=== PATIENT | female | born 1960 | race Two or more races ===

== ENCOUNTER → 2020-05-29 09:51 | Outpatient (BNVA) | payer OTHER, SELFPAY | PROVIDERS: PCP Internal Medicine; Visit Provider Physician Assistant | DX: Z01.89 Encounter for other specified special examinations (principal) | CPT/HCPCS: 99211 ==

== ENCOUNTER → 2020-05-30 15:40 | Outpatient (BNVA) | payer OTHER, SELFPAY | PROVIDERS: PCP Nurse Practitioner Family; Visit Provider Dietitian, Registered | DX: Z76.89 Persons encountering health services in other specified circumstances (principal) ==

== ENCOUNTER → 2020-05-30 15:40 | Outpatient (BNVA) | payer OTHER, SELFPAY | PROVIDERS: PCP Nurse Practitioner Family; Visit Provider Dietitian, Registered | DX: E66.3 Overweight (principal) ==

== ENCOUNTER → 2020-06-06 10:15 | Outpatient (BNVA) | payer OTHER, SELFPAY | PROVIDERS: PCP Nurse Practitioner Family; Referring Provider Nurse Practitioner Family; Visit Provider Internal Medicine Cardiovascular Disease | DX: Z01.810 Encounter for preprocedural cardiovascular examination (principal); I42.9 Cardiomyopathy, unspecified; Z98.84 Bariatric surgery status | CPT/HCPCS: 93005; 99212 ==

== ENCOUNTER → 2020-07-11 09:25 | Outpatient (BNVA) | payer OTHER, SELFPAY | PROVIDERS: PCP Nurse Practitioner Family; Referring Provider Nurse Practitioner Family; Visit Provider Physician Assistant | DX: Z76.89 Persons encountering health services in other specified circumstances (principal) ==

== ENCOUNTER → 2020-07-15 10:32 | Outpatient (BNVA) | payer OTHER, SELFPAY | PROVIDERS: PCP Nurse Practitioner Family; Visit Provider Surgery | DX: E66.3 Overweight (principal); M79.3 Panniculitis, unspecified | CPT/HCPCS: 99212 ==

== ENCOUNTER → 2020-10-11 09:51 | Outpatient (BNVA) | payer OTHER, SELFPAY | PROVIDERS: PCP Nurse Practitioner Family; Visit Provider Physician Assistant | DX: M79.3 Panniculitis, unspecified (principal); Z90.3 Acquired absence of stomach [part of]; L98.7 Excessive and redundant skin and subcutaneous tissue | CPT/HCPCS: 99212 ==

== ENCOUNTER → 2020-10-28 08:11 | Outpatient (BNVA) | payer OTHER, SELFPAY | PROVIDERS: PCP Nurse Practitioner Family; Visit Provider Surgery ==

== ENCOUNTER 2020-10-31 08:16 | Inpatient (IN) | payer OTHER, SELFPAY ==
[2020-10-29 10:41] LABS: Basophils Percent Auto 0.6 % (0-2); Hemoglobin 12.8 g/dl (12.0-16.0); INTERNATIONAL NORM RATIO 1.1 (0.9-1.1); Lymphocytes Absolute Auto 2.1 X10*3/uL (1.2-4.9); MANUAL DIFF FLAG SCAN; Neutrophils Percent Auto 47.9 % (45-73); Prothrombin Time 12.7 SEC (10.8-13.0); SCAN SMEAR FLAG 1
[2020-10-29 10:43] LABS: Hematocrit 41.1 % (37-47); Lymphocytes Percent Auto 45.9 % (20-40); Mean Corpuscular HGB Conc 31.1 g/dl (31.0-35.0); Mean Corpuscular Hemoglobin 26.1 pg (27.0-33.0); Mean Corpuscular Volume 83.9 fL (80-98); Mean Platelet Volume 11.9 fL (9.4-12.3); Monocytes Absolute Auto 0.3 X10*3/uL (0.1-1.2); Monocytes Percent Auto 5.6 % (2-11); Neutrophils Absolute Auto 2.2 X10*3/uL (2.0-8.3); Platelet Count 156 X10*3/uL (160-400); Red Cell Distribution Width 16.4 % (11.0-16.0); White Blood Count 4.6 X10*3/uL (4.8-10.8)
[2020-10-29 10:50] LABS: Estimated Average Glucose 105 mg/dL; Hemoglobin A1c % 5.3 %
[2020-10-29 10:52] LABS: Alanine Aminotransferase 119 U/L (0-31); Albumin Level 4.3 g/dL (3.5-5.0); Alkaline Phosphatase 85 U/L (39-117); Anion Gap 9 (12-20); Aspartate Amino Transferase 52 U/L (5-31); Bilirubin Total 0.4 mg/dL (0.0-1.0); Blood Urea Nitrogen 22 mg/dL (9-16); C Reactive Protein 0.05 mg/dL (< or = 0.50); Carbon Dioxide 30 mmol/L (22-29); Chloride 109 mmol/L (96-108); Cholesterol 191 mg/dL; Estimated Glomerular Filt Rate > 60; Glucose Random 88 mg/dL (60-115); HDL Cholesterol 73 mg/dL; LDL Cholesterol Calculated 106 mg/dl; PLT ABN DIST 1; Sodium 144 mmol/L (135-145); Total Protein 7.1 g/dL (6.5-8.0); Triglycerides 62 mg/dL
[2020-10-29 11:14] LABS: Ferritin 89 ng/mL (10-250); TSH reflex Free T4 0.66 uIU/mL (0.32-4.0); Vitamin D 25-OH Total 50.5 ng/mL (>30)
[2020-10-29 11:22] LABS: Vitamin B12 1408 pg/mL (200-900)
[2020-10-29 11:55] VITALS: BMI 27.1
--- NOTE | 2020-10-29 12:09 | HO.ANESPROP2 ---
Documented by User: Una Diane 10/30/20 11:54 HPI - Anesthesia Eval Consult details Narrative: 60yo F for Panniculectomy Weight loss surgery 2018 Cardiac cleared at low risk for total knee 05/2020. No change in cardiac symptoms. Coumadin for h/o DVT (2013) PMFSH Active Problems Active Problems: All Active Problems (Updated 10/29/20 @ 11:46 by Patricia Stevens) Cardiomyopathy (Acute) Preoperative cardiovascular examination (Acute) Overweight (Acute) Panniculitis (Acute) Excess skin of thigh (Acute) Excess skin of upper extremity (Acute) History of sleeve gastrectomy (Acute) Past Medical History Medical History Anxiety and depression Asthma Cardiomyopathy History of COVID-19 History of seizure Hx of deep venous thrombosis Hx of diabetes insipidus Hx of glaucoma Osteoarthritis Schizoaffective disorder Family History Family History Father Liver cancer Diabetes Mother Diabetes CAD (coronary artery disease) Kidney disease Sister Lupus Surgical History Surgical History H/O: hysterectomy History of corneal transplant History of gastric surgery History of right knee joint replacement History of sleeve gastrectomy History of tonsillectomy Social History Social History Are you a primary residential child care counselor to a significant other at home: No Do you presently have visiting nurse or other home services: Yes ( nurse comes in the morning for medications, [employer] in the afternoon ) Smoking Status: Never smoker Use of substances other than those prescribed or required for medical reasons: No Have you been hit, kicked, punched, or otherwise hurt by someone within the past year? If so, by whom?: No Advance Directives: No Advance Directives Information Provided: No Advance Directives on File: No Recently lost weight without trying: No Meds Allergies Allergy/AdvReac Type Severity Reaction Status Date / Time morphine [MORPHINE] Allergy Intermediate Confusion Verified 10/29/20 11:54 chocolate AdvReac Intermediate Nausea and Uncoded 10/29/20 11:54 Vomiting feathers AdvReac Itching Uncoded 10/31/20 10:16 Home Medications Medication Instructions Recorded Confirmed Last Taken Type acetaminophen 500 mg capsule 1,000 mg PO TID PRN 06/06/20 10/28/20 Unknown History albuterol sulfate 90 mcg/actuation 2 puff INHALATION Q6H PRN 06/06/20 10/28/20 Unknown History aerosol inhaler atorvastatin 40 mg tablet 40 mg PO DAILY 06/06/20 10/28/20 Unknown History brimonidine 0.1 % eye drops 1 drp OPHTHALMIC-LEFT BID 06/06/20 10/28/20 Unknown History clozapine 100 mg tablet 100 mg PO TID 06/06/20 10/28/20 10/31/20 History dorzolamide 2 % eye drops 1 drp OPHTHALMIC-LEFT BID 06/06/20 10/28/20 Unknown History ipratropium bromide 21 mcg (0.03 1 spray INTRANASAL BID PRN 06/06/20 10/28/20 Unknown History %) nasal spray levothyroxine 125 mcg tablet 125 mcg PO DAILY 06/06/20 10/28/20 10/31/20 History metoprolol succinate 25 mg 25 mg PO DAILY 06/06/20 10/28/20 Unknown History tablet,extended release 24 hr timolol 0.5 % eye drops 1 drp OPHTHALMIC (EYE) BID 06/06/20 10/28/20 Unknown History topiramate 25 mg tablet 25 mg PO BID 06/06/20 10/28/20 Unknown History venlafaxine 150 mg 150 mg PO DAILY 06/06/20 10/28/20 10/31/20 History capsule,extended release 24 hr warfarin 5 mg tablet 5 mg PO DAILY 06/06/20 10/28/20 10/23/20 History glucosamine sulfate 500 mg tablet 500 mg PO DAILY 07/15/20 10/28/20 Unknown History multivitamin 1 tab PO DAILY 07/15/20 10/28/20 Unknown History buspirone 7.5 mg PO DAILY 10/31/20 10/31/20 History clozapine 200 mg PO BEDTIME 10/31/20 Unknown History lactulose 15 ml PO Q OTHER DAY PRN 10/31/20 Unknown History polyethylene glycol 3350 [Gavilax] 17 g PO DAILY PRN 10/31/20 Unknown History venlafaxine 75 mg PO DAILY 10/31/20 10/31/20 History Exam Exam Date and Time: October 29, 2020 120 Height,Weight and Vital Signs: Height 5 ft 4 in Weight 71.668 kg Pertinent Lab Results Pertinent Lab Results: Laboratory Tests 10/29/20 10/29/20 10/29/20 09:30 09:30 09:30 WBC 4.6 L RBC 4.90 Hgb 12.8 Hct 41.1 MCV 83.9 MCH 26.1 L MCHC 31.1 RDW 16.4 H Plt Count 156 L MPV 11.9 Immature Gran % (Auto) 0.0 Neut % (Auto) 47.9 Lymph % (Auto) 45.9 H Mckean % (Auto) 5.6 Eos % (Auto) 0.0 Baso % (Auto) 0.6 Lymph # (Auto) 2.1 Mckean # (Auto) 0.3 Eos # (Auto) 0.0 Baso # (Auto) 0.0 Abs Immat Gran (auto) 0.00 Absolute Neuts (auto) 2.2 Absolute Nucleated RBC 0.000 Nucleated RBC % (auto) 0.0 Smear Tech's Comments Not Reportable PT 12.7 INR 1.1 APTT 34.0 Sodium 144 Potassium 4.0 Chloride 109 H Carbon Dioxide 30 H Anion Gap 9 L BUN 22 H Creatinine 0.90 Estim Creat Clear Calc TNP Estimated GFR > 60 Random Glucose 88 Estimat Average Glucose Hemoglobin A1c % Calcium 9.0 Ferritin 89 Total Bilirubin 0.4 AST 52 H ALT 119 H Alkaline Phosphatase 85 C-Reactive Protein 0.05 Total Protein 7.1 Albumin 4.3 Triglycerides 62 Cholesterol 191 LDL Cholesterol, Calc 106 HDL Cholesterol 73 Vitamin B12 25-OH Vitamin D Total 50.5 TSH 0.66 Blood Type Antibody Screen 10/29/20 10/29/20 10/29/20 09:30 09:30 09:30 WBC RBC Hgb Hct MCV MCH MCHC RDW Plt Count MPV Immature Gran % (Auto) Neut % (Auto) Lymph % (Auto) Mckean % (Auto) Eos % (Auto) Baso % (Auto) Lymph # (Auto) Mckean # (Auto) Eos # (Auto) Baso # (Auto) Abs Immat Gran (auto) Absolute Neuts (auto) Absolute Nucleated RBC Nucleated RBC % (auto) Smear Tech's Comments PT INR APTT Sodium Potassium Chloride Carbon Dioxide Anion Gap BUN Creatinine Estim Creat Clear Calc Estimated GFR Random Glucose Estimat Average Glucose 105 Hemoglobin A1c % 5.3 Calcium Ferritin Total Bilirubin AST ALT Alkaline Phosphatase C-Reactive Protein Total Protein Albumin Triglycerides Cholesterol LDL Cholesterol, Calc HDL Cholesterol Vitamin B12 1408 H 25-OH Vitamin D Total TSH Blood Type B Positive Antibody Screen NEGATIVE Narrative Narrative: EKG 05/2020 NSR 1st degree block Poor R wave progression Echo 2018 LVEF 50-55%, nml RV function, No valve pathology Stress MIBI 2017 Neg for ischemia Assessment and Plan Assessment Anesthesia Assessment: Chart Reviewed Documented by User: Raul Ambriz 10/31/20 10:40 PMFSH Past Medical History Medical History Anxiety and depression Asthma Cardiomyopathy History of COVID-19 History of seizure Hx of deep venous thrombosis Hx of diabetes insipidus Hx of glaucoma Osteoarthritis Schizoaffective disorder Family History Family History Father Liver cancer Diabetes Mother Diabetes CAD (coronary artery disease) Kidney disease Sister Lupus Surgical History Surgical History H/O: hysterectomy History of corneal transplant History of gastric surgery History of right knee joint replacement History of sleeve gastrectomy History of tonsillectomy Social History Social History Are you a primary residential child care counselor to a significant other at home: No Do you presently have visiting nurse or other home services: Yes ( nurse comes in the morning for medications, [employer] in the afternoon ) Smoking Status: Never smoker Use of substances other than those prescribed or required for medical reasons: No Have you been hit, kicked, punched, or otherwise hurt by someone within the past year? If so, by whom?: No Advance Directives: No Advance Directives Information Provided: No Advance Directives on File: No Recently lost weight without trying: No Meds Allergies Allergy/AdvReac Type Severity Reaction Status Date / Time morphine [MORPHINE] Allergy Intermediate Confusion Verified 10/29/20 11:54 chocolate AdvReac Intermediate Nausea and Uncoded 10/29/20 11:54 Vomiting feathers AdvReac Itching Uncoded 10/31/20 10:16 Home Medications Medication Instructions Recorded Confirmed Last Taken Type acetaminophen 500 mg capsule 1,000 mg PO TID PRN 06/06/20 10/28/20 Unknown History albuterol sulfate 90 mcg/actuation 2 puff INHALATION Q6H PRN 06/06/20 10/28/20 Unknown History aerosol inhaler atorvastatin 40 mg tablet 40 mg PO DAILY 06/06/20 10/28/20 Unknown History brimonidine 0.1 % eye drops 1 drp OPHTHALMIC-LEFT BID 06/06/20 10/28/20 Unknown History clozapine 100 mg tablet 100 mg PO TID 06/06/20 10/28/20 10/31/20 History dorzolamide 2 % eye drops 1 drp OPHTHALMIC-LEFT BID 06/06/20 10/28/20 Unknown History ipratropium bromide 21 mcg (0.03 1 spray INTRANASAL BID PRN 06/06/20 10/28/20 Unknown History %) nasal spray levothyroxine 125 mcg tablet 125 mcg PO DAILY 06/06/20 10/28/20 10/31/20 History metoprolol succinate 25 mg 25 mg PO DAILY 06/06/20 10/28/20 Unknown History tablet,extended release 24 hr timolol 0.5 % eye drops 1 drp OPHTHALMIC (EYE) BID 06/06/20 10/28/20 Unknown History topiramate 25 mg tablet 25 mg PO BID 06/06/20 10/28/20 Unknown History venlafaxine 150 mg 150 mg PO DAILY 06/06/20 10/28/20 10/31/20 History capsule,extended release 24 hr warfarin 5 mg tablet 5 mg PO DAILY 06/06/20 10/28/20 10/23/20 History glucosamine sulfate 500 mg tablet 500 mg PO DAILY 07/15/20 10/28/20 Unknown History multivitamin 1 tab PO DAILY 07/15/20 10/28/20 Unknown History buspirone 7.5 mg PO DAILY 10/31/20 10/31/20 History clozapine 200 mg PO BEDTIME 10/31/20 Unknown History lactulose 15 ml PO Q OTHER DAY PRN 10/31/20 Unknown History polyethylene glycol 3350 [Gavilax] 17 g PO DAILY PRN 10/31/20 Unknown History venlafaxine 75 mg PO DAILY 10/31/20 10/31/20 History Exam Airway Mallampati Class: II TM Dist: >3cm Neck ROM: Full Denture: Upper and Lower Heart: [id number] Lungs: CTA b/l Assessment and Plan Assessment Anesthesia Assessment: Anesthesia Plan Discussed, PAT Visit and Chart Reviewed Final Anesthetic Review NPO: Yes ASA Class: II and III Final Preanesthetic Review: No Changes in Pt Med Stat, Meds/Allgs Chart Reviewed, Consent Obtained/Reviewed and Anes Risks/Benef Reviewed Procedure Risk: Low Anesthetic Plan Anesthetic Plan: GA and Agree w/ Assess. and Plan Disposition: Standard PACU
[2020-10-30 08:57] LABS: Insulin Level Total 1.4 uIU/mL
[2020-10-30 15:01] LABS: Calcium (PTHI) 9.6 mg/dL (8.6-10.4); PTHI 44 pg/mL (14-64)
--- NOTE | 2020-10-30 18:17 | MHC.SHP ---
Pre-Procedural Eval Section A The patient is an INPATIENT: Yes The History & Physical has been completed within 30 days and I have reviewed it.: Yes Section B Chief Complaint: panniculitis Relevant Family History (Specify if Yes): No Relevant Social History: None Present Medications: see Short Stay Collaborative assessment Medical History: No relevant PMH History of Previous Operations: Relevant previous surgery/procedure and date(s) (sleeve gastrectomy) Allergies: Allergies Allergy/AdvReac Type Severity Reaction Status Date / Time morphine [MORPHINE] Allergy Intermediate Confusion Verified 10/29/20 11:54 chocolate AdvReac Intermediate Nausea and Uncoded 10/29/20 11:54 Vomiting Review of Systems Sugical H&P ROS: Negative: Constitution, Cardiovascular, Respiratory, Neurological, Psychiatric, Hem-Onc, Allergic/Immunologic, Gastrointestinal, Genitourinary, Musculoskeletal, Integumentary, Endocrine and Eyes/Ears/Nose/Throat Exam Surgical H&P Exam: Normal: HEENT, Normal: Heart, Normal: Lungs, Normal: Extremities, Normal: Abdomen, Normal: Skin and Normal: Neurological Plan Diagnosis/Plan: Unchanged I have reviewed the history and physical and performed a pertinent physical examination on my patient. No changes have occurred unless specified.
[2020-10-31] VITALS (29 sets, daily range): BP systolic 94–139; BP diastolic 43–79; PULSE 64–71; RESP 9–18; TEMP 36–36.4; O2SAT 95–100
[2020-10-31 08:48] LABS: INTERNATIONAL NORM RATIO 1.1 (0.9-1.1); Prothrombin Time 12.5 SEC (10.8-13.0)
[2020-10-31 08:53] LABS: COVID-19 Test Negative (Negative)
[2020-10-31] MEDS: Lactated Ringers 1,000 ML 100 ML IVCONT (09:01)
--- NOTE | 2020-10-31 10:22 | P.PNGS_ITS ---
Subjective Subjective Date of Service: 11/01/20 Interval history: Patient has mild incisional pain. Is tolerating phase 2 bariatric diet. She was on bedrest. Dressings were taken down and all incisions were inspected and appeared viable without ischemia. No significant discharge, dehiscence or bleeding. Physical Exam Vital Signs: Vital Signs: Last Vital Signs Temp 97.6 F 10/31/20 08:45 Pulse 66 10/31/20 08:45 Resp 16 10/31/20 08:45 BP 116/53 L 10/31/20 08:45 Pulse Ox 97 10/31/20 08:45 Body Mass Index 27.1 GI: Inspection: Yes incision (clean, dry and intact. Umbilicus is viable) and Yes other (GERRY with serosanguinous fluid) Extrem: Right lower extremity: normal to inspection (no calf tenderness) Left lower extremity: normal to inspection (no calf tenderness) Progress Note: A&P Assessment and plan (1) Panniculitis: Status: Acute Assessment and Plan: 60 year old female was admitted 10/31/2020 with panniculitis. Problem 1: s/p panniculectomy with umbilical transposition and bilateral subcutaneous fat flaps Status: Doing well Plan: Check am labs, If OK, ambulate, d/c Chavarria will continue phase 1 bariatric diet and discharge later today. (2) S/P panniculectomy: Status: Acute (3) History of sleeve gastrectomy: Problem details: May 2018 Status: Acute (4) Excess skin of upper extremity: Status: Acute Fall Risk Details Current Medications: Current Medications Generic Name Dose Route Start Last Admin Trade Name Freq PRN Reason Stop Dose Admin Albuterol Sulfate 2.5 mg 10/31/20 08:15 Albuterol Sulfate (0.083%) 2.5 Mg/3 Ml Vial.Neb INHALE ONCE PRN Shortness of Breath/Wheezing Lactated Ringer's 1,000 mls @ 100 mls/hr 10/30/20 18:30 10/31/20 09:01 Lr IVCONT 100 mls/hr .Q10H CHASITY Administration Lactated Ringer's 1,000 mls @ 50 mls/hr 10/31/20 08:15 Lr IV .Q20H CHASITY Time Spent With Patient Time: Total time spent is greater than 50% in coordination of care (as d ocumented) at patient's floor/unit and/or counseling patient: Time with patient: less than 15 minutes
--- NOTE | 2020-10-31 10:25 | P.BOP_ITS ---
Brief Operative Note Date of Service: 10/31/20 Pre-op diagnosis: Panniculitis with grade 3 skin laxity Post-op diagnosis: same Procedure: PROCEDURE: Panniculectomy with umbilical transposition and bilateral subcutaneous flaps INDICATION: This a 60 year old female who underwent laparoscopic sleeve gastrectomy on 05/31/2018. She had an excellent result achieving a BMI of 26.8 kg/m2 with a total weight loss of 178lbs, or 52.62% of her TBWL. As a result, she has developed panniculitis which has not resolved despite continuous use of clotrimazole ointment. On exam she has extreme skin laxity due to massive weight loss and age with the abdominal pannus completely hiding the genitalia. Panniculectomy was recommended. We discussed the two options for the panniculectomy of using a combined vertical and horizontal incisions or just a horizontal (bikini) incision. It was my recommendation to do the combined vertical and horizontal incisions based on her body habitus and skin laxity. The patient agreed with this. Risks and complications were discussed with the patient including bleeding, infection, umbilical loss, flap necrosis, asymmetry, dehiscence, seroma, VTE. The patient understood the risks and was in agreement to proceed with surgery. PROCEDURE: The incisions were appropriately marked at the preop area with the patient standing and laying down. After induction of general anesthesia a Chavarria catheter and pneumatic compression devices were placed. The patient was prepped and draped in the usual sterile manner and the incisions were marked again and confirmed. The skin was infiltrated with lidocaine and epinephrine. The #10 blade scalpel was used for the large incisions and the #15 blade scalpel for the umbilicus. Cautery was used to divide the subcutaneous tissues until the fascia was identified. Then I used the Thunderbeat (Olympus) to separate the pannus from the fascia. The inferior incision was made initially and I mobilized the flap for a several centimeters cephalad to the umbilicus. The umbilicus was incised circumferentially and detached from the surrounding tissues all the way to the fascia while its stalk was preserved. With the patient in reflex position I confirmed that the skin flaps were approp riate and would allow for the tissues to come together with reasonable tension. The vertical incisions were then made in a same manner. #10 blade was used for the skin, cautery for the dermis and the Thunderbeat for the remaining tissues. A bilateral subcutaneous fat flap was raised from the upper incision in order to fill the space under the skin and support the closure of the two skin flaps. In addition the inferior flap was mobilized caudally for a few centimeters to create a space for the omental flap as well as relieve tension from the closure. A circumferential incision was made at the area where the umbilicus would be re- implanted. The umbilicus was appropriately oriented and was delivered through the defect and was secured in place with a Rizwan. No bleeding was noted anywhere. Two GERRY drains were placed from the left and right corners of the horizontal incision across the wound and was secured in place with a silk suture. The subcutaneous fat flap was secured under the inferior flap with several interrupted 2.0 Monocryl sutures. The two flaps were brought together and were attached at the midline of the horizontal incision with a #2.0 Monocryl suture. At that point the umbilicus was properly oriented and was re-approximated to the skin with 8 interrupted 3.0 Monocryl sutures. In a similar fashion the skin flaps were re-approximated with multiple 3.0 Monocryl sutures. The skin was closed in all incisions and umbilicus with 4.0 Monocryl sutures. Steri-strips, xeroform gauzes and gauzes were used to cover the incisions. An abdominal binder was also placed. The was awaken and was transferred to the recover room in a stable condition. I was present and performed the entire procedure. Slaughter was the health care legal assistant. Camilo Mariano MD, PhD, FACS Surgeon: Harsha Mariano MD Anesthesia: GETA and local Bottle And Glass Inspector: Neda Slaughter Estimated blood loss (mL): 25 Tourniquet time (min): 0 IV fluids (mL): 1,500 Urine output (mL): 200 Pathology: other (abdominal pannus) Condition: stable Disposition: PACU
--- NOTE | 2020-10-31 15:07 | PM.DS ---
DS: Providers Provider Date of Service: 11/01/20 Date of admission: 10/31/20 08:16 Primary care physician: Unique Billy MD DS: Diagnosis Discharge Diagnosis (1) Panniculitis: Status: Acute DS: Medications Discharge Medications Home Medications: Home Medications Medication Instructions Recorded Confirmed acetaminophen 500 mg capsule 1,000 mg PO TID PRN 06/06/20 10/28/20 albuterol sulfate 90 mcg/actuation 2 puff INHALATION Q6H PRN 06/06/20 10/28/20 aerosol inhaler atorvastatin 40 mg tablet 40 mg PO DAILY 06/06/20 10/28/20 brimonidine 0.1 % eye drops 1 drp OPHTHALMIC-LEFT BID 06/06/20 10/28/20 clozapine 100 mg tablet 100 mg PO TID 06/06/20 10/28/20 dorzolamide 2 % eye drops 1 drp OPHTHALMIC-LEFT BID 06/06/20 10/28/20 ipratropium bromide 21 mcg (0.03 1 spray INTRANASAL BID PRN 06/06/20 10/28/20 %) nasal spray levothyroxine 125 mcg tablet 125 mcg PO DAILY 06/06/20 10/28/20 metoprolol succinate 25 mg 25 mg PO DAILY 06/06/20 10/28/20 tablet,extended release 24 hr timolol 0.5 % eye drops 1 drp OPHTHALMIC (EYE) BID 06/06/20 10/28/20 topiramate 25 mg tablet 25 mg PO BID 06/06/20 10/28/20 venlafaxine 150 mg 150 mg PO DAILY 06/06/20 10/28/20 capsule,extended release 24 hr warfarin 5 mg tablet 5 mg PO DAILY 06/06/20 10/28/20 glucosamine sulfate 500 mg tablet 500 mg PO DAILY 07/15/20 10/28/20 multivitamin 1 tab PO DAILY 07/15/20 10/28/20 buspirone 7.5 mg PO DAILY 10/31/20 clozapine 200 mg PO BEDTIME 10/31/20 lactulose 15 ml PO Q OTHER DAY PRN 10/31/20 polyethylene glycol 3350 [Gavilax] 17 g PO DAILY PRN 10/31/20 venlafaxine 75 mg PO DAILY 10/31/20 Previous Rx's Medication Instructions Recorded vitamin A 10,000 unit capsule 1 cap PO DAILY #30 cap 06/04/20 calcium citrate 315 mg 2 tab PO BID #120 tab 08/12/20 calcium-vitamin D3 6.25 mcg (250 unit) tablet cephalexin 500 mg capsule 500 mg PO Q12H #30 cap 10/27/20 DS: Summary Time Spent with Patient Time attestation: DISCHARGE SUMMARY ADMITTING DIAGNOSIS: panniculitis, s/p lap sleeve gastrectomy. DISCHARGE DIAGNOSIS: The same. PAST SURGICAL HISTORY: Lap sleeve gastrectomy, R TKR, tonsillectomy. PROCEDURE: Panniculectomy. HISTORY OF PRESENT ILLNESS: The patient is a 60year-old woman with a BMI of 27.1 kg/m2 and associated co-morbidities as described previous. The patient had a laparoscopic sleeve gastrectomy May 2018 and has lost a total of 178.8lbs, or 52.6 % of her initial weight and her BMI reduced to 27.1 kg/m2. As a result of the massive weight loss she developed a large abdominal pannus and persistent panniculitis recalcitrant to medical treatment. The patient was electively scheduled for panniculectomy. Risks and complications of the surgery were discussed with the patient in advance, particularly the possibility of , pulmonary embolism, skin necrosis, loss of umbilicus, flap necrosis, wound dehiscence, flap asymmetry, bleeding requiring transfusion. The patient understood all the risks and was in agreement with the surgical plan. On postoperative day #1 the patient was started on Phase 3 bariatric diet. The Chavarria was discontinued. She was allowed to ambulate and she had no dizziness. During the first day, the patient did fairly well, having some incisional pain, but able to ambulate adequately and to tolerate liquids well. All dressings were taken down and the all incisions were inspected. There was no evidence of infection or bleeding or significant discharge. All flaps and umbilicus were viable and there was no dehiscence. GERRY drains had minimal output with serosanguinous fluid. Since the patient is doing well, we decided that the patient was ready to be discharged. The patient was given instructions to follow-up with me next week and to call my office for any fever over 101, persistent abdominal pain, nausea, vomiting, and symptoms of DVT such as calf tenderness, or leg swelling, or pulmonary embolism such as chest pain or shortness of breath. The patient was also instructed to drink 40-60 ounces of liquids per day using the 1-ounce cups and start on 3 Pure protein shakes per day. The patient was given prescription for Tylenol for pain, Zofran prn for nausea and a 10-day course of Keflex twice a day. The patient was encouraged to ambulate and use the incentive spirometer. However it was strongly recommended to do so with assistance and avoid any abdominal straining for at least one month. The patient was allowed only to do sponge baths, and encouraged to use the recliner at home and not the bed. All of these instructions were given to the patient personally. All questions were answered and the patient understood all instructions. The instructions were given to the patient in print as well. Total time spent providing and/or coordinating discharge services: 20 minutes Discharge coordination time: Less than 30 minutes Physical Exam Vital Signs: Vital Signs: Last Vital Signs Temp 97.5 F 10/31/20 14:51 Pulse 65 10/31/20 15:01 Resp 16 10/31/20 15:01 BP 94/47 L 10/31/20 15:01 Pulse Ox 100 10/31/20 15:01 Body Mass Index 27.1 DS: Data Data Completed and Pending Pending studies at discharge: Pending at discharge 10/31/20 13:50 Surgical [PTH] Routine Labs on day of discharge: Laboratory Results - last 24 hr 10/31/20 10/31/20 08:25 08:33 PT 12.5 INR 1.1 COVID-19 (LELE) Negative COVID-19 Clin Com See Note Discharge Plan Discharge Anticipated Discharge Date/Time: 11/01/20 12:01 Patient Disposition: Home Health Service Referrals: Cynthia [Outside] Unique Billy MD [Primary Care Provider] - Discharge Medications: Continued clozapine 100 mg tablet 300 mg PO BEDTIME RF: 0 buspirone 7.5 mg tablet 7.5 mg PO DAILY RF: 0 lactulose 10 gram/15 mL solution 15 ml PO Q OTHER DAY PRN (Reason: constipation) RF: 0 venlafaxine 75 mg tablet extended release 24hr 75 mg PO DAILY RF: 0 latanoprost 0.005 % Drops 1 drp OPHTHALMIC (EYE) DAILY RF: 0 loratadine 10 mg Tablet 10 mg PO DAILY PRN (Reason: Allergic Symptoms) RF: 0 acetaminophen 500 mg capsule 1,000 mg PO TID PRN (Reason: Pain) RF: 0 atorvastatin 40 mg tablet 40 mg PO DAILY RF: 0 Alphagan P 0.1 % drops 1 drp ophthalmic-Left BID RF: 0 clozapine 100 mg tablet 100 mg PO BID RF: 0 dorzolamide 2 % drops 1 drp ophthalmic-Left BID RF: 0 ipratropium bromide 0.03 % spray,non-aerosol 1 spray intranasal BID PRN (Reason: Allergic Reaction) RF: 0 levothyroxine 125 mcg tablet 125 mcg PO DAILY RF: 0 metoprolol succinate 25 mg tablet extended release 24 hr 25 mg PO DAILY RF: 0 timolol 0.5 % drops 1 drp ophthalmic (eye) BID RF: 0 topiramate 25 mg tablet 25 mg PO BID RF: 0 venlafaxine 150 mg capsule,extended release 24hr 150 mg PO DAILY RF: 0 Held warfarin 5 mg tablet 1 mg PO DAILY RF: 0 Hold Instructions: Discuss when to restart with Dr Dubosetopoulos Discontinued polyethylene glycol 3350 [Gavilax] 17 gram/dose powder 17 g PO DAILY PRN (Reason: constipation) RF: 0 Discharge Orders: Discharge Order (Routine); Ordered 11/01/20 Ordered By: Harsha Mariano Diet: other Activity on Discharge: Rest with bed elevated Stand Alone Forms: Patient Portal Discharge page Activity Restrictions/Additional Instructions: 1) Record drain output for all 24 hour periods on drain output sheet. Bring sheet at the next office visit 2) Start Keflex antibiotic 3) No showers. Only sponge baths 4) Avoid any tension on the abdomen and always have help getting up. Use your arms to push off from chair/bed. 5) Take 1 tab of Colace and one tablespoon of Metamucil daily 6) Diet: 4 protein shakes, or 3 shakes and one bar, or 3 shakes and one meal (2oz meat and 2oz salad) 7) Wear binder at all times 8) Change dressings daily and send pictures to Dr. Mariano. Replace loose steri-strips and xeroform gauze along the incisions and umbilicus. 9) Supplies needed: ABD pads, 4x4 dressings, xeroform gauze, 1/2'' steri-strips, paper tape. You will need to use several of the above supplies on a daily basis. 10) No Coumadin for now until Dr. Mariano tells you to re-start Care Plan Goals: resolution of panniculitis Health Concerns: panniculitis Plan of Treatment: see discharge instructions Assessment: POD # 1, stable after panniculectomy Discharge Date/Time: 11/01/20 14:50
[2020-10-31] MEDS: ceFAZolin Sodium/Dextrose,Iso 2 GM/50 ML PIGGYBACK IV (16:21)
--- NOTE | 2020-10-31 16:50 | PC.NURSE ---
DR. MAHONEY UPDATED PATIENT REMAINS IN PACU SOMNOLENT, VITAL SIGNS GIVEN TO [place] AND RECEIVED DOSE OF NARCAN FROM ANESTHESIA REMAINS VERY SLEEPY ONLY AROUSE TACTILE STIMULATIONS
[2020-10-31 17:03] LABS: Hematocrit 41.8 % (37-47); Hemoglobin 12.8 g/dl (12.0-16.0)
--- NOTE | 2020-10-31 17:43 | PC.NURSE ---
DR. REYES AND PARESH SWAIN, BARIATRIC PA, MADE AWARE ANESTHESIA EVALUATED PATIENT DR. GALLEGOS RECOMMENDATION TO ADMIT WITH CONTINUOUS PULSE OXIMETRY. ORDER RECEIVED FROM PARESH SWAIN.
[2020-10-31] MEDS: ondansetron HCL 4 MG/2 ML VIAL IVPUSH (19:41)
[2020-10-31] MEDS: 0.9 % Sodium Chloride Flush 3 ML SYRINGE IVFLUSH (19:41)
[2020-10-31] MEDS: Lactated Ringers 1,000 ML 125 ML IVCONT (19:42)
[2020-11-01] MEDS: Lactated Ringers 1,000 ML 125 ML IVCONT ×2 (01:17→09:31)
[2020-11-01 01:27] LABS: Zinc 79 mcg/dL (60-130)
[2020-11-01 04:00] VITALS: BP 112/53; PULSE 65; RESP 16; TEMP 36.6; O2SAT 100
[2020-11-01 06:22] LABS: MANUAL DIFF FLAG NO
[2020-11-01 06:49] LABS: Basophils Percent Auto 0.3 % (0-2); Hematocrit 38.7 % (37-47); Imm Gran Abs Auto 0.07 X10*3/uL (0.00-0.03); Imm Gran Pct Auto 0.6 % (0.0-0.4); Lymphocytes Absolute Auto 2.2 X10*3/uL (1.2-4.9); Lymphocytes Percent Auto 18.7 % (20-40); Mean Corpuscular Hemoglobin 26.3 pg (27.0-33.0); Mean Corpuscular Volume 84.7 fL (80-98); Monocytes Absolute Auto 0.9 X10*3/uL (0.1-1.2); Monocytes Percent Auto 7.4 % (2-11); Neutrophils Absolute Auto 8.5 X10*3/uL (2.0-8.3); Platelet Count 146 X10*3/uL (160-400); Red Blood Count 4.57 X10*6/uL (4.20-5.50); Red Cell Distribution Width 16.4 % (11.0-16.0); White Blood Count 11.7 X10*3/uL (4.8-10.8)
[2020-11-01 07:04] LABS: Alanine Aminotransferase 53 U/L (0-31); Albumin Level 3.4 g/dL (3.5-5.0); Alkaline Phosphatase 77 U/L (39-117); Anion Gap 12 (12-20); Aspartate Amino Transferase 21 U/L (5-31); Bilirubin Total < 0.2 mg/dL (0.0-1.0); Blood Urea Nitrogen 14 mg/dL (9-16); Calcium 8.8 mg/dL (8.4-10.2); Carbon Dioxide 27 mmol/L (22-29); Chloride 109 mmol/L (96-108); Creatinine Clr Calc Pharmacy 72.5; Estimated Glomerular Filt Rate > 60; Glucose Random 97 mg/dL (60-115); Potassium 4.3 mmol/L (3.3-5.1); Sodium 144 mmol/L (135-145); Total Protein 5.8 g/dL (6.5-8.0)
[2020-11-01] MEDS: cloZAPine 100 MG TABLET PO (07:21)
[2020-11-01 08:00] VITALS: BP 108/41; PULSE 70; RESP 16; TEMP 36.4; O2SAT 100
--- NOTE | 2020-11-01 09:29 | MHC.CM.PN ---
PATIENT LIVES ALONE. SHE USES A [facility]WW FOR AMBULATION ASSIST. SHE IS ALSO ACTIVE WITH [facility], WHICH WILL RESUME SOC Wednesday11/02/20. FRIEND PROVIDES TRANSPORT TO AND FROM SHOPPING. OTHER TIMES, PATIENT RELIES ON [facility] TRANSPORTATION. SHE IS EXPECTED TO RETURN HOME THIS AFTERNOON. HER RN LIZBETH ([phone]) IS AWARE OF PLAN.
--- NOTE | 2020-11-01 10:13 | HO.POSTANES ---
Post Anesthesia Evaluation Post Anesthesia Evaluation Vital Signs: Vital Signs Temp Pulse Resp BP Pulse Ox 11/01/20 08:00 97.5 F 70 16 108/41 L 100 11/01/20 04:00 97.8 F 65 16 112/53 L 100 10/31/20 23:13 96.8 F 64 18 108/50 L 100 Anesthesia: General Endotracheal-GETA Mental Status: Awake Pain Control: Satisfactory Nausea/Vomiting: None Hydration: Adequate Anesthesia-Related Issues: No Anes. Related Issues
[2020-11-01 10:38] VITALS: O2SAT 98
[2020-11-01] MEDS: ondansetron HCL 4 MG/2 ML VIAL IVPUSH (11:13)
[2020-11-01 11:26] VITALS: BP 114/55; PULSE 75; RESP 18; TEMP 35.9; O2SAT 98
--- NOTE | 2020-11-01 12:11 | MHC.CM.PN ---
PATIENT IS DISCHARGED HOME. RASHAUN SOTO ([phone]) AWARE.
[2020-11-01 21:07] LABS: Vitamin A 63 mcg/dL (38-98)
[2020-11-02 12:42] LABS: Vitamin B1 30 nmol/L (8-30)
== END 2020-11-01 14:50 | disposition home health service (06) | DRG 361 ==
LOC: HO.SSSA 15:07 → HO.S3 16:21
PROVIDERS: Nurse Practitioner; Physician Assistant; Admitting Provider Surgery; PCP Internal Medicine; Visit Provider Surgery
PROC: 0JB80ZZ Excision of Abdomen Subcutaneous Tissue and Fascia, Open Approach (ICD-10-PCS; CPT 15830; principal; 2020-10-31 10:10)
DX: M79.3 Panniculitis, unspecified (principal); Z20.822 Contact with and (suspected) exposure to COVID-19; Z96.651 Presence of right artificial knee joint; Z88.5 Allergy status to narcotic agent; Z98.84 Bariatric surgery status; Z79.01 Long term (current) use of anticoagulants; Z79.890 Hormone replacement therapy; Z79.899 Other long term (current) drug therapy
CPT/HCPCS: 15830; 36415; 80053; 80061; 82306; 82607; 82728; 83036; 83525; 83970; 84425; 84443; 84590; 84630; 85014; 85018; 85025; 85610; 85730; 86140; 86850; 86900; 87635; 88304; 99024; C1758; J0131; J0690; J1100; J1170; J2250; J2370; J2405; J3010

== ENCOUNTER → 2020-11-08 07:44 | Outpatient (BNVA) | payer OTHER, SELFPAY | PROVIDERS: PCP Internal Medicine; Visit Provider Surgery | DX: Z98.890 Other specified postprocedural states (principal) | CPT/HCPCS: 99212 ==

== ENCOUNTER → 2020-11-18 10:42 | Outpatient (BNVA) | payer OTHER, SELFPAY | PROVIDERS: PCP Internal Medicine; Visit Provider Surgery | DX: Z98.890 Other specified postprocedural states (principal) | CPT/HCPCS: 99212 ==

== ENCOUNTER → 2020-12-02 09:58 | Outpatient (BNVA) | payer OTHER, SELFPAY | PROVIDERS: PCP Internal Medicine; Visit Provider Surgery | DX: Z98.890 Other specified postprocedural states (principal) | CPT/HCPCS: 99212 ==

== ENCOUNTER → 2020-12-10 11:19 | Outpatient (BNVA) | payer OTHER, SELFPAY | PROVIDERS: PCP Internal Medicine; Visit Provider Nurse Practitioner Family | DX: Z01.810 Encounter for preprocedural cardiovascular examination (principal); I42.9 Cardiomyopathy, unspecified; E66.3 Overweight | CPT/HCPCS: 93005; 99212 ==

== ENCOUNTER → 2020-12-18 08:17 | Outpatient (BNVA) | payer OTHER, SELFPAY | PROVIDERS: PCP Internal Medicine; Visit Provider Surgery | DX: E66.3 Overweight (principal); Z98.890 Other specified postprocedural states; Z90.3 Acquired absence of stomach [part of] | CPT/HCPCS: 99212 ==

== ENCOUNTER → 2021-01-03 11:37 | Outpatient (REF) | payer OTHER, SELFPAY ==
--- NOTE | 2021-01-03 11:44 | CA_ITS ---
Transthoracic Echocardiogram Patient (Last, First, Middle): Maryanne Marquez, Gender: Female Date of : 1960 Age: 60 Procedure Date: 01/03/2021 Procedure Type: Transthoracic Echocardiogram Location: OP Height: 165.1 cm Weight: 67.13 kg BSA: 1.74 m2 Heart Rate: bpm BP: 94 / 40 mmHg Political Consultant: KELVIN Gaines MD: Kassie Egan BONE GRINDERShayy Contracts Attorney: Ran Cramer MD Symptoms: I42.9 - Cardiomyopathy, unspecified Study Quality: Good ECG Rhythm: Sinus Conclusions: - 1. Normal LV systolic function with impaired relaxation filling pattern 2. Normal cardiac valvular Doppler 3. No gross pericardial effusion Findings Left Ventricle Normal left ventricular size, thickness, and systolic function. The visually estimated ejection fraction is between 60-65%. Spectral Doppler is indicative of an impaired relaxation filling pattern. E/E prime ratio is between 8 and 15 consistent with indeterminate filling pressures. Right Ventricle Normal right ventricular cavity size and systolic function. Atria The left atrium is likely dilated. There is no evidence of interatrial shunt. The right atrium is normal in size. Aortic Valve Normal aortic valve structure and function. There is no aortic valve stenosis. There is no aortic valve regurgitation. Mitral Valve Normal mitral valve structure and function. There is trace mitral valve regurgitation. There is no mitral valve stenosis. Pulmonic Valve The pulmonic valve is likely normal. There is trace pulmonic valve regurgitation. Tricuspid Valve Normal tricuspid valve structure. Tricuspid regurgitation envelope is inadequate for calculation of right ventricular systolic pressure. Great Vessels All visible segments of the aorta are normal in size. The visualized portions of the pulmonary artery and branches are normal. Venous The inferior vena cava is normal in size and collapses greater than 50% with inspiration. Pericardium/Pleural There is no evidence of pericardial effusion. Prior Study Comparison Changes noted compared to prior study dated: 02/17/2019. LV systolic function is improved to 60 65% Measurements 2D Linear Measurements RVIDd: 3.22 RVIDd Index: 1.85 IVSd: 1.11 0.6-0.9/0.6-1.0 cm LVIDd: 4.56 3.9-5.3/4.2-5.9 cm LVIDd Index: 2.62 2.4-3.2/2.2-3.1 cm/m2 LVIDs: 3.37 2.0-3.6 cm LVPWd: 1.04 0.7-1.1 cm Ao Root: 3.30 2.1-3.5 cm LA Diam: 4.20 2.7-3.8/3.0-4.0 cm LAIDs Index: 2.41 1.5-2.3 cm/m2 LV Mass: 215.58 67-162/88-224 g LV Mass Index: 123.90 43-95/49-115 g/m2 LVOT Diam: 2.10 3.0+(-)1.3 cm 2D Systolic Function EF 4C: 64.00 >55% EF 2C: 59.80 >55% EF BiP: 62.80 >55% Mitral Valve MV Pk E: 0.42 MV PK A: 0.52 MV Decel Time: 139.00 E/A: 0.80 E'Lateral: 9.57 E'Medial: 7.72 E/E' Med: 5.50 E/E' Lat: 4.40 Aortic Valve AoV Pk Yohan: 1.06 AoV Mn Yohan: 0.86 AoV VTI: 0.22 AoV Pk Grad: 4.00 Aov Mn Grad: 3.00 FAN Cont.VTI: 2.37 LVOT LVOT Pk Yohan: 0.80 LVOT Mn Yohan: 0.56 LVOT VTI: 0.15 LVOT Pk Grad: 3.00 LVOT Mn Grad: 1.00 LVOT Diam: 2.10 LVOT Area: 3.46 Diastolic Function MV Pk E: 0.42 MV Pk A: 0.52 E/A: 0.80 E'Medial: 7.72 E/E' Med: 5.50 E' Laterial: 9.57 E/E' Lat: 4.40 Tricuspid Valve RA Press: 3.00 Great Vessels Aorta Ao Root-2D: 3.30 2.0-3.7 cm Ao Asc: 3.30 2.1-3.4 cm Ao Arch: 2.90 Updated in Other Vendor System with Status of Final Ran Cramer MD electronically signed on 01/05/2021 1:14:14 PM with status of Final
== END ==
LOC: HO.CARD 11:37
PROVIDERS: Visit Provider Nurse Practitioner Family
DX: Z01.810 Encounter for preprocedural cardiovascular examination (principal); I42.9 Cardiomyopathy, unspecified
CPT/HCPCS: 93306

== ENCOUNTER → 2021-01-17 10:47 | Outpatient (BNVA) | payer OTHER, SELFPAY | PROVIDERS: PCP Internal Medicine; Visit Provider Physician Assistant | DX: E66.3 Overweight (principal); L98.7 Excessive and redundant skin and subcutaneous tissue; Z90.3 Acquired absence of stomach [part of]; Z98.890 Other specified postprocedural states; Z68.25 Body mass index [BMI] 25.0-25.9, adult | CPT/HCPCS: 99212 ==

== ENCOUNTER → 2021-03-06 14:47 | Outpatient (BNVA) | payer OTHER, SELFPAY | PROVIDERS: PCP Internal Medicine; Visit Provider Nurse Practitioner Family | DX: I95.9 Hypotension, unspecified (principal); I42.9 Cardiomyopathy, unspecified; E66.3 Overweight; E23.2 Diabetes insipidus; J30.89 Other allergic rhinitis; Z98.84 Bariatric surgery status; Z88.5 Allergy status to narcotic agent; Z91.018 Allergy to other foods; Z79.02 Long term (current) use of antithrombotics/antiplatelets; Z79.899 Other long term (current) drug therapy | CPT/HCPCS: 99212 ==

== ENCOUNTER → 2021-04-21 09:59 | Outpatient (BNVA) | payer OTHER, SELFPAY | PROVIDERS: PCP Internal Medicine; Visit Provider Dietitian, Registered | DX: E66.3 Overweight (principal); Z68.26 Body mass index [BMI] 26.0-26.9, adult | CPT/HCPCS: 97803 ==

== ENCOUNTER 2021-06-16 08:58 | Outpatient (REF) | payer OTHER, SELFPAY ==
[2021-06-16 12:34] LABS: MANUAL DIFF FLAG NO
[2021-06-16 12:50] LABS: Basophils Percent Auto 0.5 % (0-2); Eosinophils Absolute Auto 0.1 X10*3/uL (0.0-0.4); Eosinophils Percent Auto 1.5 % (0-4); Hematocrit 41.8 % (37.0-47.0); Hemoglobin 12.9 g/dl (12.0-16.0); Imm Gran Abs Auto 0.02 X10*3/uL (0.00-0.03); Imm Gran Pct Auto 0.3 % (0.0-0.4); Lymphocytes Absolute Auto 3.2 X10*3/uL (1.2-4.9); Lymphocytes Percent Auto 48.7 % (20-40); Mean Corpuscular HGB Conc 30.9 g/dl (31.0-35.0); Mean Corpuscular Volume 84.3 fL (80.0-98.0); Mean Platelet Volume 11.5 fL (9.4-12.3); Monocytes Absolute Auto 0.3 X10*3/uL (0.1-1.2); Monocytes Percent Auto 4.9 % (2-11); Neutrophils Absolute Auto 2.9 x10*3/uL (2.0-8.3); Neutrophils Percent Auto 44.1 % (45-73); Platelet Count 209 X10*3/uL (160-400); Red Blood Count 4.96 X10*6/uL (4.20-5.50); Red Cell Distribution Width 16.6 % (11.0-16.0); White Blood Count 6.6 X10*3/uL (4.8-10.8)
[2021-06-16 12:58] LABS: INTERNATIONAL NORM RATIO 2.5 (0.9-1.1); Prothrombin Time 29.1 SEC (9.9-13.0)
[2021-06-16 13:02] LABS: Partial Thromboplastin Time 41.7 SEC (24.1-38.0)
[2021-06-16 13:35] LABS: Estimated Average Glucose 114 mg/dL; Hemoglobin A1c % 5.6 %
[2021-06-16 13:41] LABS: Alanine Aminotransferase 97 U/L (0-31); Alkaline Phosphatase 95 U/L (39-117); Anion Gap 12 (12-20); Aspartate Amino Transferase 60 U/L (5-31); Bilirubin Total 0.2 mg/dL (0.0-1.0); Blood Urea Nitrogen 22 mg/dL (9-16); C Reactive Protein 0.06 mg/dL (< or = 0.50); Calcium 9.4 mg/dL (8.4-10.2); Carbon Dioxide 25 mmol/L (22-29); Chloride 109 mmol/L (96-108); Cholesterol 191 mg/dL; Estimated Glomerular Filt Rate > 60; Glucose Random 92 mg/dL (60-115); HDL Cholesterol 73 mg/dL; LDL Cholesterol Calculated 107 mg/dl; Sodium 142 mmol/L (135-145); Total Protein 6.9 g/dL (6.5-8.0); Triglycerides 57 mg/dL
[2021-06-16 14:04] LABS: Insulin 3 uU/mL (2-29); TSH reflex Free T4 0.48 uIU/mL (0.32-4.0)
== END 2021-06-16 08:59 | disposition home or self-care (01) ==
LOC: HO.LAB 08:58
PROVIDERS: Absent Provider Surgery; PCP Internal Medicine; Referring Provider Internal Medicine; Visit Provider Internal Medicine Cardiovascular Disease
DX: K91.2 Postsurgical malabsorption, not elsewhere classified (principal); L03.90 Cellulitis, unspecified; I42.9 Cardiomyopathy, unspecified; Z86.718 Personal history of other venous thrombosis and embolism; Z90.3 Acquired absence of stomach [part of]
CPT/HCPCS: 36415; 80053; 80061; 83036; 83525; 84443; 85025; 85610; 85730; 86140; 99212

== ENCOUNTER 2021-06-24 06:01 | Day surgery (SDC) | payer OTHER, SELFPAY ==
[2021-06-11 15:22] VITALS: BMI 27.1
--- NOTE | 2021-06-21 11:06 | MHC.SHP ---
Pre-Procedural Eval Section A Date of Service: 06/21/21 The patient is an INPATIENT: No The History & Physical has been completed within 30 days and I have reviewed it.: Yes Section B Chief Complaint: Excessive and Redundant Skin Relevant Family History (Specify if Yes): No Relevant Social History: None Present Medications: None Medical History: No relevant PMH History of Previous Operations: Relevant previous surgery/procedure and date(s) (Sleeve gastrectomy) Allergies: Allergies Allergy/AdvReac Type Severity Reaction Status Date / Time morphine [MORPHINE] AdvReac Intermediate Confusion Verified 06/16/21 09:09 chocolate AdvReac Intermediate Nausea and Uncoded 06/11/21 15:17 Vomiting feathers AdvReac Intermediate Itching Uncoded 06/11/21 15:26 Review of Systems Sugical H&P ROS: Negative: Constitution, Cardiovascular, Respiratory, Neurological, Psychiatric, Hem-Onc, Allergic/Immunologic, Gastrointestinal, Genitourinary, Musculoskeletal, Integumentary, Endocrine and Eyes/Ears/Nose/Throat Exam Surgical H&P Exam: Normal: HEENT, Normal: Heart, Normal: Lungs, Normal: Extremities, Normal: Abdomen, Normal: Skin and Normal: Neurological Plan Diagnosis/Plan: Unchanged I have reviewed the history and physical and performed a pertinent physical examination on my patient. No changes have occurred unless specified.
--- NOTE | 2021-06-23 08:35 | P.CONAN_ITS ---
Documented by User: Una Diane NP 06/23/21 09:38 HPI - Anesthesia Eval Consult details Narrative: 61yo F for Bilateral Thighplasty s/p panniculectomy 10/2020 with GA-ETT 7 Warfarin d/t h/o DVT Stable at routine cardiac visit 06/16/21 Per cardiology 12/2020 prior total knee: Echocardiogram shows EF 60-65%, no reported Wall motion abnormalities, impaired relaxation. Case reviewed with Dr Ozuna. Stress test not needed as no symptoms. She may proceed with surgery with an intermediate cardiac risk. Continue Atorvastatin and Metoprolol. Her warfarin is for prior DVT and not managed by our office. Call/ consult cardiology if needed. [facility] Active Problems Active Problems: All Active Problems (Updated 06/16/21 @ 11:55 by Harsha Mariano MD) Hx of deep venous thrombosis (Acute) Postgastrectomy malabsorption (Acute) Cellulitis (Acute) Overweight (Acute) Panniculitis (Acute) Excess skin of thigh (Acute) Excess skin of upper extremity (Acute) S/P panniculectomy (Acute) Hypotension (Acute) Excess skin of thigh (Acute) Preoperative cardiovascular examination (Acute) Cardiomyopathy (Acute) History of sleeve gastrectomy (Acute) Past Medical History Medical History Anxiety and depression Asthma Bipolar depression Cardiomyopathy Excess skin of thigh History of COVID-19 History of seizure Hx of deep venous thrombosis Hx of diabetes insipidus Hx of glaucoma Osteoarthritis Preoperative cardiovascular examination Schizoaffective disorder Family History Family History Father Liver cancer Diabetes Mother Diabetes CAD (coronary artery disease) Kidney disease Sister Lupus Surgical History Surgical History H/O: hysterectomy History of corneal transplant History of gastric surgery History of right knee joint replacement History of sleeve gastrectomy History of tonsillectomy Social History Social History Household Members: None Housing: Apartment Are you a primary medicare compliance auditor to a significant other at home: No Do you presently have visiting nurse or other home services: Yes (LETTER 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 If so, by whom?: No Are you DNR?: No Advance Directives: No Advance Directives Information Provided: Yes Advance Directives on File: No Recently lost weight without trying: No service: No Current occupational status: disabled Meds Allergies Allergy/AdvReac Type Severity Reaction Status Date / Time morphine [MORPHINE] AdvReac Intermediate Confusion Verified 06/16/21 09:09 chocolate AdvReac Intermediate Nausea and Uncoded 06/11/21 15:17 Vomiting feathers AdvReac Intermediate Itching Uncoded 06/11/21 15:26 Home Medications Medication Instructions Recorded Confirmed Last Taken Type acetaminophen 500 mg capsule 1,000 mg PO TID PRN 06/06/20 06/16/21 Unknown History atorvastatin 40 mg tablet 40 mg PO DAILY 06/06/20 06/16/21 10/30/20 History brimonidine 0.1 % eye drops 1 drp OPHTHALMIC-LEFT BID 06/06/20 06/16/21 11/01/20 History (Alphagan P) clozapine 100 mg tablet 100 mg PO BID 06/06/20 06/16/21 10/31/20 History dorzolamide 2 % eye drops 1 drp OPHTHALMIC-LEFT BID 06/06/20 06/16/21 11/01/20 History ipratropium bromide 21 mcg (0.03 1 spray INTRANASAL BID PRN 06/06/20 06/16/21 Unknown History %) nasal spray levothyroxine 125 mcg tablet 125 mcg PO DAILY 06/06/20 06/16/21 10/31/20 History timolol 0.5 % eye drops 1 drp OPHTHALMIC (EYE) BID 06/06/20 06/16/21 11/01/20 History topiramate 25 mg tablet 25 mg PO BID 06/06/20 06/16/21 10/30/20 History venlafaxine 150 mg 150 mg PO DAILY 06/06/20 06/16/21 10/31/20 History capsule,extended release 24 hr warfarin 5 mg tablet 1 mg PO DAILY 06/06/20 06/16/21 10/23/20 History buspirone 7.5 mg tablet 7.5 mg PO DAILY 10/31/20 06/16/21 10/30/20 History clozapine 100 mg tablet 300 mg PO BEDTIME 10/31/20 06/16/21 10/30/20 History lactulose 10 gram/15 mL oral 15 ml PO Q OTHER DAY PRN 10/31/20 06/16/21 Unknown History solution venlafaxine 75 mg tablet,extended 75 mg PO DAILY 10/31/20 06/16/21 10/31/20 History release 24 hr latanoprost 0.005 % eye drops 1 drp OPHTHALMIC (EYE) DAILY 11/01/20 06/16/21 10/30/20 History loratadine 10 mg tablet 10 mg PO DAILY PRN 11/01/20 06/16/21 Unknown History Exam Exam Date and Time: June 23, 2021 0835 Height,Weight and Vital Signs: Height 5 ft 4 in Weight 71.668 kg Pertinent Lab Results Pertinent Lab Results: Laboratory Tests 06/16/21 12:17 Blood Type B Positive Antibody Screen NEGATIVE Laboratory Tests 06/16/21 06/16/21 12:27 12:27 WBC 6.6 Hgb 12.9 Hct 41.8 Plt Count 209 Sodium 142 Potassium 4.0 Chloride 109 H Carbon Dioxide 25 BUN 22 H D Creatinine 0.86 Narrative Narrative: ECHO 12/2020 Conclusions: -? 1. Normal LV systolic function with impaired relaxation ? ? ? filling pattern? 2. Normal cardiac valvular Doppler ? 3. No gross pericardial effusion ? 12/2020 sinus rhythm with first-degree AV block, no acute ST or T-wave abnormalities, can not rule out anterior infarct, age undetermined, EKG unchanged from prior EKG, rate 67 Assessment and Plan Assessment Anesthesia Assessment: Chart Reviewed Documented by User: Carlie Sol MD 06/24/21 09:37 [facility] Past Medical History Medical History Anxiety and depression Asthma Bipolar depression Cardiomyopathy Excess skin of thigh History of COVID-19 History of seizure Hx of deep venous thrombosis Hx of diabetes insipidus Hx of glaucoma Osteoarthritis Preoperative cardiovascular examination Schizoaffective disorder Family History Family History Father Liver cancer Diabetes Mother Diabetes CAD (coronary artery disease) Kidney disease Sister Lupus Family history of problems with anesthesia: No Surgical History Surgical History H/O: hysterectomy History of corneal transplant History of gastric surgery History of right knee joint replacement History of sleeve gastrectomy History of tonsillectomy History of Problems with Anesthesia: No Social History Social History Household Members: None Housing: Apartment Are you a primary medicare compliance auditor to a significant other at home: No Do you presently have visiting nurse or other home services: Yes (LETTER 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 If so, by whom?: No Are you DNR?: No Advance Directives: No Advance Directives Information Provided: Yes Advance Directives on File: No Recently lost weight without trying: No service: No Current occupational status: disabled Meds Allergies Allergy/AdvReac Type Severity Reaction Status Date / Time morphine [MORPHINE] AdvReac Intermediate Confusion Verified 06/16/21 09:09 chocolate AdvReac Intermediate Nausea and Uncoded 06/11/21 15:17 Vomiting feathers AdvReac Intermediate Itching Uncoded 06/11/21 15:26 Home Medications Medication Instructions Recorded Confirmed Last Taken Type acetaminophen 500 mg capsule 1,000 mg PO TID PRN 06/06/20 06/16/21 Unknown History atorvastatin 40 mg tablet 40 mg PO DAILY 06/06/20 06/16/21 10/30/20 History brimonidine 0.1 % eye drops 1 drp OPHTHALMIC-LEFT BID 11/07/1406/16/21 11/01/20 History (Alphagan P) clozapine 100 mg tablet 100 mg PO BID 06/06/20 06/16/21 10/31/20 History dorzolamide 2 % eye drops 1 drp OPHTHALMIC-LEFT BID 06/06/20 06/16/21 11/01/20 History ipratropium bromide 21 mcg (0.03 1 spray INTRANASAL BID PRN 06/06/20 06/16/21 Unknown History %) nasal spray levothyroxine 125 mcg tablet 125 mcg PO DAILY 06/06/20 06/16/21 10/31/20 History timolol 0.5 % eye drops 1 drp OPHTHALMIC (EYE) BID 06/06/20 06/16/21 11/01/20 History topiramate 25 mg tablet 25 mg PO BID 06/06/20 06/16/21 10/30/20 History venlafaxine 150 mg 150 mg PO DAILY 06/06/20 06/16/21 10/31/20 History capsule,extended release 24 hr warfarin 5 mg tablet 1 mg PO DAILY 06/06/20 06/16/21 10/23/20 History buspirone 7.5 mg tablet 7.5 mg PO DAILY 10/31/20 06/16/21 10/30/20 History clozapine 100 mg tablet 300 mg PO BEDTIME 10/31/20 06/16/21 10/30/20 History lactulose 10 gram/15 mL oral 15 ml PO Q OTHER DAY PRN 10/31/20 06/16/21 Unknown History solution venlafaxine 75 mg tablet,extended 75 mg PO DAILY 10/31/20 06/16/21 10/31/20 History release 24 hr latanoprost 0.005 % eye drops 1 drp OPHTHALMIC (EYE) DAILY 11/01/20 06/16/21 10/30/20 History loratadine 10 mg tablet 10 mg PO DAILY PRN 11/01/20 06/16/21 Unknown History Exam Height,Weight and Vital Signs: Height 5 ft 4 in Weight 71.668 kg Vital Signs Temp Pulse Resp BP Pulse Ox 06/24/21 06:49 98.3 F 78 18 113/55 L 99 Pertinent Lab Results Pertinent Lab Results: Laboratory Tests 06/16/21 12:17 Blood Type B Positive Antibody Screen NEGATIVE Laboratory Tests 06/16/21 06/16/21 12:27 12:27 WBC 6.6 Hgb 12.9 Hct 41.8 Plt Count 209 Sodium 142 Potassium 4.0 Chloride 109 H Carbon Dioxide 25 BUN 22 H D Creatinine 0.86 Lab Results 06/16/21 06/24/21 Range/Units 12:17 06:12 COVID-19 (LELE) Negative (Negative) COVID-19 Clin Com See Note Blood Type B Positive Antibody Screen NEGATIVE Airway Mallampati Class: II TM Dist: >3cm Neck ROM: Full Denture: Upper and Lower Heart: RRR Lungs: CTAB Assessment and Plan Assessment Anesthesia Assessment: Anesthesia Plan Discussed Final Anesthetic Review Family History of Problems with Anesthesia: No History of Problems with Anesthesia: No NPO: Yes ASA Class: III Final Preanesthetic Review: No Changes in Pt Med Stat, Meds/Allgs Chart Reviewed, Consent Obtained/Reviewed and Anes Risks/Benef Reviewed Patient Risk: Intermediate Procedure Risk: Intermediate Assessment/Block/Sedation in SS: Assess/Block/Sedation-SS Anesthetic Plan Anesthetic Plan: GA Disposition: Standard PACU and Inp. Admit - Standard Bed
[2021-06-24] VITALS (14 sets, daily range): BP systolic 88–127; BP diastolic 37–78; PULSE 68–78; RESP 10–18; TEMP 36.1–36.8; O2SAT 94–99; BMI 10.2
[2021-06-24 06:50] LABS: COVID-19 Test Negative (Negative)
--- NOTE | 2021-06-24 13:49 | P.BOP_ITS ---
Brief Operative Note Date of Service: 06/24/21 Pre-op diagnosis: Cellulitis, excessive skin thighs, skin laxity Post-op diagnosis: same Procedure: PROCEDURE: Bilateral thighplasty INDICATION: This a 61 year old female who underwent laparoscopic sleeve gastrectomy. She had an excellent result achieving a BMI of 27 kg/m2 with a total weight loss of 177.4lbs, or 52.2% of her TBWL. As a result, she has developed skin irritation and intetrigo in both medial thighs. On exam she has extreme skin laxity due to massive weight loss and age friction between the?inner thighs and difficulty in walking. Bilateral thighplasty was recommen ded.?Risks and complications were discussed with the patient including bleeding, infection, flap necrosis, asymmetry, dehiscence, seroma, VTE. The patient understood the risks and was in agreement to proceed with surgery. PROCEDURE: The incisions were appropriately marked at the preop area with the patient standing and laying down. After induction of general anesthesia a Chavarria catheter and pneumatic compression devices were placed. The patient was prepped and draped in the usual sterile manner and the incisions were marked again and confirmed. In similar fashion both thighs were also marked when the patient was standing. The thigh incisions were appropriately marked. The legs were flexed in a semi- frog position at the knees and abducted at the hip level.?The anterior incision was made first. I did not commit to the posterior incision until dissection was completed and I could assess the appropriate location for the posterior incision to prevent excessive tension. Cautery was used to separate the skin from subcutaneous tissues. Flap mobilization was performed with the Thunderbeat. Careful attention was paid to make sure that the plain of excision was superfic ial as close to the skin as possible and superior to the fascia. Both specimens were 49 cm long and 10cm in maximum diameter. Skin was closed in two layers using interrupted 3.0 Monocryl sutures for the dermis and 4.0 subcuticular Monocryl suture for the skin. The patient was extubated and was transferred in a stable condition at the recovery room. I was present and performed all steps of the procedure. There were no residents available to assist. Ms. Neda Slaughter PA-C was the housing assistant property manager. Due to the patient's size and massive weight loss this was a very difficult case that took 5 hours to complete. Camilo Mariano MD, PhD, FACS ReplyForward Surgeon: Harsha Mariano MD Anesthesia: GETA and local Was an Policy Services Representative used for this Procedure?: No Policy Services Representative: Neda Slaughter Estimated blood loss (mL): 10 IV fluids (mL): 1,500 Urine output (mL): 150 Pathology: other (thigh skin bilaterally) Condition: stable Disposition: PACU
--- NOTE | 2021-06-24 13:56 | P.PNGS_ITS ---
Subjective Subjective Date of Service: 06/25/21 Interval history: Patient has mild incisional pain. She was at bedrest overnight.. She is tolerating phase 1 bariatric diet. Feels well and was able to stand up Dressings were taken down. There was drainage from the incision. But is is a difficult dressing change. Incisions look good Physical Exam Vital Signs: Vital Signs: Last Vital Signs Temp 98.3 F 06/24/21 06:49 Pulse 78 06/24/21 06:49 Resp 18 06/24/21 06:49 BP 113/55 L 06/24/21 06:49 Pulse Ox 99 06/24/21 06:49 Body Mass Index 10.2 Extrem: Right lower extremity: normal to inspection (no calf tenderness) and hip/thigh (incision intact without bleeding or tightness) Left lower extremity: normal to inspection (no calf tenderness) and hip/thigh (incision intact without bleeding or tightness) Objective Data Active Medications Albuterol Sulfate (Albuterol Sulfate (0.083%) 2.5 Mg/3 Ml Vial.Neb) 2.5 mg INHALE ONCE PRN PRN Reason: Shortness of Breath/Wheezing Fentanyl (Fentanyl Citrate/Pf 100 Mcg/2 Ml Vial) 25 mcg IVPUSH Q5M PRN; Protocol PRN Reason: Pain, Moderate (Pain Scale 4-6 Hydromorphone HCl (Hydromorphone Hcl 0.5 Mg/0.5 Ml Syringe) 0.25 mg IVPUSH Q5M PRN; Protocol PRN Reason: Pain, Severe (Pain Scale 7-10) Lactated Ringer's (Lr) 1,000 mls @ 100 mls/hr IVCONT .Q10H CHASITY Lactated Ringer's (Lr) 1,000 mls @ 80 mls/hr IVCONT .[id number] CHASITY Promethazine HCl 6.25 mg/ (Sodium Chloride) 50.25 mls @ 201 mls/hr IV ONCE PRN PRN Reason: Nausea and Vomiting Ondansetron HCl (Ondansetron Hcl 4 Mg/2 Ml Vial) 4 mg IVPUSH ONCE PRN PRN Reason: Nausea and Vomiting Labs CBC & Chem 7: 06/25/21 05:52 06/25/21 05:52 Labs: Laboratory Results - last 24 hr 06/24/21 06:12 COVID-19 (LELE) Negative COVID-19 Clin Com See Note Procedures Date of Service Date of Service: 06/25/21 Progress Note: A&P Assessment and plan (1) Excess skin of thigh: Status: Acute Assessment and Plan: s/p bilateral thighplasty Doing well. Dressings were changed. Incisions look viable. No bleeding D/C Chavarria Check am labs. Will discharge home with VNA?tomorrow. Need more observation dye to patient's mobility issues, difficlt dressing change and need for IV antibiotics. Also needs careful monitoring due to her history of VTE and timing of re-starting anticuagulation (2) Cellulitis: Status: Acute Fall Risk Details Current Medications: Current Medications Albuterol Sulfate (Albuterol Sulfate (0.083%) 2.5 Mg/3 Ml Vial.Neb) 2.5 mg INHALE ONCE PRN PRN Reason: Shortness of Breath/Wheezing Fentanyl (Fentanyl Citrate/Pf 100 Mcg/2 Ml Vial) 25 mcg IVPUSH Q5M PRN; Prot ocol PRN Reason: Pain, Moderate (Pain Scale 4-6 Hydromorphone HCl (Hydromorphone Hcl 0.5 Mg/0.5 Ml Syringe) 0.25 mg IVPUSH Q5M PRN; Protocol PRN Reason: Pain, Severe (Pain Scale 7-10) Lactated Ringer's (Lr) 1,000 mls @ 100 mls/hr IVCONT .Q10H CHASITY Lactated Ringer's (Lr) 1,000 mls @ 80 mls/hr IVCONT .[id number] CHASITY Promethazine HCl 6.25 mg/ (Sodium Chloride) 50.25 mls @ 201 mls/hr IV ONCE PRN PRN Reason: Nausea and Vomiting Ondansetron HCl (Ondansetron Hcl 4 Mg/2 Ml Vial) 4 mg IVPUSH ONCE PRN PRN Reason: Nausea and Vomiting Time Spent With Patient Time: Total time spent is greater than 50% in coordination of care (as documented) at patient's floor/unit and/or counseling patient: Time with patient: 15 - 24 minutes Quality Stroke Does the patient have a stroke diagnosis?: No VTE Prior VTE?: Yes Approximate Date of Prior VTE: 08/05/16 Approximate Time of Prior VTE: 13:00 VTE Risk Level:: Surgical - high VTE Device Contraindication: N/A - Device Ordered VTE Drug Contraindication: N/A - Med Ordered (Will re-start anticuagulation when clinically safe)
--- NOTE | 2021-06-24 14:18 | PM.DS ---
DS: Providers Provider Date of Service: 06/26/21 Primary care physician: Unknown Physician DS: Diagnosis Discharge Diagnosis (1) Excess skin of thigh: Status: Acute (2) Cellulitis: Status: Acute DS: Summary Hospital Course Hospital Course: DISCHARGE SUMMARY ADMITTING DIAGNOSIS: Cellulitis and excess skin of legs, s/p lap sleeve gastrectomy DISCHARGE DIAGNOSIS: The same. PAST SURGICAL HISTORY: Lap sleeve gastrectomy, panniculectomy, B TKR, hysterectomy PROCEDURE: Bilateral thighplasty. HISTORY OF PRESENT ILLNESS: The patient is a 61 year-old woman with a BMI of 27 kg/m2. The patient had a laparoscopic sleeve gastrectomy and has lost a total of 177 lbs. As a result of the massive weight loss she developed significant amount of excess skin on thighs and persistent cellulitis recalcitrant to medical treatment. The patient was electively scheduled for bilateral thighplasty. Risks and complications of the surgery were discussed with the patient in advance, particularly the possibility of , pulmonary embolism, skin necrosis, loss of umbilicus, flap necrosis, wound dehiscence, flap asymmetry, bleeding requiring transfusion. The patient understood all the risks and was in agreement with the surgical plan. On postoperative day #1 the patient was started on Phase 3 bariatric diet. The Chavarria was discontinued. She was allowed to ambulate and she had no dizziness. During the first day, the patient did fairly well, having some incisional pain, but able to ambulate adequately and to tolerate liquids well. All dressings were taken down and the all incisions were inspected. There was no evidence of infection or bleeding or significant discharge. All flaps were viable and there was no dehiscence. She was doing well but it was felt that she needed more time and help with dressing changes so the decision was made to keep her overnight for teaching. On POD # 2, patient was stable and had a better undrstanding of how to perform dressing changes so we decided that the patient was ready to be discharged. The patient was given instructions to follow-up with me next week and to call my office for any fever over 101, persistent abdominal pain, nausea, vomiting, and symptoms of DVT such as calf tenderness, or leg swelling, or pulmonary embolism such as chest pain or shortness of breath. The patient was also instructed to drink 40-60 ounces of liquids per day using the 1-ounce cups and start on 3 Pure protein shakes per day. The patient was given prescription for Tylenol for pain, Zofran prn for nausea and a 10-day course of Keflex twice a day. The patient was encouraged to use the incentive spirometer. However it was strongly recommended to do so with assistance and avoid any straining for at least one month. The patient was allowed only to do sponge baths, and encouraged to use the recliner at home and not the bed. All of these instructions were given to the patient personally. All questions were answered and the patient understood all instructions. The instructions were given to the patient in print as well. Time Spent with Patient Time attestation: Total time spent providing and/or coordinating discharge services: Discharge coordination time: Greater than 30 minutes Quality: Stroke Does the patient have a stroke diagnosis?: No Physical Exam Vital Signs: Vital Signs: Last Vital Signs Temp 97.3 F 06/24/21 14:03 Pulse 71 06/24/21 14:13 Resp 12 06/24/21 14:13 BP 93/50 L 06/24/21 14:13 Pulse Ox 98 06/24/21 14:13 Body Mass Index 10.2 DS: Data Data Completed and Pending Completed studies during hospitalization [Text1]: Procedures Excision of Abdomen Subcutaneous Tissue and Fascia, Open Approach (10/31/20) Transfer Abdomen Subcutaneous Tissue and Fascia with Skin and Subcutaneous Tissue, Open Approach (10/31/20) Pending studies at discharge: Pending at discharge 06/24/21 11:53 Surgical [PTH] Routine Labs on day of discharge: Laboratory Results - last 24 hr 06/24/21 06:12 COVID-19 (LELE) Negative COVID-19 Clin Com See Note Discharge Plan Discharge Patient Disposition: Home Health Service Referrals: [facility] [Outside] - 1 Day (RESUMPTION OF ASSISTED) Physician,Unknown J [Primary Care Provider] - 1 Week Discharge Medications: Continued vitamin A palmitate 10,000 unit capsule 10,000 unit PO DAILY Qty: 30 RF: 6 calcium citrate-vitamin D3 315 mg-6.25 mcg (250 unit) tablet 1 tab PO BID Qty: 60 RF: 11 metoprolol succinate 25 mg tablet extended release 24 hr 12.5 mg PO DAILY 90 Days Qty: 45 RF: 3 clozapine 100 mg tablet 300 mg PO BEDTIME RF: 0 buspirone 7.5 mg tablet 7.5 mg PO DAILY RF: 0 lactulose 10 gram/15 mL solution 15 ml PO Q OTHER DAY PRN (Reason: constipation) RF: 0 venlafaxine 75 mg tablet extended release 24hr 75 mg PO DAILY RF: 0 latanoprost 0.005 % Drops 1 drp OPHTHALMIC (EYE) DAILY RF: 0 loratadine 10 mg Tablet 10 mg PO DAILY PRN (Reason: Allergic Symptoms) RF: 0 acetaminophen 500 mg capsule 1,000 mg PO TID PRN (Reason: Pain) RF: 0 atorvastatin 40 mg tablet 40 mg PO DAILY RF: 0 Alphagan P 0.1 % drops 1 drp ophthalmic-Left BID RF: 0 clozapine 100 mg tablet 100 mg PO BID RF: 0 dorzolamide 2 % drops 1 drp ophthalmic-Left BID RF: 0 ipratropium bromide 0.03 % spray,non-aerosol 1 spray intranasal BID PRN (Reason: Allergic Reaction) RF: 0 levothyroxine 125 mcg tablet 125 mcg PO DAILY RF: 0 timolol 0.5 % drops 1 drp ophthalmic (eye) BID RF: 0 topiramate 25 mg tablet 25 mg PO BID RF: 0 venlafaxine 150 mg capsule,extended release 24hr 150 mg PO DAILY RF: 0 Held warfarin 5 mg tablet 1 mg PO DAILY RF: 0 Hold Instructions: Discuss restart with Dr Mariano fondaparinux 2.5 mg/0.5 mL syringe 2.5 mg subcut Q24H Qty: 5 RF: 0 Hold Instructions: Discuss when to restart with Dr Matamoros No Action cephalexin 500 mg capsule 1 cap PO Q12H RF: 0 Discharge Orders: Discharge Order (Routine); Ordered 06/26/21 Ordered By: Harsha Mariano Activity Restrictions/Additional Instructions: 2) Start Keflex antibiotic today 3) No showers. Only sponge baths 4) Avoid any tension on the legs and always have help getting up. Use your arms to push off from chair/bed. 5) Take 1 tab of Colace and one tablespoon of Metamucil daily 6) Diet: 4 protein shakes, or 3 shakes and one bar, or 3 shakes and one meal (2oz meat and 2oz salad) 8) Change dressings daily and send pictures to Dr. Mariano. Replace loose steri-strips and xeroform gauze along the incisions. Make sure that you don't miss to re-dress the part of the incision near the groin. 9) Take pictures of the incisions daily and send them to Dr. Mariano 9) Supplies needed: ABD pads, 4x4 dressings, xeroform gauze, 1/2'' steri-strips, paper tape. You will need to use several of the above supplies on a daily basis.
[2021-06-24] MEDS: Lactated Ringers 1,000 ML 100 ML IVCONT (16:51)
[2021-06-24] MEDS: ondansetron HCL 4 MG/2 ML VIAL IVPUSH (18:28)
[2021-06-24] MEDS: Latanoprost 0.005 % Ophth Sol 2.5 ML DROPS 1 DROP EYE-BOTH (18:28)
[2021-06-24] MEDS: ceFAZolin Sodium/Dextrose,Iso 2 GM/50 ML PIGGYBACK IV (18:31)
[2021-06-24 20:34] LABS: Hematocrit 35.6 % (37.0-47.0)
[2021-06-24] MEDS: Topiramate 25 MG TABLET PO (21:37)
[2021-06-24] MEDS: cloZAPine 100 MG TABLET 300 MG PO (21:37)
[2021-06-24] MEDS: timoloL maleate 0.5 % Oph Sol 5 ML DRBTL 1 DROP EYE-BOTH (21:37)
[2021-06-25] VITALS (10 sets, daily range): BP systolic 92–115; BP diastolic 46–56; PULSE 66–81; RESP 15–19; TEMP 36.4–37.6; O2SAT 94–99; BMI 27.3
[2021-06-25] MEDS: ondansetron HCL 4 MG/2 ML VIAL IVPUSH ×3 (01:43→18:10)
[2021-06-25] MEDS: ceFAZolin Sodium/Dextrose,Iso 2 GM/50 ML PIGGYBACK IV ×3 (01:48→18:16)
[2021-06-25] MEDS: Lactated Ringers 1,000 ML 100 ML IVCONT ×3 (01:48→22:09)
--- NOTE | 2021-06-25 07:00 | HO.POSTANES ---
Post Anesthesia Evaluation Post Anesthesia Evaluation Vital Signs: Vital Signs Temp Pulse Resp BP Pulse Ox 06/25/21 03:23 99.6 F 71 18 98/56 L 95 06/25/21 00:00 97.5 F 66 15 98/52 L 99 06/24/21 19:53 97.5 F 76 14 106/52 L 98 Anesthesia: General Endotracheal-GETA Mental Status: Awake Pain Control: Satisfactory Nausea/Vomiting: None Hydration: Adequate Anesthesia-Related Issues: No Anes. Related Issues
[2021-06-25 07:08] LABS: Anion Gap 12 (12-20); Blood Urea Nitrogen 14 mg/dL (9-16); Calcium 8.2 mg/dL (8.4-10.2); Carbon Dioxide 23 mmol/L (22-29); Chloride 112 mmol/L (96-108); Creatinine Clr Calc Pharmacy 31.5; Estimated Glomerular Filt Rate > 60; Glucose Random 81 mg/dL (60-115); Potassium 4.1 mmol/L (3.3-5.1); Sodium 143 mmol/L (135-145)
[2021-06-25 09:01] LABS: Basophils Percent Auto 0.3 % (0-2); Hematocrit 32.9 % (37.0-47.0); Hemoglobin 10.1 g/dl (12.0-16.0); Imm Gran Abs Auto 0.04 X10*3/uL (0.00-0.03); Imm Gran Pct Auto 0.4 % (0.0-0.4); Lymphocytes Absolute Auto 2.4 X10*3/uL (1.2-4.9); Lymphocytes Percent Auto 23.1 % (20-40); Mean Corpuscular HGB Conc 30.7 g/dl (31.0-35.0); Mean Corpuscular Volume 84.8 fL (80.0-98.0); Monocytes Absolute Auto 0.7 X10*3/uL (0.1-1.2); Monocytes Percent Auto 6.8 % (2-11); Neutrophils Absolute Auto 7.4 x10*3/uL (2.0-8.3); Neutrophils Percent Auto 69.4 % (45-73); Red Blood Count 3.88 X10*6/uL (4.20-5.50); Red Cell Distribution Width 17.2 % (11.0-16.0)
[2021-06-25 09:03] LABS: White Blood Count 10.6 X10*3/uL (4.8-10.8)
[2021-06-25] MEDS: Venlafaxine HCl ER 150 MG CAP.ER.24H PO (09:08)
[2021-06-25] MEDS: busPIRone HCl 5 MG TABLET 7.5 MG PO (09:08)
[2021-06-25] MEDS: Metoprolol Succinate ER 12.5 MG HALFTAB.ER.24H PO (09:08)
[2021-06-25] MEDS: cloZAPine 100 MG TABLET PO ×2 (09:08→18:10)
[2021-06-25] MEDS: Venlafaxine HCl ER 75 MG CAP.ER.24H PO (09:08)
[2021-06-25] MEDS: Topiramate 25 MG TABLET PO ×2 (09:09→20:49)
[2021-06-25] MEDS: Levothyroxine Sodium 125 MCG TABLET PO (09:09)
--- NOTE | 2021-06-25 09:16 | MHC.CM.PN ---
EMR REVIEWED, PT ADMITTD S/P BILATERAL THIGHPLASTY, CM MET W/PT WHO IS A&OX4, PT REPORTS SHE LIVES ALONE, HAS A ROLLATER WALKER AT BEDSIDE, A WC AND ELECTRIC W/C THAT SHE NO LONGER HAS TO USE, PT HAS 2HRS/DAILY OF PARAMEDICAL AIDE W/[employer] AND [facility]NA FOR MEDS/BP CHECKS AND FINGER STICKS FOR PT/INR, PT REPORTS HER PCP IS NIA CALVILLO THROUGH [facility] ADN HER HCP IS HER SISTER NELLY STOCK [phone], COPY REQUESTED FROM BARIATRIC OFFICE, PT REPORTS SHE IS D/CING TOMORROW 06/26 AND HER RIDE CAN PICK HER UP AROUND NOON, D/C DATE CONFIRMED W/BARIATRIC PA. D/C PLAN: RESUMP OF PARAMEDICAL AIDE AND AVEANNA DAILY VNA W/[facility], FRIEND FOR TRANSPORT
[2021-06-25] MEDS: timoloL maleate 0.5 % Oph Sol 5 ML DRBTL 1 DROP EYE-BOTH ×2 (09:19→20:50)
[2021-06-25] MEDS: cloZAPine 100 MG TABLET 300 MG PO (20:49)
[2021-06-26] MEDS: ondansetron HCL 4 MG/2 ML VIAL IVPUSH ×2 (01:03→09:11)
[2021-06-26] MEDS: ceFAZolin Sodium/Dextrose,Iso 2 GM/50 ML PIGGYBACK IV ×2 (01:35→10:47)
[2021-06-26 02:57] VITALS: BP 101/52; PULSE 79; RESP 16; TEMP 36.6; O2SAT 94
[2021-06-26 06:30] LABS: Basophils Percent Auto 0.3 % (0-2); Hematocrit 34.1 % (37.0-47.0); Hemoglobin 10.6 g/dl (12.0-16.0); Imm Gran Abs Auto 0.03 X10*3/uL (0.00-0.03); Imm Gran Pct Auto 0.5 % (0.0-0.4); Lymphocytes Absolute Auto 1.6 X10*3/uL (1.2-4.9); Lymphocytes Percent Auto 24.7 % (20-40); Mean Corpuscular HGB Conc 31.1 g/dl (31.0-35.0); Mean Corpuscular Hemoglobin 25.7 pg (27.0-33.0); Mean Corpuscular Volume 82.6 fL (80.0-98.0); Monocytes Absolute Auto 0.6 X10*3/uL (0.1-1.2); Neutrophils Absolute Auto 4.3 x10*3/uL (2.0-8.3); Neutrophils Percent Auto 65.5 % (45-73); PLT CLUMP 1; Red Blood Count 4.13 X10*6/uL (4.20-5.50); SCAN SMEAR FLAG 1
[2021-06-26 06:34] LABS: MANUAL DIFF FLAG NO; White Blood Count 6.6 X10*3/uL (4.8-10.8)
[2021-06-26 06:49] LABS: Platelet Count 110 X10*3/uL (160-400)
[2021-06-26 07:56] VITALS: BP 123/60; PULSE 80; RESP 17; TEMP 36.4; O2SAT 96
--- NOTE | 2021-06-26 07:57 | PM.PNGS ---
Subjective Subjective Date of Service: 06/26/21 Patient reports: feels better, pain is less and voiding w/o difficulty Interval history: POD 2 s/p bilateral thighplasty. Monitored overnight due to increased swelling and to monitor HR/BP and ability to get up and mobilize. She has been up and walking yesterday and voiding without difficulty. No further oozing from proximal incisions. Much improved from yesterday overall. Physical Exam Vital Signs: Vital Signs: Last Vital Signs Temp 97.6 F 06/26/21 07:56 Pulse 80 06/26/21 07:56 Resp 17 06/26/21 07:56 BP 123/60 06/26/21 07:56 Pulse Ox 96 06/26/21 07:56 BMI result Body Mass Index 27.3 Skin: Other: incisions with mild reactionary erythema without evidence of infection. No further serous drainage from incisions. No evidence of serroma. Right thigh slightly gan than left. Objective Data Active Medications Buspirone HCl (Buspirone Hcl 5 Mg Tablet) 7.5 mg PO DAILY [facility] Last Admin: 06/25/21 09:08 Dose: 7.5 mg Documented by: OLIVER Clozapine (Clozapine 100 Mg Tablet) 300 mg PO BEDTIME [facility] Last Admin: 06/25/21 20:49 Dose: 300 mg Documented by: OZIEL Clozapine (Clozapine 100 Mg Tablet) 100 mg PO BID@0800,1900 [facility] Last Admin: 06/25/21 18:10 Dose: 100 mg Documented by: OLIVER Hydromorphone HCl (Hydromorphone Hcl 0.5 Mg/0.5 Ml Syringe) 0.25 mg IVPUSH Q4H PRN; Protocol PRN Reason: Pain, Moderate (Pain Scale 4-6 Lactated Ringer's (Lr) 1,000 mls @ 100 mls/hr IVCONT .Q10H [facility] Last Admin: 06/25/21 22:09 Dose: 100 mls/hr Documented by: OZIEL Acetaminophen (Ofirmev) 1,000 mg in 100 mls @ 16.7 mls/hr IV .Q6H [facility] Last Admin: 06/26/21 04:13 Dose: 16.7 mls/hr Documented by: OZIEL Cefazolin Sodium/Dextrose (Ancef) 2 gm in 50 mls @ 100 mls/hr IV Q8H [facility] Last Infusion: 06/26/21 02:23 Dose: 100 mls/hr Documented by: CHANDRAKANT Latanoprost (Latanoprost 0.005 % Ophth Darling 2.5 Ml Drops) 1 drop EYE-BOTH DAILY [facility] Last Admin: 06/24/21 18:28 Dose: 1 drop Documented by: ANISHA Levothyroxine Sodium (Levothyroxine Sodium 125 Mcg Tablet) 125 mcg PO DAILY [facility] Last Admin: 06/25/21 09:09 Dose: 125 mcg Documented by: OLIVER Metoprolol Succinate (Metoprolol Succinate Er 12.5 Mg Halftab.Er.24h) 12.5 mg PO DAILY [facility]; Protocol Last Admin: 06/25/21 09:08 Dose: 12.5 mg Documented by: OLIVER Ondansetron HCl (Ondansetron Hcl 4 Mg/2 Ml Vial) 4 mg IVPUSH Q8H [facility] Last Admin: 06/26/21 01:03 Dose: 4 mg Documented by: OZIEL Sodium Chloride (0.9 % Sodium Chloride Flush 3 Ml Syringe) 3 ml IVFLUSH QSHIFT [facility] Last Admin: 06/25/21 22:11 Dose: Not Given Documented by: OZIEL Non-Admin Reason: IV Running Timolol Maleate (Timolol Maleate 0.5 % Oph Darling 5 Ml Drbtl) 1 drop EYE-BOTH BID [facility] Last Admin: 06/25/21 20:50 Dose: 1 drop Documented by: OZIEL Topiramate (Topiramate 25 Mg Tablet) 25 mg PO BID [facility] Last Admin: 06/25/21 20:49 Dose: 25 mg Documented by: OZIEL Venlafaxine HCl (Venlafaxine Hcl Er 75 Mg Cap.Er.24h) 75 mg PO DAILY [facility] Last Admin: 06/25/21 09:08 Dose: 75 mg Documented by: OLIVER Venlafaxine HCl (Venlafaxine Hcl Er 150 Mg Cap.Er.24h) 150 mg PO DAILY [facility] Last Admin: 06/25/21 09:08 Dose: 150 mg Documented by: OLIVER Labs CBC & Chem 7: 06/26/21 05:54 06/25/21 05:52 Labs: Laboratory Results - last 24 hr 06/25/21 06/26/21 05:52 05:54 MCV 84.8 82.6 MCH 26.0 L 25.7 L MCHC 30.7 L 31.1 RDW 17.2 H 17.0 H Plt Count TNP 110 L D MPV TNP TNP Immature Gran % (Auto) 0.4 0.5 H Neut % (Auto) 69.4 65.5 Lymph % (Auto) 23.1 24.7 Bergen % (Auto) 6.8 9.0 Eos % (Auto) 0.0 0.0 Baso % (Auto) 0.3 0.3 Lymph # (Auto) 2.4 1.6 [place] # (Auto) 0.7 0.6 Eos # (Auto) 0.0 0.0 Baso # (Auto) 0.0 0.0 Abs Immat Gran (auto) 0.04 H 0.03 Absolute Neuts (auto) 7.4 4.3 Absolute Nucleated RBC 0.000 0.000 Nucleated RBC % (auto) 0.0 0.0 Procedures Date of Service Date of Service: 06/26/21 Progress Note: A&P Assessment and plan (1) Excess skin of thigh: Status: Acute Assessment and Plan: POD S/P bilateral thighplasty. Doing well and ready for dc home with VNA services. Discussed meds to hold including Metoprolol if systolic BP less than 120. She was instructed to take BP every morning. No celebrex either at this time. Coumadin to start tomorrow. Dressing changed today bilaterally at bedside Fall Risk Details Current Medications: Current Medications Buspirone HCl (Buspirone Hcl 5 Mg Tablet) 7.5 mg PO DAILY [facility] Last Admin: 06/25/21 09:08 Dose: 7.5 mg Documented by: Clozapine (Clozapine 100 Mg Tablet) 300 mg PO BEDTIME [facility] Last Admin: 06/25/21 20:49 Dose: 300 mg Documented by: Clozapine (Clozapine 100 Mg Tablet) 100 mg PO BID@0800,1900 [facility] Last Admin: 06/25/21 18:10 Dose: 100 mg Documented by: Hydromorphone HCl (Hydromorphone Hcl 0.5 Mg/0.5 Ml Syringe) 0.25 mg IVPUSH Q4H PRN; Protocol PRN Reason: Pain, Moderate (Pain Scale 4-6 Lactated Ringer's (Lr) 1,000 mls @ 100 mls/hr IVCONT .Q10H [facility] Last Admin: 06/25/21 22:09 Dose: 100 mls/hr Documented by: Acetaminophen (Ofirmev) 1,000 mg in 100 mls @ 16.7 mls/hr IV .Q6H [facility] Last Admin: 06/26/21 04:13 Dose: 16.7 mls/hr Documented by: Cefazolin Sodium/Dextrose (Ancef) 2 gm in 50 mls @ 100 mls/hr IV Q8H [facility] Last Infusion: 06/26/21 02:23 Dose: Infused Documented by: Latanoprost (Latanoprost 0.005 % Ophth Darling 2.5 Ml Drops) 1 drop EYE-BOTH DAILY [facility] Last Admin: 06/24/21 18:28 Dose: 1 drop Documented by: Levothyroxine Sodium (Levothyroxine Sodium 125 Mcg Tablet) 125 mcg PO DAILY [facility] Last Admin: 06/25/21 09:09 Dose: 125 mcg Documented by: Metoprolol Succinate (Metoprolol Succinate Er 12.5 Mg Halftab.Er.24h) 12.5 mg PO DAILY [facility]; Protocol Last Admin: 06/25/21 09:08 Dose: 12.5 mg Documented by: Ondansetron HCl (Ondansetron Hcl 4 Mg/2 Ml Vial) 4 mg IVPUSH Q8H [facility] Last Admin: 06/26/21 01:03 Dose: 4 mg Documented by: Sodium Chloride (0.9 % Sodium Chloride Flush 3 Ml Syringe) 3 ml IVFLUSH QSHIFT [facility] Last Admin: 06/25/21 22:11 Dose: Not Given Documented by: Timolol Maleate (Timolol Maleate 0.5 % Oph Darling 5 Ml Drbtl) 1 drop EYE-BOTH BID [facility] Last Admin: 06/25/21 20:50 Dose: 1 drop Documented by: Topiramate (Topiramate 25 Mg Tablet) 25 mg PO BID [facility] Last Admin: 06/25/21 20:49 Dose: 25 mg Documented by: Venlafaxine HCl (Venlafaxine Hcl Er 75 Mg Cap.Er.24h) 75 mg PO DAILY [facility] Last Admin: 06/25/21 09:08 Dose: 75 mg Documented by: Venlafaxine HCl (Venlafaxine Hcl Er 150 Mg Cap.Er.24h) 150 mg PO DAILY [facility] Last Admin: 06/25/21 09:08 Dose: 150 mg Documented by: Time Spent With Patient Time: Total time spent is greater than 50% in coordination of care (as documented) at patient's floor/unit and/or counseling patient: Time with patient: 25 - 35 minutes Quality Stroke Does the patient have a stroke diagnosis?: No VTE Prior VTE?: Yes Approximate Date of Prior VTE: 08/05/16 Approximate Time of Prior VTE: 13:00 VTE Risk Level:: Surgical - high VTE Device Contraindication: N/A - Device Ordered VTE Drug Contraindication: N/A - Med Ordered (Will re-start anticuagulation when clinically safe)
[2021-06-26] MEDS: Levothyroxine Sodium 125 MCG TABLET PO (09:11)
[2021-06-26] MEDS: cloZAPine 100 MG TABLET PO (09:11)
[2021-06-26] MEDS: Topiramate 25 MG TABLET PO (09:11)
[2021-06-26] MEDS: Venlafaxine HCl ER 75 MG CAP.ER.24H PO (09:11)
[2021-06-26] MEDS: Venlafaxine HCl ER 150 MG CAP.ER.24H PO (09:11)
[2021-06-26] MEDS: busPIRone HCl 5 MG TABLET 7.5 MG PO (09:11)
[2021-06-26] MEDS: Latanoprost 0.005 % Ophth Sol 2.5 ML DROPS 1 DROP EYE-BOTH (09:12)
--- NOTE | 2021-06-26 09:22 | MHC.CM.PN ---
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
[2021-06-26] MEDS: timoloL maleate 0.5 % Oph Sol 5 ML DRBTL 1 DROP EYE-BOTH (09:23)
[2021-06-26] MEDS: Lactated Ringers 1,000 ML 100 ML IVCONT (09:31)
== END 2021-06-26 12:56 | disposition home health service (06) ==
LOC: HO.SSS 14:26 → HO.S3 16:14
PROVIDERS: Physician Assistant; Visit Provider Surgery
PROC: (CPT 15832; principal; 2021-06-24 07:30)
DX: L98.7 Excessive and redundant skin and subcutaneous tissue (principal); T81.40XA Infection following a procedure, unspecified, initial encounter; L03.116 Cellulitis of left lower limb; L03.115 Cellulitis of right lower limb; L57.4 Cutis laxa senilis; R26.2 Difficulty in walking, not elsewhere classified; Z98.84 Bariatric surgery status; K91.2 Postsurgical malabsorption, not elsewhere classified; I42.9 Cardiomyopathy, unspecified; F41.8 Other specified anxiety disorders; F31.89 Other bipolar disorder; J45.909 Unspecified asthma, uncomplicated; Z86.718 Personal history of other venous thrombosis and embolism; Z79.01 Long term (current) use of anticoagulants; Z79.899 Other long term (current) drug therapy; Z88.8 Allergy status to other drugs, medicaments and biological substances; Z86.16 Personal history of COVID-19; Z20.822 Contact with and (suspected) exposure to COVID-19
CPT/HCPCS: 15832; 36415; 80048; 85014; 85018; 85025; 86850; 86900; 86901; 87635; 88304; 99024; C1758; J0131; J0690; J1100; J1170; J2250; J2370; J2405; J3010

== ENCOUNTER → 2021-06-30 07:58 | Outpatient (BNVA) | payer OTHER, SELFPAY | PROVIDERS: Visit Provider Surgery | DX: L03.90 Cellulitis, unspecified (principal) | CPT/HCPCS: 99212 ==

== ENCOUNTER → 2021-07-04 09:19 | Outpatient (BNVA) | payer OTHER, SELFPAY | PROVIDERS: PCP Internal Medicine; Visit Provider Surgery | DX: T81.31XA Disruption of external operation (surgical) wound, not elsewhere classified, initial encounter (principal) | CPT/HCPCS: 99212 ==

== ENCOUNTER → 2021-07-07 08:24 | Outpatient (BNVA) | payer OTHER, SELFPAY | PROVIDERS: PCP Internal Medicine; Visit Provider Physician Assistant Surgical | DX: Z48.817 Encounter for surgical aftercare following surgery on the skin and subcutaneous tissue (principal); T81.31XA Disruption of external operation (surgical) wound, not elsewhere classified, initial encounter | CPT/HCPCS: 99212 ==

== ENCOUNTER → 2021-07-09 08:23 | Outpatient (BNVA) | payer OTHER, SELFPAY | PROVIDERS: PCP Internal Medicine; Visit Provider Physician Assistant Surgical | DX: T81.30XD Disruption of wound, unspecified, subsequent encounter (principal) | CPT/HCPCS: 99212 ==

== ENCOUNTER → 2021-07-11 14:57 | Outpatient (BNVA) | payer OTHER, SELFPAY | PROVIDERS: PCP Internal Medicine; Visit Provider Physician Assistant Surgical | DX: T81.31XA Disruption of external operation (surgical) wound, not elsewhere classified, initial encounter (principal) | CPT/HCPCS: 99212 ==

== ENCOUNTER → 2021-07-16 10:26 | Outpatient (BNVA) | payer OTHER, SELFPAY | PROVIDERS: PCP Internal Medicine; Visit Provider Physician Assistant Surgical | DX: T81.30XD Disruption of wound, unspecified, subsequent encounter (principal) | CPT/HCPCS: 99212 ==

== ENCOUNTER → 2021-07-24 08:53 | Outpatient (BNVA) | payer OTHER, SELFPAY | PROVIDERS: PCP Internal Medicine; Visit Provider Physician Assistant Surgical | DX: T81.31XD Disruption of external operation (surgical) wound, not elsewhere classified, subsequent encounter (principal); Z79.01 Long term (current) use of anticoagulants | CPT/HCPCS: 99212 ==

== ENCOUNTER → 2021-07-31 09:51 | Outpatient (BNVA) | payer OTHER, SELFPAY | PROVIDERS: PCP Internal Medicine; Visit Provider Physician Assistant Surgical | DX: T81.31XD Disruption of external operation (surgical) wound, not elsewhere classified, subsequent encounter (principal) | CPT/HCPCS: 99212 ==

== ENCOUNTER → 2021-08-08 11:13 | Outpatient (BNVA) | payer OTHER, SELFPAY | PROVIDERS: PCP Internal Medicine; Visit Provider Physician Assistant Surgical | DX: T81.31XA Disruption of external operation (surgical) wound, not elsewhere classified, initial encounter (principal) | CPT/HCPCS: 99212 ==

== ENCOUNTER → 2021-08-15 10:54 | Outpatient (BNVA) | payer OTHER, SELFPAY | PROVIDERS: PCP Internal Medicine; Visit Provider Physician Assistant Surgical | DX: T81.31XD Disruption of external operation (surgical) wound, not elsewhere classified, subsequent encounter (principal) | CPT/HCPCS: 99212 ==

== ENCOUNTER → 2021-09-01 10:19 | Outpatient (BNVA) | payer OTHER, SELFPAY | PROVIDERS: PCP Internal Medicine; Visit Provider Physician Assistant Surgical | DX: T81.30XD Disruption of wound, unspecified, subsequent encounter (principal) | CPT/HCPCS: 99212 ==

== ENCOUNTER → 2021-10-10 10:16 | Outpatient (BNVA) | payer OTHER, SELFPAY | PROVIDERS: PCP Internal Medicine; Visit Provider Dietitian, Registered | DX: E66.3 Overweight (principal); Z68.29 Body mass index [BMI] 29.0-29.9, adult | CPT/HCPCS: 97803 ==

== ENCOUNTER → 2021-11-11 09:59 | Outpatient (BNVA) | payer OTHER, SELFPAY | PROVIDERS: PCP Internal Medicine; Referring Provider Physician Assistant Surgical; Visit Provider Dietitian, Registered | DX: E66.3 Overweight (principal); Z68.29 Body mass index [BMI] 29.0-29.9, adult | CPT/HCPCS: 97803 ==

== ENCOUNTER → 2021-12-18 09:54 | Outpatient (BNVA) | payer OTHER, SELFPAY | PROVIDERS: PCP Internal Medicine; Referring Provider Physician Assistant Surgical; Visit Provider Dietitian, Registered | DX: E66.9 Obesity, unspecified (principal); Z68.30 Body mass index [BMI] 30.0-30.9, adult; Z71.3 Dietary counseling and surveillance | CPT/HCPCS: 97803 ==

== ENCOUNTER 2022-01-13 10:00 | Outpatient (RCR) | payer OTHER, SELFPAY ==
[2021-11-18 11:01] VITALS: BP 98/50
--- NOTE | 2021-11-18 12:59 | MHC.PT.EP ---
[facility] [place] Office [place] Office [place] Office [address] Jeff Arias [address] [phone] F: [phone] F: [phone] F: [phone] F: [phone] Physical Therapy Plan of Care Date of Evaluation: Date of Surgery: Diagnosis: overweight LE strengthening Assessment: Pt is a pleasant and motivated 61yo F who presents to PT with LE weakness/generalized deconditioning. Pt reports in the past year she has transitioned from using an electric w/c to now ambulating without AD. She has lost over 100 pounds and also had B knees replaced within the past ~2-3 years. She presents today with current impairments in decreased strength throughout B LE's, decreased endurance, impaired gait, and decreased balance. She is limited functionally by prolonged standing, ambulating, and exercising. She is a good candidate for skilled PT in order to address current impairments and maximize strength and endurance to assist with functional mobility and to improve QOL. She will be seen 2x/week for 4 weeks and will be reassessed at that time. Frequency and Duration: The patient will be seen 2x/week for 4 weeks Short Term Goals: Pt will be I with HEP to promote self management of symptoms Pt will improve B quad strength to at least 4/5 B Snf Goals: Pt will improve B quad strength to at least 4+/5 to assist with standing functional tasks Pt will improve standing tolerance to at least 45 minutes to assist with community mobility/recreational activities Pt will demonstrate improvements in functional mobility as evidenced by statistically significant improvement in LEFI outcome measure Treatment Plan: Modalities to reduce pain, spasms and effusion. Manual therapy to restore motion and function. Therapeutic exercise to improve strength and flexibility. Neuromuscular re-education for posture and balance. Therapeutic activities to return to functional activities of daily living. Electronically signed by: Shakira Sood, PT, DPT Please sign and return to therapist. Thank you for your referral.
--- NOTE | 2022-01-13 13:41 | MHC.PT.DC ---
[facility] [place] Office [place] Office [place] Office [address] Jeff Arias [address] [phone] F: [phone] F: [phone] F: [phone] F: [phone] Physical Therapy Discharge Report Diagnosis: overweight LE strengthening Date of Surgery: Date of Evaluation: 11/18/21 Date of Discharge: 01/13/22 Treatments to Date: 10 Cancellations to Date: 3 No Shows to Date: Discharge Status: Improved Function Independent with HEP Discharge Summary: Pt was seen for PT from 11/18/21-01/13/22. She has made good progress with skilled PT. She has met her STGs and made progress toward her LTGs. She has increased B quad strength to 4+/5. She is I with HEP but continues to require occasional cues for pacing. She has improved her standing tolerance to about ~30 min per pt report. She reports she feels ready to be D/C from PT to HEP. Pt is being D/C from skilled PT at this time. Pt was provided with printed, updated copy of HEP and BTB. Pt reports no further questions or concerns for PT at this time. Electronically signed by: Shakira Sood, PT, DPT Please sign and return to therapist. Thank you for your referral.
== END 2022-01-13 13:41 | disposition home or self-care (01) ==
LOC: HO.PT 10:00
PROVIDERS: PCP Internal Medicine; Visit Provider Physician Assistant Surgical
DX: E66.3 Overweight (principal)
CPT/HCPCS: 97110; 97112; 97162; 97530

== ENCOUNTER → 2022-03-04 09:54 | Outpatient (BNVA) | payer OTHER, SELFPAY | PROVIDERS: PCP Internal Medicine; Referring Provider Physician Assistant Surgical; Visit Provider Dietitian, Registered | DX: E66.9 Obesity, unspecified (principal); Z68.31 Body mass index [BMI] 31.0-31.9, adult; E23.2 Diabetes insipidus; Z98.84 Bariatric surgery status; Z71.3 Dietary counseling and surveillance | CPT/HCPCS: 97803 ==

== ENCOUNTER → 2022-03-25 10:16 | Outpatient (BNVA) | payer OTHER, SELFPAY | PROVIDERS: PCP Internal Medicine; Visit Provider Dietitian, Registered | DX: E66.9 Obesity, unspecified (principal); Z68.30 Body mass index [BMI] 30.0-30.9, adult | CPT/HCPCS: 97803 ==

== ENCOUNTER 2022-04-13 11:58 | Outpatient (REF) | payer OTHER, SELFPAY ==
[2022-04-13 12:38] LABS: MANUAL DIFF FLAG NO
[2022-04-13 12:44] LABS: Basophils Percent Auto 0.4 % (0-2); Hematocrit 38.6 % (37.0-47.0); Hemoglobin 11.9 g/dl (12.0-16.0); Imm Gran Abs Auto 0.02 X10*3/uL (0.00-0.03); Imm Gran Pct Auto 0.3 % (0.0-0.4); Lymphocytes Absolute Auto 2.5 X10*3/uL (1.2-4.9); Mean Corpuscular HGB Conc 30.8 g/dl (31.0-35.0); Mean Corpuscular Hemoglobin 26.1 pg (27.0-33.0); Mean Corpuscular Volume 84.6 fL (80.0-98.0); Mean Platelet Volume 12.3 fL (9.4-12.3); Monocytes Absolute Auto 0.4 X10*3/uL (0.1-1.2); Neutrophils Absolute Auto 4.4 x10*3/uL (2.0-8.3); Neutrophils Percent Auto 59.3 % (45-73); Platelet Count 162 X10*3/uL (160-400); Red Blood Count 4.56 X10*6/uL (4.20-5.50); Red Cell Distribution Width 15.7 % (11.0-16.0); White Blood Count 7.4 X10*3/uL (4.8-10.8)
[2022-04-13 12:53] LABS: Estimated Average Glucose 108 mg/dL; Hemoglobin A1c % 5.4 %
[2022-04-13 13:22] LABS: Alanine Aminotransferase 42 U/L (0-31); Alkaline Phosphatase 93 U/L (39-117); Anion Gap 16 (12-20); Aspartate Amino Transferase 32 U/L (5-31); Bilirubin Total 0.2 mg/dL (0.0-1.0); Blood Urea Nitrogen 28 mg/dL (9-16); C Reactive Protein 0.05 mg/dL (< or = 0.50); Calcium 9.1 mg/dL (8.4-10.2); Carbon Dioxide 22 mmol/L (22-29); Chloride 104 mmol/L (96-108); Cholesterol 191 mg/dL; Estimated Glomerular Filt Rate > 60; Glucose Random 77 mg/dL (60-115); HDL Cholesterol 83 mg/dL; Iron 60 mcg/dL (30-160); LDL Cholesterol Calculated 100 mg/dl; Percent Iron Saturation 19 % (15-50); Potassium 4.3 mmol/L (3.3-5.1); Sodium 138 mmol/L (135-145); Total Iron Binding Capacity 317 mcg/dL (228-428); Total Protein 6.8 g/dL (6.5-8.0); Triglycerides 40 mg/dL; Unsaturated Iron Binding 257 ug/dL
[2022-04-13 13:43] LABS: Ferritin 20 ng/mL (10-250); Insulin 4 uU/mL (2-29); TSH reflex Free T4 0.39 uIU/mL (0.32-4.0); Vitamin D 25-OH Total 45.7 ng/mL (>30)
[2022-04-13 13:57] LABS: Folate > 20.0 ng/mL (> or = 4.0); Vitamin B12 1558 pg/mL (200-900)
[2022-04-14 12:47] LABS: Calcium (PTHI) 9.2 mg/dL (8.6-10.4); PTHI 73 pg/mL (16-77)
[2022-04-16 04:22] LABS: Zinc 57 mcg/dL (60-130)
[2022-04-16 18:37] LABS: Vitamin A 43 mcg/dL (38-98)
[2022-04-18 12:42] LABS: Vitamin B1 33 nmol/L (8-30)
== END 2022-04-13 11:59 | disposition home or self-care (01) ==
LOC: HO.LAB 11:58
PROVIDERS: PCP Internal Medicine; Visit Provider Physician Assistant Surgical
DX: Z90.3 Acquired absence of stomach [part of] (principal)
CPT/HCPCS: 36415; 80053; 80061; 82306; 82607; 82728; 82746; 83036; 83525; 83540; 83970; 84425; 84443; 84590; 84630; 85025; 86140

== ENCOUNTER → 2022-06-30 10:06 | Outpatient (BNVA) | payer OTHER, SELFPAY | PROVIDERS: PCP Internal Medicine; Visit Provider Dietitian, Registered | DX: E66.9 Obesity, unspecified (principal); Z68.32 Body mass index [BMI] 32.0-32.9, adult; Z90.3 Acquired absence of stomach [part of] | CPT/HCPCS: 97803 ==

== ENCOUNTER → 2022-08-10 09:22 | Outpatient (BNVA) | payer OTHER, SELFPAY | PROVIDERS: PCP Internal Medicine; Visit Provider Physician Assistant Surgical | DX: E66.9 Obesity, unspecified (principal); Z90.3 Acquired absence of stomach [part of]; Z68.32 Body mass index [BMI] 32.0-32.9, adult | CPT/HCPCS: 99212 ==

== ENCOUNTER → 2022-09-07 10:16 | Outpatient (BNVA) | payer OTHER, SELFPAY | PROVIDERS: PCP Internal Medicine; Visit Provider Dietitian, Registered | DX: E66.9 Obesity, unspecified (principal); Z68.32 Body mass index [BMI] 32.0-32.9, adult | CPT/HCPCS: 97803 ==

== ENCOUNTER → 2022-09-28 09:15 | Outpatient (BNVA) | payer OTHER, SELFPAY | PROVIDERS: PCP Internal Medicine; Visit Provider Counselor Mental Health | DX: I42.9 Cardiomyopathy, unspecified (principal); E66.9 Obesity, unspecified; Z68.34 Body mass index [BMI] 34.0-34.9, adult; F33.1 Major depressive disorder, recurrent, moderate; F41.1 Generalized anxiety disorder | CPT/HCPCS: 90791; 93005; 99212 ==

== ENCOUNTER → 2022-10-14 08:55 | Outpatient (BNVA) | payer OTHER, SELFPAY | PROVIDERS: PCP Internal Medicine; Visit Provider Dietitian, Registered | DX: E66.9 Obesity, unspecified (principal); Z98.84 Bariatric surgery status; Z71.3 Dietary counseling and surveillance | CPT/HCPCS: 97803 ==

== ENCOUNTER → 2022-10-21 17:13 | Outpatient (BNVA) | payer OTHER, SELFPAY | PROVIDERS: PCP Internal Medicine; Visit Provider Counselor Mental Health | DX: F33.1 Major depressive disorder, recurrent, moderate (principal); F41.1 Generalized anxiety disorder; Z90.3 Acquired absence of stomach [part of] | CPT/HCPCS: 90853 ==

== ENCOUNTER → 2022-10-28 16:45 | Outpatient (BNVA) | payer OTHER, SELFPAY | PROVIDERS: PCP Internal Medicine; Visit Provider Counselor Mental Health | DX: F33.1 Major depressive disorder, recurrent, moderate (principal); F41.1 Generalized anxiety disorder | CPT/HCPCS: 90853 ==

== ENCOUNTER → 2022-11-11 16:55 | Outpatient (BNVA) | payer OTHER, SELFPAY | PROVIDERS: PCP Internal Medicine; Visit Provider Counselor Mental Health | DX: F33.1 Major depressive disorder, recurrent, moderate (principal); F41.1 Generalized anxiety disorder | CPT/HCPCS: 90853 ==

== ENCOUNTER → 2022-11-17 08:53 | Outpatient (BNVA) | payer OTHER, SELFPAY | PROVIDERS: PCP Internal Medicine; Visit Provider Dietitian, Registered | DX: E66.9 Obesity, unspecified (principal); Z90.3 Acquired absence of stomach [part of] | CPT/HCPCS: 97803 ==

== ENCOUNTER → 2022-11-18 17:02 | Outpatient (BNVA) | payer OTHER, SELFPAY | PROVIDERS: PCP Internal Medicine; Visit Provider Counselor Mental Health ==

== ENCOUNTER → 2022-11-25 17:08 | Outpatient (BNVA) | payer OTHER, SELFPAY | PROVIDERS: PCP Internal Medicine; Visit Provider Counselor Mental Health | DX: F33.1 Major depressive disorder, recurrent, moderate (principal); F41.1 Generalized anxiety disorder | CPT/HCPCS: 90853 ==

== ENCOUNTER → 2022-12-09 17:00 | Outpatient (BNVA) | payer OTHER, SELFPAY | PROVIDERS: PCP Internal Medicine; Visit Provider Counselor Mental Health | DX: F33.1 Major depressive disorder, recurrent, moderate (principal); F41.1 Generalized anxiety disorder | CPT/HCPCS: 90853 ==

== ENCOUNTER → 2022-12-16 17:00 | Outpatient (BNVA) | payer OTHER, SELFPAY | PROVIDERS: PCP Internal Medicine; Visit Provider Counselor Mental Health | DX: E23.2 Diabetes insipidus (principal); F33.1 Major depressive disorder, recurrent, moderate; F41.1 Generalized anxiety disorder; Z90.3 Acquired absence of stomach [part of]; Z98.84 Bariatric surgery status | CPT/HCPCS: 90853 ==

== ENCOUNTER → 2022-12-23 17:05 | Outpatient (BNVA) | payer OTHER, SELFPAY | PROVIDERS: PCP Internal Medicine; Visit Provider Counselor Mental Health | DX: F33.1 Major depressive disorder, recurrent, moderate (principal); F41.1 Generalized anxiety disorder | CPT/HCPCS: 90853 ==

== ENCOUNTER → 2022-12-30 17:16 | Outpatient (BNVA) | payer OTHER, SELFPAY | PROVIDERS: PCP Internal Medicine; Visit Provider Counselor Mental Health | DX: F33.1 Major depressive disorder, recurrent, moderate (principal); F41.1 Generalized anxiety disorder | CPT/HCPCS: 90853 ==

== ENCOUNTER → 2023-01-06 16:54 | Outpatient (BNVA) | payer OTHER, SELFPAY | PROVIDERS: PCP Internal Medicine; Visit Provider Counselor Mental Health | DX: F33.1 Major depressive disorder, recurrent, moderate (principal); F41.1 Generalized anxiety disorder | CPT/HCPCS: 90853 ==

== ENCOUNTER → 2023-01-18 09:23 | Outpatient (BNVA) | payer OTHER, SELFPAY | PROVIDERS: PCP Internal Medicine; Visit Provider Dietitian, Registered | DX: E66.9 Obesity, unspecified (principal); Z98.84 Bariatric surgery status; Z71.3 Dietary counseling and surveillance | CPT/HCPCS: 97803 ==

== ENCOUNTER → 2023-01-20 17:00 | Outpatient (BNVA) | payer OTHER, SELFPAY | PROVIDERS: PCP Internal Medicine; Visit Provider Counselor Mental Health ==

== ENCOUNTER → 2023-01-20 17:00 | Outpatient (BNVA) | payer OTHER, SELFPAY | PROVIDERS: PCP Internal Medicine; Visit Provider Counselor Mental Health ==

== ENCOUNTER → 2023-01-27 17:09 | Outpatient (BNVA) | payer OTHER, SELFPAY | PROVIDERS: PCP Internal Medicine; Visit Provider Counselor Mental Health ==

== ENCOUNTER → 2023-02-24 17:08 | Outpatient (BNVA) | payer OTHER, SELFPAY | PROVIDERS: PCP Internal Medicine; Visit Provider Counselor Mental Health ==

== ENCOUNTER → 2023-03-24 20:00 | Outpatient (BNVA) | payer OTHER, SELFPAY | PROVIDERS: PCP Internal Medicine; Visit Provider Counselor Mental Health ==

== ENCOUNTER → 2023-03-31 09:26 | Outpatient (BNVA) | payer MEDICARE, MEDICAID, SELFPAY | PROVIDERS: PCP Internal Medicine; Visit Provider Dietitian, Registered | DX: F32.A Depression, unspecified (principal); E66.9 Obesity, unspecified; Z71.3 Dietary counseling and surveillance | CPT/HCPCS: 97803 ==

== ENCOUNTER 2023-05-05 19:29 | Outpatient (AMB) | payer MEDICARE, MEDICAID, SELFPAY ==
--- NOTE | 2023-05-06 13:14 | MHC.WMTHER ---
Intake Intake Visit Reasons: Group Therapy Allergies morphine [MORPHINE] Adverse Reaction (Intermediate, Verified 09/28/22 10:24) Confusion chocolate Adverse Reaction (Intermediate, Uncoded 09/28/22 10:24) Nausea and Vomiting feathers Adverse Reaction (Intermediate, Uncoded 09/28/22 10:24) Itching PFSH Medical History (Updated 09/28/22 @ 09:31 by Keyla Juan) Bipolar depression History of COVID-19 Hx of glaucoma Asthma Hx of diabetes insipidus Osteoarthritis Hx of deep venous thrombosis History of seizure Schizoaffective disorder Anxiety and depression Preoperative cardiovascular examination Cardiomyopathy Surgical History (Updated 09/28/22 @ 10:31 by KIRILL Palomares) History of carpal tunnel surgery of right wrist History of corneal transplant History of sleeve gastrectomy History of right knee joint replacement History of gastric surgery History of tonsillectomy H/O: hysterectomy Family History Father Liver cancer Diabetes Mother Diabetes CAD (coronary artery disease) Kidney disease Sister Lupus Social History Household Members: None Housing: Apartment Are you a primary career consultant to a significant other at home: No Do you presently have visiting nurse or other home services: Yes Alcohol intake: never Patient Tobacco Use Status: Never used Tobacco service: No Current occupational status: disabled Behavioral Health Assessment Weight Management Therapy Therapy Notes Details Group session on fear. Patient shared her struggles with her eye being infected and worries she might need another surgry. Cannot see out of one eye and has not been able to exercise. Assessment & Plan Assessment & Plan (1) Major depressive disorder, recurrent, moderate: Code(s): F33.1 - Major depressive disorder, recurrent, moderate (2) Generalized anxiety disorder: Code(s): F41.1 - Generalized anxiety disorder Plan Patient reported a long mental health history. She lost significant weight in the past and is struggling with falling back into old habits. She had stopped exercising and started snacking again. Patient is looking for support and therapeutic intervention. She would benefit from group therapy. Coding Level of Care Code Grp Psych (86821) Diagnoses Major depressive disorder, recurrent, moderate F33.1 Generalized anxiety disorder F41.1 Time Spent (min) 55
== END 2023-05-06 13:14 | disposition home or self-care (01) ==
LOC: HO.HBST 19:29
PROVIDERS: PCP Internal Medicine; Visit Provider Counselor Mental Health
DX: F33.1 Major depressive disorder, recurrent, moderate (principal); F41.1 Generalized anxiety disorder

== ENCOUNTER → 2023-05-05 19:29 | Outpatient (BNVA) | payer MEDICARE, MEDICAID, SELFPAY | PROVIDERS: PCP Internal Medicine; Visit Provider Counselor Mental Health | DX: F33.1 Major depressive disorder, recurrent, moderate (principal); F41.1 Generalized anxiety disorder | CPT/HCPCS: 90853 ==

== ENCOUNTER → 2023-05-12 17:00 | Outpatient (BNVA) | payer MEDICARE, MEDICAID, SELFPAY | PROVIDERS: PCP Internal Medicine; Visit Provider Counselor Mental Health | DX: F33.1 Major depressive disorder, recurrent, moderate (principal); F41.1 Generalized anxiety disorder ==

== ENCOUNTER 2023-05-19 18:59 | Outpatient (AMB) | payer MEDICARE, MEDICAID, SELFPAY ==
--- NOTE | 2023-05-20 08:54 | A.OFFWM_ITS ---
Intake Intake Visit Reasons: Group Therapy Allergies morphine [MORPHINE] Adverse Reaction (Intermediate, Verified 09/28/22 10:24) Confusion chocolate Adverse Reaction (Intermediate, Uncoded 09/28/22 10:24) Nausea and Vomiting feathers Adverse Reaction (Intermediate, Uncoded 09/28/22 10:24) Itching PFSH Medical History (Updated 09/28/22 @ 09:31 by Keyla Juan) Bipolar depression History of COVID-19 Hx of glaucoma Asthma Hx of diabetes insipidus Osteoarthritis Hx of deep venous thrombosis History of seizure Schizoaffective disorder Anxiety and depression Preoperative cardiovascular examination Cardiomyopathy Surgical History (Updated 09/28/22 @ 10:31 by KIRILL Palomares) History of carpal tunnel surgery of right wrist History of corneal transplant History of sleeve gastrectomy History of right knee joint replacement History of gastric surgery History of tonsillectomy H/O: hysterectomy Family History Father Liver cancer Diabetes Mother Diabetes CAD (coronary artery disease) Kidney disease Sister Lupus Social History Household Members: None Housing: Apartment Are you a primary manager home healthcare to a significant other at home: No Do you presently have visiting nurse or other home services: Yes Alcohol intake: never Patient Tobacco Use Status: Never used Tobacco service: No Current occupational status: disabled Behavioral Health Assessment Weight Management Therapy Therapy Notes Details Patient has been struggling during group sessions. Her eye transplant has not gone well. She cannot see out of one eye, increased depression. Assessment & Plan Assessment & Plan (1) Major depressive disorder, recurrent, moderate: Code(s): F33.1 - Major depressive disorder, recurrent, moderate (2) Generalized anxiety disorder: Code(s): F41.1 - Generalized anxiety disorder Plan Patient reported a long mental health history. She lost significant weight in the past and is struggling with falling back into old habits. She had stopped exercising and started snacking again. Patient is looking for support and therapeutic intervention. She would benefit from group therapy. Coding Level of Care Code Grp Psych (89878) Diagnoses Major depressive disorder, recurrent, moderate F33.1 Generalized anxiety disorder F41.1 Time Spent (min) 55
== END 2023-05-20 08:53 | disposition home or self-care (01) ==
LOC: HO.HBST 19:00
PROVIDERS: PCP Internal Medicine; Visit Provider Counselor Mental Health
DX: F33.1 Major depressive disorder, recurrent, moderate (principal); F41.1 Generalized anxiety disorder

== ENCOUNTER → 2023-05-19 18:59 | Outpatient (BNVA) | payer MEDICARE, MEDICAID, SELFPAY | PROVIDERS: PCP Internal Medicine; Visit Provider Counselor Mental Health | DX: F33.1 Major depressive disorder, recurrent, moderate (principal); F41.1 Generalized anxiety disorder | CPT/HCPCS: 90853 ==

== ENCOUNTER → 2023-06-09 09:37 | Outpatient (BNVA) | payer MEDICARE, MEDICAID, SELFPAY | PROVIDERS: PCP Internal Medicine; Visit Provider Dietitian, Registered | DX: E66.9 Obesity, unspecified (principal) | CPT/HCPCS: 97803 ==

== ENCOUNTER 2023-07-12 09:20 | Outpatient (AMB) | payer MEDICARE, MEDICAID, SELFPAY ==
--- NOTE | 2023-07-12 10:22 | MHC.AMNUTRGE ---
Intake VS Expanded 07/12/23 10:25 Height 5 ft 4 in Weight 230 lb BMI 39.5 Intake Visit Reasons: (OV) PO LSG 58 Motorcycle Maker Required: No Allergies morphine [MORPHINE] Adverse Reaction (Intermediate, Verified 09/28/22 10:24) Confusion chocolate Adverse Reaction (Intermediate, Uncoded 09/28/22 10:24) Nausea and Vomiting feathers Adverse Reaction (Intermediate, Uncoded 09/28/22 10:24) Itching HPI Nutrition Presentation Details LSG DOS 05/31/18 THIGHPLASTY 06/24/21 Diet Assmnt Details Since past appt, she had a corneal transplant but it was unsuccessful. 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 She is also coming to [facility] for extra support which she finds very helpful. She had a therapist , but the person keeps cancelling on her so pt is potentially interested in finding a new clinician Equate shake and ethiopian yogurt 2pm- meal of salad with chicken 4:30pm snacking - really struggles with this still. Each appointment we have tried to brainstorm healthier alternatives but has struggled to implement them. this is driven by her depression. Patient acknowledges being out of the house and surrounded with other people really help her depression Exercise: Minimal, likes to go swimming with her friend 2-3 times per week. But will be starting PT. Dietary counseling reduction Diagnosis Nutrition problem #1 overweight/obesity As related to (etiology) #1 excess energy intake and physical inactivity As evidenced by (sign/symptom) #1 high BMI Monitoring/Goals Nutrition problem monitoring total energy intake, level of knowledge/skill, total PRO intake, total CHO intake and weight Outcome progress progressing Learning/Education Readiness to learn good Stages of change action Most Recent Diabetes Results: No Data to Display [facility] Medical History (Updated 09/28/22 @ 09:31 by Keyla Juan) Bipolar depression History of COVID-19 Hx of glaucoma Asthma Hx of diabetes insipidus Osteoarthritis Hx of deep venous thrombosis History of seizure Schizoaffective disorder Anxiety and depression Preoperative cardiovascular examination Cardiomyopathy Surgical History (Updated 09/28/22 @ 10:31 by KIRILL Palomares) History of carpal tunnel surgery of right wrist History of corneal transplant History of sleeve gastrectomy History of right knee joint replacement History of gastric surgery History of tonsillectomy H/O: hysterectomy Family History Father Liver cancer Diabetes Mother Diabetes CAD (coronary artery disease) Kidney disease Sister Lupus Social History Household Members: None Housing: Apartment Are you a primary childcare center administrator to a significant other at home: No Do you presently have visiting nurse or other home services: Yes Alcohol intake: never Patient Tobacco Use Status: Never used Tobacco service: No Current occupational status: disabled Assessment & Plan Assessment & Plan (1) Obesity (BMI 30-39.9): Code(s): E66.9 - Obesity, unspecified Plan She will continue to work with her therapist, encouraged she continue to seek support and engage in activities she enjoys. She will follow-up with me 09/01 at 9am OV Coding Level of Care Code Nutr Indiv Subseq ([id number]) Diagnoses Obesity (BMI 30-39.9) E66.9 Time Spent (min) 25
[2023-07-12 10:25] VITALS: BMI 39.5
== END 2023-07-12 10:22 | disposition home or self-care (01) ==
PROVIDERS: PCP Internal Medicine; Visit Provider Dietitian, Registered
DX: E66.9 Obesity, unspecified (principal)

== ENCOUNTER → 2023-07-12 09:20 | Outpatient (BNVA) | payer MEDICARE, MEDICAID, SELFPAY | PROVIDERS: PCP Internal Medicine; Visit Provider Dietitian, Registered | DX: E66.9 Obesity, unspecified (principal); Z68.39 Body mass index [BMI] 39.0-39.9, adult | CPT/HCPCS: 97803 ==

== ENCOUNTER → 2023-07-28 20:23 | Outpatient (BNVA) | payer MEDICARE, MEDICAID, SELFPAY | PROVIDERS: PCP Internal Medicine; Visit Provider Counselor Mental Health ==

== ENCOUNTER → 2023-07-28 20:23 | Outpatient (BNVA) | payer MEDICARE, MEDICAID, SELFPAY | PROVIDERS: PCP Internal Medicine; Visit Provider Counselor Mental Health ==

== ENCOUNTER → 2023-08-04 19:05 | Outpatient (BNVA) | payer MEDICARE, MEDICAID, SELFPAY | PROVIDERS: PCP Internal Medicine; Visit Provider Counselor Mental Health ==

== ENCOUNTER → 2023-08-04 19:05 | Outpatient (BNVA) | payer MEDICARE, MEDICAID, SELFPAY | PROVIDERS: PCP Internal Medicine; Visit Provider Counselor Mental Health ==

== ENCOUNTER 2023-08-25 19:53 | Outpatient (AMB) | payer MEDICARE, MEDICAID, SELFPAY ==
--- NOTE | 2024-02-23 11:26 | MHC.WMTHER ---
Intake Intake Visit Reasons: Group Therapy Allergies morphine [MORPHINE] Adverse Reaction (Intermediate, Verified 11/30/23 13:36) Confusion chocolate Adverse Reaction (Intermediate, Uncoded 09/28/22 10:24) Nausea and Vomiting feathers Adverse Reaction (Intermediate, Uncoded 09/28/22 10:24) Itching PFSH Medical History Bipolar depression History of COVID-19 Hx of glaucoma Asthma Hx of diabetes insipidus Osteoarthritis Hx of deep venous thrombosis History of seizure Schizoaffective disorder Anxiety and depression Preoperative cardiovascular examination Cardiomyopathy Surgical History History of carpal tunnel surgery of right wrist History of corneal transplant History of sleeve gastrectomy History of right knee joint replacement History of gastric surgery History of tonsillectomy H/O: hysterectomy Family History Father Liver cancer Diabetes Mother Diabetes CAD (coronary artery disease) Kidney disease Sister Lupus Social History Household Members: None Housing: Apartment Are you a primary rn wound care to a significant other at home: No Do you presently have visiting nurse or other home services: Yes Alcohol intake: never Patient Tobacco Use Status: Never used Tobacco service: No Current occupational status: disabled Behavioral Health Assessment Weight Management Therapy Therapy Notes Details Group therapy session. We discussed the emotional eating cycle, negative thoughts and feelings associated with that. Used worksheet to help gain awareness on how our bodies feels versus reaching for food immediately. Maryanne has struggled in group to engage and share due to her medical issues and needing to have her eyes closed. She was attentive. Assessment & Plan Assessment & Plan (1) Major depressive disorder, recurrent, moderate: Code(s): F33.1 - Major depressive disorder, recurrent, moderate (2) Generalized anxiety disorder: Code(s): F41.1 - Generalized anxiety disorder Plan Patient reported a long mental health history. She lost significant weight in the past and is struggling with falling back into old habits. She had stopped exercising and started snacking again. Patient is looking for support and therapeutic intervention. She would benefit from group therapy as well as individual. Coding Level of Care Code Grp Psych ([id number]) Diagnoses Major depressive disorder, recurrent, moderate F33.1 Generalized anxiety disorder F41.1 Time Spent (min) 60
== END 2023-08-25 20:00 | disposition home or self-care (01) ==
LOC: HO.HBST 19:53
PROVIDERS: PCP Internal Medicine; Visit Provider Counselor Mental Health
DX: F33.1 Major depressive disorder, recurrent, moderate (principal); F41.1 Generalized anxiety disorder

== ENCOUNTER → 2023-08-25 19:53 | Outpatient (BNVA) | payer MEDICARE, MEDICAID, SELFPAY | PROVIDERS: PCP Internal Medicine; Visit Provider Counselor Mental Health | DX: F33.1 Major depressive disorder, recurrent, moderate (principal); F41.1 Generalized anxiety disorder; Z90.3 Acquired absence of stomach [part of] | CPT/HCPCS: 90853 ==

== ENCOUNTER 2023-09-01 09:07 | Outpatient (AMB) | payer MEDICARE, MEDICAID, SELFPAY ==
--- NOTE | 2023-09-01 09:26 | MHC.AMNUTRGE ---
Intake Intake Visit Reasons: (OV) PO LSG 05/31/18 Allergies morphine [MORPHINE] Adverse Reaction (Intermediate, Verified 09/28/22 10:24) Confusion chocolate Adverse Reaction (Intermediate, Uncoded 09/28/22 10:24) Nausea and Vomiting feathers Adverse Reaction (Intermediate, Uncoded 09/28/22 10:24) Itching HPI Nutrition Presentation Details LSG DOS 05/31/18 THIGHPLASTY 06/24/21 Is back to using her walker. has had significant weight regain Diet Assmnt Details she had a corneal transplant but it was unsuccessful. 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 She is also coming to [facility] for extra support which she finds very helpful. She had a therapist , but the person keeps cancelling on her so pt is potentially interested in finding a new clinician . She is in better spirits lately Ensure Max shake and macedonian yogurt 2pm- meal of salad with chicken 4:30pm snacking - really struggles with this still. Each appointment we have tried to brainstorm healthier alternatives but has struggled to implement them. this is driven by her depression. Patient acknowledges being out of the house and surrounded with other people really help her depression. Exercise: 2 days of PT and 2 days of swimming. Dietary counseling reduction Diagnosis Nutrition problem #1 overweight/obesity As related to (etiology) #1 excess energy intake and physical inactivity As evidenced by (sign/symptom) #1 high BMI Monitoring/Goals Nutrition problem monitoring total energy intake, level of knowledge/skill, total PRO intake, total CHO intake and weight Outcome progress progressing Learning/Education Readiness to learn good Stages of change action Most Recent Diabetes Results: No Data to Display COUNTS INCLUDE 234 BEDS AT [facility] Medical History (Updated 09/28/22 @ 09:31 by Keyla Juan) Bipolar depression History of COVID-19 Hx of glaucoma Asthma Hx of diabetes insipidus Osteoarthritis Hx of deep venous thrombosis History of seizure Schizoaffective disorder Anxiety and depression Preoperative cardiovascular examination Cardiomyopathy Surgical History (Updated 09/28/22 @ 10:31 by KIRILL Palomares) History of carpal tunnel surgery of right wrist History of corneal transplant History of sleeve gastrectomy History of right knee joint replacement History of gastric surgery History of tonsillectomy H/O: hysterectomy Family History Father Liver cancer Diabetes Mother Diabetes CAD (coronary artery disease) Kidney disease Sister Lupus Social History Household Members: None Housing: Apartment Are you a primary zoo caretaker to a significant other at home: No Do you presently have visiting nurse or other home services: Yes Alcohol intake: never Patient Tobacco Use Status: Never used Tobacco service: No Current occupational status: disabled Assessment & Plan Assessment & Plan (1) Obesity (BMI 30-39.9): Code(s): E66.9 - Obesity, unspecified Plan emphasized how her emotional eating is connected to her deteriorating health. she will continue to focus on high protein, high fiber foods and limiting snacks as much as possible. linus continue to work with her therapist and consider finding a clinician who can meet her needs.f/u in a month for ongoing support Coding Level of Care Code Nutr Indiv Subseq ([id number]) Diagnoses Obesity (BMI 30-39.9) E66.9 Time Spent (min) 30
== END 2023-09-01 10:11 | disposition home or self-care (01) ==
PROVIDERS: PCP Internal Medicine; Visit Provider Dietitian, Registered
DX: E66.9 Obesity, unspecified (principal)

== ENCOUNTER → 2023-09-01 09:07 | Outpatient (BNVA) | payer MEDICARE, MEDICAID, SELFPAY | PROVIDERS: PCP Internal Medicine; Visit Provider Dietitian, Registered | DX: E66.9 Obesity, unspecified (principal) | CPT/HCPCS: 97803 ==

== ENCOUNTER 2023-09-15 20:42 | Outpatient (AMB) | payer MEDICARE, MEDICAID, SELFPAY ==
--- NOTE | 2023-09-16 12:15 | A.OFFWM_ITS ---
Intake Intake Visit Reasons: Group Therapy Allergies morphine [MORPHINE] Adverse Reaction (Intermediate, Verified 09/28/22 10:24) Confusion chocolate Adverse Reaction (Intermediate, Uncoded 09/28/22 10:24) Nausea and Vomiting feathers Adverse Reaction (Intermediate, Uncoded 09/28/22 10:24) Itching PFSH Medical History (Updated 09/28/22 @ 09:31 by Keyla Juan) Bipolar depression History of COVID-19 Hx of glaucoma Asthma Hx of diabetes insipidus Osteoarthritis Hx of deep venous thrombosis History of seizure Schizoaffective disorder Anxiety and depression Preoperative cardiovascular examination Cardiomyopathy Surgical History (Updated 09/28/22 @ 10:31 by IKRILL Palomares) History of carpal tunnel surgery of right wrist History of corneal transplant History of sleeve gastrectomy History of right knee joint replacement History of gastric surgery History of tonsillectomy H/O: hysterectomy Family History Father Liver cancer Diabetes Mother Diabetes CAD (coronary artery disease) Kidney disease Sister Lupus Social History Household Members: None Housing: Apartment Are you a primary certified social workers in health care to a significant other at home: No Do you presently have visiting nurse or other home services: Yes Alcohol intake: never Patient Tobacco Use Status: Never used Tobacco service: No Current occupational status: disabled Behavioral Health Assessment Weight Management Therapy Therapy Notes Details Patient shared about the loss of her friend and 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 The sadness she feels about never seeing her again and some happy memories of her. Assessment & Plan Assessment & Plan (1) Major depressive disorder, recurrent, moderate: Code(s): F33.1 - Major depressive disorder, recurrent, moderate (2) Generalized anxiety disorder: Code(s): F41.1 - Generalized anxiety disorder Plan Patient reported a long mental health history. She lost significant weight in the past and is struggling with falling back into old habits. She had stopped exercising and started snacking again. Patient is looking for support and therapeutic intervention. She would benefit from group therapy as well as individual. Coding Level of Care Code Grp Psych (02159) Diagnoses Major depressive disorder, recurrent, moderate F33.1 Generalized anxiety disorder F41.1 Time Spent (min) 60
== END 2023-09-16 12:15 | disposition home or self-care (01) ==
LOC: HO.HBST 20:42
PROVIDERS: PCP Internal Medicine; Visit Provider Counselor Mental Health
DX: F33.1 Major depressive disorder, recurrent, moderate (principal); F41.1 Generalized anxiety disorder

== ENCOUNTER → 2023-09-15 20:42 | Outpatient (BNVA) | payer MEDICARE, MEDICAID, SELFPAY | PROVIDERS: PCP Internal Medicine; Visit Provider Counselor Mental Health | DX: F33.1 Major depressive disorder, recurrent, moderate (principal); F41.1 Generalized anxiety disorder | CPT/HCPCS: 90853 ==

== ENCOUNTER 2023-09-29 20:21 | Outpatient (AMB) | payer MEDICARE, MEDICAID, SELFPAY ==
--- NOTE | 2023-10-02 11:52 | A.OFFWM_ITS ---
Intake Intake Visit Reasons: Group Therapy Allergies morphine [MORPHINE] Adverse Reaction (Intermediate, Verified 09/28/22 10:24) Confusion chocolate Adverse Reaction (Intermediate, Uncoded 09/28/22 10:24) Nausea and Vomiting feathers Adverse Reaction (Intermediate, Uncoded 09/28/22 10:24) Itching PFSH Medical History (Updated 09/28/22 @ 09:31 by Keyla Juan) Bipolar depression History of COVID-19 Hx of glaucoma Asthma Hx of diabetes insipidus Osteoarthritis Hx of deep venous thrombosis History of seizure Schizoaffective disorder Anxiety and depression Preoperative cardiovascular examination Cardiomyopathy Surgical History (Updated 09/28/22 @ 10:31 by KIRILL Palomares) History of carpal tunnel surgery of right wrist History of corneal transplant History of sleeve gastrectomy History of right knee joint replacement History of gastric surgery History of tonsillectomy H/O: hysterectomy Family History Father Liver cancer Diabetes Mother Diabetes CAD (coronary artery disease) Kidney disease Sister Lupus Social History Household Members: None Housing: Apartment Are you a primary career services director to a significant other at home: No Do you presently have visiting nurse or other home services: Yes Alcohol intake: never Patient Tobacco Use Status: Never used Tobacco service: No Current occupational status: disabled Behavioral Health Assessment Weight Management Therapy Therapy Notes Details Group therapy, open forum for patients to discuss needs, strengths and provide support. Patient struggling with her health and depression symptoms . Group topic was about keeping desire and drive alive while in the process. Assessment & Plan Assessment & Plan (1) Major depressive disorder, recurrent, moderate: Code(s): F33.1 - Major depressive disorder, recurrent, moderate (2) Generalized anxiety disorder: Code(s): F41.1 - Generalized anxiety disorder Plan Patient reported a long mental health history. She lost significant weight in the past and is struggling with falling back into old habits. She had stopped exercising and started snacking again. Patient is looking for support and therapeutic intervention. She would benefit from group therapy as well as individual. Coding Level of Care Code Grp Psych (48816) Diagnoses Major depressive disorder, recurrent, moderate F33.1 Generalized anxiety disorder F41.1 Time Spent (min) 60
== END 2023-10-02 11:49 | disposition home or self-care (01) ==
LOC: HO.HBST 20:21
PROVIDERS: PCP Internal Medicine; Visit Provider Counselor Mental Health
DX: F33.1 Major depressive disorder, recurrent, moderate (principal); F41.1 Generalized anxiety disorder

== ENCOUNTER → 2023-09-29 20:21 | Outpatient (BNVA) | payer MEDICARE, MEDICAID, SELFPAY | PROVIDERS: PCP Internal Medicine; Visit Provider Counselor Mental Health | DX: F33.1 Major depressive disorder, recurrent, moderate (principal); F41.1 Generalized anxiety disorder | CPT/HCPCS: 90853 ==

== ENCOUNTER 2023-10-13 17:15 | Outpatient (AMB) | payer MEDICARE, MEDICAID, SELFPAY ==
--- NOTE | 2024-02-23 16:10 | MHC.WMTHER ---
Intake Intake Visit Reasons: Group Therapy Allergies morphine [MORPHINE] Adverse Reaction (Intermediate, Verified 11/30/23 13:36) Confusion chocolate Adverse Reaction (Intermediate, Uncoded 09/28/22 10:24) Nausea and Vomiting feathers Adverse Reaction (Intermediate, Uncoded 09/28/22 10:24) Itching PFSH Medical History Bipolar depression History of COVID-19 Hx of glaucoma Asthma Hx of diabetes insipidus Osteoarthritis Hx of deep venous thrombosis History of seizure Schizoaffective disorder Anxiety and depression Preoperative cardiovascular examination Cardiomyopathy Surgical History History of carpal tunnel surgery of right wrist History of corneal transplant History of sleeve gastrectomy History of right knee joint replacement History of gastric surgery History of tonsillectomy H/O: hysterectomy Family History Father Liver cancer Diabetes Mother Diabetes CAD (coronary artery disease) Kidney disease Sister Lupus Social History Household Members: None Housing: Apartment Are you a primary career coach to a significant other at home: No Do you presently have visiting nurse or other home services: Yes Alcohol intake: never Patient Tobacco Use Status: Never used Tobacco service: No Current occupational status: disabled Behavioral Health Assessment Weight Management Therapy Therapy Notes Details Group therapy session, participants discussed struggles, improvements, and supported each other. Topic was on mindfulness and anxiety reduction techniques. Pt was engaged and participated appropriately. Assessment & Plan Assessment & Plan (1) Major depressive disorder, recurrent, moderate: Code(s): F33.1 - Major depressive disorder, recurrent, moderate (2) Generalized anxiety disorder: Code(s): F41.1 - Generalized anxiety disorder Plan Patient reported a long mental health history. She lost significant weight in the past and is struggling with falling back into old habits. She had stopped exercising and started snacking again. Patient is looking for support and therapeutic intervention. She would benefit from group therapy as well as individual. Coding Level of Care Code Grp Psych ([id number]) Diagnoses Major depressive disorder, recurrent, moderate F33.1 Generalized anxiety disorder F41.1 Time Spent (min) 60
== END 2023-10-13 18:15 | disposition home or self-care (01) ==
PROVIDERS: PCP Internal Medicine; Visit Provider Counselor Mental Health
DX: F33.1 Major depressive disorder, recurrent, moderate (principal); F41.1 Generalized anxiety disorder

== ENCOUNTER → 2023-10-13 20:08 | Outpatient (BNVA) | payer MEDICARE, MEDICAID, SELFPAY | PROVIDERS: PCP Internal Medicine; Visit Provider Counselor Mental Health | DX: F33.1 Major depressive disorder, recurrent, moderate (principal); F41.1 Generalized anxiety disorder | CPT/HCPCS: 90853 ==

== ENCOUNTER 2023-10-18 08:47 | Outpatient (AMB) | payer MEDICARE, MEDICAID, SELFPAY ==
--- NOTE | 2023-10-18 10:41 | MHC.AMNUTRGE ---
Intake Intake Visit Reasons: (OV) PO LSG 05/31/18 Allergies morphine [MORPHINE] Adverse Reaction (Intermediate, Verified 09/28/22 10:24) Confusion chocolate Adverse Reaction (Intermediate, Uncoded 09/28/22 10:24) Nausea and Vomiting feathers Adverse Reaction (Intermediate, Uncoded 09/28/22 10:24) Itching HPI Nutrition Presentation Details LSG DOS 05/31/18 THIGHPLASTY 06/24/21 Is back to using her walker. has had significant weight regain Diet Assmnt Details she had a corneal transplant but it was unsuccessful. 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 She is going back her to doctor in October to discuss options for a second surgery. She reports seeing cardiology today and topic of weight loss was discussed. pt reports she agrees and wants to lose weight. We discussed a few of her problem areas which she identifies being portion control, overeating carbs and choosing fatty cuts of meat. She is also coming to [facility] for extra support which she finds very helpful. She had a therapist , but the person keeps cancelling on her so pt is potentially interested in finding a new clinician . She is in better spirits lately Ensure Max shake and finnish yogurt 2pm- meal of salad with chicken. Started eating more beef, steaks, and a lot more carb rich foods. 4:30pm snacking - really struggles with this still. Each appointment we have tried to brainstorm healthier alternatives but has struggled to implement them. this is driven by her depression. 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 Exercise: 2 days of PT and 2 days of swimming. she would like to make 3 days of swimming her goal Dietary counseling reduction Diagnosis Nutrition problem #1 overweight/obesity As related to (etiology) #1 excess energy intake and physical inactivity As evidenced by (sign/symptom) #1 high BMI Monitoring/Goals Nutrition problem monitoring total energy intake, level of knowledge/skill, total PRO intake, total CHO intake and weight Outcome progress progressing Learning/Education Readiness to learn good Stages of change action Most Recent Diabetes Results: No Data to Display PFSH Medical History Bipolar depression History of COVID-19 Hx of glaucoma Asthma Hx of diabetes insipidus Osteoarthritis Hx of deep venous thrombosis History of seizure Schizoaffective disorder Anxiety and depression Preoperative cardiovascular examination Cardiomyopathy Surgical History History of carpal tunnel surgery of right wrist History of corneal transplant History of sleeve gastrectomy History of right knee joint replacement History of gastric surgery History of tonsillectomy H/O: hysterectomy Family History Father Liver cancer Diabetes Mother Diabetes CAD (coronary artery disease) Kidney disease Sister Lupus Social History Household Members: None Housing: Apartment Are you a primary wound care technician to a significant other at home: No Do you presently have visiting nurse or other home services: Yes Alcohol intake: never Patient Tobacco Use Status: Never used Tobacco service: No Current occupational status: disabled Assessment & Plan Assessment & Plan (1) Morbid (severe) obesity due to excess calories: Code(s): E66.01 - Morbid (severe) obesity due to excess calories Plan Encouraged monitoring portions and focus on adding vegetables and lean proteins which will lead to less carb intake. Pt to follow up wtiliana LEVIN per pt pref. Coding Level of Care Code Nutr Indiv Subseq (95138) Diagnoses Morbid (severe) obesity due to excess calories E66.01 Time Spent (min) 30
== END 2023-10-18 10:45 | disposition home or self-care (01) ==
PROVIDERS: PCP Internal Medicine; Visit Provider Dietitian, Registered
DX: E66.01 Morbid (severe) obesity due to excess calories (principal)

== ENCOUNTER 2023-10-18 08:47 | Outpatient (AMB) | payer MEDICARE, MEDICAID, SELFPAY ==
[2023-10-18 08:51] VITALS: BP 132/60; PULSE 81; BMI 41.3
--- NOTE | 2023-10-18 08:51 | A.OFFVIS_ITS ---
Intake Vital Signs 10/18/23 08:51 Height 5 ft 4 in Weight 240 lb 11.916 oz BMI 41.3 BP 132/60 Blood Pressure Location Rt brachial Position Sitting Pulse 81 Intake Visit Reasons: 1 yr f/up Intake Note: pt its here for 1 yr f/up/ pt states that she its doing fine Entertainment Centre Manager Required: No Accompanied by: Self / Same As Patient Allergies morphine [MORPHINE] Adverse Reaction (Intermediate, Verified 09/28/22 10:24) Confusion chocolate Adverse Reaction (Intermediate, Uncoded 09/28/22 10:24) Nausea and Vomiting feathers Adverse Reaction (Intermediate, Uncoded 09/28/22 10:24) Itching Medication List - Last Reconciled 10/18/23 by BRUNO oDmínguez acetaminophen 1,000 mg PO TID PRN atorvastatin 40 mg PO DAILY brimonidine 0.2% 1 drp ophthalmic (eye) BID buspirone 10 mg PO DAILY calcium citrate-vitamin D3 315 mg-6.25 mcg (250 unit) 1 tab PO BID clozapine 300 mg PO BEDTIME clozapine 100 mg PO BID ipratropium bromide 1 spray intranasal BID PRN lactulose 15 mL PO Q OTHER DAY PRN latanoprost 0.005% 1 drp ophthalmic (eye) DAILY levothyroxine 125 mcg PO DAILY loratadine 10 mg PO DAILY PRN metoprolol succinate ER 12.5 mg (1/2 x 25 mg) PO DAILY polyethylene glycol 3350 17 grams PO DAILY PRN timolol 0.5% 1 drp ophthalmic (eye) BID tizanidine 2 mg PO BID topiramate 25 mg PO BID valacyclovir 500 mg PO BID venlafaxine ER 150 mg PO DAILY venlafaxine ER 75 mg PO DAILY vitamin A 1 cap PO DAILY warfarin 1 mg PO DAILY zinc gluconate 10 mg PO DAILY HPI 1 yr f/up HPI Details Maryanne is a 63-year-old female with past medical history obesity, cardiomyopathy who presents for follow-up. Today she reports she has been doing well since her last visit 09/28/2022. She has gained weight and is discouraged by this. She has tried to continue with routine physical activity. She says she swims 1-2 times weekly. She is currently in physical therapy to help strengthen her legs, 2 times weekly. She ambulates with a walker. She denies any shortness of breath, chest discomfort, heart palpitations, lightheadedness, presyncope, syncope, PND, orthopnea or edema. She reports that she has had some depression and resorts to eating when she feels sad. She sleeps with 2 pillows and a wedge under her mattress for comfort. Taking meds as directed. [facility] Medical History Bipolar depression History of COVID-19 Hx of glaucoma Asthma Hx of diabetes insipidus Osteoarthritis Hx of deep venous thrombosis History of seizure Schizoaffective disorder Anxiety and depression Preoperative cardiovascular examination Cardiomyopathy Surgical History History of carpal tunnel surgery of right wrist History of corneal transplant History of sleeve gastrectomy History of right knee joint replacement History of gastric surgery History of tonsillectomy H/O: hysterectomy Family History Father Liver cancer Diabetes Mother Diabetes CAD (coronary artery disease) Kidney disease Sister Lupus Social History Household Members: None Housing: Apartment Are you a primary family day care worker to a significant other at home: No Do you presently have visiting nurse or other home services: Yes Alcohol intake: never Patient Tobacco Use Status: Never used Tobacco service: No Current occupational status: disabled Review of Systems Const All systems reviewed & are unremarkable except as noted in HPI and below Denies chills, Denies fatigue, Denies fever(s), Denies frequent falls, Denies weakness, Reports weight gain and Denies weight loss ENT Denies dizziness Card Denies chest pain, Denies leg edema, Denies lightheadedness, Denies p alpitations, Denies dyspnea and Denies dyspnea on exertion Resp Denies cough, Denies dyspnea and Denies dyspnea on exertion GI Denies hematochezia Musc Details: leg weakness Denies abnormal gait, Denies muscle weakness, Denies numbness, Denies radiating pain into limb and Denies tingling Neuro Denies abnormal gait, Denies dizziness, Denies frequent falls, Denies numbness, Denies tingling and Denies weakness Endo Denies fatigue and Denies palpitations Physical Exam Vital Signs: Last Vital Signs Pulse 81 10/18/23 08:51 BP 132/60 10/18/23 08:51 BMI result Body Mass Index 41.3 Const Other: morbidly obese General: cooperative, healthy appearing, comfortable and no acute distress Orientation/consciousness: patient oriented x3 Neck Neck: Yes normal visual inspection and Yes no JVD Resp Effort & Inspection: normal respiratory effort Auscultation: clear to auscultation bilaterally, no crackles, no rales, no rhon chi and no wheezes Cardio Jugular venous distension: no JVD Rate: regular rate Rhythm: regular rhythm Heart sounds: S1 normal heart sound present, S2 normal heart sound present, no gallops, no murmurs and no rubs Neuro General: patient oriented x3 Extrem General: Yes normal to inspection, No no pedal edema and No calf tenderness Psych Appearance: grossly normal Mental Status: mental status grossly normal Speech and movement: Normal speech and movement present Office Procedures EKG Details: Today, read by me, SR, cant exclude anterior infarct, rate 81, QTc 439ms [id number], Complete Assessment & Plan Assessment & Plan (1) Cardiomyopathy: Comment: improved after weight loss surgery Code(s): I42.9 - Cardiomyopathy, unspecified Plan: History of cardiomyopathy which previously improved with weight loss following bariatric surgery. Since then she has gained weight back and is currently at BMI 41.3. Last echocardiogram done 01/03/2021 showed EF 60-65%, no wall motion abnormalities or valve issues. She continues on metoprolol XL for neurohormonal modulation. She denies any symptoms of heart failure including shortness of breath, orthopnea, edema. On exam she does not appear fluid overloaded. Will plan to update her echocardiogram prior to her next visit. Cardiology follow-up in 1 year, sooner if needed. (2) Obesity: Code(s): E66.9 - Obesity, unspecified Plan: History of morbid obesity. Has had bariatric surgery in the past. Has regained weight. Would benefit from following with weight management program again. She is currently working on increasing her physical activity. She has some mild depression and eats too soon her feelings. Discussed benefits of a counselor. Plan Time spent on chart review, documentation, interview assess Orders: Orders CA echo transthoracic complete 11 Months I42.9 - Cardiomyopathy, unspecified Coding Level of Care Code Est Pt Level 3 (32881) Diagnoses Cardiomyopathy I42.9 Obesity E66.9 CPT Codes EKG - CPT: 18915-[id number], Complete ([id number]) Time Spent (min) 24
== END 2023-10-18 09:19 | disposition home or self-care (01) ==
PROVIDERS: PCP Internal Medicine; Visit Provider Nurse Practitioner Family
DX: I42.9 Cardiomyopathy, unspecified (principal); E66.9 Obesity, unspecified
CPT/HCPCS: 93010; 99213

== ENCOUNTER → 2023-10-18 08:47 | Outpatient (BNVA) | payer MEDICARE, MEDICAID, SELFPAY | PROVIDERS: PCP Internal Medicine; Visit Provider Nurse Practitioner Family | DX: E66.01 Morbid (severe) obesity due to excess calories (principal); I42.9 Cardiomyopathy, unspecified; R94.31 Abnormal electrocardiogram [ECG] [EKG] | CPT/HCPCS: 93005; 97803; 99212 ==

== ENCOUNTER 2023-11-03 17:15 | Outpatient (AMB) | payer MEDICARE, MEDICAID, SELFPAY ==
--- NOTE | 2024-02-23 16:02 | MHC.WMTHER ---
Intake Intake Visit Reasons: Group Therapy Allergies morphine [MORPHINE] Adverse Reaction (Intermediate, Verified 11/30/23 13:36) Confusion chocolate Adverse Reaction (Intermediate, Uncoded 09/28/22 10:24) Nausea and Vomiting feathers Adverse Reaction (Intermediate, Uncoded 09/28/22 10:24) Itching PFSH Medical History Bipolar depression History of COVID-19 Hx of glaucoma Asthma Hx of diabetes insipidus Osteoarthritis Hx of deep venous thrombosis History of seizure Schizoaffective disorder Anxiety and depression Preoperative cardiovascular examination Cardiomyopathy Surgical History History of carpal tunnel surgery of right wrist History of corneal transplant History of sleeve gastrectomy History of right knee joint replacement History of gastric surgery History of tonsillectomy H/O: hysterectomy Family History Father Liver cancer Diabetes Mother Diabetes CAD (coronary artery disease) Kidney disease Sister Lupus Social History (Reviewed 11/30/23 @ 13:39 by Lindsay Mahmood [facility]) Household Members: None Housing: Apartment Are you a primary vp care management to a significant other at home: No Do you presently have visiting nurse or other home services: Yes Alcohol intake: never Patient Tobacco Use Status: Never used Tobacco service: No Current occupational status: disabled Behavioral Health Assessment Weight Management Therapy Therapy Notes Details Group therapy session, participants discussed struggles, improvements, and supported each other. Topic was on motivation and making new habits. Pt was engaged and participated appropriately. Assessment & Plan Assessment & Plan (1) Major depressive disorder, recurrent, moderate: Code(s): F33.1 - Major depressive disorder, recurrent, moderate (2) Generalized anxiety disorder: Code(s): F41.1 - Generalized anxiety disorder Plan Patient reported a long mental health history. She lost significant weight in the past and is struggling with falling back into old habits. She had stopped exercising and started snacking again. Patient is looking for support and therapeutic intervention. She would benefit from group therapy as well as individual. Coding Level of Care Code Grp Psych (44653) Diagnoses Major depressive disorder, recurrent, moderate F33.1 Generalized anxiety disorder F41.1 Time Spent (min) 60
== END 2023-11-03 18:15 | disposition home or self-care (01) ==
PROVIDERS: PCP Internal Medicine; Visit Provider Counselor Mental Health
DX: F33.1 Major depressive disorder, recurrent, moderate (principal); F41.1 Generalized anxiety disorder

== ENCOUNTER → 2023-11-03 20:38 | Outpatient (BNVA) | payer OTHER, SELFPAY | PROVIDERS: PCP Internal Medicine; Visit Provider Counselor Mental Health | DX: F33.1 Major depressive disorder, recurrent, moderate (principal); F41.1 Generalized anxiety disorder | CPT/HCPCS: 90853 ==

== ENCOUNTER 2023-11-17 17:15 | Outpatient (AMB) | payer MEDICARE, MEDICAID, SELFPAY ==
--- NOTE | 2024-02-21 15:58 | MHC.WMTHER ---
Intake Intake Visit Reasons: Group Therapy Allergies morphine [MORPHINE] Adverse Reaction (Intermediate, Verified 11/30/23 13:36) Confusion chocolate Adverse Reaction (Intermediate, Uncoded 09/28/22 10:24) Nausea and Vomiting feathers Adverse Reaction (Intermediate, Uncoded 09/28/22 10:24) Itching PFSH Medical History Bipolar depression History of COVID-19 Hx of glaucoma Asthma Hx of diabetes insipidus Osteoarthritis Hx of deep venous thrombosis History of seizure Schizoaffective disorder Anxiety and depression Preoperative cardiovascular examination Cardiomyopathy Surgical History History of carpal tunnel surgery of right wrist History of corneal transplant History of sleeve gastrectomy History of right knee joint replacement History of gastric surgery History of tonsillectomy H/O: hysterectomy Family History Father Liver cancer Diabetes Mother Diabetes CAD (coronary artery disease) Kidney disease Sister Lupus Social History Household Members: None Housing: Apartment Are you a primary child day care provider to a significant other at home: No Do you presently have visiting nurse or other home services: Yes Alcohol intake: never Patient Tobacco Use Status: Never used Tobacco service: No Current occupational status: disabled Behavioral Health Assessment Weight Management Therapy Therapy Notes Details Group therapy session on building and improving a healthy relationship with food. Patient struggled to stay engaged and was often observed with her eyes closed and slumped down position. Assessment & Plan Assessment & Plan (1) Major depressive disorder, recurrent, moderate: Code(s): F33.1 - Major depressive disorder, recurrent, moderate (2) Generalized anxiety disorder: Code(s): F41.1 - Generalized anxiety disorder Plan Patient reported a long mental health history. She lost significant weight in the past and is struggling with falling back into old habits. She had stopped exercising and started snacking again. Patient is looking for support and therapeutic intervention. She would benefit from group therapy as well as individual. Coding Level of Care Code Grp Psych (11240) Diagnoses Major depressive disorder, recurrent, moderate F33.1 Generalized anxiety disorder F41.1 Time Spent (min) 60
== END 2023-11-17 18:15 | disposition home or self-care (01) ==
PROVIDERS: PCP Internal Medicine; Visit Provider Counselor Mental Health
DX: F33.1 Major depressive disorder, recurrent, moderate (principal); F41.1 Generalized anxiety disorder

== ENCOUNTER → 2023-11-17 20:14 | Outpatient (BNVA) | payer OTHER, SELFPAY | PROVIDERS: PCP Internal Medicine; Visit Provider Counselor Mental Health | DX: F33.1 Major depressive disorder, recurrent, moderate (principal); F41.1 Generalized anxiety disorder; Z90.3 Acquired absence of stomach [part of]; Z98.84 Bariatric surgery status | CPT/HCPCS: 90853 ==

== ENCOUNTER 2023-11-30 13:29 | Outpatient (AMB) | payer OTHER, SELFPAY ==
--- NOTE | 2023-11-30 13:31 | MHC.OFFVISWM ---
VS Expanded 11/30/23 13:41 BP 141/65 H Blood Pressure Location Rt brachial Blood Pressure Position Sitting Pulse 84 Pulse Source Pulse Oximeter Temp 98.1 F Temperature Source Temporal Artery Scan Pulse Oximetry 95 Oxygen Delivery Method Room Air Height 5 ft 4 in Weight 244 lb 3.2 oz BMI 41.9 Body Fat % 33.5 Body Fat Mass 81.4 Fat Free Mass 162.8 Visceral Fat Rating 12.0 Body Water % 47.2 Body Water Mass 115.4 Muscle Mass/Score 154.6 Basal Metabolic Rate/Score 2,202 Intake Visit Reasons: (OV) PO LSG 12/13/14 Allergies morphine [MORPHINE] Adverse Reaction (Intermediate, Verified 11/30/23 13:36) Confusion chocolate Adverse Reaction (Intermediate, Uncoded 09/28/22 10:24) Nausea and Vomiting feathers Adverse Reaction (Intermediate, Uncoded 09/28/22 10:24) Itching Medication List - Last Reconciled 11/30/23 by OLLIE Yadav acetaminophen 1,000 mg PO TID PRN atorvastatin 40 mg PO DAILY brimonidine 0.2% 1 drp ophthalmic (eye) BID buspirone 10 mg PO DAILY calcium citrate-vitamin D3 315 mg-6.25 mcg (250 unit) 1 tab PO BID clozapine 300 mg PO BEDTIME clozapine 100 mg PO BID ipratropium bromide 1 spray intranasal BID PRN lactulose 15 mL PO Q OTHER DAY PRN latanoprost 0.005% 1 drp ophthalmic (eye) DAILY levothyroxine 125 mcg PO DAILY loratadine 10 mg PO DAILY PRN metoprolol succinate ER 12.5 mg (1/2 x 25 mg) PO DAILY polyethylene glycol 3350 17 grams PO DAILY PRN timolol 0.5% 1 drp ophthalmic (eye) BID tizanidine 2 mg PO BID topiramate 25 mg PO BID valacyclovir 500 mg PO BID venlafaxine ER 150 mg PO DAILY venlafaxine ER 75 mg PO DAILY vitamin A 1 cap PO DAILY warfarin 1 mg PO DAILY zinc gluconate 10 mg PO DAILY HPI Comments Details: This?is a?63?yo female who is s/p LSG 05/31/2018. No complaints of nausea, emesis, abdominal pain or reflux, or constipation. Went to group last week but reports she was the only one there. Does not currently have a therapist- previous therapist cancelled 3x in a row. Thinks her depression is contributing to her appetite. Present meal plan includes: Ensure Max shake kiswahili yogurt 2pm- meal of salad with chicken snacking - really struggles with this still. Each appointment she has tried to brainstorm healthier alternatives with Nitza, but has struggled to implement them- driven by her depression. Takes MVI Exercise routine includes: Exercise: 2 days of PT (arm/knees) and 2 days of swimming although pt reports she has not gone swimming recently. [facility] Medical History Bipolar depression History of COVID-19 Hx of glaucoma Asthma Hx of diabetes insipidus Osteoarthritis Hx of deep venous thrombosis History of seizure Schizoaffective disorder Anxiety and depression Preoperative cardiovascular examination Cardiomyopathy Surgical History History of carpal tunnel surgery of right wrist History of corneal transplant History of sleeve gastrectomy History of right knee joint replacement History of gastric surgery History of tonsillectomy H/O: hysterectomy Family History Father Liver cancer Diabetes Mother Diabetes CAD (coronary artery disease) Kidney disease Sister Lupus Social History Household Members: None Housing: Apartment Are you a primary residential caregiver to a significant other at home: No Do you presently have visiting nurse or other home services: Yes Alcohol intake: never Patient Tobacco Use Status: Never used Tobacco service: No Current occupational status: disabled Assessment & Plan Assessment & Plan (1) Morbid obesity: Code(s): E66.01 - Morbid (severe) obesity due to excess calories Category: Medical (2) History of sleeve gastrectomy: Comment: May 2018 Code(s): Z90.3 - Acquired absence of stomach [part of] Category: Surgical Plan Provided intake phone # for [facility] to pt as she would like to get established with a new therapist. Discussed focusing on getting all protein in meal plan, even if she eats other things off plan. Labs ordered- pt to have done with [facility] system, printed and provided fax # for results to be sent. RTC 3 months per pt preference. Patient is morbidly obese and is not considered stable at this time. I spent a total of 30 minutes reviewing/updating records, examining the patient and counseling the patient on weight management as detailed above. Orders: Orders C Reactive Protein Today E66.9 - Obesity, unspecified, Z90.3 - Acquired absence of stomach [part of] TSH reflex Free T4 Today E66.9 - Obesity, unspecified, Z90.3 - Acquired absence of stomach [part of] Vitamin D 25-OH Total Today E66.9 - Obesity, unspecified, Z90.3 - Acquired absence of stomach [part of] Insulin Today E66.9 - Obesity, unspecified, Z90.3 - Acquired absence of stomach [part of] Hemoglobin A1c Today E66.9 - Obesity, unspecified, Z90.3 - Acquired absence of stomach [part of] Complete Blood Count Auto Diff Today E66.9 - Obesity, unspecified, Z90.3 - Acquired absence of stomach [part of] Lipid Panel Today E66.9 - Obesity, unspecified, Z90.3 - Acquired absence of stomach [part of] IRON PROFILE Today E66.9 - Obesity, unspecified, Z90.3 - Acquired absence of stomach [part of] Comprehensive Met. Panel Today E66.9 - Obesity, unspecified, Z90.3 - Acquired absence of stomach [part of] Vitamin B12 and Folate Today E66.9 - Obesity, unspecified, Z90.3 - Acquired absence of stomach [part of] Zinc Today E66.9 - Obesity, unspecified, Z90.3 - Acquired absence of stomach [part of] Vitamin B1 Today E66.9 - Obesity, unspecified, Z90.3 - Acquired absence of stomach [part of] Vitamin A Today E66.9 - Obesity, unspecified, Z90.3 - Acquired absence of stomach [part of] Ferritin Today E66.9 - Obesity, unspecified, Z90.3 - Acquired absence of stomach [part of]
[2023-11-30 13:41] VITALS: BP 141/65; PULSE 84; TEMP 36.7; O2SAT 95; BMI 41.9
== END 2023-11-30 14:23 | disposition home or self-care (01) ==
PROVIDERS: PCP Internal Medicine; Visit Provider Physician Assistant Surgical
DX: E66.01 Morbid (severe) obesity due to excess calories (principal); Z68.41 Body mass index [BMI] 40.0-44.9, adult; Z90.3 Acquired absence of stomach [part of]; Z98.84 Bariatric surgery status
CPT/HCPCS: 99214

== ENCOUNTER → 2023-11-30 13:29 | Outpatient (BNVA) | payer OTHER, SELFPAY | PROVIDERS: PCP Internal Medicine; Visit Provider Physician Assistant Surgical | DX: E66.01 Morbid (severe) obesity due to excess calories (principal); Z68.41 Body mass index [BMI] 40.0-44.9, adult; Z98.84 Bariatric surgery status; Z90.3 Acquired absence of stomach [part of] | CPT/HCPCS: 99212 ==

== ENCOUNTER 2023-12-22 19:51 | Outpatient (AMB) | payer OTHER, SELFPAY ==
--- NOTE | 2024-02-21 15:28 | MHC.WMTHER ---
Intake Intake Visit Reasons: Group Therapy Allergies morphine [MORPHINE] Adverse Reaction (Intermediate, Verified 11/30/23 13:36) Confusion chocolate Adverse Reaction (Intermediate, Uncoded 09/28/22 10:24) Nausea and Vomiting feathers Adverse Reaction (Intermediate, Uncoded 09/28/22 10:24) Itching PFSH Medical History Bipolar depression History of COVID-19 Hx of glaucoma Asthma Hx of diabetes insipidus Osteoarthritis Hx of deep venous thrombosis History of seizure Schizoaffective disorder Anxiety and depression Preoperative cardiovascular examination Cardiomyopathy Surgical History History of carpal tunnel surgery of right wrist History of corneal transplant History of sleeve gastrectomy History of right knee joint replacement History of gastric surgery History of tonsillectomy H/O: hysterectomy Family History Father Liver cancer Diabetes Mother Diabetes CAD (coronary artery disease) Kidney disease Sister Lupus Social History Household Members: None Housing: Apartment Are you a primary healthcare account manager to a significant other at home: No Do you presently have visiting nurse or other home services: Yes Alcohol intake: never Patient Tobacco Use Status: Never used Tobacco service: No Current occupational status: disabled Behavioral Health Assessment Weight Management Therapy Therapy Notes Details Group therapy on getting back on track, top excuses, mindset shifts. Pt shared recent struggles, was engaged and supportive to others Assessment & Plan Assessment & Plan (1) Major depressive disorder, recurrent, moderate: Code(s): F33.1 - Major depressive disorder, recurrent, moderate (2) Generalized anxiety disorder: Code(s): F41.1 - Generalized anxiety disorder Plan Patient reported a long mental health history. She lost significant weight in the past and is struggling with falling back into old habits. She had stopped exercising and started snacking again. Patient is looking for support and therapeutic intervention. She would benefit from group therapy as well as individual. Coding Level of Care Code Grp Psych (22491) Diagnoses Major depressive disorder, recurrent, moderate F33.1 Generalized anxiety disorder F41.1 Time Spent (min) 60
== END 2024-01-22 18:15 | disposition home or self-care (01) ==
LOC: HO.HBST 19:51
PROVIDERS: PCP Internal Medicine; Visit Provider Counselor Mental Health
DX: F33.1 Major depressive disorder, recurrent, moderate (principal); F41.1 Generalized anxiety disorder

== ENCOUNTER → 2023-12-22 19:51 | Outpatient (BNVA) | payer OTHER, SELFPAY | PROVIDERS: PCP Internal Medicine; Visit Provider Counselor Mental Health | DX: F33.1 Major depressive disorder, recurrent, moderate (principal); F41.1 Generalized anxiety disorder | CPT/HCPCS: 90853 ==

== ENCOUNTER 2024-01-05 17:15 | Outpatient (AMB) | payer OTHER, SELFPAY ==
--- NOTE | 2024-02-21 15:10 | A.OFFWM_ITS ---
Intake Intake Visit Reasons: Group Therapy Allergies morphine [MORPHINE] Adverse Reaction (Intermediate, Verified 11/30/23 13:36) Confusion chocolate Adverse Reaction (Intermediate, Uncoded 09/28/22 10:24) Nausea and Vomiting feathers Adverse Reaction (Intermediate, Uncoded 09/28/22 10:24) Itching PFSH Medical History Bipolar depression History of COVID-19 Hx of glaucoma Asthma Hx of diabetes insipidus Osteoarthritis Hx of deep venous thrombosis History of seizure Schizoaffective disorder Anxiety and depression Preoperative cardiovascular examination Cardiomyopathy Surgical History History of carpal tunnel surgery of right wrist History of corneal transplant History of sleeve gastrectomy History of right knee joint replacement History of gastric surgery History of tonsillectomy H/O: hysterectomy Family History Father Liver cancer Diabetes Mother Diabetes CAD (coronary artery disease) Kidney disease Sister Lupus Social History Household Members: None Housing: Apartment Are you a primary health care liaison to a significant other at home: No Do you presently have visiting nurse or other home services: Yes Alcohol intake: never Patient Tobacco Use Status: Never used Tobacco service: No Current occupational status: disabled Behavioral Health Assessment Weight Management Therapy Therapy Notes Details Group therapy, discussed different struggles from past week, consistency, motivation, and barriers. Patient was engaged and properly participated. Assessment & Plan Assessment & Plan (1) Major depressive disorder, recurrent, moderate: Code(s): F33.1 - Major depressive disorder, recurrent, moderate (2) Generalized anxiety disorder: Code(s): F41.1 - Generalized anxiety disorder Plan Patient reported a long mental health history. She lost significant weight in the past and is struggling with falling back into old habits. She had stopped exercising and started snacking again. Patient is looking for support and therapeutic intervention. She would benefit from group therapy as well as individual. Coding Level of Care Code Grp Psych (72013) Diagnoses Major depressive disorder, recurrent, moderate F33.1 Generalized anxiety disorder F41.1 Time Spent (min) 60
== END 2024-01-05 18:15 | disposition home or self-care (01) ==
LOC: HO.HBST 01-06 08:36
PROVIDERS: PCP Internal Medicine; Visit Provider Counselor Mental Health
DX: F33.1 Major depressive disorder, recurrent, moderate (principal); F41.1 Generalized anxiety disorder

== ENCOUNTER → 2024-01-05 17:15 | Outpatient (BNVA) | payer OTHER, SELFPAY | PROVIDERS: PCP Internal Medicine; Visit Provider Counselor Mental Health | DX: F33.1 Major depressive disorder, recurrent, moderate (principal); F41.1 Generalized anxiety disorder; Z90.3 Acquired absence of stomach [part of]; Z98.84 Bariatric surgery status | CPT/HCPCS: 90853 ==

== ENCOUNTER → 2024-02-02 17:00 | Outpatient (BNVA) | payer OTHER, SELFPAY | PROVIDERS: PCP Internal Medicine; Visit Provider Counselor Mental Health ==

== ENCOUNTER 2024-02-29 09:59 | Outpatient (AMB) | payer OTHER, SELFPAY ==
--- NOTE | 2024-02-29 10:00 | MHC.OFFVISWM ---
VS Expanded 02/29/24 10:06 BP 142/61 H Blood Pressure Location Rt brachial Blood Pressure Position Sitting Pulse 93 Pulse Source Pulse Oximeter Temp 97.5 F Temperature Source Tympanic Pulse Oximetry 94 Oxygen Delivery Method Room Air Height 5 ft 4 in Weight 213 lb 12.8 oz BMI 36.7 Body Fat % 34.4 Body Fat Mass 73.4 Fat Free Mass 140.2 Visceral Fat Rating 11.0 Body Water % 46.4 Body Water Mass 99.2 Muscle Mass/Score 133.2 Basal Metabolic Rate/Score 1,886 Intake Visit Reasons: (OV) PO LSG 12/13/14 Allergies morphine [MORPHINE] Adverse Reaction (Intermediate, Verified 02/29/24 10:15) Confusion chocolate Adverse Reaction (Intermediate, Uncoded 02/29/24 10:15) Nausea and Vomiting feathers Adverse Reaction (Intermediate, Uncoded 02/29/24 10:15) Itching Medication List - Last Reconciled 02/29/24 by OLLIE Yadav acetaminophen 1,000 mg PO TID PRN atorvastatin 40 mg PO DAILY brimonidine 0.2% 1 drp ophthalmic (eye) BID buspirone 10 mg PO DAILY calcium citrate-vitamin D3 315 mg-6.25 mcg (250 unit) 1 tab PO BID clozapine 300 mg PO BEDTIME clozapine 100 mg PO BID ipratropium bromide 1 spray intranasal BID PRN lactulose 15 mL PO Q OTHER DAY PRN latanoprost 0.005% 1 drp ophthalmic (eye) DAILY levothyroxine 125 mcg PO DAILY loratadine 10 mg PO DAILY PRN metoprolol succinate ER 12.5 mg (1/2 x 25 mg) PO DAILY polyethylene glycol 3350 17 grams PO DAILY PRN semaglutide (weight loss) (Wegovy) mg subcut timolol 0.5% 1 drp ophthalmic (eye) BID tizanidine 2 mg PO BID topiramate 25 mg PO BID valacyclovir 500 mg PO BID venlafaxine ER 150 mg PO DAILY venlafaxine ER 75 mg PO DAILY vitamin A 1 cap PO DAILY warfarin 1 mg PO DAILY zinc gluconate 10 mg PO DAILY HPI Comments Details: This?is a?[]?yo [] who is s/p LSG with[out] hiatal hernia repair on 12/13/2014. Presents for post op visit. Weight at last visit in November 2023 was 244.2 pounds with a BMI of 41.9, weight today is 213.8 pounds, representing a 30.8 pound weight loss with a BMI today of [].? No complaints of nausea, emesis, abdominal pain or reflux, or constipation. Pt started taking Wegovy, feels okay on it. Prescribed by PCP. Was able to get connected with a therapist at [facility], doing well. Pt reports she is currently in Eliquis, not warfarin but unsure of the dose. Present meal plan includes: Ensure Max shake andorran yogurt 2pm- meal of salad with chicken sometimes fruit in evening doing better with snacking, but still struggling with depression Takes MVI Exercise routine includes: Exercise: 2 days of PT (arm/knees) and 2 days of swimming, pt plans to swim more this week, was less consistent recently [facility] Medical History Bipolar depression History of COVID-19 Hx of glaucoma Asthma Hx of diabetes insipidus Osteoarthritis Hx of deep venous thrombosis History of seizure Schizoaffective disorder Anxiety and depression Preoperative cardiovascular examination Cardiomyopathy Surgical History History of carpal tunnel surgery of right wrist History of corneal transplant History of sleeve gastrectomy History of right knee joint replacement History of gastric surgery History of tonsillectomy H/O: hysterectomy Family History Father Liver cancer Diabetes Mother Diabetes CAD (coronary artery disease) Kidney disease Sister Lupus Social History Household Members: None Housing: Apartment Are you a primary care professionals to a significant other at home: No Do you presently have visiting nurse or other home services: Yes Alcohol intake: never Patient Tobacco Use Status: Never used Tobacco service: No Current occupational status: disabled Physical Exam Vital Signs: Last Vital Signs Temp 97.5 F 02/29/24 10:06 Pulse 93 02/29/24 10:06 BP 142/61 H 02/29/24 10:06 Pulse Ox 94 02/29/24 10:06 Oxygen Delivery Method Room Air 02/29/24 10:06 BMI result Body Mass Index 36.7 Assessment & Plan Assessment & Plan (1) Obesity: Code(s): E66.9 - Obesity, unspecified Category: Medical (2) History of sleeve gastrectomy: Comment: May 2018 Code(s): Z90.3 - Acquired absence of stomach [part of] Category: Medical Plan Pt doing well on Wegovy. No changes made to meal plan today. Still struggling with depression but has continued to participate in group therapy and has a personal therapist now. Asked pt to have lab results (done at [facility] [place]) faxed to our office. RTC 3 months. I spent a total of 30 minutes reviewing/updating records, examining the patient and counseling the patient on weight management as detailed above.
[2024-02-29 10:06] VITALS: BP 142/61; PULSE 93; TEMP 36.4; O2SAT 94; BMI 36.7
== END 2024-02-29 10:32 | disposition home or self-care (01) ==
PROVIDERS: PCP Internal Medicine; Visit Provider Physician Assistant Surgical
DX: E66.9 Obesity, unspecified (principal); Z90.3 Acquired absence of stomach [part of]
CPT/HCPCS: 99214

== ENCOUNTER → 2024-02-29 09:59 | Outpatient (BNVA) | payer OTHER, SELFPAY | PROVIDERS: PCP Internal Medicine; Visit Provider Physician Assistant Surgical | DX: E66.9 Obesity, unspecified (principal); Z90.3 Acquired absence of stomach [part of]; Z68.36 Body mass index [BMI] 36.0-36.9, adult | CPT/HCPCS: 99212 ==

== ENCOUNTER 2024-05-29 10:40 | Outpatient (AMB) | payer OTHER, SELFPAY ==
--- NOTE | 2024-05-29 10:55 | A.OFFVIS_ITS ---
VS Expanded 05/29/24 11:13 BP 132/59 L Blood Pressure Location Rt brachial Blood Pressure Position Sitting Pulse 91 Pulse Source Pulse Oximeter Temp 97.5 F Temperature Source Temporal Artery Scan Pulse Oximetry 97 Oxygen Delivery Method Room Air Height 5 ft 4 in Weight 199 lb 6.4 oz BMI 34.2 Body Fat % 33.1 Body Fat Mass 66.0 Fat Free Mass 133.4 Visceral Fat Rating 10.0 Body Water % 47.3 Body Water Mass 94.4 Muscle Mass/Score 126.6 Basal Metabolic Rate/Score 1,784 Intake Visit Reasons: (OV) PO LSG 12/13/14 Allergies morphine [MORPHINE] Adverse Reaction (Intermediate, Verified 02/29/24 10:15) Confusion chocolate Adverse Reaction (Intermediate, Uncoded 02/29/24 10:15) Nausea and Vomiting feathers Adverse Reaction (Intermediate, Uncoded 02/29/24 10:15) Itching Medication List - Last Reconciled 05/29/24 by OLLIE Yadav acetaminophen 1,000 mg PO TID PRN atorvastatin 40 mg PO DAILY brimonidine 0.2% 1 drp ophthalmic (eye) BID buspirone 10 mg PO DAILY calcium citrate-vitamin D3 315 mg-5 mcg (200 unit) 1 tab PO BID clozapine 300 mg PO BEDTIME clozapine 100 mg PO BID ipratropium bromide 1 spray intranasal BID PRN lactulose 15 mL PO Q OTHER DAY PRN latanoprost 0.005% 1 drp ophthalmic (eye) DAILY levothyroxine 125 mcg PO DAILY loratadine 10 mg PO DAILY PRN metoprolol succinate ER 12.5 mg (1/2 x 25 mg) PO DAILY polyethylene glycol 3350 17 grams PO DAILY PRN semaglutide (weight loss) (Wegovy) mg subcut timolol 0.5% 1 drp ophthalmic (eye) BID tizanidine 2 mg PO BID topiramate 25 mg PO BID valacyclovir 500 mg PO BID venlafaxine ER 150 mg PO DAILY venlafaxine ER 75 mg PO DAILY vitamin A 1 cap PO DAILY warfarin 1 mg PO DAILY zinc gluconate 10 mg PO DAILY HPI Comments Details: This?is a?64?yo female who is s/p LSG 12/13/2014. Presents for 9.5 year post op visit. Weight at last visit on 02/29/2024 was 213.8 pounds with a BMI of 36.7, weight today is 199.4 pounds, representing a 14.4 pound weight loss with a BMI today of 34.2.? No complaints of nausea, emesis, abdominal pain or reflux, or constipation. Pt started taking Wegovy, no issues on it. Prescribed by PCP. Was able to get connected with a therapist at [facility], doing well. Pt reports she is currently in Eliquis, not warfarin but unsure of the dose. Pt would like to have a breast reduction, needs to lose more weight first- goal weight 192. Seeing [facility]. Present meal plan includes: Ensure Max shake spanish yogurt 2pm- meal of salad with chicken sometimes fruit in evening doing better with snacking, but still struggling with depression Takes MVI Exercise routine includes: Exercise: 2 days of PT (arm/knees) and sometimes swimming PFSH Medical History Bipolar depression History of COVID-19 Hx of glaucoma Asthma Hx of diabetes insipidus Osteoarthritis Hx of deep venous thrombosis History of seizure Schizoaffective disorder Anxiety and depression Preoperative cardiovascular examination Cardiomyopathy Surgical History History of carpal tunnel surgery of right wrist History of corneal transplant History of sleeve gastrectomy History of right knee joint replacement History of gastric surgery History of tonsillectomy H/O: hysterectomy Family History Father Liver cancer Diabetes Mother Diabetes CAD (coronary artery disease) Kidney disease Sister Lupus Social History Household Members: None Housing: Apartment Are you a primary manager medicare to a significant other at home: No Do you presently have visiting nurse or other home services: Yes Alcohol intake: never Patient Tobacco Use Status: Never used Tobacco service: No Current occupational status: disabled Assessment & Plan Assessment & Plan (1) Obesity: Code(s): E66.9 - Obesity, unspecified Category: Medical (2) History of sleeve gastrectomy: Comment: May 2018 Code(s): Z90.3 - Acquired absence of stomach [part of] Category: Surgical Plan Pt doing well on Wegovy, continues to lose weight, has healthy body fat % on review of [place]. Will continue same meal plan. Will contact Ashanti as we have not received her lab results. She is hopeful to have breast reduction surgery soon. RTC 6 months for annual. I spent a total of 30 minutes reviewing/updating records, examining the patient and counseling the patient on weight management as detailed above.
[2024-05-29 11:13] VITALS: BP 132/59; PULSE 91; TEMP 36.4; O2SAT 97; BMI 34.2
== END 2024-05-29 11:28 | disposition home or self-care (01) ==
LOC: HO.HBS 10:40
PROVIDERS: PCP Internal Medicine; Visit Provider Physician Assistant Surgical
DX: E66.9 Obesity, unspecified (principal); Z90.3 Acquired absence of stomach [part of]
CPT/HCPCS: 99214

== ENCOUNTER → 2024-05-29 10:40 | Outpatient (BNVA) | payer OTHER, SELFPAY | PROVIDERS: PCP Internal Medicine; Visit Provider Physician Assistant Surgical | DX: E66.9 Obesity, unspecified (principal); Z71.3 Dietary counseling and surveillance; Z98.84 Bariatric surgery status; Z68.34 Body mass index [BMI] 34.0-34.9, adult | CPT/HCPCS: 99212 ==

== ENCOUNTER → 2024-09-19 08:55 | Outpatient (REF) | payer OTHER, SELFPAY ==
--- NOTE | 2024-09-19 08:57 | CA_ITS ---
Transthoracic Echocardiogram Patient (Last, First, Middle): Maryanne Marquez, Gender: Female Date of : 1960 Age: 64 Procedure Date: 09/19/2024 Procedure Type: Transthoracic Echocardiogram Location: OP Height: 162.56 cm Weight: 89.36 kg BSA: 1.94 m2 Heart Rate: bpm BP: 110 / 72 mmHg Heeler: TO Referring MD: Kassie Egan AUXILIARY POWERPLANT OPERATORConchitaC Symptoms: I42.9 - Cardiomyopathy, unspecified Study Quality: Fair ECG Rhythm: Sinus Conclusions: - The left ventricular systolic function is normal. The calculated ejection fraction is 58% by biplane method. - There is severe septal asymmetric hypertrophy. - No obvious valvular pathology seen on this study. Findings Left Ventricle Normal left ventricular cavity size. The left ventricular systolic function is normal. The calculated ejection fraction is 58% by biplane method. There is no evidence of regional wall motion abnormalities. Diastolic function is normal for age. There is severe septal asymmetric hypertrophy. LV peak GLS 19%. Right Ventricle Normal right ventricular cavity size and systolic function. Atria The left atrium is mildly dilated. The right atrium is normal in size. Aortic Valve There is a normal trileaflet aortic valve. There is no aortic valve stenosis. There is no aortic valve regurgitation. Mitral Valve The mitral valve appears normal. There is mild mitral valve regurgitation. There is no mitral valve stenosis. Pulmonic Valve The pulmonic valve is likely normal. Tricuspid Valve There is trace tricuspid valve regurgitation. There is no evidence of pulmonary hypertension. Great Vessels The asc aorta is normal in size. Venous The inferior vena cava is mildly dilated and collapses less than 50% with inspiration. Pericardium/Pleural There is no evidence of pericardial effusion. Prior Study Comparison Changes noted compared to prior study dated: 01/03/2021. Septal hypertrophy noted. Recommendations, Care & Conclusions No obvious valvular pathology seen on this study. Measurements 2D Linear Measurements IVSd: 1.55 0.6-0.9/0.6-1.0 cm LVIDd: 4.65 3.9-5.3/4.2-5.9 cm LVIDd Index: 2.40 2.4-3.2/2.2-3.1 cm/m2 LVIDs: 2.92 2.0-3.6 cm LVPWd: 1.02 0.7-1.1 cm LA Diam: 4.50 2.7-3.8/3.0-4.0 cm LAIDs Index: 2.32 1.5-2.3 cm/m2 LV Mass: 286.86 67-162/88-224 g LV Mass Index: 147.86 43-95/49-115 g/m2 LVOT Diam: 2.10 3.0+(-)1.3 cm 2D Systolic Function EF 4C: 59.20 >55% EF 2C: 60.30 >55% EF BiP: 58.40 >55% Mitral Valve MV Pk E: 0.52 MV PK A: 0.39 MV Decel Time: 89.00 E/A: 1.30 E'Lateral: 9.90 E'Medial: 6.64 E/E' Med: 7.80 E/E' Lat: 5.20 PHT: 26.00 MVA PHT: 8.46 Decel Brule: 5.82 Aortic Valve AoV Pk Yohan: 1.15 AoV Mn Yohan: 0.82 AoV VTI: 0.22 AoV Pk Grad: 5.00 Aov Mn Grad: 3.00 FAN Cont.VTI: 2.37 LVOT LVOT Pk Yohan: 0.74 LVOT Mn Yohan: 0.50 LVOT VTI: 0.15 LVOT Pk Grad: 2.00 LVOT Mn Grad: 1.00 LVOT Diam: 2.10 LVOT Area: 3.46 Diastolic Function MV Pk E: 0.52 MV Pk A: 0.39 E/A: 1.30 E'Medial: 6.64 E/E' Med: 7.80 E' Laterial: 9.90 E/E' Lat: 5.20 Right Ventricle TAPSE (mm): 21.00 TVS' Yohan: 11.00 Tricuspid Valve TR Pk Yohan: 2.00 TR Pk Grad: 16.00 RA Press: 15.00 RVSP: 31.00 Great Vessels Aorta Ao Asc: 3.40 2.1-3.4 cm Updated in Other Vendor System with Status of Final Jorge Ludwig MD electronically signed on 09/19/2024 4:32:39 PM with status of Final
--- OUTSIDE RECORDS SUMMARY | 2024-09-19 09:39 | XMS_ITS | Clinical Summary ---
Author Organization [facility] Address [address] [place] [address] Care Team Providers Care Cut Off Sawyer Name Role Phone Unavailable Primary Care Provider Unavailabl e Source Comments PLEASE NOTE, if this patient is a minor, it may be UNLAWFUL to discuss sensitive information that is contained in these records (such as FAMILY PLANNING, MENTAL HEALTH or SUBSTANCE ABUSE) with the minor patient's parent or other person without the patient's specific authorization.[facility] Allergies Active Allergy Reactions Criticality Noted Date Comments Chocolate Nausea and Vomiting 12/10/2021 Jemison 12/10/2021 Dust Wheezing 06/07/2023 House Dust Mite 02/03/2023 Other reaction(s): wheezing Hydrochlorothiazide 12/10/2021 Patient denies Latex Other (See Comments) 02/03/2023 Not sure Morphine 02/03/2023 confusion Oxycodone 02/03/2023 Oxycodone (Bulk) 06/07/2023 Oxycodone-Acetaminophen 02/03/2023 Other Reaction(s): GI Upset Not allergic to tylenol Medications atorvastatin (LIPITOR) 40 mg tablet Take 1 Tablet by mouth 1 01/20/20 25 Active brimonidine (ALPHAGAN P) 0.1 % ophthalmic solution INSTILL 1 DROP IN THE LEFT EYE two (2) times a day 0 Active brimonidine (ALPHAGAN) 0.2 % ophthalmic solution INSTILL 1 DROP IN EACH EYE 3 (THREE) TIMES A DAY (USE 3 (THREE) TIMES A DAY IN THE LEFT EYE AND two (2) times a day IN THE RIGHT EYE) 2 Active busPIRone (BUSPAR) 7.5 mg tablet Take 1 Tablet by mouth once daily 0 Active calcium citrate-vitamin D3 315 mg-6.25 mcg (250 unit) per tablet TAKE ONE TABLET BY MOUTH two (2) times a day 2 Active clotrimazole (LOTRIMIN) 1 % cream APPLY TO THE AFFECTED AREA ON FEET 2 (two) times a day 1 Active cloZAPine (CLOZARIL) 100 mg tablet TAKE 1 TABLET BY MOUTH two (2) times a day AND TAKE 3 TABLETS BY MOUTH EVERY NIGHT AT BEDTIME 0 Active dorzolamide (TRUSOPT) 2 % ophthalmic solution 1 Drop 0 Active docusate sodium (COLACE) 100 mg capsule Take 100 mg by mouth Active ipratropium bromide (ATROVENT) 21 mcg (0.03 %) nasal spray See Instructions, SPRAY ONCE INTO EACH NOSTRIL 2 (two) times a day NEEDED FOR nasal CONGESTION, # 30 mL, 11 Refills, Maintenance, 02/04/22 11:23:00 EDT, [place], [place] - [phone], 30, SPRAY ONCE INTO EACH NOSTRIL 2 (two) times... 1 Active lactulose (CHRONULAC) 10 gram/15 mL solution Take 15 mL by mouth 1 Active latanoprost (XALATAN) 0.005 % ophthalmic solution 1 Drop 0 Active levothyroxine 125 mcg tablet Take 125 mcg by mouth 2 01/20/20 25 Active loratadine (CLARITIN) 10 mg tablet Take 1 Tablet by mouth once daily as needed 1 Active metoprolol succinate (TOPROL-XL) 25 mg 24 hr tablet Take 12.5 mg by mouth once daily 2 Active ROCKLATAN 0.02-0.005 % drop INSTILL 1 DROP IN THE LEFT EYE NIGHTLY 2 Active pantoprazole (PROTONIX) 20 mg EC tablet Take 40 mg by mouth Active polyethylene glycol 3350 17 gram packet DISSOLVE 17gm IN WATER OR JUICE AND DRINK DAILY NEEDED FOR CONSTIPATION. USE as little as possible TO control SYMPTOMS 1 Active sodium chloride 0.9 % nebulizer solution Inhale 1 [place] into the lungs Active timoloL (BETIMOL) 0.5 % ophthalmic solution INSTILL 1 DROP IN EACH EYE two (2) times a day 2 Active topiramate (TOPAMAX) 25 mg tablet TAKE 1 TABLET BY MOUTH two (2) times a day 2 Active venlafaxine (EFFEXOR-XR) 75 mg 24 hr capsule via psychiatry K SUbr[facility]anyam [address], 0 Refills, Maintenance, 10/07/21 9:55:00 EDT, Partial fill upon patient request if the prescription is for a schedule II opioid drug. 0 Active venlafaxine (EFFEXOR-XR) 150 mg 24 hr capsule Take 150 mg by mouth once daily 2 Active warfarin (COUMADIN) 5 mg tablet See Instructions, as per instructions by [facility] COUMADIN NURSE. Dosing based on INR. up to 2 tablets per day., # 90 tablet, 11 Refills, Maintenance, 02/04/22 11:23:00 EDT, Tablet, [facility] [place], [place] - [phone], 159, cm, 02/04/22 10:39:0... 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) 06/07/2023 Overview (06/07/2023): see renal note 7-09. may be secondary to prior use of lithium Glaucoma 06/07/2023 Overview (06/07/2023): open angle, bilateral, severe per eye note open angle, bilateral, severe per eye note History of colonoscopy 06/07/2023 Overview (06/07/2023): fair prep in 2021 so per report, due next ue to quality of prep, repeat in 5 years (done 2011, due 2016) History of cornea transplant 06/07/2023 History of hysterectomy 06/07/2023 Lymphedema of lower extremity 06/07/2023 Meralgia paresthetica 06/07/2023 Mitral valve insufficiency 06/07/2023 Overview (06/07/2023): mild on ECHO 12/2003 Osteoarthritis of knee 06/07/2023 Overview (06/07/2023): severe , right , per 2010 [facility] consult Radial styloid tenosynovitis 06/07/2023 Severe obesity (HCC-CMS) 06/07/2023 Thyroid nodule 06/07/2023 Overview (06/07/2023): next due 2022 per message with Endocrine1.8 cm per Endcrine note, repeat US due in Polyuria 12/10/2021 History of total knee replacement 06/11/2020 Tubular adenoma of colon 10/09/2017 Overview (06/07/2023): repeat in 09/2018 repeat in 09/2018 Sleep apnea 08/31/2014 Deep vein thrombosis (DVT) of lower extremity (H CC-CMS) 04/25/2014 Arthritis 04/10/2014 Asthma 04/10/2014 Overview (06/07/2023): (actualy, test was 7-31-09)positive methacholine challenge 8-09 (actualy, test was 7-31-09)positive methacholine challenge 8-09 Auditory hallucinations 04/10/2014 Cataract 04/10/2014 Overview (06/07/2023): surgery rt eye 10-19-08 surgery rt eye 10-19-08 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 breast 04/10/2014 Overview (06/07/2023): Biopsy 12/29 Biopsy 12/29 Acute mitral regurgitation 04/10/2014 Morbid obesity (HCC-CMS) 04/10/2014 Hypothyroidism 04/10/2014 Polymyalgia rheumatica ([facility]) 11/23/2013 Diabetes mellitus ([facility]) 07/26/2012 Synovial cyst of knee 03/23/2011 Overview (06/07/2023): on 03-05 on 03-05 [place] Social History Tobacco Use Types Packs/Day Years Used Date Smoking Tobacco: Never Smokeless Tobacco: Never Tobacco Cessation:Counseling Given: Not Answered Social Connections Answer Date Recorded Connectedness 0 04/12/2024 Financial Resource Strain Answer Date R ecorded Financial Resource Strain 0 2021 Stress Answer Date Recorded Stress 0 02/13/2022 Physical Activity Answer Date Recorded Physical Activity 0 02/13/2022 Food Insecurity Answer Date Recorded Food 0 04/20/2024 Transportation Needs Answer Date Record ed Transportation 0 02/13/2022 Housing Stability Answer Date Recorded Housing 0 02/13/2022 Safety and Environment Answer Date Familia rded Safety 0 02/13/2022 Utilities Answer Date Recorded Utilities 0 02/13/2022 Employment Answer Date Recorded Stress 0 04/12/2024 Comments Unknown Sex and Gender Information Value Date Recorded Sex Assigned at Not on file Legal Sex Female 11:16 AM PST Gender Identity Not on file Sexual Orientation Not on file Last Filed Vital Signs Vital Sign Reading Time Taken Comments Blood Pressure 134/85 09/06/2023 10:23 AM EST Pulse 75 09/06/2023 10:23 AM EST Temperature - - Respiratory Rate - - Oxygen Saturation - - Inhaled Oxygen Concentration - - Weight - - Height - - Body Mass Index - - Plan of Treatment Health Maintenance Due Date Last Done Comments Diabetes Foot Exam 1958 Diabetes HbA1c 1958 Diabetes Microalbumin (w/Creatinine) 1958 Hepatitis C Screening 1958 Lipid Screening 1958 TSH Monitoring 1958 Tobacco Screening 1958 Retinopathy Screening 1971 Imm-Zoster, Recombinant (1 of 2) 1977 Breast Cancer Screening (Mammogram) 1998 CT Colonography 2003 Colonoscopy 2003 Colorectal Cancer Screening 2003 FIT/gFOBT 2003 Fecal DNA 2003 Flexible Sigmoidoscopy 2003 Bone Density Screening 2023 Falls Prevention 2023 Dental BW 10/02/2023 09/29/2022, 02/13/2022 Dental Prophy 10/21/2023 04/20/2023, 03/0 01/2023, 02/13/2022 Serum Creatinine 02/02/2024 02/01/2023 [id number] ( season) 2024 01/18/2022, 06/02/2021, 11/25/2020 Imm-Influenza (#1) 2024 06/22/2023, 1 07/26/2021, 07/21/2021, Additional history exists Dental Examination 04/22/2024 04/20/2023, 0 09/29/2022, 02/13/2022 Dental Perio Charting 04/22/2024 04/20/2023, 023 Alcohol and Drug Screen 07/26/2024 Depression Annual Screen 07/26/2024 Hypertension Screening (#1) 09/05/2024 Dental FMX/Pano 02/15/2027 02/13/2022 Imm-DTaP/Tdap/Td (3 - Td or Tdap) 01/22/2031 01/22/2021, 01/01/2014, 05/16/2007 Imm-Pneumococcal 65+ Completed 04/06/2023, 04/24/2015, 05/10/2008 Procedures Procedure Name Priority Date/Time Associated Diagnosis Comments COMP PERIODONTAL EVALUATION - NEW/EST PATIENT Routine 04/20/2023 3:00 PM EDT [facility] Encounter for dental examination PROPHYLAXIS - ADULT Routine 04/20/2023 3 :00 PM EDT [facility] PERIODIC ORAL EVALUATION ESTABLISHED PATIENT Routine 04/20/2023 3:00 PM EDT [facility] Encounter for dental examination BITEWINGS - FOUR RADIOGRAPHIC IMAGES Routine 09/29/2022 1:00 PM EST Partial edentulism, unspecified edentulism class INTRAORAL - COMP SERIES OF RADIOGRAPHIC IMAGES Routine 02/13/2022 9:40 AM EDT Encounter for dental examination from Last 3 Months or Most Recently Relevant to Health Maintenance Insurance [employer] [facility] [place] [id number]
--- OUTSIDE RECORDS SUMMARY | 2024-09-19 09:39 | XMS_ITS | Data Portability ---
Author Organization [employer] [place] [employer] Address [address] [place] [id number] Care Team Providers Care File Keeper Name Role Phone HIM HORACE OTHER Assessment Encounter Date Assessment Date Assessment LastModified by Organization Details LastModified Time 11/12/2023 11/12/2023 I provided real -time medical direction via phone for this encounter and was available for additional phone-based assistance as needed. I have reviewed and agree with the Assessment and Plan as documented by the Locksmith. Patient given the opportunity to ask questions. Our service contacted for an assessment of: Shoulder pain As per above, patient has had this issue for the past several weeks. Went to the ED twice this week for an evaluation. Initial tests are negative. Has an ortho appointment on Wednesday. Per director of advertising sales on the scene, VSS. Impression: Shoulder pain - MSK in nature. Plan: Toradol 30 mg IM times one. F/u with ortho on Wednesday. We discussed the diagnostic uncertainty of home visits and the risk associated with this. In this case, the patient and I felt this to be an acceptable and reasonable amount of risk given the benefit of avoiding an ED visit. We discussed the need to seek care urgently/emerg ently in the setting of any new or worsening serious symptoms [email or web address] Not available 11/12/2023 17:06:45 Plan of Treatment Reminders Order Date Submit Date Provider Last Modified By Organization Details Last Modified Time Details Appointments None recorded. Lab None recorded. Referral None recorded. Procedures None recorded. Surgeries None recorded. Imaging None recorded. Medication Orders ketorolac 30 mg/mL (1 mL) injection solution 2023 024 [email or web address] Not available 17:07:13 Patient TargetsNo targets recorded. Patient InstructionsNo instructions recorded. Reason for Referral None Reported. Medical Equipment None Reported. Allergies Allergen ID Allergen Name Allergen Category Reaction Reaction Severity Criticality Documentation Date Start Date Code Code System Note Provider Name and Address Organization Details Recorded Time 9742 morphine medicatio n Not available Not available Not available 05/23/2024 7052 RxNorm Not Available [facility] - production 4 04:15:34 Medications Name Sig Start Date Stop Date Status Note LastModified by Organization Details LastModified Time amoxicillin 500 mg capsule TAKE FOUR CAPSULES BY MOUTH ONCE. TAKE 30 TO 60 MINUTES prior to PROCEDURE active Not Available Not Available No t Available latanoprost 0.005 % eye drops INSTILL 1 DROP IN EACH EYE ONCE DAILY AT BEDTIME active Not Available Not Available N ot Available atorvastatin 40 mg tablet TAKE 1 TABLET BY MOUTH ONCE DAILY active Not Available Not Available No t Available silver sulfadiazine 1 % topical cream APPLY TO AFFECTED AREA TWICE A DAY FOR 14 DAYS active Not Available Not Available No t Available venlafaxine ER 75 mg capsule,exte nded release 24 hr TAKE 1 CAPSULE BY MOUTH ONCE DAILY active Not Available Not Available No t Available tizanidine 2 mg tablet TAKE 1 TABLET BY MOUTH UP TO two (2) times a day NEEDED FOR MUSCLE SPASMS active Not Available Not Available No t Available clozapine 100 mg tablet TAKE 1 TABLET BY MOUTH two (2) times a day and TAKE 3 TABLETS BY MOUTH AT BEDTIME active Not Available Not Available No t Available prednisone 5 mg tablet TAKE 2 TABLETS BY MOUTH two (2) times a day FOR 7 DAYS; 1 TABLET two (2) times a day FOR 2 DAYS; THEN 1 TABLET ONCE DAILY FOR 2 DAYS active Not Available Not Available N ot Available venlafaxine ER 150 mg capsule,exte nded release 24 hr TAKE 1 CAPSULE BY MOUTH ONCE DAILY active Not Available Not Available No t Available topiramate 25 mg tablet TAKE 1 TABLET BY MOUTH two (2) times a day active Not Available Not Available No t Available valacyclovir 500 mg tablet TAKE 1 TABLET (500 MG) BY MOUTH 3 (THREE) TIMES A DAY active Not Available Not Available Not Available acetaminophe n 500 mg tablet TAKE 2 TABLETS BY MOUTH 3 (THREE) TIMES A DAY NEEDED FOR PAIN active Not Available Not Available No t Available prednisolone acetate 1 % eye drops,suspen samantha INSTILL 1 DROP IN THE RIGHT EYE EVERY 2 HOURS active Not Available Not Available No t Available vitamin A 3,000 mcg (10,000 unit) capsule TAKE 1 CAPSULE BY MOUTH ONCE DAILY active Not Available Not Available No t Available levothyroxin e 125 mcg tablet TAKE 1 TABLET BY MOUTH ONCE DAILY active Not Available Not Available No t Available buspirone 10 mg tablet TAKE 1 TABLET BY MOUTH ONCE DAILY active Not Available Not Available No t Available polymyxin B sulfate 10,000 unit-trimeth oprim 1 mg/mL eye drops INSTILL 1 DROP IN THE RIGHT EYE EVERY 2 HOURS active Not Available Not Available No t Available warfarin 5 mg tablet as per instruction s by [facility] COUMADIN NURSE. Dosing based on INR. up to 2 tablets per day. active Not Available Not Available No t Available brimonidine 0.2 % eye drops INSTILL 1 DROP IN EACH EYE two (2) times a day active Not Available Not Available Not Available buspirone 7.5 mg tablet TAKE 1 TABLET BY MOUTH ONCE DAILY active Not Available Not Available No t Available metoprolol succinate ER 25 mg tablet,exten ded release 24 hr TAKE 1/2 TABLET BY MOUTH ONCE DAILY active Not Available Not Available No t Available polyethylene glycol 3350 17 gram/dose oral powder DISSOLVE 1 SCOOP (17 GRAMS) IN WATER OR JUICE AND TAKE ONCE DAILY NEEDED FOR CONSTIPATIO N active Not Available Not Available No t Available clotrimazole 1 % topical cream APPLY TO THE AFFECTED AREA ON FEET two (2) times a day NEEDED FOR rash/tinea pedis active Not Available Not Available No t Available ipratropium bromide 21 mcg (0.03 %) nasal spray SPRAY 1 PUFF IN EACH NOSTRIL two (2) times a day NEEDED FOR nasal congestion active Not Available Not Available N ot Available dorzolamide 2 % eye drops INSTILL 1 DROP IN EACH EYE two (2) times a day active Not Available Not Available Not Available bacitracin-p olymyxin B 500 unit-10,000 unit/gram eye ointment Place 0.5 inches into the right eye 4 (four) times a day. active Not Available Not Available No t Available moxifloxacin 0.5 % eye drops INSTILL 1 DROP IN THE RIGHT EYE 4 (FOUR) TIMES DAILY active Not Available Not Available Not Available calcium 315 mg (as citrate)-vit woodall D3 5 mcg (200 unit) tablet TAKE 1 TABLET BY MOUTH two (2) times a day active Not Available Not Available No t Available lactulose 10 gram/15 mL oral solution TAKE 15ml BY MOUTH EVERY OTHER DAY NEEDED FOR CONSTIPATIO N active Not Available Not Available No t Available ferrous sulfate 324 mg (65 mg iron) tablet,delay ed release TAKE 1 TABLET BY MOUTH ONCE DAILY active Not Available Not Available No t Available diclofenac 1 % topical gel APPLY TO THE AFFECTED AREA TOPICALLY 4 (FOUR) TIMES DAILY active Not Available Not Available Not Available calcium 315 mg (as citrate)-vit woodall D3 6.25 mcg (250 unit) tablet TAKE 1 TABLET BY MOUTH two (2) times a day active Not Available Not Available No t Available gatifloxacin 0.5 % eye drops INSTILL ONE DROP IN THE RIGHT EYE EVERY 2 HOURS active Not Available Not Available No t Available tafluprost (PF) 0.0015 % eye drops in a dropperette Place 1 drop into the right eye nightly at bedtime. active Not Available Not Available Not Available Rhopressa 0.02 % eye drops Place 1 drop into the right eye nightly at bedtime. active Not Available Not Available Not Available [facility] COVID-19 Antigen Rapid Home Test kit USE DIRECTED NEEDED active Not Available Not Available No t Available Vitals Date Recorded Oxygen saturation Oxygen saturation in Arterial blood by Pulse oximetry Respiratory rate Heart rate Body weight Body temperature Systolic blood pressure Diastolic blood pressure Provider Name and Address Organization Details Last Updated DateTime 4 98 % 98 % 16 /min 76 /min 804353. 448 g 97.6 [degF] 128 mm[Hg] 70 mm[Hg] Not Available [employer] 4 17:03:30 Date Recorded Body temperature Respiratory rate Heart rate Oxygen saturation Oxygen saturation in Arterial blood by Pulse oximetry Systolic blood pressure Diastolic blood pressure Provider Name and Address Organization Details Last Updated DateTime 4 97.2 [degF] 16 /min 68 /min 98 % 98 % 134 mm[Hg] 78 mm[Hg] Not Available [facility] 4 19:02:22 Social History None recorded. Functional Status None recorded. Mental Status None recorded. Family History Nothing Reported. Medical History No medical history recorded. Gynecological HistoryNo gynecological history recorded. Obstetrics History GPAL:G 0 P 0 0 0 0 Past Encounters Encounter ID Performer Location Encounter Start Date Encounter Closed Date Diagnosis/Indication Diagnosis SNOMED-CT Code Diagnosis ICD10 Code Diagnosis Note [id number] Cher Johnson MD [facility] [address] [place] [id number] 11/12/2023 17:03:28 11/13/2023 13:22:40 Pain of left shoulder joint [id number] M25.512 [id number] RUSSELL GONZALEZ MD [facility] [address] [place] [address] 01/12/2024 19:02:20 01/13/2024 20:26:39 Pain of right eye [id number] 51505 H57.11 Evaluation in the field was performed by my director of advertising sales colleague, as noted above, I provided real-time direction and supervisio n for this visit. 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 Pt reports that she was seen at [facility] and she received some eye drops/pres cription ( Tobramycin ) and was given rx for Tylenol and codeine (not filled yet) and follow-up tomorrow with the surgeon. Reports taking Tylenol 1 gram every 4 hrs but still having lots of right eye pain that have not change from yesterday when she was seen in the ED. Denies fever, chills, CP, SOB.VSS Impression :Ongoing right eye pain Plan:Unfor tunately pt on Apixaban so can not receive Ketorolac- She has f/u with her surgeon tomorrow , and hopefully interventi on can be done to help with ongoing pain in the setting of failing transplant -Advised to cigar packer and picker her RX from the pharmacy and stop taking Tylenol when she start her Tylenol with codeine. In meantime advised not to take more than 1 gram in 6-8 hrs to avoid liver injuryRed flags discussed with the patient Primary care, consider__ _ Dispositio n: We discussed the diagnostic uncertaint y of home visits and the risk associated with this. In this case, the patient and I felt this to be an acceptable and reasonable amount of risk given the benefit of avoiding an ED visit. We discussed the need to seek care urgently/e mergently in the setting of any new or worsening serious symptoms, particular ly worsening of the eye pain and headache, a new kind of headache different from current one, weakness dizziness, CP, SOB or any other concerns. Health Concerns Section Related Observation LastModified by Organization Detai ls LastModified Time None Recorded Concern Status LastModified by Organization Details LastModified Time None Recorded Advance Directives Directive None Recorded Payers Encounter Date Sequence Insurance Name Policy Number Policy Briseno Covered Member ID Briseno Member ID Guarantor Name 11/12/2023 1 [facility] - DOS ON OR AFTER 2022 - DUAL ELIGIBLE - ASSISTED OPTIONS AND ONE CARE (MEDICARE REPLACEMENT/ADV ANTAGE - HMO) Maryanne Pennant [id number] Maryanne Pennant 01/12/2024 1 [facility] - DOS ON OR AFTER 2022 - DUAL ELIGIBLE - ASSISTED OPTIONS AND ONE CARE (MEDICARE REPLACEMENT/ADV ANTAGE - HMO) Maryanne Pennant [id number] Maryanne Pennant Notes Date Note Type Note Provider Name and Address Organization Details Recorded Time 11/12/2023 text/html [facility] Nurse Triage Notes (Shonna Murrieta): Chief Complaints: Pain PMH: Severe Persistent Mental Illness (SPMI), CHF, Heart Disease, Other Allergies: Morphine Pain Assessment: Level 8 out of 10 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 Reports left shoulder and left upper back pain x1 week. Atraumatic. Pain exacerbated with ROM. Seen in ED on Wednesday. CT and US done, negative workup. Appt with Orthopedic MD on Wednesday. Took Tylenol today at 8am this morning. Rx Tramadol but makes patient sick. .................... .................... .................... .................... .................... .................... .................... . Locksmith Note From Satya Garcias: Pt co left shoulder pain. Pt has appt Wednesday with orthopedics. Pt was seen in ED on Wednesday and Wednesday. Pt had ultrasound CTscan xray and ekg all unremarkable according to pt. Pt denies fever cp sob NVD headache or dizziness. Pt denies falls or trauma. Baseline vital assessed. Pt has partial ROM. No pain on palpation. Pt sts pain when she lays on it. [facility] contacted and 30mg toradol given IM. Pt advised to continue with appt Wednesday. Pt advised to follow up with pcp. Pt education on signs indicating the ER. Locksmith Allergies: Morphine .................... .................... .................... .................... .................... .................... .................... . Disposition: Fulfilled Cher Johnson MD [address] [place] [address],[address], [place], [phone], [employer] 11/12/2023 17:07:46 01/12/2024 text/html [facility] Nurse Triage Notes (Una Potter): Reason For Request: Right eye pain Chief Complaints: Pain PMH: Severe Persistent Mental Illness (SPMI), CHF, Heart Disease Allergies: Morphine Comments: hx of NH, no kidney disease, glaucomac/o right eye pain/right side of head- continuous right eye painyesterday, went to the [facility] in [place] and she received some eye drops/prescription for Tylenol and codeine (not filled yet) and follow-up tomorrow, losing sight in right eye but an operation on right eye ? transplant is failing- over a year ago she had the surgery, she took tylenol but still having lots of right eye pain and requesting a visit for todayBlood thinner- Eliquis .................... .................... .................... .................... .................... .................... .................... . Locksmith Note From Jed Castrejon: Dispatched to the call address for the female with eye pain. Pt states she has a corneal transplant a while ago but is having issues with it. She states that it has been leaking some sort of fluid and is painful. She has been taking 1g of Tylenol every 4 hours for the last couple of days which helps a little bit she states. Pt has appt with surgeon tomorrow afternoon. Pt is taking Eliquis. Pt has right sided headache (same side as affected eye). Pt denies SoB, chest pain or any other symptoms.Pt was found sitting in living room chair, CAOx4, airway open and patent, breathing non labored, able to speak in full sentences, -JVD, abd soft non tender/distended, +CMSx4, A-febrile. C consulted. Because Pt is on anticoagulants and the possibility of her doctor needing to do a procedure tomorrow, Pt is not a good candidate for Ketorolac. Pt was advised to take the Tylenol every 6 hours as opposed to every 4. Red flags discussed. ALL times are approx. .................... .................... .................... .................... .................... .................... .................... . Disposition: Melquiades GONZALEZ MD [address] [facility],[address], [place], [phone], [facility] - [employer] 01/12/2024 22:59:44 OBGyn Episode No OBEpisode recorded.
--- OUTSIDE RECORDS SUMMARY | 2024-09-19 09:39 | XMS_ITS | Continuity of Care Document ---
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 Name Role Phone Wenceslao BECKMAN, Unique Primary Care Physician Encounter [facility] Date(s): 08/07/24 - 09/06/24 [facility] [address] [place] [address]- Encounter Type: Triage Allergies, Adverse Reactions, Alerts Substance Criticality Severity Reaction Reaction Severity Status morphine 1 Active Percocet gi upset Active Chocolate nausea Active Dust wheezing Active Latex Active Other Environmental Allergy Feathers-wheeze Active OxyCODONE Hydrochloride Active 1confusion Immunizations Given and Recorded Vaccine Date Status Refusal Reason influenza virus vaccine, inactivated 06/26/24 Give n influenza virus vaccine, inactivated 06/22/23 Give n influenza virus vaccine, inactivated 05/26/22 Give n influenza virus vaccine, inactivated 07/21/21 Give n influenza virus vaccine, inactivated 05/16/20 Give n influenza virus vaccine, inactivated 05/22/19 Give n influenza virus vaccine, inactivated 04/26/18 Give n influenza virus vaccine, inactivated 06/08/17 Give n influenza virus vaccine, inactivated 07/01/16 Give n influenza virus vaccine, inactivated 04/24/15 Give n influenza virus vaccine, inactivated 05/01/14 Give n influenza virus vaccine, inactivated 1 04/24/13 Gi bayron influenza virus vaccine, inactivated 2 04/29/12 Gi bayron influenza virus vaccine, inactivated 3 05/07/11 Gi bayron influenza virus vaccine, inactivated 4 05/30/10 Gi bayron SARS-CoV-2(COVID-19)mRNA-LNP vac([id number]) 08/23/23 Recorded pneumococcal 20-valent conjugate vaccine 04/06/23 Given zoster vaccine, inactivated 09/28/22 Recorded zoster vaccine, inactivated 05/25/22 Recorded [id number] 12y+ bivalent booster vax 05/25/22 Recorded SARS-CoV-2 mRNA ([id number]) vax 01/18/22 Recorded SARS-CoV-2 (COVID-19) mRNA BNT-162b2 vac 06/02/21 Given tetanus/diphtheria/pertussis, acel(Tdap) 01/22/21 Given tetanus/diphtheria/pertussis, acel(Tdap) 01/01/14 Given SARS-CoV-2 (COVID-19) Ad26 vaccine 11/25/20 Given pneumococcal 23-valent vaccine 04/24/15 Given Measles/Mumps/Rubella Virus Vaccine 01/01/14 Given influ virus vac, H1N1, inactive(oldterm) 5 09/23/09 Given Fluzone (oldterm) 6 08/28/09 Given Pneumococcal Poly (PPV23) (oldterm) 7 05/10/08 Giv en Hepatitis B Vaccine (old term) 8 12/23/07 Given Hepatitis B Vaccine (old term) 05/27/06 Given Hepatitis B Vaccine (old term) 9 02/04/06 Given tetanus-diphtheria toxoids (Td) 10 05/16/07 Given Influenza Virus Vaccine (oldterm) 11 05/16/07 Give n 1Result Comment: [04/24/2013] Fluzone 2Admin Note: VIS 02-03 3Admin Note: VIS GIVEN 02/17/2011 4Admin Note: VIS given 03/04/10 5Admin Note: vis 05/03 6Admin Note: Vis given, dated 03/03 7Admin Note: vis given 8Admin Note: 3rd vacc 9Admin Note: VIS given-#2 10Admin Note: VIS GIVEN 11Admin Note: VIS given Medications acetaminophen 500 mg oral tablet 2 tablet, By Mouth, 3 times a day, PRN NEEDED FOR PAIN, not to exceed 3000 mg/day (6 tablets), #180 tablet, 1 Refills, Maintenance, 04/17/24 2:03:00 PM EDT, [facility] [id number], 163, cm, 04/17/24 13:11:00 EDT, Height, 96.6, kg, 04/15/24 14:50:00 EDT, Dry Weight Start Date: 04/17/24 Status: Ordered Quantity: 180.0 Unit: tablet Repeat number: 2 Indication: Sciatica, unspecified side amoxicillin 500 mg oral capsule See Instructions, TAKE FOUR CAPSULES BY MOUTH ONCE. TAKE 30 TO 60 MINUTES prior to PROCEDURE, # 4 capsule, 1 Refills, Maintenance, 03/28/24 2:26:00 PM EDT, [facility] [id number], 153, cm, 03/07/24 14:01:00 EDT, Height, 113.9, kg, 11/07/23 14:37:00 EDT, Dry Weight Start Date: 03/28/24 Status: Ordered Quantity: 4.0 Unit: capsule Repeat number: 2 atorvastatin 40 mg oral tablet 1 tablet, By Mouth, Daily, # 90 tablet, 3 Refills, Maintenance, 03/28/24 2:35:00 PM EDT, [facility] [id number], 153, cm, 03/07/24 14:01:00 EDT, Height, 113.9, kg, 11/07/23 14:37:00 EDT, Dry Weight Start Date: 03/28/24 Stop Date: 03/23/25 Status: Ordered Quantity: 90.0 Unit: tablet Repeat number: 4 brimonidine 0.2% ophthalmic solution via outside eye team, 0 Refills, Maintenance, 06/26/24 1:49:00 PM EST, Partial fill upon patient request if the prescription is for a schedule II opioid drug. Start Date: 06/26/24 Status: Ordered Repeat number: 1 busPIRone 10 mg oral tablet via psychaitry, Refills 0, Maintenance, 01/03/24 12:10:00 PM EDT, Partial fill upon patient request if the prescription is for a schedule II opioid drug. Start Date: 01/03/24 Status: Ordered Repeat number: 1 calcium and vitamin D combination 315 mg-200 iu oral tablet 1 tablet, By Mouth, Daily, # 30, 0 Refills, Maintenance, 04/17/24 1:45:00 PM EDT, Tablet, Partial fill upon patient request if the prescription is for a schedule II opioid drug. Start Date: 04/17/24 Stop Date: 05/17/24 Status: Ordered Quantity: 30.0 Unit: Repeat number: 1 clotrimazole 1% topical cream See Instructions, APPLY TO THE AFFECTED AREA ON FEET two (2) times a day NEEDED FOR rash/tinea pedis, # 30 Gm, 3 Refills, Maintenance, 09/14/23 5:59:00 PM EST, [facility], 30, 164, cm, 08/16/23 8:38:00 EST, Height, 91.7, kg, 11/03/22 8:01:00 EDT, Dry Weight Start Date: 09/14/23 Status: Ordered Quantity: 30.0 Unit: g Repeat number: 1 clozapine 100 mg oral tablet via psychaitry, 0 Refills, Maintenance, 01/03/24 12:10:00 PM EDT, Partial fill upon patient request if the prescription is for a schedule II opioid drug. Start Date: 01/03/24 Status: Ordered Repeat number: 1 cromolyn 4% ophthalmic solution via outside eye team, 0 Refills, Maintenance, 06/26/24 1:49:00 PM EST, Partial fill upon patient request if the prescription is for a schedule II opioid drug. Start Date: 06/26/24 Status: Ordered Repeat number: 1 diclofenac 1% topical gel See Instructions, APPLY TO THE AFFECTED AREA TOPICALLY 4 (FOUR) TIMES DAILY. not to exceed 16grams/day/single joint OF lower extremities, # 100 Gm, 0 Refills, Maintenance, 05/09/24 4:56:00 PM EDT, [facility], 30, APPLY TO THE AFFECTED AREA TOPICALLY 4 (FOUR) TIMES DAILY. not to exceed 16grams/day/single joint OF lower extremities, 163, cm, 05/02/24 9:16:00 EDT, Height, 96.6, kg, 04/15/24 14:50:00 EDT, Dry Weight Start Date: 05/09/24 Status: Ordered Quantity: 100.0 Unit: g Repeat number: 1 dorzolamide 2% ophthalmic solution via outside eye team, 0 Refills, Maintenance, 06/26/24 1:49:00 PM EST, Partial fill upon patient request if the prescription is for a schedule II opioid drug. Start Date: 06/26/24 Status: Ordered Repeat number: 1 Eliquis 5 mg oral tablet 1 tablet = 5 mg, By Mouth, 2 times a day, as directed on package labeling, # 180 tablet, 3 Refills,Maintenance, 05/10/24 4:02:00 PM EDT, Tablet, [facility] [id number], 163, cm, 05/02/24 9:16:00 EDT, Height, 96.6, kg, 04/15/24 14:50:00 EDT, Dry Weight Start Date: 05/10/24 Stop Date: 05/05/25 Status: Ordered Quantity: 180.0 Unit: tablet Repeat number: 4 Glucosamine By Mouth, 0 Refills, Maintenance, 10/07/21 10:01:00 AM EDT, Partial fill upon patient request if theprescription is for a schedule II opioid drug. Start Date: 10/07/21 Status: Ordered Repeat number: 1 Golytely - oral powder for reconstitution See Instructions, Per instructions from GI., # 4,000 mL, 0 Refills, Maintenance, 03/29/24 10:44:00 AMEDT, [facility] [id number], Partial fill upon patient request if the prescription is for a schedule II opioid drug., Per instructions from GI., 153, cm, 03/29/24 10:12:00 EDT, Height, 113.9, kg, 11/07/23 14:37:00 EDT, Dry Weight Start Date: 03/29/24 Status: Ordered Quantity: 4000.0 Unit: mL Repeat number: 1 Indication: Encounter for screening for malignant neoplasm of colon ipratropium nasal 21 mcg/inh spray See Instructions, SPRAY ONCE INTO EACH NOSTRIL 2 (two) times a day NEEDED FOR nasal CONGESTION, # 30 mL, 3 Refills, Maintenance, 06/26/24 1:47:00 PM EST, [facility] [id number], 30, SPRAY ONCE INTO EACH NOSTRIL 2 (two) times a day NEEDED FOR nasal CONGESTION, 163, cm, 06/26/24 13:18:00 EST, Height, 96.6, kg, 04/15/24 14:50:00 EDT, Dry Weight Start Date: 06/26/24 Status: Ordered Quantity: 30.0 Unit: mL Repeat number: 4 lactulose 10 gm/15 ml oral syrup 15 mL, By Mouth, Every other day, PRN NEEDED FOR CONSTIPATION, # 105 mL, 3 Refills, Maintenance,08/07/24 6:20:00 PM EST, [facility], 30, TAKE 15ml BY MOUTH EVERY OTHER DAY NEEDED FOR CONSTIPATION, 163, cm, 06/26/24 13:18:00 EST, Height, 96.6, kg, 04/15/24 14:50:00 EDT, Dry Weight Start Date: 08/07/24 Status: Ordered Quantity: 105.0 Unit: mL Repeat number: 1 latanoprost 0.005% ophthalmic solution via outside eye team, 0 Refills, Maintenance, 06/26/24 1:49:00 PM EST, Partial fill upon patient request if the prescription is for a schedule II opioid drug. Start Date: 06/26/24 Status: Ordered Repeat number: 1 levothyroxine 125 mcg (0.125 mg) oral tablet 1 tablet, By Mouth, Daily, # 90 tablet, 3 Refills, Maintenance, 08/07/24 5:13:00 PM EST, [facility] [id number], 163, cm, 06/26/24 13:18:00 EST, Height, 96.6, kg, 04/15/24 14:50:00 EDT, Dry Weight Start Date: 08/07/24 Stop Date: 08/02/25 Status: Ordered Quantity: 90.0 Unit: tablet Repeat number: 4 lidocaine 5% topical film 2 patches, Topically, Daily, PRN Pain , Mild, remove after 12 hours, # 60 patch, 0 Refills, Acute 04/18/25 1:57:00 PM EDT, 04/17/24 1:57:00 PM EDT, Film, [place], [place] - [id number],Partial fill upon patient request if the prescription is for a schedule II opioid drug., 2 patches Topically Daily,PRN:Pain , Mild,Instr:remove after 12 hours, 163, cm, 04/17/24 13:11:00 EDT, Height,96.6, kg, 04/15/24 14:50:00 EDT, Dry Weight Start Date: 04/17/24 Stop Date: 04/18/25 Status: Ordered Quantity: 60.0 Unit: patch Repeat number: 1 Indication: Sciatica, unspecified side [facility] Adult 0 Refills, Maintenance, 10/21/21 11:55:00 AM EDT, Partial fill upon patient request if the prescription is for a schedule II opioid drug. Start Date: 10/21/21 Status: Ordered Repeat number: 1 Metoprolol Succinate ER 25 mg oral tablet, extended release via Dr Ankit Ozuna / cardiology, Refills 0, Maintenance, 08/22/24 9:43:00 AM EST, Partial fill upon patient request if the prescription is for a schedule II opioid drug. Start Date: 08/22/24 Status: Ordered Repeat number: 1 polyethylene glycol 3350 oral powder for reconstitution See Instructions, DISSOLVE 1 SCOOP (17 GRAMS) IN WATER OR JUICE AND TAKE ONCE DAILY NEEDED FOR CONSTIPATION, # 510 Gm, 5 Refills, Maintenance, 08/07/24 3:52:00 PM EST, [place], [place] - [id number], 30, DISSOLVE 1 SCOOP (17 GRAMS) IN WATER OR JUICE AND TAKE ONCE DAILY NEEDED FOR CONSTIPATION, 163, cm, 06/26/24 13:18:00 EST, Height, 96.6, kg, 04/15/24 14:50:00 EDT, Dry Weight Start Date: 08/07/24 Status: Ordered Quantity: 510.0 Unit: g Repeat number: 6 prednisolone ophthalmic acetate 1% suspension via Chetan Arias, 0 Refills, Maintenance, 03/28/24 2:37:00 PM EDT, Partial fill upon patient requestif the prescription is for a schedule II opioid drug. Start Date: 03/28/24 Status: Ordered Repeat number: 1 Symbicort 80mcg/4.5mcg Inhaler 2, puffs, Inhalation, Daily, PRN, # 10.2 Gm, Refills 5, Tot. Refills 5, Maintenance, 12/01/23 10:01:00 AM EDT, Aerosol, Route to Pharmacy Electronically, [id number], [place], [place] - [id number], 153, cm, 12/01/23 9:22:00 EDT, Height, 113.9, kg, 11/07/23 14:37:00 EDT, Dry Weight Start Date: 12/01/23 Status: Ordered Quantity: 10.2 Unit: g Repeat number: 6 tiZANidine 2 mg oral tablet via outside provider, Refills 0, Maintenance, 01/03/24 12:10:00 PM EDT, Partial fill upon patient request if the prescription is for a schedule II opioid drug. Start Date: 01/03/24 Status: Ordered Repeat number: 1 valACYclovir 500 mg oral tablet via Dionne Li, eye team, Refills 0, Maintenance, 03/28/24 2:38:00 PM EDT Start Date: 03/28/24 Status: Ordered Repeat number: 1 venlafaxine 150 mg oral capsule, extended release via psychaitry, 0 Refills, Maintenance, 01/03/24 12:10:00 PM EDT, Partial fill upon patient request if the prescription is for a schedule II opioid drug. Start Date: 01/03/24 Status: Ordered Repeat number: 1 Wegovy (2.4 mg dose) subcutaneous solution = 2.4 mg, Subcutaneous Injection, Every week, in the abdomen, thigh, or upper, # 3 mL, 3 Refills, Maintenance, 08/22/24 9:52:00 AM EST, Solution, [place], [place] - [id number], 163, cm, 08/22/24 9:03:00 EST, Height, 96.6, kg, 04/15/24 14:50:00 EDT, Dry Weight Start Date: 08/22/24 Stop Date: 12/12/24 Status: Ordered Quantity: 3.0 Unit: mL Repeat number: 4 Zinc = 50 mg, By Mouth, Daily, 0 Refills, Maintenance, 08/25/22 1:47:00 PM EST, Partial fill upon patientrequest if the prescription is for a schedule II opioid drug. Start Date: 08/25/22 Status: Ordered Repeat number: 1 Problem List Condition Confirmation Course Effective Dates Status H ealth Status Informant Arthritis Confirmed Active Asthma. positive methacholine challenge 2008 1, 2 Confirmed Active Ventura's cyst of knee 3 Confirmed 03/23/11 Active Cardiomyopathy per [facility] Confirmed Active Cataract 4 Confirmed Active Colonoscopy - next due 2023 per 2021 report 5, 6 Confirmed 12/2011 Active Corneal scar - operation Confirmed Active DVT, lower extremity - Heme recommends indefine anticoagulation Confirmed 04/2014 Active DIABETES INSIPIDUS from lithium 7, 8 Confirmed Active Anticoagulated Confirmed Active Fibroadenoma of breast 9 Confirmed Active Glaucoma 10, 11 Confirmed Active h/o corneal transplant Confirmed 02/2016 Active H/O: hysterectomy, for fibroids Confirmed 2000 Active History of penetrating keratoplasty, right eye, surgery Confirmed Active h/o laparoscopic sleeve gastrectomy 12 Confirmed 04/2018 Active S/P panniculectomy 13 Confirmed 10/2020 Active History of total right knee replacement (TKR) Confirmed 06/11/20 Active Hypothyroid Confirmed Active Knee pain, chronic Confirmed Active Lymphedema of both lower extremities Confirmed Active ; Meralgia paresthetica Confirmed Active Mitral regurgitation 14 Confirmed Active Obese class I Confirmed Active Osteoarthritis -knee 15 Confirmed Active Tendinitis, de Quervain's Confirmed Active Sleep apnea syndrome, complex Confirmed Active Thyroid nodule; per 2022 US, given 5 year stability, no followup indicated 16, 17 Confirmed Active Tubular adenoma of colon - next colonoscoy due 2021 18 Confirmed 10/09/17 Active 1(actualy, test was 02-22-09) 2positive methacholine challenge - 3on 8- US 4surgery rt eye 10-19-08 5fair prep in 2021 so per report, due next 2023 6due to quality of prep, repeat in 5 years (done 2011, due 2016) 7from lithium per renal note 8see renal note 01-31. may be secondary to prior use of lithium 9Biopsy 12/29 10acute /sent [facility] to [facility] 11open angle, bilateral, severe per eye note 12[facility] 13at [place] 14mild on ECHO 12/2003 15severe , right , per 2010 [facility] consult 16next due 2022 per message with Endocrine 171.8 cm per Endcrine note, repeat US due in 18repeat in 09/2018 Social History Social History Type Response Smoking Status Never smoker entered on: 04/23/15 Sex Sex Representation Female (finding) Patient Care team information Care Team Personnel Name: Brenda Lam RN Position: [facility] RN Member Role: Primary Care Nurse Name: Franci Alexander RN Position: [facility] AMB Nurse Member Role: Primary Care Nurse Name: Unique Billy MD Position: [facility] Physician - Primary Care Member Role: PCP Address: [address] [place] [address] Telecom: Name: Kerrie Coleman RN Position: [facility] SN RN Member Role: Primary Care Nurse Name: Lata Meléndez RN Position: [facility] RN Member Role: Primary Care Nurse Name: Cruz Browne RN Position: [facility] RN Member Role: Primary Care Nurse Name: Yamilka Peguero RN Position: [facility] AMB Nurse Member Role: Primary Care Nurse Care Team Related Persons Name: ZURDO DUMONT Name: NELLY ROBERTS Name: YOLANDA STALEY Insurance Providers Guarantor name: [facility] Plan Information #: 1 Payer: NA Member Number: NA Policy Number: NA Group Number: NA
--- OUTSIDE RECORDS SUMMARY | 2024-09-19 09:39 | XMS_ITS | Clinical Summary ---
Author Organization [address] Address [address] [place] [address] Phone Care Team Providers Care Full Stack Software Engineer Name Role Phone Aleyda Tillman MD Primary Care Provider Social History Tobacco Use Types Packs/Day Years Used Date Smoking Tobacco: Never Assessed Comments Unknown Sex and Gender Information Value Date Recorded Sex Assigned at Not on file Legal Sex Female 2:55 AM EST Gender Identity Not on file Sexual Orientation Not on file Plan of Treatment Health Maintenance Due Date Last Done Comments Breast Cancer Screening 1958 Diabetes: Annual Foot Exam 1968 Diabetes: Annual Retina Eye Exam 1968 RSV Immunization Patients 60+ Years Old (1 - Risk 60-74 years 1-dose series) 2018 Cholesterol Screening (Lipid Panel) 06/28/2022 Colorectal Cancer Screening: Colonoscopy 06/28/2022 Depression Screening 06/28/2022 Hepatitis C Screening 06/28/2022 Medicare Annual Wellness Visit 06/28/2022 Osteoporosis Screening (Bone Density Screening) 06/28/2022 Social Influencers of Health Screening 06/28/2022 Falls Risk Assessment 2023 COVID-19 Vaccine ( season) 2024 08/23/2023, 05/25/2022, 01/18/2022, Additional history exists Diabetes: Blood Sugar Control Test (HGBA1C) 06/01/2024 Diabetes: Annual Urine Albumin-Creatinine Ratio (uACR) 08/02/2025 08/02/2024, 08/02/2024 Diabetes: Annual GFR (Glomerular Filtration Rate) 08/02/2025 08/02/2024 DTaP,Tdap,and Td Vaccines (4 - Td or Tdap) 01/22/2031 01/22/2021, 01/01/2014, 05/16/2007 Hepatitis B Vaccines Completed 12/23/2007, 05/27/2006, 02/04/2006 MMR Vaccines Aged Out 01/01/2014 No longer eligi ble based on patient's age to complete this topic Zoster Vaccines Completed 09/28/2022, 05/25/2022 Pneumococcal Vaccine: 50+ Years Completed 04/06/2023, 04/24/2015, 05/10/2008 Influenza Vaccine Completed 06/26/2024, , 05/26/2022, Additional history exists HIB Vaccines Aged Out No longer eligi ble based on patient's age to complete this topic HPV Vaccines Aged Out No longer eligi ble based on patient's age to complete this topic Hepatitis A Vaccines Aged Out No long er eligible based on patient's age to complete this topic IPV Vaccines Aged Out No longer eligi ble based on patient's age to complete this topic Meningococcal ACWY Vaccine Aged Out N o longer eligible based on patient's age to complete this topic Meningococcal B Vacine Aged Out No lo nger eligible based on patient's age to complete this topic RSV Immunization Patients Under 20 months Aged Out No longer eligible based on patient's age to complete this topic Varicella Vaccines Aged Out No longer eligible based on patient's age to complete this topic Procedures Procedure Name Priority Date/Time Associated Diagnosis Comments CBC WITH AUTO DIFFERENTIAL Routine 09/01/2024 9:39 AM EST Mild mixed bipolar I disorder (CMS/HCC) FPC use of drug CBC AND DIFFERENTIAL Routine 09/01/2024 9:39 AM EST Mild mixed bipolar I disorder (CMS/HCC) technician terminal and repeater use of drug URINALYSIS WITH REFLEX MICROSCOPIC Routine 08/02/2024 12:11 PM EST Chronic kidney disease, stage II (mild) Iron deficiency anemia secondary to inadequate dietary iron intake IRON AND TIBC Routine 08/02/2024 12:11 PM EST Chronic kidney disease, stage II (mild) Iron deficiency anemia secondary to inadequate dietary iron intake FERRITIN Routine 08/02/2024 12:11 PM EST Chronic kidney disease, stage II (mild) Iron deficiency anemia secondary to inadequate dietary iron intake VITAMIN D 25 HYDROXY Routine 08/02/2024 12:11 PM EST Chronic kidney disease, stage II (mild) Iron deficiency anemia secondary to inadequate dietary iron intake URINALYSIS WITH REFLEX MICROSCOPIC Routine 08/02/2024 12:11 PM EST Chronic kidney disease, stage II (mild) Iron deficiency anemia secondary to inadequate dietary iron intake MICROALBUMIN CREATININE URINE RATIO Routine 08/02/2024 12:11 PM EST Chronic kidney disease, stage II (mild) Iron deficiency anemia secondary to inadequate dietary iron intake RENAL FUNCTION PANEL Routine 08/02/2024 12:11 PM EST Chronic kidney disease, stage II (mild) Iron deficiency anemia secondary to inadequate dietary iron intake PARATHYROID HORMONE INTACT Routine 08/02/2024 12:11 PM EST Chronic kidney disease, stage II (mild) Iron deficiency anemia secondary to inadequate dietary iron intake COMPLETE BLOOD COUNT Routine 08/02/2024 12:11 PM EST Chronic kidney disease, stage II (mild) Iron deficiency anemia secondary to inadequate dietary iron intake CBC WITH AUTO DIFFERENTIAL Routine 07/27/2024 12:17 PM EST Mild mixed bipolar I disorder (CMS/HCC) FPC use of drug CBC AND DIFFERENTIAL Routine 07/27/2024 12:17 PM EST Mild mixed bipolar I disorder (CMS/HCC) FPC use of drug CBC WITH AUTO DIFFERENTIAL Routine 06/28/2024 11:33 AM EST Mild mixed bipolar I disorder (CMS/HCC) technician terminal and 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 [facility] Signature WBC 7.3 4.8 - 10.8 K/mcL LAB HEMETOLOGY METHOD 09/01/2024 10:25 AM [facility] RBC 4.20 3.80 - 4.80 M/mcL LAB HEMETOLOGY METHOD 09/01/2024 10:25 AM [facility] Hemoglobin 12.4 11.5 - 16.0 g/dL LAB HEMETOLOGY METHOD 09/01/2024 10:25 AM [facility] Hematocrit 39.7 35.0 - 47.0 % LAB HEMETOLOGY METHOD 09/01/2024 10:25 AM [facility] MCV 95.2 79.0 - 98.0 FL LAB HEMETOLOGY METHOD 09/01/2024 10:25 AM [facility] MCH 29.7 27.0 - 32.0 pcg LAB HEMETOLOGY METHOD 09/01/2024 10:25 AM [facility] MCHC 31.2(L) 32.0 - 37.0 g/dL LAB HEMETOLOGY METHOD 09/01/2024 10:25 AM [facility] RDW 15.5(H) 11.0 - 15.0 % LAB HEMETOLOGY METHOD 09/01/2024 10:25 AM [facility] Platelets 199 130 - 400 K/mcL LAB HEMETOLOGY METHOD 09/01/2024 10:25 AM [facility] MPV 12.7(H) 7.0 - 11.0 FL LAB HEMETOLOGY METHOD 09/01/2024 10:25 AM [facility] NRBC 0.0 <1.0 % LAB HEMETOLOGY METHOD 09/01/2024 10:25 AM [facility] NRBC Absolute 0.00 <0.10 K/mcL LAB HEMETOLOGY METHOD 09/01/2024 10:25 AM [facility] Neutrophils Relative 60.5 % LAB HEMETOLOGY METHOD 09/01/2024 10:25 AM [facility] Lymphocytes Relative 29.5 % LAB HEMETOLOGY METHOD 09/01/2024 10:25 AM [facility] Monocytes Relative 9.4 % LAB HEMETOLOGY METHOD 09/01/2024 10:25 AM [facility] Eosinophils Relative 0.0 % LAB HEMETOLOGY METHOD 09/01/2024 10:25 AM [facility] Basophils Relative 0.3 % LAB HEMETOLOGY METHOD 09/01/2024 10:25 AM [facility] Immature Granulocytes Relative 0.3 % LAB HEMETOLOGY METHOD 09/01/2024 10:25 AM [facility] Neutrophils Absolute 4.42 1.50 - 7.00 K/mcL LAB HEMETOLOGY METHOD 09/01/2024 10:25 AM [facility] Lymphocytes Absolute 2.16 1.00 - 5.00 K/mcL LAB HEMETOLOGY METHOD 09/01/2024 10:25 AM [facility] Monocytes Absolute 0.69 0.20 - 1.00 K/mcL LAB HEMETOLOGY METHOD 09/01/2024 10:25 AM [facility] Eosinophils Absolute 0.00 0.00 - 0.50 K/mcL LAB HEMETOLOGY METHOD 09/01/2024 10:25 AM [facility] Basophils Absolute 0.02 0.00 - 0.20 K/mcL LAB HEMETOLOGY METHOD 09/01/2024 10:25 AM [facility] Immature Granulocytes Absolute 0.02 0.00 - 0.03 K/mcL LAB HEMETOLOGY METHOD 09/01/2024 10:25 AM [facility] Blood Venous blood specimen / Unknown Venipuncture / Unknown 09/01/2024 9:39 AM EST 09/01/2024 10:12 AM EST us Aleyda Tillman MD LAB BLOOD ORDERABLES Fi nal Result [facility] [address] [place] [address], [place] [phone] * Urinalysis with reflex microscopic (08/02/2024 12:11 PM EST) Specific Switchback Urine 1.013 1.003 - 1.030 LAB URINALYSIS - AUTOMATED METHOD 08/02/2024 1:12 PM [facility] pH, Urine 5.5 5.0 - 8.0 pH LAB URINALYSIS - AUTOMATED METHOD 08/02/2024 1:12 PM [facility] Leukocytes, Urine Negative Negative LAB URINALYSIS - AUTOMATED METHOD 08/02/2024 1:12 PM [facility] Nitrite, Urine Negative Negative LAB URINALYSIS - AUTOMATED METHOD 08/02/2024 1:12 PM [facility] Protein, Urine Negative <=Trace mg/dL LAB URINALYSIS - AUTOMATED METHOD 08/02/2024 1:12 PM [facility] Glucose, Urine Negative Negative mg/dL LAB URINALYSIS - AUTOMATED METHOD 08/02/2024 1:12 PM [facility] Ketones, Urine Negative Negative mg/dL LAB URINALYSIS - AUTOMATED METHOD 08/02/2024 1:12 PM [facility] Urobilinogen, Urine 1.0 0.2 - 1.0 mg/dL LAB URINALYSIS - AUTOMATED METHOD 08/02/2024 1:12 PM [facility] Bilirubin, Urine Negative Negative LAB URINALYSIS - AUTOMATED METHOD 08/02/2024 1:12 PM [facility] Blood, Urine Negative Negative LAB URINALYSIS - AUTOMATED METHOD 08/02/2024 1:12 PM [facility] Urine Urine specimen obtained by clean catch procedure / Unknown Non-blood Collection / Unknown 08/02/2024 12:11 PM EST 08/02/2024 1:03 PM EST [facility] LAB URINE ORDERABLES Final R esult Performing Organization Address [facility] Co de Phone Number [facility] [address] [place] [address], [place] [phone] * Iron and TIBC (08/02/2024 12:11 PM EST) Iron 61 40 - 150 mcg/dL LAB CHEMISTRY METHOD 08/02/2024 1:54 PM [facility] Comment:Hemolysis present TIBC 270 250 - 450 mcg/dL LAB CHEMISTRY METHOD 08/02/2024 1:54 PM [facility] Comment:Hemolysis present Iron Saturation 23 15 - 50 % LAB CHEMISTRY METHOD 08/02/2024 1:54 PM [facility] Blood Venous blood specimen / Unknown Venipuncture / Unknown 08/02/2024 12:11 PM EST 08/02/2024 12:56 PM EST [facility] LAB BLOOD ORDERABLES Final R esult Performing Organization Address City/[facility] Co de Phone Number [facility] [address] [place] [address], [place] [phone] * Microalbumin creatinine urine ratio (08/02/2024 12:11 PM EST) Creatinine, Urine 67.0 mg/dL LAB CHEMISTRY METHOD 08/02/2024 2:42 PM [facility] Microalb, Ur 12.5 0.0 - 29.0 mg/L LAB CHEMISTRY METHOD 08/02/2024 2:42 PM [facility] Microalb/Creat Ratio 19 <30 mg/g creat LAB CHEMISTRY METHOD 08/02/2024 2:42 PM EST [facility] Urine Urine specimen obtained by clean catch procedure / Unknown Non-blood Collection / Unknown 08/02/2024 12:11 PM EST 08/02/2024 1:03 PM EST [facility] LAB URINE ORDERABLES Final R esult Performing Organization Address City/[facility]/ZIP Co de Phone Number [facility] [address] [place] [address], [place] [phone] * Vitamin D 25 hydroxy (08/02/2024 12:11 PM EST) Pathologist [facility] Vit D, 25-Hydroxy 45.8 30.0 - 80.0 ng/mL LAB CHEMISTRY METHOD 08/02/2024 1:54 PM EST [facility] Blood Venous blood specimen / Unknown Venipuncture / Unknown 08/02/2024 12:11 PM EST 08/02/2024 12:56 PM EST [facility] LAB BLOOD ORDERABLES Final R esult Performing Organization Address City/[facility]/ZIP Co de Phone Number [facility] [address] [place] [address], [place] [phone] * (ABNORMAL) Complete blood count (08/02/2024 12:11 PM EST) WBC 7.5 4.8 - 10.8 K/mcL LAB HEMETOLOGY METHOD 08/02/2024 2:25 PM EST [facility] RBC 4.40 3.80 - 4.80 M/mcL LAB HEMETOLOGY METHOD 08/02/2024 2:25 PM EST [facility] Hemoglobin 13.0 11.5 - 16.0 g/dL LAB HEMETOLOGY METHOD 08/02/2024 2:25 PM EST [facility] Hematocrit 42.0 35.0 - 47.0 % LAB HEMETOLOGY METHOD 08/02/2024 2:25 PM EST [facility] MCV 95.7 79.0 - 98.0 FL LAB HEMETOLOGY METHOD 08/02/2024 2:25 PM EST [facility] MCH 29.6 27.0 - 32.0 pcg LAB HEMETOLOGY METHOD 08/02/2024 2:25 PM EST [facility] MCHC 31.0(L) 32.0 - 37.0 g/dL LAB HEMETOLOGY METHOD 08/02/2024 2:25 PM EST [facility] RDW 16.1(H) 11.0 - 15.0 % LAB HEMETOLOGY METHOD 08/02/2024 2:25 PM [facility] Platelets 164 130 - 400 K/mcL LAB HEMETOLOGY METHOD 08/02/2024 2:25 PM EST [facility] MPV 13.1(H) 7.0 - 11.0 FL LAB HEMETOLOGY METHOD 08/02/2024 2:25 PM EST [facility] NRBC 0.0 <1.0 % LAB HEMETOLOGY METHOD 08/02/2024 2:25 PM EST [facility] NRBC Absolute 0.00 <0.10 K/mcL LAB HEMETOLOGY METHOD 08/02/2024 2:25 PM EST [facility] Blood Venous blood specimen / Unknown Venipuncture / Unknown 08/02/2024 12:11 PM EST 08/02/2024 12:55 PM EST [facility] BLOOD ORDERABLES Final R esult [facility] [address] [place] [address], * Parathyroid hormone intact (08/02/2024 12:11 PM EST) [facility] PTH 53.5 18.5 - 88.0 pcg/mL LAB CHEMISTRY METHOD 08/02/2024 1:59 PM EST [facility] Blood Venous blood specimen / Unknown Venipuncture / Unknown 08/02/2024 12:11 PM EST 08/02/2024 12:56 PM EST [facility] LAB BLOOD ORDERABLES Final R esult [facility] [address] [place] [address], [place] [phone] * Ferritin (08/02/2024 12:11 PM EST) [facility] Ferritin 50 8 - 252 ng/mL LAB CHEMISTRY METHOD 08/02/2024 1:54 PM EST [facility] Blood Venous blood specimen / Unknown Venipuncture / Unknown 08/02/2024 12:11 PM EST 08/02/2024 12:56 PM EST [facility] LAB BLOOD ORDERABLES Final R esult Performing Organization Address City/[facility]/ZIP Co de Phone Number [facility] [address] [place] [address], [place] [phone] * Renal function panel (08/02/2024 12:11 PM EST) [facility] Sodium 139 133 - 145 mmol/L LAB CHEMISTRY METHOD 08/02/2024 1:54 PM [facility] Potassium 5.0 3.5 - 5.5 mmol/L LAB CHEMISTRY METHOD 08/02/2024 1:54 PM [facility] Comment:Hemolysis present Chloride 109 96 - 110 mmol/L LAB CHEMISTRY METHOD 08/02/2024 1:54 PM [facility] CO2 27 21 - 32 mmol/L LAB CHEMISTRY METHOD 08/02/2024 1:54 PM [facility] Anion Gap 3 3 - 11 LAB CHEMISTRY METHOD 08/02/2024 1:54 PM [facility] Glucose 77 70 - 100 mg/dL LAB CHEMISTRY METHOD 08/02/2024 1:54 PM [facility] BUN 19 5 - 25 mg/dL LAB CHEMISTRY METHOD 08/02/2024 1:54 PM [facility] Creatinine 0.90 0.50 - 1.10 mg/dL LAB CHEMISTRY METHOD 08/02/2024 1:54 PM [facility] eGFR 71 >=60 mL/min/1. 73m2 LAB CHEMISTRY METHOD 08/02/2024 1:54 PM [facility] Comment:Calculation based on the??Chronic Kidney Disease Epidemiology Collaboration (CKD-EPI) equation refit??without adjustment for race. BUN/Creatinine Ratio 21.1 LAB CHEMISTRY METHOD 08/02/2024 1:54 PM [facility] Albumin 3.5 3.2 - 5.0 g/dL LAB CHEMISTRY METHOD 08/02/2024 1:54 PM [facility] Calcium 9.2 8.5 - 10.5 mg/dL LAB CHEMISTRY METHOD 08/02/2024 1:54 PM [facility] Phosphorus 4.1 2.5 - 4.5 mg/dL LAB CHEMISTRY METHOD 08/02/2024 1:54 PM [facility] Blood Venous blood specimen / Unknown Venipuncture / Unknown 08/02/2024 12:11 PM EST 08/02/2024 12:56 PM EST [facility] BLOOD ORDERABLES Final R esult [facility] [address] [place] [address], [place] [phone] from Last 3 Months Insurance [facility] Member Subscriber Plan / Payer (Ef fective 2023-Present) Name:Maryanne Marquez Relation to Subscriber:Self Name:Maryanne Marquez Payer ID:[id number] Group ID:[id number] Type:Not on file Address: [facility] [address] [address] Care Teams Full Stack Software Engineer Relationship Specialty Start Date End Date Aleyda Tillman MD [address] [place] [address] PCP - General Psychiatry 07/27/24
--- OUTSIDE RECORDS SUMMARY | 2024-09-19 09:39 | XMS_ITS | Continuity of Care Document ---
Author Organization [facility] Address [address] [place] [address]- Care Team Providers Care Patch Press Operator Name Role Phone Wenceslao BECKMAN, Unique Primary Care Physician Encounter [facility] Date(s): 08/07/24 - 09/06/24 [facility] [address] [place] [address]- Encounter Type: Triage Allergies, Adverse Reactions, Alerts [...] vaccine, inactivated 4 05/30/10 Gi bayron SARS-CoV-2(COVID-19)mRNA-LNP vac(vet732) 08/23/23 Recorded pneumococcal 20-valent conjugate vaccine 04/06/23 Given zoster vaccine, inactivated 09/28/22 Recorded zoster vaccine, inactivated 05/25/22 Recorded [id number] 12y+ bivalent booster vax 05/25/22 Recorded SARS-CoV-2 mRNA ([id number]) vax 01/18/22 Recorded SARS-CoV-2 (COVID-19) mRNA BNT-162b2 [...] 1 Refills, Maintenance, 04/17/24 2:03:00 PM EDT, [facility] [id number], 163, cm, 04/17/24 13:11:00 EDT, Height, 96.6, kg, 04/15/24 14:50:00 EDT, Dry Weight Start Date: 04/17/24 Status: Ordered Quantity: 180.0 Unit: tablet Repeat number: 2 Indication: Sciatica, unspecified side amoxicillin 500 mg oral capsule See Instructions, TAKE FOUR CAPSULES BY MOUTH ONCE. TAKE 30 TO 60 MINUTES prior to PROCEDURE, # 4 capsule, 1 Refills, Maintenance, 03/28/24 2:26:00 PM EDT, [facility] [id number], 153, cm, 03/07/24 14:01:00 EDT, Height, 113.9, kg, 11/07/23 14:37:00 EDT, Dry Weight Start Date: 03/28/24 Status: Ordered Quantity: 4.0 Unit: capsule Repeat number: 2 atorvastatin 40 mg oral tablet 1 tablet, By Mouth, Daily, # 90 tablet, 3 Refills, Maintenance, 03/28/24 2:35:00 PM EDT, [facility] [id number], 153, cm, 03/07/24 14:01:00 EDT, Height, 113.9, [...] 3 Refills,Maintenance, 05/10/24 4:02:00 PM EDT, Tablet, [facility] [id number], 163, cm, 05/02/24 9:16:00 EDT, Height, 96.6, [...] mL, 0 Refills, Maintenance, 03/29/24 10:44:00 AMEDT, [facility] [id number], Partial fill upon patient request if the [...] 3 Refills, Maintenance, 06/26/24 1:47:00 PM EST, [facility] [id number], 30, SPRAY ONCE INTO EACH NOSTRIL 2 [...] mL, 3 Refills, Maintenance,08/07/24 6:20:00 PM EST, [facility], 30, TAKE 15ml BY MOUTH EVERY [...] 3 Refills, Maintenance, 08/07/24 5:13:00 PM EST, [facility] [id number], 163, cm, 06/26/24 13:18:00 EST, Height, 96.6, kg, 04/15/24 14:50:00 EDT, Dry Weight Start Date: 08/07/24 Stop Date: 08/02/25 Status: Ordered Quantity: 90.0 Unit: tablet Repeat number: 4 lidocaine 5% topical film 2 patches, Topically, Daily, PRN Pain , Mild, remove after 12 hours, # 60 patch, 0 Refills, Acute 04/18/25 1:57:00 PM EDT, 04/17/24 1:57:00 PM EDT, Film, [place], [place] - [phone],Partial fill upon patient request if the prescription [...] 5 Refills, Maintenance, 08/07/24 3:52:00 PM EST, [place], [place] - [phone], 30, DISSOLVE 1 SCOOP (17 GRAMS) IN [...] AM EDT, Aerosol, Route to Pharmacy Electronically, [id number], [place], [place] - [phone], 153, cm, 12/01/23 9:22:00 EDT, Height, 113.9, [...] Refills, Maintenance, 08/22/24 9:52:00 AM EST, Solution, [place], [place] - [id number], 163, cm, 08/22/24 9:03:00 EST, Height, 96.6, [...] knee 3 Confirmed 03/23/11 Active Cardiomyopathy per [facility] Confirmed Active Cataract 4 Confirmed Active [...] of lithium 9Biopsy 12/29 10acute /sent from [facility] to [facility] 11open angle, bilateral, severe per eye note 12[facility] 13at [place] 14mild on ECHO 12/2003 15severe , right , per 2010 [facility] consult 16next due 2022 per message with Endocrine 171.8 cm per [facility] note, repeat US due in 18repeat in 09/2018 Social History Social History Type Response Smoking Status Never smoker entered on: 04/23/15 Sex Sex Representation Female (finding) Patient Care team information Care Team Personnel Name: Brenda Lam RN Position: [facility] RN Member Role: Primary Care Nurse Name: Franci Alexander RN Position: [facility] AMB Nurse Member Role: Primary Care Nurse Name: Unique Billy MD Position: [facility] Physician - Primary Care Member Role: PCP Address: [address] [place] [address] Telecom: Name: Kerrie Coleman RN Position: [facility] SN RN Member Role: Primary Care Nurse Name: Lata Meléndez RN Position: [facility] RN Member Role: Primary Care Nurse Name: Cruz Browne RN Position: [facility] RN Member Role: Primary Care Nurse Name: Yamilka Peguero RN Position: [facility] AMB Nurse Member Role: Primary Care Nurse Care Team Related Persons Name: ZURDO DUMONT Name: NELLY ROBERTS Name: YOLANDA STALEY Insurance Providers Guarantor name: [facility] Plan Information #: 1 Payer: NA Member Number: NA Policy Number: NA Group Number: NA
--- OUTSIDE RECORDS SUMMARY | 2024-09-19 09:39 | XMS_ITS | Clinical Summary ---
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 Name Role Phone Unique Billy MD Primary Care Provider [phone] Allergies Active Allergy Reactions Criticality Noted Date Comments Chocolate 12/10/2021 Hydrochlorothiazide 12/10/2021 Medications atorvastatin (LIPITOR) 40 MG tablet Take 40 mg by mouth 1 (one) time each day 2 Active Alphagan P 0.1 % solution INSTILL 1 DROP IN THE LEFT EYE two (2) times a day 2 Active busPIRone (BUSPAR) 7.5 MG tablet TAKE ONE TABLET BY MOUTH ONCE A DAY 2 Active clotrimazole (LOTRIMIN) 1 % cream APPLY TO THE AFFECTED AREA ON FEET 2 (two) times a day 2 Active cloZAPine (CLOZARIL) 100 MG tablet TAKE 1 TABLET BY MOUTH two (2) times a day AND TAKE 3 TABLETS BY MOUTH EVERY NIGHT AT BEDTIME 2 Active lactulose (CHRONULAC) 10 GM/15ML solution TAKE 15MLS BY MOUTH EVERY OTHER DAY NEEDED FOR CONSTIPATION 2 Active levothyroxine (SYNTHROID, LEVOTHROID) 125 MCG tablet Take 125 mcg by mouth 1 (one) time each day 2 Active loratadine (CLARITIN) 10 MG tablet TAKE ONE TABLET BY MOUTH DAILY NEEDED FOR ALLERGIES 2 Active metoprolol succinate XL (TOPROL XL) 25 MG 24 hr tablet Take 12.5 mg by mouth 1 (one) time each day 2 Active polyethylene glycol (GLYCOLAX) 17 GM/SCOOP powder DISSOLVE 17gm IN WATER OR JUICE AND DRINK DAILY NEEDED FOR CONSTIPATION. USE as little as possible TO control SYMPTOMS 2 Active timolol (TIMOPTIC) 0.5 % ophthalmic solution INSTILL 1 DROP IN EACH EYE two (2) times a day 2 Active topiramate (TOPAMAX) 25 MG tablet Take 25 mg by mouth in the morning and 25 mg in the evening. 2 Active venlafaxine XR (EFFEXOR-XR) 150 MG 24 hr capsule Take 150 mg by mouth 2 Active acetaminophen (TYLENOL) 500 MG tablet Take by mouth every 6 (six) hours if needed for mild pain Active albuterol (2.5 MG/3ML) 0.083% nebulizer solution Take 2.5 mg by nebulization every 6 (six) hours if needed for wheezing Active docusate sodium (COLACE) 100 MG capsule Take 100 mg by mouth in the morning and 100 mg in the evening. Active dorzolamide (TRUSOPT) 2 % ophthalmic solution 1 drop 3 (three) times a day Active ipratropium (ATROVENT) 0.03 % nasal spray Administer 2 sprays into each nostril every 12 (twelve) hours Active latanoprost (XALATAN) 0.005 % ophthalmic solution 1 drop every night Active pantoprazole (PROTONIX) 20 MG EC tablet Take 40 mg by mouth 1 (one) time each day before breakfast Do not crush, chew, or split. Active sodium chloride (BRONCHO SALINE) 0.9 % aerosol solution Inhale 1 spray if needed for wheezing Active tranexamic acid (CYKLOKAPRON) 1000 MG/10ML injection Infuse 2,000 mg into a venous catheter 1 (one) time Active Wegovy 1.7 MG/0.75ML solution auto-injector Inject 1.7 mg under the skin 1 (one) time per week 4 Active valACYclovir (VALTREX) 500 MG tablet Take 500 mg by mouth in the morning and 500 mg in the evening and 500 mg before bedtime. 3 Active Eliquis 5 MG tablet Take 5 mg by mouth in the morning and 5 mg in the evening. 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 [address] [facility] [address] [place] [address] Mone Pruitt ARNP Chronic kidney disease, stage 2 (mild) (Primary Dx); Other iron deficiency anemia 06/25/2024 Orders Only [facility] [address] [facility] [address] [place] [address] Mone Pruitt ARNP Chronic kidney disease, stage 2 (mild); Other iron deficiency anemia from Last 3 Months Social History Tobacco Use Types Packs/Day Years Used Date Smoking Tobacco: Never Smokeless Tobacco: Never Tobacco Cessation:Counseling Given: No Alcohol Use Standard Drinks/Week Comments Not Currently 0 (1 standard drink = 0.6 oz pur e alcohol) Comments Unknown Sex and Gender Information Value Date Recorded Sex Assigned at Not on file Legal Sex Female 5:15 PM EST Gender Identity Not on file Sexual Orientation Not on file Last Filed Vital Signs Vital Sign Reading Time Taken Comments Blood Pressure 128/84 08/02/2024 11:13 AM EST Pulse 87 08/02/2024 11:13 AM EST Temperature - - Respiratory Rate - - Oxygen Saturation 96% 08/02/2024 11:13 AM EST Inhaled Oxygen Concentration - - Weight 89.8 kg (198 lb) 08/02/2024 11:13 AM EST Height - - Body Mass Index - - Plan of Treatment Upcoming Encounters Date Type Department Care Team (Late st Contact Info) Description 08/06/2025 10:00 AM EST Office Visit [facility] P[facility] [address] [address] Mone Pruitt ARNP [address] [address] Health Maintenance Due Date Last Done Comments Breast Cancer Screening 1960 Colorectal Cancer Screening: Annual FOBT 2007 Colorectal Cancer Screening: Colonoscopy 2007 Colorectal Cancer Screening: Sigmoidoscopy 2007 Pneumococcal Vaccine: 65+ Years (3 of 3 - PCV) 04/24/2016 04/24/2015, 05/10/2008 Diabetes: Hemoglobin A1C 01/29/2023 Diabetes: Ophthalmology Exam 01/29/2023 Diabetes: Pedal Pulse Checked 01/29/2023 Diabetes: Sensory Foot Exam 01/29/2023 Diabetes: Visual Foot Exam 01/29/2023 Influenza Vaccine (#1) 2024 , 07/21/2021, 05/16/2020, Additional history exists Hepatitis B Vaccine Aged Out 12/23/2007, 05/27/2006, 02/04/2006 No longer eligible based on patient's age to complete this topic Procedures Procedure Name Priority Date/Time Associated Diagnosis Comments IRON PANEL (HC) Routine 08/02/2024 12:11 PM EST URINALYSIS RFX MICROSCOPIC Routine 08/02/2024 12:11 PM EST FERRITIN Routine 08/02/2024 12:11 PM EST Chronic kidney disease, stage 2 (mild) Other iron deficiency anemia VITAMIN D 25 HYDROXY Routine 08/02/2024 12:11 PM EST Chronic kidney disease, stage 2 (mild) Other iron deficiency anemia URINE ALBUMIN / CREATININE RATIO Routine 08/02/2024 12:11 PM EST Chronic kidney disease, stage 2 (mild) Other iron deficiency anemia RENAL FUNCTION PANEL Routine 08/02/2024 12:11 PM EST Chronic kidney disease, stage 2 (mild) Other iron deficiency anemia PTH, INTACT Routine 08/02/2024 12:11 PM EST Chronic kidney disease, stage 2 (mild) Other iron deficiency anemia CBC Routine 08/02/2024 12:11 PM EST Chronic kidney disease, stage 2 (mild) Other iron deficiency anemia EXT RESULT ENTRY Routine 07/27/2024 from Last 3 Months Results * Iron Panel (08/02/2024 12:11 PM EST) Iron 61 40 - 150 mcg/dL [facility] Comment:Hemolysis present TIBC 270 250 - 450 mcg/dL [facility] Comment:Hemolysis present Iron Saturation (TSat) 23 15 - 50 % [facility] 08/02/2024 12:1 1 PM EST 08/02/2024 12:56 PM EST [facility] HISTORICAL-CONVERSIONS- UNSOLICITED RESULTS Final Result Performing Organization Address [facility] Co de Phone Number ASHLIE [facility] [address] [place] [address] * Urine Albumin / Creatinine Ratio (08/02/2024 12:11 PM EST) Creatinine, Urine 67.0 mg/dL [facility] Microalbumin Urine Random 12.5 0.0 - 29.0 mg/L [facility] Microalbumin/Crea tinine Ratio 19 <30 mg/g creat [facility] Urine (Urine, Clean Catch) 08/02/2024 12:11 PM EST 08/02/2024 1:03 PM EST [facility] URINE ORDERABLES Final Result Performing Organization Address City/[facility]/ZIP Co de Phone Number [facility] [address] [place] [address] * Urinalysis Reflex Microscopic (08/02/2024 12:11 PM EST) Specific [place] 1.013 1.003 - 1.030 [facility] pH Urine 5.5 5.0 - 8.0 pH [facility] LEUKOCYTES, URINE Negative Negative [facility] Nitrite, Urine Negative Negative [facility] Protein, Urine Negative <=Trace mg/dL [facility] Glucose Urine Negative Negative mg/dL [facility] Ketones, Urine Negative Negative mg/dL [facility] Urobilinogen Urine 1.0 0.2 - 1.0 mg/dL [facility] Bilirubin Urine Negative Negative [facility] Blood Urine Negative Negative [facility] 08/02/2024 12:1 1 PM EST 08/02/2024 1:03 PM EST [facility] URINE ORDERABLES Final Result Performing Organization Address [facility] de Phone Number [facility] [address] [place] [address] * Vitamin D 25 hydroxy (08/02/2024 12:11 PM EST) Pathologist [facility] Vitamin D, 25-OH, Total 45.8 30.0 - 80.0 ng/mL [facility] Blood (Blood, Venous) 08/02/2024 12:11 PM EST 08/02/2024 12:56 PM EST [facility] BLOOD ORDERABLES Final Result Performing Organization Address [facility]/ZIP Co de Phone Number [facility] [address] [place] [address] * (ABNORMAL) CBC (08/02/2024 12:11 PM EST) WBC 7.5 4.8 - 10.8 K/[facility] RBC 4.40 3.80 - 4.80 M/[facility] Hgb 13.0 11.5 - 16.0 g/dL [facility] Hematocrit 42.0 35.0 - 47.0 % [facility] MCV 95.7 79.0 - 98.0 FL [facility] MCH 29.6 27.0 - 32.0 pcg [facility] MCHC 31.0(L) 32.0 - 37.0 g/dL [facility] RDW 16.1(H) 11.0 - 15.0 % [facility] Platelets 164 130 - 400 K/[facility] MPV 13.1(H) 7.0 - 11.0 FL [facility] nRBC Count 0.0 <1.0 % [facility] NRBC Absolute 0.00 <0.10 [facility] Blood (Blood, Venous) 08/02/2024 12:11 PM EST 08/02/2024 12:55 PM EST Mone Pruitt [facility] BLOOD ORDERABLES Final Result ASHLIE [facility] [address] [place] [address] * PTH, intact (08/02/2024 12:11 PM EST) PTH 53.5 18.5 - 88.0 pcg/mL [facility] Blood (Blood, Venous) 08/02/2024 12:11 PM EST 08/02/2024 12:56 PM EST [facility] BLOOD ORDERABLES Final Result Performing Organization Address City/[facility]/ZIP Co de Phone Number [facility] [address] [place] [address] * Ferritin (08/02/2024 12:11 PM EST) Ferritin 50 8 - 252 ng/mL [facility] Blood (Blood, Venous) 08/02/2024 12:11 PM EST 08/02/2024 12:56 PM EST [facility] BLOOD ORDERABLES Final Result Performing Organization Address [facility] de Phone Number [facility] [address] [place] [address] * Renal function panel (08/02/2024 12:11 PM EST) Sodium 139 133 - 145 mmol/L [facility] Potassium 5.0 3.5 - 5.5 mmol/L [facility] Comment:Hemolysis present Chloride 109 96 - 110 mmol/L [facility] Bicarbonate (CO2) 27 21 - 32 mmol/L [facility] Anion Gap 3 3 - 11 [facility] Glucose 77 70 - 100 mg/dL [facility] BUN 19 5 - 25 mg/dL [facility] Creatinine Serum 0.90 0.50 - 1.10 mg/dL [facility] eGFR 71 >=60 mL/min/1. 73m2 [facility] Comment:Calculation based on the?Chronic Kidney Disease Epidemiology Collaboration (CKD-EPI) equation refit?without adjustment for race. BUN/Creatinine Ratio 21.1 [facility] Albumin 3.5 3.2 - 5.0 g/dL [facility] Calcium 9.2 8.5 - 10.5 mg/dL [facility] Phosphorus 4.1 2.5 - 4.5 mg/dL [facility] Blood (Blood, Venous) 08/02/2024 12:11 PM EST 08/02/2024 12:56 PM EST [facility] BLOOD ORDERABLES Final Result ASHLIE [facility] [address] [place] [address] * EXT RESULT ENTRY (07/27/2024) WBC 8.1 3.3 - 10.0 10*3/ML Red Blood Cell Count 4.30 Hemoglobin 12.5 12.0 - 16.0 Hematocrit 40.4 36.0 - 46.0 Platelets 163 150 - 399 10*3/UL 07/27/2024 Historical Provider LAB BLOOD ORDERABLES Carol l Result from Last 3 Months Insurance [facility] ([id number]) OLLIE VASQUEZ [id number] [facility] ([id number]) OLLIE VASQUEZ [id number] Care Teams Customer Experience Retail Clerk Relationship Specialty Start Date End Date Unique Billy MD [address], [place] PCP - General Internal Medicine 09/14/23
== END ==
LOC: HO.CARD 08:55
PROVIDERS: Visit Provider Nurse Practitioner Family
DX: I42.9 Cardiomyopathy, unspecified (principal)
CPT/HCPCS: 93306

== ENCOUNTER → 2024-09-19 08:57 | Outpatient (BNV) | payer OTHER, SELFPAY | PROVIDERS: Visit Provider Internal Medicine | DX: I42.2 Other hypertrophic cardiomyopathy (principal); I34.0 Nonrheumatic mitral (valve) insufficiency | CPT/HCPCS: 93306; 93356 ==

== ENCOUNTER 2024-10-20 08:48 | Outpatient (AMB) | payer OTHER, SELFPAY ==
--- NOTE | 2024-10-20 08:51 | MHC.OFFVIS ---
Vital Signs 10/20/24 08:52 Height 5 ft 4 in Weight 204 lb 9.423 oz BMI 35.1 BP 110/64 Blood Pressure Location Lt brachial Position Sitting Pulse 73 Intake Visit Reasons: 1 yr f/up s/p echo Asbestos Abatement Technician Required: No Accompanied by: Self / Same As Patient Allergies morphine [MORPHINE] Adverse Reaction (Intermediate, Verified 02/29/24 10:15) Confusion chocolate Adverse Reaction (Intermediate, Uncoded 02/29/24 10:15) Nausea and Vomiting feathers Adverse Reaction (Intermediate, Uncoded 02/29/24 10:15) Itching Medication List - Last Reconciled 10/20/24 by Kassie Egan NP-C acetaminophen 1,000 mg PO TID PRN atorvastatin 40 mg PO DAILY brimonidine 0.2% 1 drp ophthalmic (eye) BID buspirone 10 mg PO DAILY calcium citrate-vitamin D3 315 mg-5 mcg (200 unit) 1 tab PO BID clozapine 300 mg PO BEDTIME clozapine 100 mg PO BID ipratropium bromide 1 spray intranasal BID PRN lactulose 15 mL PO Q OTHER DAY PRN latanoprost 0.005% 1 drp ophthalmic (eye) DAILY levothyroxine 125 mcg PO DAILY loratadine 10 mg PO DAILY PRN metoprolol succinate ER 12.5 mg (1/2 x 25 mg) PO DAILY polyethylene glycol 3350 17 grams PO DAILY PRN semaglutide (weight loss) (Wegovy) mg subcut timolol 0.5% 1 drp ophthalmic (eye) BID tizanidine 2 mg PO BID topiramate 25 mg PO BID valacyclovir 500 mg PO BID venlafaxine ER 150 mg PO DAILY venlafaxine ER 75 mg PO DAILY vitamin A palmitate 3,000 mcg PO DAILY warfarin 1 mg PO DAILY zinc gluconate 10 mg PO DAILY HPI HPI 1 yr f/up s/p echo: Details: Maryanne is a 64-year-old female with past medical history obesity, prior cardiomyopathy with normalization of EF who presents for follow-up. Today she reports she has been doing well since her last visit 10/16/24. She has lost some weight since I saw her last year. She tries to remain physically active and goes swimming once a week. She ambulates with a walker. She is noticing some lightheadedness at times with position changes and prolonged standing. She tells me she has had at least 2 falls from this, without injury. No presyncope, syncope. She denies any shortness of breath, chest discomfort, heart palpitations, PND, orthopnea or edema. She still sleeps with 2 pillows and a wedge under her mattress for comfort. Taking meds as directed. [facility] Medical History Bipolar depression History of COVID-19 Hx of glaucoma Asthma Hx of diabetes insipidus Osteoarthritis Hx of deep venous thrombosis History of seizure Schizoaffective disorder Anxiety and depression Preoperative cardiovascular examination Cardiomyopathy Surgical History History of carpal tunnel surgery of right wrist History of corneal transplant History of sleeve gastrectomy History of right knee joint replacement History of gastric surgery History of tonsillectomy H/O: hysterectomy Family History Father Liver cancer Diabetes Mother Diabetes CAD (coronary artery disease) Kidney disease Sister Lupus Social History Household Members: None Housing: Apartment Are you a primary healthcare administrative assistant to a significant other at home: No Do you presently have visiting nurse or other home services: Yes Alcohol intake: never Patient Tobacco Use Status: Never used Tobacco service: No Current occupational status: disabled Review of Systems Const All systems reviewed & are unremarkable except as noted in HPI and below Denies chills, Denies fatigue, Denies fever(s), Denies weight gain and Denies weight loss ENT Reports dizziness (at times with sitting to standing) Card Denies chest pain, Denies leg edema, Denies lightheadedness, Denies palpitations, Denies dyspnea on exertion, Denies orthopnea and Denies other Resp Denies cough and Denies dyspnea on exertion GI Denies hematochezia and Denies change in stool character Musc Reports abnormal gait (uses walker), Denies muscle weakness, Denies numbness, Denies radiating pain into limb and Denies tingling Neuro Reports abnormal gait (uses walker), Reports dizziness (at times with sitting to standing), Denies numbness and Denies tingling Endo Denies fatigue and Denies palpitations Physical Exam Vital Signs: Last Vital Signs Pulse 73 10/20/24 08:52 BP 110/64 10/20/24 08:52 BMI result Body Mass Index 35.1 Const Other: morbidly obese General: cooperative, healthy appearing, comfortable and no acute distress Orientation/consciousness: patient oriented x3 Neck Neck: Yes normal visual inspection and Yes no JVD Resp Effort & Inspection: normal respiratory effort Auscultation: clear to auscultation bilaterally, no crackles, no rales, no rhonchi and no wheezes Cardio Jugular venous distension: no JVD Rate: regular rate Rhythm: regular rhythm Heart sounds: S1 normal heart sound present, S2 normal heart sound present, no gallops, no murmurs and no rubs Neuro General: patient oriented x3 Extrem General: Yes normal to inspection, No no pedal edema and No calf tenderness Psych Appearance: grossly normal Mental Status: mental status grossly normal Speech and movement: Normal speech and movement present Office Procedures EKG Details: Today, read by me Sinus rhythm with 1st degree avb, rate 73, Qtc 423ms [id number], Complete Assessment & Plan Assessment & Plan (1) Cardiomyopathy: Comment: improved after weight loss surgery Code(s): I42.9 - Cardiomyopathy, unspecified Category: Medical Plan: History of cardiomyopathy with EF as low as 45-50% 04/2018. EF had improved following weight loss with bariatric surgery. Since then she has gained weight back and then lost some within the last year. Current BMI 35.1. Echocardiogram done 01/03/2021 showed EF 60-65%, no wall motion abnormalities or valve issues. Echocardiogram done 09/19/2024 shows EF 58%, severe asymmetric septal hypertrophy which is new compared to last echo and asymptomatic. She has had some positional lightheadedness which is more likely related to low blood pressure readings. EKG done today shows sinus rhythm with first-degree AV block, rate 73. Will check cardiac MRI to assess for abnormal cardiac muscle. She is agreeable to this plan. Cardiology follow-up 3 months, sooner if needed. (2) Asymmetric septal hypertrophy: Code(s): I51.7 - Cardiomegaly Category: Medical Plan: New finding, Checking cardiac MRI as above. (3) Lightheadedness: Code(s): R42 - Dizziness and giddiness Category: Medical Plan: Reports of lightheadedness with position change. She has fallen on 2 occasions. No presyncope or syncope. Blood pressure on the low side today. She is on very low-dose metoprolol. Her symptom is likely related to low blood pressure readings. Instructed to increase fluid intake and use much caution when going sitting to standing. Sit down if she becomes symptomatic. Plan Time spent on chart review, documentation, interview assessment Orders: Orders MR cardiac morph fnct w con Today I51.7 - Cardiomegaly Basic Metabolic Panel Today I51.7 - Cardiomegaly Coding Level of Care Code Est Pt Level 4 (71951) Complex EM visit Add On G2211 Diagnoses Cardiomyopathy I42.9 Asymmetric septal hypertrophy I51.7 Lightheadedness R42 CPT Codes EKG - CPT: 87994-[id number], Complete ([id number]) Time Spent (min) 30
[2024-10-20 08:52] VITALS: BP 110/64; PULSE 73; BMI 35.1
== END 2024-10-20 09:31 | disposition home or self-care (01) ==
LOC: HO.HCS 08:49
PROVIDERS: PCP Internal Medicine; Visit Provider Nurse Practitioner Family
DX: I42.9 Cardiomyopathy, unspecified (principal); I51.7 Cardiomegaly; R42 Dizziness and giddiness
CPT/HCPCS: 93010; 99214; G2211

== ENCOUNTER → 2024-10-20 08:48 | Outpatient (BNVA) | payer OTHER, SELFPAY | PROVIDERS: PCP Internal Medicine; Visit Provider Nurse Practitioner Family | DX: I42.9 Cardiomyopathy, unspecified (principal); I51.7 Cardiomegaly; R42 Dizziness and giddiness; I44.0 Atrioventricular block, first degree | CPT/HCPCS: 93005; 99212 ==

== ENCOUNTER 2024-11-14 10:18 | Outpatient (REF) | payer OTHER, SELFPAY ==
[2024-11-14 12:31] LABS: Anion Gap 12 (12-20); Blood Urea Nitrogen 20 mg/dL (9-16); Calcium 9.4 mg/dL (8.4-10.2); Carbon Dioxide 26 mmol/L (22-29); Chloride 108 mmol/L (96-108); Estimated Glomerular Filt Rate > 60; Glucose Random 73 mg/dL (60-115); Potassium 4.7 mmol/L (3.3-5.1); Sodium 141 mmol/L (135-145)
--- OUTSIDE RECORDS SUMMARY | 2024-11-14 13:14 | XMS_ITS | Clinical Summary ---
Author Organization [address] Address [address] [place] [address] Phone Care Team Providers Care Load Out Person Name Role Phone Aleyda Tillman MD Primary [...] bipolar I disorder (CMS/HCC V24, CMS/HCC V28) oysterman use of drug CBC AND DIFFERENTIAL Routine 10/26/2024 12:21 PM EDT Mild mixed bipolar I disorder (CMS/HCC V24, CMS/HCC V28) oysterman use of drug CBC WITH AUTO DIFFERENTIAL Routine 09/28/2024 8:26 AM EST Mild mixed bipolar I disorder (CMS/HCC V24, CMS/HCC V28) oysterman use of drug CBC AND DIFFERENTIAL Routine 09/28/2024 8:26 AM EST Mild mixed bipolar I disorder (CMS/HCC V24, CMS/HCC V28) oysterman use of drug CBC WITH AUTO DIFFERENTIAL Routine 09/01/2024 9:39 AM EST Mild mixed bipolar I disorder (CMS/HCC V24, CMS/HCC V28) longterm use of drug CBC AND DIFFERENTIAL Routine 09/01/2024 9:39 AM EST Mild mixed bipolar I disorder (CMS/HCC V24, CMS/HCC V28) oysterman use of drug MICROALBUMIN CREATININE URINE RATIO [...] K/mcL LAB HEMETOLOGY METHOD 10/26/2024 1:03 PM [facility] RBC 4.30 3.80 - 4.80 M/mcL LAB HEMETOLOGY METHOD 10/26/2024 1:03 PM [facility] Hemoglobin 12.9 11.5 - 16.0 g/dL LAB HEMETOLOGY METHOD 10/26/2024 1:03 PM [facility] Hematocrit 41.4 35.0 - 47.0 % LAB HEMETOLOGY METHOD 10/26/2024 1:03 PM [facility] MCV 95.4 79.0 - 98.0 FL LAB HEMETOLOGY METHOD 10/26/2024 1:03 PM [facility] MCH 29.7 27.0 - 32.0 pcg LAB HEMETOLOGY METHOD 10/26/2024 1:03 PM [facility] MCHC 31.2(L) 32.0 - 37.0 g/dL LAB HEMETOLOGY METHOD 10/26/2024 1:03 PM [facility] RDW 16.4(H) 11.0 - 15.0 % LAB HEMETOLOGY METHOD 10/26/2024 1:03 PM [facility] Platelets 154 130 - 400 K/mcL LAB HEMETOLOGY METHOD 10/26/2024 1:03 PM [facility] MPV 13.1(H) 7.0 - 11.0 FL LAB HEMETOLOGY METHOD 10/26/2024 1:03 PM [facility] NRBC 0.0 <1.0 % LAB HEMETOLOGY METHOD 10/26/2024 1:03 PM [facility] NRBC Absolute 0.00 <0.10 K/mcL LAB HEMETOLOGY METHOD 10/26/2024 1:03 PM [facility] Neutrophils Relative 59.8 % LAB HEMETOLOGY METHOD 10/26/2024 1:03 PM [facility] Lymphocytes Relative 32.6 % LAB HEMETOLOGY METHOD 10/26/2024 1:03 PM [facility] Monocytes Relative 7.1 % LAB HEMETOLOGY METHOD 10/26/2024 1:03 PM [facility] Eosinophils Relative 0.0 % LAB HEMETOLOGY METHOD 10/26/2024 1:03 PM [facility] Basophils Relative 0.4 % LAB HEMETOLOGY METHOD 10/26/2024 1:03 PM [facility] Immature Granulocytes Relative 0.1 % LAB HEMETOLOGY METHOD 10/26/2024 1:03 PM [facility] Neutrophils Absolute 4.62 1.50 - 7.00 K/mcL LAB HEMETOLOGY METHOD 10/26/2024 1:03 PM EDT [facility] Lymphocytes Absolute 2.52 1.00 - 5.00 K/[facility] LAB HEMETOLOGY METHOD 10/26/2024 1:03 PM EDT [facility] Monocytes Absolute 0.55 0.20 - 1.00 K/mcL LAB HEMETOLOGY METHOD 10/26/2024 1:03 PM EDT [facility] Eosinophils Absolute 0.00 0.00 - 0.50 K/[facility] HEMETOLOGY METHOD 10/26/2024 1:03 PM EDT [facility] Basophils Absolute 0.03 0.00 - 0.20 K/[facility] HEMETOLOGY METHOD 10/26/2024 1:03 PM EDT [facility] Immature Granulocytes Absolute 0.01 0.00 - 0.03 K/[facility] HEMETOLOGY METHOD 10/26/2024 1:03 PM EDT [facility] Blood Venous blood specimen / Unknown Venipuncture / Unknown 10/26/2024 12:21 PM EDT 10/26/2024 12:50 PM EDT Aleyda Tillman MD LAB BLOOD ORDERABLES Fi nal Result [facility] [address] [place] [address], * Microalbumin creatinine urine ratio (08/02/2024 12:11 PM EST) Creatinine, Urine 67.0 mg/dL LAB CHEMISTRY METHOD 08/02/2024 2:42 PM EST [facility] Microalb, Ur 12.5 0.0 - 29.0 mg/L LAB CHEMISTRY METHOD 08/02/2024 2:42 PM EST [facility] Microalb/Creat Ratio 19 <30 mg/g creat LAB CHEMISTRY METHOD 08/02/2024 2:42 PM EST [facility] Urine Urine specimen obtained by clean catch procedure / Unknown Non-blood Collection / Unknown 08/02/2024 12:11 PM EST 08/02/2024 1:03 PM EST us Mone Pruitt [facility] URINE ORDERABLES Final R esult [facility] [address] [place] [address], * Renal function panel (08/02/2024 12:11 PM EST) Sodium 139 133 - 145 mmol/L LAB CHEMISTRY METHOD 08/02/2024 1:54 PM [facility] Potassium 5.0 3.5 - 5.5 mmol/L LAB CHEMISTRY METHOD 08/02/2024 1:54 PM [facility] Comment:Hemolysis present Chloride 109 96 - 110 mmol/L LAB CHEMISTRY METHOD 08/02/2024 1:54 PM [facility] CO2 27 21 - 32 mmol/L LAB CHEMISTRY METHOD 08/02/2024 1:54 PM [facility] Anion Gap 3 3 - 11 LAB CHEMISTRY METHOD 08/02/2024 1:54 PM [facility] Glucose 77 70 - 100 mg/dL LAB CHEMISTRY METHOD 08/02/2024 1:54 PM [facility] BUN 19 5 - 25 mg/dL LAB CHEMISTRY METHOD 08/02/2024 1:54 PM [facility] Creatinine 0.90 0.50 - 1.10 mg/dL LAB CHEMISTRY METHOD 08/02/2024 1:54 PM [facility] eGFR 71 >=60 mL/min/1. 73m2 LAB CHEMISTRY METHOD 08/02/2024 1:54 PM [facility] Comment:Calculation based on the??Chronic Kidney Disease Epidemiology Collaboration (CKD-EPI) equation refit??without adjustment for race. BUN/Creatinine Ratio 21.1 LAB CHEMISTRY METHOD 08/02/2024 1:54 PM EST [facility] Albumin 3.5 3.2 - 5.0 g/dL LAB CHEMISTRY METHOD 08/02/2024 1:54 PM EST [facility] Calcium 9.2 8.5 - 10.5 mg/dL LAB CHEMISTRY METHOD 08/02/2024 1:54 PM EST [facility] Phosphorus 4.1 2.5 - 4.5 mg/dL LAB CHEMISTRY METHOD 08/02/2024 1:54 PM EST [facility] Blood Venous blood specimen / Unknown Venipuncture / Unknown 08/02/2024 12:11 PM EST 08/02/2024 12:56 PM EST Mone Pruitt [facility] BLOOD ORDERABLES Final R esult [facility] [address] [place] [address], from Last 3 Months or Most Recently Relevant to Health Maintenance Insurance [facility] MEDICARE Member Subscriber Plan / Payer (Ef fective 2023-Present) Name:Maryanne Marquez Relation to Subscriber:Self Name:Maryanne Marquez Payer ID:[id number] Group ID:[id number] Type:Not on file Address: [address] [facility] [place] [phone] Care Teams Load Out Person Relationship Specialty Start Date End Date Aleyda Tillman MD [address] [place] [address] PCP - General Psychiatry 07/27/24
--- OUTSIDE RECORDS SUMMARY | 2024-11-14 13:14 | XMS_ITS | Clinical Summary ---
Author Organization [facility] Address [address] [place] [address] Care Team Providers Care Wire Drawer Name Role Phone Unavailable Primary Care Provider [...] Date Comments Chocolate Nausea and Vomiting 12/10/2021 [place] 12/10/2021 Dust Wheezing 06/07/2023 House Dust Mite [...] mL, 11 Refills, Maintenance, 02/04/22 11:23:00 EDT, [place], [place] - [phone], 30, SPRAY ONCE INTO EACH NOSTRIL 2 [...] chloride 0.9 % nebulizer solution Inhale 1 [place] into the lungs Active timoloL (BETIMOL) 0.5 [...] tablet See Instructions, as per instructions by [facility] COUMADIN NURSE. Dosing based on INR. up to 2 tablets per day., # 90 tablet, 11 Refills, Maintenance, 02/04/22 11:23:00 EDT, Tablet, [facility] [place], [place] - [id number], 159, cm, 02/04/22 10:39:0... 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 [...] consult Radial styloid tenosynovitis 06/07/2023 Severe obesity ([facility]) 06/07/2023 Thyroid nodule 06/07/2023 Overview (06/07/2023): next due 2022 per message with Endocrine1.8 cm per -2015 Endcrine note, repeat US due in Polyuria 12/10/2021 History of total knee replacement 06/11/2020 Tubular adenoma of colon 10/09/2017 Overview (06/07/2023): repeat in 09/2018 repeat in 09/2018 Sleep apnea 08/31/2014 Deep vein thrombosis (DVT) of lower extremity ([facility]) 04/25/2014 Arthritis 04/10/2014 Asthma ([facility]) 04/10/2014 Overview (06/07/2023): (actualy, test was 7-31-09)positive methacholine challenge 8-09 (actualy, test was 7-31-09)positive methacholine challenge 8-09 Auditory hallucinations 04/10/2014 Cataract 04/10/2014 Overview (06/07/2023): surgery rt eye 10-19-08 surgery rt eye 10-19-08 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 breast 04/10/2014 Overview (06/07/2023): Biopsy 12/29 Biopsy 12/29 Acute mitral regurgitation 04/10/2014 Morbid obesity ([facility]) 04/10/2014 Hypothyroidism 04/10/2014 Polymyalgia rheumatica ([facility]) 11/23/2013 Diabetes mellitus ([facility]) 07/26/2012 Synovial cyst of knee 03/23/2011 Overview [...] Albumin Creatinine Rat io Screening 02/02/2024 02/01/2023 Zpu-[id number]-36 ( season) 2024 01/18/2022, 06/02/2021, 11/25/2020 Imm-Influenza [...] Routine 04/20/2023 3:00 PM EDT Defective dental jewish Encounter for dental examination PROPHYLAXIS - ADULT Routine 04/20/2023 3 :00 PM EDT Defective dental jewish PERIODIC ORAL EVALUATION ESTABLISHED PATIENT Routine 04/20/2023 3:00 PM EDT Defective dental jewish Encounter for dental examination BITEWINGS - FOUR RADIOGRAPHIC IMAGES Routine 09/29/2022 1:00 PM EST Partial edentulism, unspecified edentulism class INTRAORAL - COMP SERIES OF RADIOGRAPHIC IMAGES Routine 02/13/2022 9:40 AM EDT Encounter for dental examination from Last 3 Months or Most Recently Relevant to Health Maintenance Insurance [facility] NET DENTAL [employer] DENT[employer]
--- OUTSIDE RECORDS SUMMARY | 2024-11-14 13:15 | XMS_ITS | Clinical Summary ---
Author Organization [facility] Address [address] [place] [address] Phone Care Team Providers Care Public Health Professor Name Role Phone Unique Billy MD Primary Care Provider [phone] Allergies Active Allergy Reactions Criticality Noted Date [...] Visit [facility] [address] [address] Mone Pruitt ARNP [address] [address] Health Maintenance Due Date Last [...] to 49 Years) Discontinued 04/24/2015, 05/10/2008 Insurance [employer] ([id number]) [employer] ([id number]) OLLIE VASQUEZ [id number] Care Teams Public Health Professor Relationship Specialty Start Date End Date Unique Billy MD [address] [place] [address] PCP - General Internal Medicine 09/14/23
== END 2024-11-14 10:19 | disposition home or self-care (01) ==
LOC: HO.LAB 10:18
PROVIDERS: PCP Internal Medicine; Visit Provider Nurse Practitioner Family
DX: E66.9 Obesity, unspecified (principal); I51.7 Cardiomegaly; Z90.3 Acquired absence of stomach [part of]
CPT/HCPCS: 36415; 80048; 99212

== ENCOUNTER 2024-11-14 10:18 | Outpatient (AMB) | payer OTHER, SELFPAY ==
--- NOTE | 2024-11-14 10:19 | MHC.OFFVISWM ---
VS Expanded 11/14/24 10:23 BP 120/57 L Blood Pressure Location Rt brachial Blood Pressure Position Sitting Pulse 86 Pulse Source Pulse Oximeter Temp 97.1 F Temperature Source Temporal Artery Scan Pulse Oximetry 99 Oxygen Delivery Method Room Air Height 5 ft 4 in Weight 207 lb 6.4 oz BMI 35.6 Body Fat % 29.7 Body Fat Mass 61.6 Fat Free Mass 145.8 Visceral Fat Rating 10.0 Body Water % 49.8 Body Water Mass 103.2 Muscle Mass/Score 138.4 Basal Metabolic Rate/Score 1,938 Intake Visit Reasons: (OV) PO LSG 12/13/14 Allergies morphine [MORPHINE] Adverse Reaction (Intermediate, Verified 11/14/24 10:24) Confusion chocolate Adverse Reaction (Intermediate, Uncoded 02/29/24 10:15) Nausea and Vomiting feathers Adverse Reaction (Intermediate, Uncoded 02/29/24 10:15) Itching Medication List - Last Reconciled 11/14/24 by OLLIE Yadav acetaminophen 1,000 mg PO TID PRN atorvastatin 40 mg PO DAILY brimonidine 0.2% 1 drp ophthalmic (eye) BID buspirone 10 mg PO DAILY calcium citrate-vitamin D3 315 mg-5 mcg (200 unit) 1 tab PO BID clozapine 300 mg PO BEDTIME clozapine 100 mg PO BID ipratropium bromide 1 spray intranasal BID PRN lactulose 15 mL PO Q OTHER DAY PRN latanoprost 0.005% 1 drp ophthalmic (eye) DAILY levothyroxine 125 mcg PO DAILY loratadine 10 mg PO DAILY PRN metoprolol succinate ER 12.5 mg (1/2 x 25 mg) PO DAILY Mounjaro (tirzepatide) 2.5 mg (0.5 mL) subcut QWEEK NS Mounjaro (tirzepatide) 5 mg (0.5 mL) subcut QWEEK NS polyethylene glycol 3350 17 grams PO DAILY PRN timolol 0.5% 1 drp ophthalmic (eye) BID tizanidine 2 mg PO BID topiramate 25 mg PO BID valacyclovir 500 mg PO BID venlafaxine ER 150 mg PO DAILY venlafaxine ER 75 mg PO DAILY vitamin A palmitate 3,000 mcg PO DAILY warfarin 1 mg PO DAILY zinc gluconate 10 mg PO DAILY HPI Comments Details: This?is a?64?yo female who is s/p LSG 12/13/2014. Presents for 10 year post op visit. Weight at last visit on 05/29/2024 was 199.4 pounds, weight today is 207.4 pounds, representing an 8 pound weight gain with a BMI today of 35.6.? No complaints of nausea, emesis, abdominal pain or reflux, or constipation. Pt had to stop Wegovy due to insurance, switched to Mounjaro prescribed by me. Had to restart at lowest dose and noticed hunger coming back. She is still interested in groups restarting. Was able to get connected with a therapist at [facility], doing well. Pt reports she is currently in Eliquis, not warfarin but unsure of the dose. Pt would like to have a breast reduction, needs to lose more weight first- goal weight 192. Seeing [facility]. Present meal plan includes: Ensure Max shake sinhala yogurt 2pm- meal of salad with chicken sometimes fruit in evening doing better with snacking, but still struggling with depression Takes MVI Exercise routine includes: Exercise: 2 days of PT (arm/knees) and sometimes swimming PFSH Medical History Bipolar depression History of COVID-19 Hx of glaucoma Asthma Hx of diabetes insipidus Osteoarthritis Hx of deep venous thrombosis History of seizure Schizoaffective disorder Anxiety and depression Preoperative cardiovascular examination Cardiomyopathy Surgical History History of carpal tunnel surgery of right wrist History of corneal transplant History of sleeve gastrectomy History of right knee joint replacement History of gastric surgery History of tonsillectomy H/O: hysterectomy Family History Father Liver cancer Diabetes Mother Diabetes CAD (coronary artery disease) Kidney disease Sister Lupus Social History Household Members: None Housing: Apartment Are you a primary healthcare project manager to a significant other at home: No Do you presently have visiting nurse or other home services: Yes Alcohol intake: never Patient Tobacco Use Status: Never used Tobacco service: No Current occupational status: disabled Physical Exam Vital Signs: Last Vital Signs Temp 97.1 F 11/14/24 10:23 Pulse 86 11/14/24 10:23 BP 120/57 L 11/14/24 10:23 Pulse Ox 99 11/14/24 10:23 Oxygen Delivery Method Room Air 11/14/24 10:23 Assessment & Plan Assessment & Plan (1) Obesity: Code(s): E66.9 - Obesity, unspecified Category: Medical (2) History of sleeve gastrectomy: Code(s): Z90.3 - Acquired absence of stomach [part of] Category: Surgical Plan Continue Mounjaro, next round of injections sent to pharmacy with dose increase. She is interested in groups; due to start in November and we will call pt to notify her. Due for labs, will have done here. RTC 2 months. Medications: New Mounjaro (tirzepatide) 5 mg (0.5 mL) subcut QWEEK 2 mL 0RF NS
[2024-11-14 10:23] VITALS: BP 120/57; PULSE 86; TEMP 36.2; O2SAT 99; BMI 35.6
--- OUTSIDE RECORDS SUMMARY | 2024-11-14 11:54 | XMS_ITS | Continuity of Care Document ---
Author Organization [facility] Address [address] [place] [address]- Care Team Providers Care Ocean Lifeguard Specialist Name Role Phone Wenceslao BECKMAN, Unique Primary Care Physician Encounter [facility] Date(s): 10/12/24 - 11/11/24 [facility] [address] [place] [address]- Encounter Type: Triage Allergies, Adverse Reactions, Alerts Substance Criticality Severity Reaction Reaction Severity Status Latex Active morphine 1 Active Percocet gi upset Active Chocolate nausea Active Dust wheezing Active Other Environmental Allergy Feathers-wheeze Active OxyCODONE [...] vaccine, inactivated 4 05/30/10 Gi bayron SARS-CoV-2(COVID-19)mRNA-LNP vac([id number]) 08/23/23 Recorded pneumococcal 20-valent conjugate vaccine 04/06/23 Given zoster vaccine, inactivated 09/28/22 Recorded zoster vaccine, inactivated 05/25/22 Recorded [id number] 12y+ bivalent booster vax 05/25/22 Recorded SARS-CoV-2 mRNA (tvfmvyz-rhuo-dvhel) vax 01/18/22 Recorded SARS-CoV-2 (COVID-19) mRNA BNT-162b2 [...] 1Result Comment: [04/24/2013] Fluzone 2Admin Note: VIS - 3Admin Note: VIS GIVEN 02/17/2011 4Admin Note: [...] 1 Refills, Maintenance, 04/17/24 2:03:00 PM EDT, [facility] [id number], 163, cm, 04/17/24 13:11:00 EDT, Height, 96.6, kg, 04/15/24 14:50:00 EDT, Dry Weight Start Date: 04/17/24 Status: Ordered Quantity: 180.0 Unit: tablet Repeat number: 2 Indication: Sciatica, unspecified side amoxicillin 500 mg oral capsule See Instructions, TAKE FOUR CAPSULES BY MOUTH ONCE. TAKE 30 TO 60 MINUTES prior to PROCEDURE, # 4 capsule, 2 Refills, Maintenance, 11/09/24 12:38:00 PM EDT, [facility] [id number], 163, cm, 10/16/24 14:35:00 EDT, Height, 92, kg, 10/16/24 14:35:00 EDT, Dry Weight Start Date: 11/09/24 Status: Ordered Quantity: 4.0 Unit: capsule Repeat number: 3 atorvastatin 40 mg oral tablet 1 tablet, By Mouth, Daily, # 90 tablet, 3 Refills, Maintenance, 03/28/24 2:35:00 PM EDT, [facility] [id number], 153, cm, 03/07/24 14:01:00 EDT, Height, 113.9, [...] 3 Refills,Maintenance, 05/10/24 4:02:00 PM EDT, Tablet, [place], [place] - [id number], 163, cm, 05/02/24 9:16:00 EDT, Height, 96.6, [...] mL, 0 Refills, Maintenance, 03/29/24 10:44:00 AMEDT, [facility] [id number], Partial fill upon patient request if the [...] NEEDED FOR nasal CONGESTION, # 30 mL, 5 Refills, Maintenance, 11/07/24 1:41:00 PM EDT, [facility], 30, SPRAY ONCE INTO EACH NOSTRIL 2 (two) times a day NEEDED FOR nasal CONGESTION, 163, cm, 10/16/24 14:35:00 EDT, Height, 92, kg, 10/16/24 14:35:00 EDT, Dry Weight Start Date: 11/07/24 Status: Ordered Quantity: 30.0 Unit: mL Repeat number: 1 lactulose 10 gm/15 ml oral syrup 15 mL, By Mouth, Every other day, PRN NEEDED FOR CONSTIPATION, # 105 mL, 3 Refills, Maintenance,11/02/24 10:30:00 AM EDT, [facility], 14, TAKE 15ml BY MOUTH EVERY OTHER DAY NEEDED FOR CONSTIPATION, 163, cm, 10/16/24 14:35:00 EDT, Height, 92, kg, 10/16/24 14:35:00 EDT, Dry Weight Start Date: 11/02/24 Status: Ordered Quantity: 105.0 Unit: mL Repeat number: 1 latanoprost 0.005% ophthalmic solution via outside eye team, 0 Refills, Maintenance, 06/26/24 1:49:00 PM EST, Partial fill upon patient request if the prescription is for a schedule II opioid drug. Start Date: 06/26/24 Status: Ordered Repeat number: 1 levothyroxine 0.1 mg oral tablet 1 tablet = 100 mcg, By Mouth, Daily, as of DOSE reduction, labs due November 2024, # 90 tablet, 0Refills, Maintenance, 10/12/24 10:18:00 AM EDT, Tablet, [place], [place] - [id number], please cancel all prior scripts for levothryoxine, 163, cm, 10/11/24 9:37:00 EDT, Height, 96.6, kg, 04/15/24 14:50:00 EDT, Dry Weight Start Date: 10/12/24 Stop Date: 01/10/25 Status: Ordered Quantity: 90.0 Unit: tablet Repeat number: 1 lidocaine 5% topical film 2 patches, Topically, Daily, PRN Pain , Mild, remove after 12 hours, # 60 patch, 0 Refills, Acute 04/18/25 1:57:00 PM EDT, 04/17/24 1:57:00 PM EDT, Film, [place], [place] - [id number],Partial fill upon patient request if the prescription [...] Date: 08/22/24 Status: Ordered Repeat number: 1 omeprazole 20 mg oral enteric coated capsule 1 capsule = 20 mg, By Mouth, Daily, 30 min before breakfast, # 90 capsule, 3 Refills, Maintenance, 10/16/24 4:32:00 PM EDT, EC Capsule, [facility] [id number], Partial fill upon patient request if the prescription is for a schedule II opioid drug., 163, cm, 10/16/24 14:35:00 EDT, Height, 92, kg, 10/16/24 14:35:00 EDT, Dry Weight Start Date: 10/16/24 Status: Ordered Quantity: 90.0 Unit: capsule Repeat number: 4 prednisolone ophthalmic acetate 1% suspension via Chetan Arias, 0 Refills, Maintenance, 03/28/24 2:37:00 PM EDT, Partial fill upon patient requestif the prescription is for a schedule II opioid drug. Start Date: 03/28/24 Status: Ordered Repeat number: 1 Symbicort 80mcg/4.5mcg Inhaler 2, puffs, Inhalation, Daily, PRN, # 10.2 Gm, Refills 5, Tot. Refills 5, Maintenance, 12/01/23 10:01:00 AM EDT, Aerosol, Route to Pharmacy Electronically, [id number], [facility] [place], [place] - [id number], 153, cm, 12/01/23 9:22:00 EDT, Height, 113.9, [...] Date: 01/03/24 Status: Ordered Repeat number: 1 Zinc = 50 mg, By Mouth, Daily, [...] knee 3 Confirmed 03/23/11 Active Cardiomyopathy per [facility] Confirmed Active Cataract 4 Confirmed Active [...] Confirmed Active Mitral regurgitation 14 Confirmed Active Osteoarthritis -knee 15 Confirmed Active Asymmetric septal hypertrophy ECHO -2024 per cardiology note, pending cardiac MRI as of 16 Confirmed Active Tendinitis, de Quervain's Confirmed Active Severe obesity (BMI 35.0-39.9) with comorbidity Confirmed Active Sleep apnea syndrome, complex Confirmed Active Thyroid nodule; per 2022 US, given 5 year stability, no followup indicated 17, 18 Confirmed Active Tubular adenoma of colon - next colonoscoy due 2031 19, 20 Confirmed 10/09/17 Active 1(actualy, test was 02-22-09) 2positive methacholine challenge - 3on 03-05 US 4surgery rt eye 10-19-08 5fair prep in 2021 so per report, due next 2023 6due to quality of prep, repeat in 5 years (done 2011, due 2016) 7from lithium per renal note 8see renal note 01-31. may be secondary to prior use of lithium 9Biopsy 12/29 10acute /sent from [facility] to [facility] 11open angle, bilateral, severe per eye note 12[facility] 13at [place] 14mild on ECHO 12/2003 15severe , right , per 2010 [facility] consult 16per cardiolgoy note assymetric septal hypertrophy on ECHO -2024, so they planned cardiac MRI 17next due 2022 per message with Endocrine 181.8 cm per -2015 Endcrine note, repeat US due in -2017 19due 2031, per 2024 letter by GI -2024/ due 7 years so due 2031 20repeat in 09/2018 Social History Social History Type Response Smoking Status Never smoker entered on: 04/23/15 Sex Sex Representation Female (finding) Patient Care team information Care Team Personnel Name: Brenda Lam RN Position: [facility] RN Member Role: Primary Care Nurse Name: Franci Alexander RN Position: [facility] AMB Nurse Member Role: Primary Care Nurse Name: Unique Billy MD Position: [facility] Physician - Primary Care Member Role: PCP Address: [address] [place] [id number] Telecom: Name: Kerrie Coleman RN Position: [facility] RN Member Role: Primary Care Nurse Name: Lata Meléndez RN Position: [facility] RN Member Role: Primary Care Nurse Name: Cruz Browne RN Position: [facility] RN Member Role: Primary Care Nurse Name: Yamilka Peguero RN Position: [facility] AMB Nurse Member Role: Primary Care Nurse Care Team Related Persons Name: ZURDO DUMONT Name: NELLY ROBERTS Name: YOLANDA STALEY Insurance Providers Guarantor name: [facility] Information #: 1 Payer: NA Member Number: TERESE Policy Number: NA Group Number: NA
--- OUTSIDE RECORDS SUMMARY | 2024-11-14 11:54 | XMS_ITS | Data Portability ---
Author Organization [facility] Address [address] [place] [id number] Care Team Providers Care Insurance Representative Name Role Phone HIM HORACE OTHER Assessment Encounter Date Assessment Date Assessment LastModified by Organization Details LastModified Time 11/12/2023 11/12/2023 I provided real -time medical direction via phone for this encounter and was available for additional phone-based assistance as needed. I have reviewed and agree with the Assessment and Plan as documented by the Boiler Fireman. Patient given the opportunity to ask questions. Our service contacted for an assessment of: Shoulder pain As per above, patient has had this issue for the past several weeks. Went to the ED twice this week for an evaluation. Initial tests are negative. Has an ortho appointment on Wednesday. Per bank vault custodian on the scene, VSS. Impression: Shoulder pain [...] mg tablet as per instruction s by [facility] COUMADIN NURSE. Dosing based on INR. up [...] active Not Available Not Available Not Available [facility] COVID-19 Antigen Rapid Home Test kit USE DIRECTED NEEDED active Not Available Not Available No t Available Vitals Date Recorded Oxygen saturation Oxygen saturation in Arterial blood by Pulse oximetry Respiratory rate Heart rate Body weight Body temperature Systolic blood pressure Diastolic blood pressure Provider Name and Address Organization Details Last Updated DateTime 4 98 % 98 % 16 /min 76 /min 152133. 448 g 97.6 [degF] 128 mm[Hg] 70 mm[Hg] Not Available [employer] 4 17:03:30 Date Recorded Body temperature Respiratory rate Heart rate Oxygen saturation Oxygen saturation in Arterial blood by Pulse oximetry Systolic blood pressure Diastolic blood pressure Provider Name and Address Organization Details Last Updated DateTime 4 97.2 [degF] 16 /min 68 /min 98 % 98 % 134 mm[Hg] 78 mm[Hg] Not Available [employer] 4 19:02:22 Social History None recorded. Functional Status None recorded. Mental Status None recorded. Family History Nothing Reported. Medical History No medical history recorded. Gynecological HistoryNo gynecological history recorded. Obstetrics History GPAL:G 0 P 0 0 0 0 Past Encounters Encounter ID Performer Location Encounter Start Date Encounter Closed Date Diagnosis/Indication Diagnosis SNOMED-CT Code Diagnosis ICD10 Code Diagnosis Note [id number] Cher Johnson MD [facility] [address] [place] [phone] 11/12/2023 17:03:28 11/13/2023 13:22:40 Pain of left shoulder joint [id number] M25.512 [id number] RUSSELL GONZALEZ MD [facility] - [facility] [address] [place] [address] 01/12/2024 19:02:20 01/13/2024 20:26:39 Pain of right eye [id number] 55836 H57.11 Evaluation in the field was performed by my bank vault custodian colleague, as noted above, I provided real-time direction and supervisio n for this visit. 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 Pt reports that she was seen at [facility] and she received [...] the setting of failing transplant -Advised to corn picker her RX from the pharmacy and [...] Briseno Member ID Guarantor Name 11/12/2023 1 [facility] - DOS ON OR AFTER 2022 - DUAL ELIGIBLE - PENITENTIARY OPTIONS AND ONE CARE (MEDICARE REPLACEMENT/ADV ANTAGE - HMO) Maryanne Pennant [id number] Maryanne Pennant 01/12/2024 1 [facility] - DOS ON OR AFTER 2022 - DUAL ELIGIBLE - PENITENTIARY OPTIONS AND ONE CARE (MEDICARE REPLACEMENT/ADV ANTAGE - HMO) Maryanne Pennant [id number] Maryanne Pennant Notes Date Note Type Note Provider Name and Address Organization Details Recorded Time 11/12/2023 text/html [facility] Nurse Triage Notes (Shonna Murrieta): Chief Complaints: Pain PMH: Severe Persistent Mental Illness (SPMI), CHF, Heart Disease, Other Allergies: Morphine Pain Assessment: Level 8 out of 10 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 Reports left shoulder and left upper back pain x1 week. Atraumatic. Pain exacerbated with ROM. Seen in ED on Wednesday. CT and US done, negative workup. Appt with Orthopedic MD on Wednesday. Took Tylenol today at 8am this morning. Rx Tramadol but makes patient sick. .................... .................... .................... .................... .................... .................... .................... . Boiler Fireman Note From Satya Garcias: Pt co left [...] sts pain when she lays on it. [facility] contacted and 30mg toradol given IM. Pt advised to continue with appt Wednesday. Pt advised to follow up with pcp. Pt education on signs indicating the ER. Boiler Fireman Allergies: Morphine .................... .................... .................... .................... .................... .................... .................... . Disposition: Fulfilled Cher Johnson MD [address] [place] [address],[address], [place], [phone], [facility] 11/12/2023 17:07:46 01/12/2024 text/html [facility] Nurse Triage Notes (Una Potter): Reason For Request: Right eye pain Chief Complaints: Pain PMH: Severe Persistent Mental Illness (SPMI), CHF, Heart Disease Allergies: Morphine Comments: hx of [place], no kidney disease, glaucomac/o right eye pain/right side of head- continuous right eye painyesterday, [facility] [place] and she received some eye drops/prescription for [...] .................... .................... .................... .................... .................... .................... . Boiler Fireman Note From Jed Castrejon: Dispatched to the [...] .................... . Disposition: Melquiades GONZALEZ MD [address] [facility],[address], [place], [address], [facility] 01/12/2024 22:59:44 OBGyn Episode No OBEpisode recorded.
--- OUTSIDE RECORDS SUMMARY | 2024-11-14 11:54 | XMS_ITS | Continuity of Care Document ---
Author Organization [facility] Address [address] [place] [phone]- Care Team Providers Care Motorcycle Delivery Driver Name Role Phone Unique Billy MD Primary Care Physician Encounter [facility] Date(s): 10/09/24 - 11/08/24 [facility] [address] [place] [phone]- Encounter Type: Triage Allergies, Adverse Reactions, Alerts [...] vaccine, inactivated 4 05/30/10 Gi bayron SARS-CoV-2(COVID-19)mRNA-LNP vac([id number]) 08/23/23 Recorded pneumococcal 20-valent conjugate vaccine 04/06/23 Given zoster vaccine, inactivated 09/28/22 Recorded zoster vaccine, inactivated 05/25/22 Recorded [id number] 12y+ bivalent booster vax 05/25/22 Recorded SARS-CoV-2 mRNA (pannuth-zijs-uohox) vax 01/18/22 Recorded SARS-CoV-2 (COVID-19) mRNA BNT-162b2 [...] 1 Refills, Maintenance, 04/17/24 2:03:00 PM EDT, [facility] [id number], 163, cm, 04/17/24 13:11:00 EDT, Height, 96.6, kg, 04/15/24 14:50:00 EDT, Dry Weight Start Date: 04/17/24 Status: Ordered Quantity: 180.0 Unit: tablet Repeat number: 2 Indication: Sciatica, unspecified side amoxicillin 500 mg oral capsule See Instructions, TAKE FOUR CAPSULES BY MOUTH ONCE. TAKE 30 TO 60 MINUTES prior to PROCEDURE, # 4 capsule, 1 Refills, Maintenance, 03/28/24 2:26:00 PM EDT, [facility] [id number], 153, cm, 03/07/24 14:01:00 EDT, Height, 113.9, kg, 11/07/23 14:37:00 EDT, Dry Weight Start Date: 03/28/24 Status: Ordered Quantity: 4.0 Unit: capsule Repeat number: 2 atorvastatin 40 mg oral tablet 1 tablet, By Mouth, Daily, # 90 tablet, 3 Refills, Maintenance, 03/28/24 2:35:00 PM EDT, [facility] [id number], 153, cm, 03/07/24 14:01:00 EDT, Height, 113.9, [...] 3 Refills,Maintenance, 05/10/24 4:02:00 PM EDT, Tablet, [place], [place] - [id number], 163, cm, 05/02/24 9:16:00 EDT, Height, 96.6, [...] mL, 0 Refills, Maintenance, 03/29/24 10:44:00 AMEDT, [place], [place] - [phone], Partial fill upon patient request if the [...] 5 Refills, Maintenance, 11/07/24 1:41:00 PM EDT, [facility], 30, SPRAY ONCE INTO EACH [...] mL, 3 Refills, Maintenance,11/02/24 10:30:00 AM EDT, [facility], 14, TAKE 15ml BY MOUTH [...] 0Refills, Maintenance, 10/12/24 10:18:00 AM EDT, Tablet, [place], [place] - [phone], please cancel all prior scripts for levothryoxine, [...] PM EDT, 04/17/24 1:57:00 PM EDT, Film, [place], [place] - [phone],Partial fill upon patient request if the prescription [...] Maintenance, 10/16/24 4:32:00 PM EDT, EC Capsule, [facility] [id number], Partial fill upon patient request if the [...] AM EDT, Aerosol, Route to Pharmacy Electronically, [id number], [place], [place] - [id number], 153, cm, 12/01/23 9:22:00 EDT, Height, 113.9, [...] knee 3 Confirmed 03/23/11 Active Cardiomyopathy per [facility] Confirmed Active Cataract 4 Confirmed Active [...] was 02-22-09) 2positive methacholine challenge - 3on - US 4surgery rt eye 10-19-08 5fair prep in 2021 so per report, due next 2023 6due to quality of prep, repeat in 5 years (done 2011, due 2016) 7from lithium per renal note 8see renal note 01-31. may be secondary to prior use of lithium 9Biopsy 12/29 10acute /sent from [facility] to [facility] 11open angle, bilateral, severe per eye note 12[facility] 13at [place] 14mild on ECHO 12/2003 15severe , right , per 2010 [facility] consult 16per -2024 cardiolgoy note assymetric septal hypertrophy on ECHO -2024, so they planned cardiac MRI 17next due 2022 per -2020 message with Endocrine 181.8 cm per -2015 Endcrine note, repeat US due in -2017 19due 2031, per 2024 letter by GI -2024/ due 7 years so due 2031 20repeat in 09/2018 Social History Social History Type Response Smoking Status Never smoker entered on: 04/23/15 Sex Sex Representation Female (finding) Patient Care team information Care Team Personnel Name: Brenda Lam RN Position: [facility] RN Member Role: Primary Care Nurse Name: Franci Alexander RN Position: [facility] AMB Nurse Member Role: Primary Care Nurse Name: Unique Billy MD Position: [facility] Physician - Primary Care Member Role: PCP Address: [address] [place] [address] Telecom: Name: Kerrie Coleman RN Position: [facility] SN RN Member Role: Primary Care Nurse Name: Lata Meléndez RN Position: [facility] RN Member Role: Primary Care Nurse Name: Cruz Browne RN Position: [facility] RN Member Role: Primary Care Nurse Name: Yamilka Peguero RN Position: [facility] Nurse Member Role: Primary Care Nurse Care Team Related Persons Name: ZURDO DUMONT Name: NELLY ROBERTS Name: YOLANDA STALEY Insurance Providers Guarantor name: [facility] Plan Information #: 1 Payer: NA Member Number: NA Policy Number: NA Group Number: NA
--- OUTSIDE RECORDS SUMMARY | 2024-11-14 11:54 | XMS_ITS | Clinical Summary ---
Author Organization [address] Address [address] [place] [address] Phone Care Team Providers Care Coater Brake Linings Name Role Phone Aleyda Tillman MD Primary [...] Annual Retina Eye Exam 1968 RSV Immunization Adult Patients (1 - Risk 60-74 years 1-dose series) [...] age to complete this topic Meningococcal B Vaccine Aged Out No l onger eligible based on patient's age to complete this topic RSV Immunization Patients Under 20 months Aged Out No longer eligible based on patient's age to complete this topic Varicella Vaccines Aged Out No longer eligible based on patient's age to complete this topic Procedures Procedure Name Priority Date/Time Associated Diagnosis Comments CBC WITH AUTO DIFFERENTIAL Routine 10/26/2024 12:21 PM EDT Mild mixed bipolar I disorder (CMS/HCC V24, CMS/HCC V28) long term care administrator use of drug CBC AND DIFFERENTIAL Routine 10/26/2024 12:21 PM EDT Mild mixed bipolar I disorder (CMS/HCC V24, CMS/HCC V28) long term care administrator use of drug CBC WITH AUTO DIFFERENTIAL Routine 09/28/2024 8:26 AM EST Mild mixed bipolar I disorder (CMS/HCC V24, CMS/HCC V28) long term care administrator use of drug CBC AND DIFFERENTIAL Routine 09/28/2024 8:26 AM EST Mild mixed bipolar I disorder (CMS/HCC V24, CMS/HCC V28) long term care administrator use of drug CBC WITH AUTO DIFFERENTIAL Routine 09/01/2024 9:39 AM EST Mild mixed bipolar I disorder (CMS/HCC V24, CMS/HCC V28) senior care use of drug CBC AND DIFFERENTIAL Routine 09/01/2024 9:39 AM EST Mild mixed bipolar I disorder (CMS/HCC V24, CMS/HCC V28) long term care administrator use of drug MICROALBUMIN CREATININE URINE RATIO Routine 08/02/2024 12:11 PM EST Chronic kidney disease, stage II (mild) Iron deficiency anemia secondary to inadequate dietary iron intake RENAL FUNCTION PANEL Routine 08/02/2024 12:11 PM EST Chronic kidney disease, stage II (mild) Iron deficiency anemia secondary to inadequate dietary iron intake from Last 3 Months or Most Recently Relevant to Health Maintenance Results * (ABNORMAL) CBC auto differential (10/26/2024 12:21 PM EDT) Only the most recent of3 resultswithin the time period is included. Pathologist [facility] WBC 7.7 4.8 - 10.8 K/mcL LAB HEMETOLOGY METHOD 10/26/2024 1:03 PM [facility] RBC 4.30 3.80 - 4.80 M/mcL LAB HEMETOLOGY METHOD 10/26/2024 1:03 PM [facility] Hemoglobin 12.9 11.5 - 16.0 g/dL LAB HEMETOLOGY METHOD 10/26/2024 1:03 PM [facility] Hematocrit 41.4 35.0 - 47.0 % LAB HEMETOLOGY METHOD 10/26/2024 1:03 PM [facility] MCV 95.4 79.0 - 98.0 FL LAB HEMETOLOGY METHOD 10/26/2024 1:03 PM [facility] MCH 29.7 27.0 - 32.0 pcg LAB HEMETOLOGY METHOD 10/26/2024 1:03 PM [facility] MCHC 31.2(L) 32.0 - 37.0 g/dL LAB HEMETOLOGY METHOD 10/26/2024 1:03 PM [facility] RDW 16.4(H) 11.0 - 15.0 % LAB HEMETOLOGY METHOD 10/26/2024 1:03 PM [facility] Platelets 154 130 - 400 K/mcL LAB HEMETOLOGY METHOD 10/26/2024 1:03 PM [facility] MPV 13.1(H) 7.0 - 11.0 FL LAB HEMETOLOGY METHOD 10/26/2024 1:03 PM [facility] NRBC 0.0 <1.0 % LAB HEMETOLOGY METHOD 10/26/2024 1:03 PM [facility] NRBC Absolute 0.00 <0.10 K/mcL LAB HEMETOLOGY METHOD 10/26/2024 1:03 PM [facility] Neutrophils Relative 59.8 % LAB HEMETOLOGY METHOD 10/26/2024 1:03 PM [facility] Lymphocytes Relative 32.6 % LAB HEMETOLOGY METHOD 10/26/2024 1:03 PM [facility] Monocytes Relative 7.1 % LAB HEMETOLOGY METHOD 10/26/2024 1:03 PM [facility] Eosinophils Relative 0.0 % LAB HEMETOLOGY METHOD 10/26/2024 1:03 PM [facility] Basophils Relative 0.4 % LAB HEMETOLOGY METHOD 10/26/2024 1:03 PM [facility] Immature Granulocytes Relative 0.1 % LAB HEMETOLOGY METHOD 10/26/2024 1:03 PM [facility] Neutrophils Absolute 4.62 1.50 - 7.00 K/mcL LAB HEMETOLOGY METHOD 10/26/2024 1:03 PM EDT [facility] Lymphocytes Absolute 2.52 1.00 - 5.00 K/[facility] LAB HEMETOLOGY METHOD 10/26/2024 1:03 PM EDT [facility] Monocytes Absolute 0.55 0.20 - 1.00 K/mcL LAB HEMETOLOGY METHOD 10/26/2024 1:03 PM EDT [facility] Eosinophils Absolute 0.00 0.00 - 0.50 K/[facility] LAB HEMETOLOGY METHOD 10/26/2024 1:03 PM EDT [facility] Basophils Absolute 0.03 0.00 - 0.20 K/[facility] LAB HEMETOLOGY METHOD 10/26/2024 1:03 PM EDT [facility] Immature Granulocytes Absolute 0.01 0.00 - 0.03 K/[facility] LAB HEMETOLOGY METHOD 10/26/2024 1:03 PM EDT [facility] Blood Venous blood specimen / Unknown Venipuncture / Unknown 10/26/2024 12:21 PM EDT 10/26/2024 12:50 PM EDT Aleyda Tillman MD LAB BLOOD ORDERABLES Fi nal Result [facility] [address] [place] [address], * Microalbumin creatinine urine ratio (08/02/2024 12:11 PM EST) Creatinine, Urine 67.0 mg/dL LAB CHEMISTRY METHOD 08/02/2024 2:42 PM EST [facility] Microalb, Ur 12.5 0.0 - 29.0 mg/L LAB CHEMISTRY METHOD 08/02/2024 2:42 PM EST [facility] Microalb/Creat Ratio 19 <30 mg/g creat LAB CHEMISTRY METHOD 08/02/2024 2:42 PM EST [facility] Urine Urine specimen obtained by clean catch procedure / Unknown Non-blood Collection / Unknown 08/02/2024 12:11 PM EST 08/02/2024 1:03 PM EST us Mone Pruitt [facility] URINE ORDERABLES Final R esult [facility] [address] [place] [address], * Renal function panel (08/02/2024 12:11 PM EST) Sodium 139 133 - 145 mmol/L LAB CHEMISTRY METHOD 08/02/2024 1:54 PM [facility] Potassium 5.0 3.5 - 5.5 mmol/L LAB CHEMISTRY METHOD 08/02/2024 1:54 PM [facility] Comment:Hemolysis present Chloride 109 96 - 110 mmol/L LAB CHEMISTRY METHOD 08/02/2024 1:54 PM [facility] CO2 27 21 - 32 mmol/L LAB CHEMISTRY METHOD 08/02/2024 1:54 PM [facility] Anion Gap 3 3 - 11 LAB CHEMISTRY METHOD 08/02/2024 1:54 PM [facility] Glucose 77 70 - 100 mg/dL LAB CHEMISTRY METHOD 08/02/2024 1:54 PM [facility] BUN 19 5 - 25 mg/dL LAB CHEMISTRY METHOD 08/02/2024 1:54 PM [facility] Creatinine 0.90 0.50 - 1.10 mg/dL LAB CHEMISTRY METHOD 08/02/2024 1:54 PM [facility] eGFR 71 >=60 mL/min/1. 73m2 LAB CHEMISTRY METHOD 08/02/2024 1:54 PM [facility] Comment:Calculation based on the??Chronic Kidney Disease Epidemiology Collaboration (CKD-EPI) equation refit??without adjustment for race. BUN/Creatinine Ratio 21.1 LAB CHEMISTRY METHOD 08/02/2024 1:54 PM EST [facility] Albumin 3.5 3.2 - 5.0 g/dL LAB CHEMISTRY METHOD 08/02/2024 1:54 PM EST [facility] Calcium 9.2 8.5 - 10.5 mg/dL LAB CHEMISTRY METHOD 08/02/2024 1:54 PM EST [facility] Phosphorus 4.1 2.5 - 4.5 mg/dL LAB CHEMISTRY METHOD 08/02/2024 1:54 PM EST [facility] Blood Venous blood specimen / Unknown Venipuncture / Unknown 08/02/2024 12:11 PM EST 08/02/2024 12:56 PM EST Mone Pruitt [facility] BLOOD ORDERABLES Final R esult [facility] [address] [place] [address], from Last 3 Months or Most Recently Relevant to Health Maintenance Insurance [facility] MEDICARE Member Subscriber Plan / Payer (Ef fective 2023-Present) Name:Maryanne Marquez Relation to Subscriber:Self Name:Maryanne Marquez Payer ID:[id number] Group ID:[id number] Type:Not on file Address: [address] [facility] [place] [id number] Care Teams Coater Brake Linings Relationship Specialty Start Date End Date Aleyda Tillman MD [address] [place] [address] PCP - General Psychiatry 07/27/24
--- OUTSIDE RECORDS SUMMARY | 2024-11-14 11:54 | XMS_ITS | Clinical Summary ---
Author Organization [facility] Address [address] [place] [address] Phone Care Team Providers Care Aerial Photograph Interpreter Name Role Phone Unique Billy MD Primary Care Provider [phone] Allergies Active Allergy Reactions Criticality Noted Date [...] 11/23/2013 Diabetes mellitus 07/26/2012 Schizoaffective disorder 05/27/2012 Social History Tobacco Use Types Packs/Day Years [...] Office Visit [facility] [address] [phone] Mone Pruitt ARNP [address] [phone] Health Maintenance Due Date Last Done Comments Breast Cancer Screening 1960 Colorectal Cancer Screening: Annual FOBT 2007 Colorectal Cancer Screening: Colonoscopy 2007 Colorectal Cancer Screening: Sigmoidoscopy 2007 Pneumococcal Vaccine: 50+ Years (3 of 3 - PCV) 04/24/2016 04/24/2015, 05/10/2008 Diabetes: Hemoglobin A1C 01/29/2023 Diabetes: Ophthalmology Exam 01/29/2023 Diabetes: Pedal Pulse Checked 01/29/2023 Diabetes: Sensory Foot Exam 01/29/2023 Diabetes: Visual Foot Exam 01/29/2023 Influenza Vaccine (Season Ended) 2025 05/26/2022, 07/21/2021, 05/16/2020, Additional history exists Hepatitis B Vaccine Aged Out 12/23/2007, 05/27/2006, 02/04/2006 No longer eligible based on patient's age to complete this topic Pneumococcal Vaccine: Peds (0 to 5 Years) and At-Risk Patients (6 to 49 Years) Discontinued 04/24/2015, 05/10/2008 Insurance [facility] ([id number]) [facility] ([id number]) [place] [id number] Care Teams Aerial Photograph Interpreter Relationship Specialty Start Date End Date Unique Billy MD [address] [place] [address] PCP - General Internal Medicine 09/14/23
--- OUTSIDE RECORDS SUMMARY | 2024-11-14 11:54 | XMS_ITS | Clinical Summary ---
Author Organization [facility] Address [address] [place] [address] Care Team Providers Care Theater Technician Name Role Phone Unavailable Primary Care Provider [...] Date Comments Chocolate Nausea and Vomiting 12/10/2021 [place] 12/10/2021 Dust Wheezing 06/07/2023 House Dust Mite [...] mL, 11 Refills, Maintenance, 02/04/22 11:23:00 EDT, [place], [place] - [phone], 30, SPRAY ONCE INTO EACH NOSTRIL 2 [...] chloride 0.9 % nebulizer solution Inhale 1 [place] into the lungs Active timoloL (BETIMOL) 0.5 [...] tablet See Instructions, as per instructions by [facility] COUMAD[facility] NURSE. Dosing based on INR. up to 2 tablets per day., # 90 tablet, 11 Refills, Maintenance, 02/04/22 11:23:00 EDT, Tablet, [facility] [place], [place] - [phone], 159, cm, 02/04/22 10:39:0... 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 [...] consult Radial styloid tenosynovitis 06/07/2023 Severe obesity ([facility]) 06/07/2023 Thyroid nodule 06/07/2023 Overview (06/07/2023): next due 2022 per message with Endocrine1.8 cm per -2015 Endcrine note, repeat US due in Polyuria 12/10/2021 History of total knee replacement 06/11/2020 Tubular adenoma of colon 10/09/2017 Overview (06/07/2023): repeat in 09/2018 repeat in 09/2018 Sleep apnea 08/31/2014 Deep vein thrombosis (DVT) of lower extremity ([facility]) 04/25/2014 Arthritis 04/10/2014 Asthma ([facility] 04/10/2014 Overview (06/07/2023): (actualy, test was 7-31-09)positive methacholine challenge 8-09 (actualy, test was 7-31-09)positive methacholine challenge 8-09 Auditory hallucinations 04/10/2014 Cataract 04/10/2014 Overview (06/07/2023): surgery rt eye 10-19-08 surgery rt eye 10-19-08 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 breast 04/10/2014 Overview (06/07/2023): Biopsy 12/29 Biopsy 12/29 Acute mitral regurgitation 04/10/2014 Morbid obesity ([facility]) 04/10/2014 Hypothyroidism 04/10/2014 Polymyalgia rheumatica ([facility]) 11/23/2013 Diabetes mellitus ([facility]) 07/26/2012 Synovial cyst of knee 03/23/2011 Overview (06/07/2023): on 03-05 on 03-05 Social History Tobacco Use Types Packs/Day Years [...] Diabetes Foot Exam 1958 Diabetes HbA1c 1958 Hepatitis C Screening 1958 Lipid Screening [...] 03/0 01/2023, 02/13/2022 Serum Creatinine 02/02/2024 02/01/2023 Urine Albumin Creatinine Rat io Screening 02/02/2024 02/01/2023 [id number] ( season) 2024 01/18/2022, 06/02/2021, 11/25/2020 Imm-Influenza [...] Routine 04/20/2023 3:00 PM EDT Defective dental pentecostalism Encounter for dental examination PROPHYLAXIS - ADULT Routine 04/20/2023 3 :00 PM EDT Defective dental pentecostalism PERIODIC ORAL EVALUATION ESTABLISHED PATIENT Routine 04/20/2023 3:00 PM EDT Defective dental pentecostalism Encounter for dental examination BITEWINGS - FOUR RADIOGRAPHIC IMAGES Routine 09/29/2022 1:00 PM EST Partial edentulism, unspecified edentulism class INTRAORAL - COMP SERIES OF RADIOGRAPHIC IMAGES Routine 02/13/2022 9:40 AM EDT Encounter for dental examination from Last 3 Months or Most Recently Relevant to Health Maintenance Insurance [facility] [facility]
== END 2024-11-14 10:56 | disposition home or self-care (01) ==
LOC: HO.HBS 10:18
PROVIDERS: PCP Internal Medicine; Visit Provider Physician Assistant Surgical
DX: E66.9 Obesity, unspecified (principal); Z90.3 Acquired absence of stomach [part of]
CPT/HCPCS: 99214; G2211

== ENCOUNTER 2024-11-20 09:16 | Outpatient (REF) | payer OTHER, SELFPAY ==
[2024-11-20 10:07] LABS: MANUAL DIFF FLAG NO
--- OUTSIDE RECORDS SUMMARY | 2024-11-20 10:11 | XMS_ITS | Continuity of Care Document ---
Author Organization [facility] Address [address] [place] [address]- Care Team Providers Care Process Design Chemical Engineer Name Role Phone Unique Billy MD Primary Care Physician [phone] Encounter [facility] Date(s): 10/19/24 - 11/18/24 [facility] [address] [place] [phone] Encounter Type: Triage Allergies, Adverse Reactions, Alerts [...] vaccine, inactivated 4 05/30/10 Gi bayron SARS-CoV-2(COVID-19)mRNA-LNP vac([id number]) 08/23/23 Recorded pneumococcal 20-valent conjugate vaccine 04/06/23 Given zoster vaccine, inactivated 09/28/22 Recorded zoster vaccine, inactivated 05/25/22 Recorded [id number]-[id number] 12y+ bivalent booster vax 05/25/22 Recorded SARS-CoV-2 mRNA (agssvuz-ymsw-djlmv) vax 01/18/22 Recorded SARS-CoV-2 (COVID-19) mRNA BNT-162b2 [...] 1 Refills, Maintenance, 04/17/24 2:03:00 PM EDT, [facility] [id number], 163, cm, 04/17/24 13:11:00 EDT, Height, 96.6, kg, 04/15/24 14:50:00 EDT, Dry Weight Start Date: 04/17/24 Status: Ordered Quantity: 180.0 Unit: tablet Repeat number: 2 Indication: Sciatica, unspecified side amoxicillin 500 mg oral capsule See Instructions, TAKE FOUR CAPSULES BY MOUTH ONCE. TAKE 30 TO 60 MINUTES prior to PROCEDURE, # 4 capsule, 2 Refills, Maintenance, 11/09/24 12:38:00 PM EDT, [facility] [id number], 163, cm, 10/16/24 14:35:00 EDT, Height, 92, kg, 10/16/24 14:35:00 EDT, Dry Weight Start Date: 11/09/24 Status: Ordered Quantity: 4.0 Unit: capsule Repeat number: 3 atorvastatin 40 mg oral tablet 1 tablet, By Mouth, Daily, # 90 tablet, 3 Refills, Maintenance, 03/28/24 2:35:00 PM EDT, [facility] [id number], 153, cm, 03/07/24 14:01:00 EDT, Height, 113.9, [...] 3 Refills,Maintenance, 05/10/24 4:02:00 PM EDT, Tablet, [place], [place] - [id number], 163, cm, 05/02/24 9:16:00 EDT, Height, 96.6, [...] mL, 0 Refills, Maintenance, 03/29/24 10:44:00 AMEDT, [place], [place] - [id number], Partial fill upon patient request if the [...] 5 Refills, Maintenance, 11/07/24 1:41:00 PM EDT, [facility], 30, SPRAY ONCE INTO EACH [...] mL, 3 Refills, Maintenance,11/02/24 10:30:00 AM EDT, [facility], 14, TAKE 15ml BY MOUTH [...] 0Refills, Maintenance, 10/12/24 10:18:00 AM EDT, Tablet, [place], [place] - [id number], please cancel all prior scripts for levothryoxine, [...] PM EDT, 04/17/24 1:57:00 PM EDT, Film, [place], [place] - [id number],Partial fill upon patient request if the prescription [...] Maintenance, 10/16/24 4:32:00 PM EDT, EC Capsule, [facility] [id number], Partial fill upon patient request if the [...] AM EDT, Aerosol, Route to Pharmacy Electronically, [id number], [place], [place] - [id number], 153, cm, 12/01/23 9:22:00 EDT, Height, 113.9, [...] knee 3 Confirmed 03/23/11 Active Cardiomyopathy per [facility] Confirmed Active Cataract 4 Confirmed Active [...] of lithium 9Biopsy 12/29 10acute /sent [facility] to [facility] 11open angle, bilateral, severe per eye note 12[facility] 13at [facility] 14mild on ECHO 12/2003 15severe , right [...] Team Personnel Name: Brenda Lam RN Position: [facility] RN Member Role: Primary Care Nurse Name: Franci Alexander RN Position: [facility] AMB Nurse Member Role: Primary Care Nurse Name: Unique Billy MD Position: [facility] Physician - Primary Care Member Role: PCP Address: [address] [place] [address] Telecom: Name: Kerrie Coleman RN Position: [facility] SN RN Member Role: Primary Care Nurse Name: Lata Meléndez RN Position: [facility] RN Member Role: Primary Care Nurse Name: Cruz Browne RN Position: [facility] RN Member Role: Primary Care Nurse Name: Yamilka Peguero RN Position: [facility] AMB Nurse Member Role: Primary Care Nurse Care Team Related Persons Name: ZURDO DUMONT Name: NELLY ROBERTS Name: YOLANDA STALEY Insurance Providers Guarantor name: [facility] Information #: 1 Payer: NA Member Number: NA Policy Number: NA Group Number: NA
--- OUTSIDE RECORDS SUMMARY | 2024-11-20 10:11 | XMS_ITS | Data Portability ---
Author Organization [facility] Address [address] [place] [id number] Care Team Providers Care Loan Workout Officer Name Role Phone HIM HORACE OTHER Assessment Encounter Date Assessment Date Assessment LastModified by Organization Details LastModified Time 11/12/2023 11/12/2023 I provided real -time medical direction via phone for this encounter and was available for additional phone-based assistance as needed. I have reviewed and agree with the Assessment and Plan as documented by the Log Peeler. Patient given the opportunity to ask questions. Our service contacted for an assessment of: Shoulder pain As per above, patient has had this issue for the past several weeks. Went to the ED twice this week for an evaluation. Initial tests are negative. Has an ortho appointment on Wednesday. Per disability case manager on the scene, VSS. Impression: Shoulder pain [...] as per instruction s by [facility] COUMADIN NURSE. Dosing based on INR. up [...] active Not Available Not Available Not Available [facility] COVID-19 Antigen Rapid Home Test kit USE DIRECTED NEEDED active Not Available Not Available No t Available Vitals Date Recorded Oxygen saturation Oxygen saturation in Arterial blood by Pulse oximetry Respiratory rate Heart rate Body weight Body temperature Systolic blood pressure Diastolic blood pressure Provider Name and Address Organization Details Last Updated DateTime 4 98 % 98 % 16 /min 76 /min 202372. 448 g 97.6 [degF] 128 mm[Hg] 70 mm[Hg] Not Available [facility] 4 17:03:30 Date Recorded Body temperature Respiratory rate Heart rate Oxygen saturation Oxygen saturation in Arterial blood by Pulse oximetry Systolic blood pressure Diastolic blood pressure Provider Name and Address Organization Details Last Updated DateTime 4 97.2 [degF] 16 /min 68 /min 98 % 98 % 134 mm[Hg] 78 mm[Hg] Not Available [facility] 4 19:02:22 Social History None recorded. Functional Status None recorded. Mental Status None recorded. Family History Nothing Reported. Medical History No medical history recorded. Gynecological HistoryNo gynecological history recorded. Obstetrics History GPAL:G 0 P 0 0 0 0 Past Encounters Encounter ID Performer Location Encounter Start Date Encounter Closed Date Diagnosis/Indication Diagnosis SNOMED-CT Code Diagnosis ICD10 Code Diagnosis Note [id number] Cher Johnson MD [facility] [address] [place] [phone] 11/12/2023 17:03:28 11/13/2023 13:22:40 Pain of left shoulder joint [id number] M25.512 [id number] RUSSELL GONZALEZ MD [facility] - [facility] [address] [place] [address] 01/12/2024 19:02:20 01/13/2024 20:26:39 Pain of right eye [id number] 96647 H57.11 Evaluation in the field was performed by my disability case manager colleague, as noted above, I provided real-time direction and supervisio n for this visit. 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 Pt reports that she was seen at [facility] and she received [...] the setting of failing transplant -Advised to shredder picker her RX from the pharmacy and [...] Briseno Member ID Guarantor Name 11/12/2023 1 [facility] - DOS ON OR AFTER 2022 - DUAL ELIGIBLE - PENITENTIARY OPTIONS AND ONE CARE (MEDICARE REPLACEMENT/ADV ANTAGE - HMO) Maryanne Pennant [id number] Maryanne Pennant 01/12/2024 1 [facility] - DOS ON OR AFTER 2022 - DUAL ELIGIBLE - PENITENTIARY OPTIONS AND ONE CARE (MEDICARE REPLACEMENT/ADV ANTAGE - HMO) Maryanne Pennant [id number] Maryanne Pennant Notes Date Note Type Note Provider Name and Address Organization Details Recorded Time 11/12/2023 text/html [facility] Nurse Triage Notes (Shonna Murrieta): Chief Complaints: Pain PMH: Severe Persistent Mental Illness (SPMI), CHF, Heart Disease, Other Allergies: Morphine Pain Assessment: Level 8 out of 10 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 Reports left shoulder and left upper back pain x1 week. Atraumatic. Pain exacerbated with ROM. Seen in ED on Wednesday. CT and US done, negative workup. Appt with Orthopedic MD on Wednesday. Took Tylenol today at 8am this morning. Rx Tramadol but makes patient sick. .................... .................... .................... .................... .................... .................... .................... . Log Peeler Note From Satya Garcias: Pt co left [...] sts pain when she lays on it. [facility] contacted and 30mg toradol given IM. Pt advised to continue with appt Wednesday. Pt advised to follow up with pcp. Pt education on signs indicating the ER. Log Peeler Allergies: Morphine .................... .................... .................... .................... .................... .................... .................... . Disposition: Fulfilled Cher Johnson MD [address] [place] [address],[address], [place], [phone], [facility] 11/12/2023 17:07:46 01/12/2024 text/html [facility] Nurse Triage Notes (Una Potter): Reason For Request: Right eye pain Chief Complaints: Pain PMH: Severe Persistent Mental Illness (SPMI), CHF, Heart Disease Allergies: Morphine Comments: hx of FL, no kidney disease, glaucomac/o right eye pain/right side of head- continuous right eye painyesterday, went to the [facility] in [place] and she received some eye drops/prescription for [...] .................... .................... .................... .................... .................... .................... . Log Peeler Note From Jed Castrejon: Dispatched to the [...] .................... . Disposition: Melquiades GONZALEZ MD [address] [facility],[address], [place], [phone], [facility] [employer] 01/12/2024 22:59:44 OBGyn Episode No OBEpisode recorded.
--- OUTSIDE RECORDS SUMMARY | 2024-11-20 10:11 | XMS_ITS | Clinical Summary ---
Author Organization [facility] Address [address] [place] [address] Care Team Providers Care Spray Gun Operator Name Role Phone Unavailable Primary Care Provider [...] Date Comments Chocolate Nausea and Vomiting 12/10/2021 [place] 12/10/2021 Dust Wheezing 06/07/2023 House Dust Mite [...] mL, 11 Refills, Maintenance, 02/04/22 11:23:00 EDT, [place], [place] - [phone], 30, SPRAY ONCE INTO EACH NOSTRIL 2 [...] chloride 0.9 % nebulizer solution Inhale 1 [place] into the lungs Active timoloL (BETIMOL) 0.5 [...] See Instructions, as per instructions by [facility] COUMADIN NURSE. Dosing based on INR. up to 2 tablets per day., # 90 tablet, 11 Refills, Maintenance, 02/04/22 11:23:00 EDT, Tablet, [facility] [place] [place] - [phone], 159, cm, 02/04/22 10:39:0... 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) 06/07/2023 Overview (06/07/2023): [...] consult Radial styloid tenosynovitis 06/07/2023 Severe obesity (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 04/10/2014 Overview (06/07/2023): Biopsy 12/29 Biopsy 12/29 Acute mitral regurgitation 04/10/2014 Morbid obesity ([facility]) 04/10/2014 Hypothyroidism 04/10/2014 Polymyalgia rheumatica ([facility]) 11/23/2013 Diabetes mellitus ([facility]) 07/26/2012 Synovial cyst of knee 03/23/2011 Overview [...] Albumin Creatinine Rat io Screening 02/02/2024 02/01/2023 Zth-PCMYX-34 ( season) 2024 01/18/2022, 06/02/2021, 11/25/2020 Imm-Influenza [...] Routine 04/20/2023 3:00 PM EDT Defective dental moravian Encounter for dental examination PROPHYLAXIS - ADULT Routine 04/20/2023 3 :00 PM EDT Defective dental moravian PERIODIC ORAL EVALUATION ESTABLISHED PATIENT Routine 04/20/2023 3:00 PM EDT Defective dental moravian Encounter for dental examination BITEWINGS - FOUR RADIOGRAPHIC IMAGES Routine 09/29/2022 1:00 PM EST Partial edentulism, unspecified edentulism class INTRAORAL - COMP SERIES OF RADIOGRAPHIC IMAGES Routine 02/13/2022 9:40 AM EDT Encounter for dental examination from Last 3 Months or Most Recently Relevant to Health Maintenance Insurance [facility] NET DENTAL [employer]HE[employer]Y DENTAL
--- OUTSIDE RECORDS SUMMARY | 2024-11-20 10:11 | XMS_ITS | Clinical Summary ---
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 Pathologist [facility] WBC 7.7 4.8 - 10.8 K/mcL LAB HEMETOLOGY METHOD 10/26/2024 1:03 PM [facility] RBC 4.30 3.80 - 4.80 M/mcL LAB HEMETOLOGY METHOD 10/26/2024 1:03 PM [facility] Hemoglobin 12.9 11.5 - 16.0 g/dL LAB HEMETOLOGY METHOD 10/26/2024 1:03 PM [facility] Hematocrit 41.4 35.0 - 47.0 % LAB HEMETOLOGY METHOD 10/26/2024 1:03 PM [facility] MCV 95.4 79.0 - 98.0 FL LAB HEMETOLOGY METHOD 10/26/2024 1:03 PM [facility] MCH 29.7 27.0 - 32.0 pcg LAB HEMETOLOGY METHOD 10/26/2024 1:03 PM [facility] MCHC 31.2(L) 32.0 - 37.0 g/dL LAB HEMETOLOGY METHOD 10/26/2024 1:03 PM [facility] RDW 16.4(H) 11.0 - 15.0 % LAB HEMETOLOGY METHOD 10/26/2024 1:03 PM [facility] Platelets 154 130 - 400 K/mcL LAB HEMETOLOGY METHOD 10/26/2024 1:03 PM [facility] MPV 13.1(H) 7.0 - 11.0 FL LAB HEMETOLOGY METHOD 10/26/2024 1:03 PM [facility] NRBC 0.0 <1.0 % LAB HEMETOLOGY METHOD 10/26/2024 1:03 PM [facility] NRBC Absolute 0.00 <0.10 K/mcL LAB HEMETOLOGY METHOD 10/26/2024 1:03 PM [facility] Neutrophils Relative 59.8 % LAB HEMETOLOGY METHOD 10/26/2024 1:03 PM [facility] Lymphocytes Relative 32.6 % LAB HEMETOLOGY METHOD 10/26/2024 1:03 PM [facility] Monocytes Relative 7.1 % LAB HEMETOLOGY METHOD 10/26/2024 1:03 PM [facility] Eosinophils Relative 0.0 % LAB HEMETOLOGY METHOD 10/26/2024 1:03 PM [facility] Basophils Relative 0.4 % LAB HEMETOLOGY METHOD 10/26/2024 1:03 PM [facility] Immature Granulocytes Relative 0.1 % LAB HEMETOLOGY METHOD 10/26/2024 1:03 PM [facility] Neutrophils Absolute 4.62 1.50 - 7.00 K/mcL LAB HEMETOLOGY METHOD 10/26/2024 1:03 PM EDT [facility] Lymphocytes Absolute 2.52 1.00 - 5.00 K/[facility] LAB HEMETOLOGY METHOD 10/26/2024 1:03 PM EDT [facility] Monocytes Absolute 0.55 0.20 - 1.00 K/mcL LAB HEMETOLOGY METHOD 10/26/2024 1:03 PM EDT [facility] Eosinophils Absolute 0.00 0.00 - 0.50 K/[facility] LAB HEMETOLOGY METHOD 10/26/2024 1:03 PM EDT [facility] Basophils Absolute 0.03 0.00 - 0.20 K/[facility] LAB HEMETOLOGY METHOD 10/26/2024 1:03 PM EDT [facility] Immature Granulocytes Absolute 0.01 0.00 - 0.03 K/[facility] LAB HEMETOLOGY METHOD 10/26/2024 1:03 PM EDT [facility] Blood Venous blood specimen / Unknown Venipuncture / Unknown 10/26/2024 12:21 PM EDT 10/26/2024 12:50 PM EDT Aleyda Tillman MD LAB BLOOD ORDERABLES Fi nal Result [facility] [address] [place] [address], * Microalbumin creatinine urine ratio (08/02/2024 12:11 PM EST) Creatinine, Urine 67.0 mg/dL LAB CHEMISTRY METHOD 08/02/2024 2:42 PM EST [facility] Microalb, Ur 12.5 0.0 - 29.0 mg/L LAB CHEMISTRY METHOD 08/02/2024 2:42 PM EST [facility] Microalb/Creat Ratio 19 <30 mg/g creat LAB CHEMISTRY METHOD 08/02/2024 2:42 PM EST [facility] Urine Urine specimen obtained by clean catch procedure / Unknown Non-blood Collection / Unknown 08/02/2024 12:11 PM EST 08/02/2024 1:03 PM EST us Mone Pruitt [facility] URINE ORDERABLES Final R esult [facility] [address] [place] [address], * Renal function panel (08/02/2024 12:11 PM EST) Sodium 139 133 - 145 mmol/L LAB CHEMISTRY METHOD 08/02/2024 1:54 PM [facility] Potassium 5.0 3.5 - 5.5 mmol/L LAB CHEMISTRY METHOD 08/02/2024 1:54 PM [facility] Comment:Hemolysis present Chloride 109 96 - 110 mmol/L LAB CHEMISTRY METHOD 08/02/2024 1:54 PM [facility] CO2 27 21 - 32 mmol/L LAB CHEMISTRY METHOD 08/02/2024 1:54 PM [facility] Anion Gap 3 3 - 11 LAB CHEMISTRY METHOD 08/02/2024 1:54 PM [facility] Glucose 77 70 - 100 mg/dL LAB CHEMISTRY METHOD 08/02/2024 1:54 PM [facility] BUN 19 5 - 25 mg/dL LAB CHEMISTRY METHOD 08/02/2024 1:54 PM [facility] Creatinine 0.90 0.50 - 1.10 mg/dL LAB CHEMISTRY METHOD 08/02/2024 1:54 PM [facility] eGFR 71 >=60 mL/min/1. 73m2 LAB CHEMISTRY METHOD 08/02/2024 1:54 PM [facility] Comment:Calculation based on the??Chronic Kidney Disease Epidemiology Collaboration (CKD-EPI) equation refit??without adjustment for race. BUN/Creatinine Ratio 21.1 LAB CHEMISTRY METHOD 08/02/2024 1:54 PM EST [facility] Albumin 3.5 3.2 - 5.0 g/dL LAB CHEMISTRY METHOD 08/02/2024 1:54 PM EST [facility] Calcium 9.2 8.5 - 10.5 mg/dL LAB CHEMISTRY METHOD 08/02/2024 1:54 PM EST [facility] Phosphorus 4.1 2.5 - 4.5 mg/dL LAB CHEMISTRY METHOD 08/02/2024 1:54 PM EST [facility] Blood Venous blood specimen / Unknown Venipuncture / Unknown 08/02/2024 12:11 PM EST 08/02/2024 12:56 PM EST Mone Pruitt [facility] LAB BLOOD ORDERABLES Final R esult [facility] [address] [place] [address], from Last 3 Months or Most Recently Relevant to Health Maintenance Insurance [facility] MEDIC[facility] Member Subscriber Plan / Payer (Ef fective 2023-Present) Name:Maryanne Marquez Relation to Subscriber:Self Name:Maryanne Marquez Payer ID:[id number] Group ID:[id number] Type:Not on file Address: [place] [place] [address] Care Teams Retort Kiln Burner Relationship Specialty Start Date End Date Aleyda Tillman MD [address] [place] [address] PCP - General Psychiatry 07/27/24
--- OUTSIDE RECORDS SUMMARY | 2024-11-20 10:11 | XMS_ITS | Clinical Summary ---
Author Organization [facility] Address [address] [facility] [facility] [address] [place] [address] Phone Care Team Providers Care Physical Therapy Supervisor Name Role Phone Unique Billy MD Primary Care Provider [phone] Allergies Active Allergy Reactions Criticality Noted Date [...] Visit [facility] [address] [address] Mone Pruitt [facility] [address] [address] Health Maintenance Due Date Last [...] to 49 Years) Discontinued 04/24/2015, 05/10/2008 Insurance [facility] ([id number]) [facility] ([id number]) [place] [phone] Care Teams Physical Therapy Supervisor Relationship Specialty Start Date End Date Unique Billy MD [address] [place] [address] PCP - General Internal Medicine 09/14/23
[2024-11-20 10:45] LABS: Estimated Average Glucose 105 mg/dL; Hemoglobin A1c % 5.3 % (<6.0); Total Hemoglobin (HGBA1C) 3270.9379 umol/L
[2024-11-20 10:47] LABS: Basophils Percent Auto 0.4 % (0-2); Hematocrit 38.7 % (37.0-47.0); Hemoglobin 12.4 g/dl (12.0-16.0); Imm Gran Abs Auto 0.01 X10*3/uL (0.00-0.03); Imm Gran Pct Auto 0.2 % (0.0-0.4); Lymphocytes Absolute Auto 1.9 X10*3/uL (1.2-4.9); Lymphocytes Percent Auto 34.8 % (20-40); Mean Corpuscular Hemoglobin 29.5 pg (27.0-33.0); Mean Corpuscular Volume 91.9 fL (80.0-98.0); Mean Platelet Volume 11.4 fL (9.4-12.3); Monocytes Absolute Auto 0.5 X10*3/uL (0.1-1.2); Monocytes Percent Auto 8.9 % (2-11); Neutrophils Percent Auto 55.7 % (45-73); Platelet Count 180 X10*3/uL (160-400); Red Blood Count 4.21 X10*6/uL (4.20-5.50); Red Cell Distribution Width 16.8 % (11.0-16.0); White Blood Count 5.3 X10*3/uL (4.8-10.8)
[2024-11-20 11:11] LABS: Alanine Aminotransferase 20 U/L (0-31); Albumin Level 3.9 g/dL (3.5-5.0); Alkaline Phosphatase 92 U/L (39-117); Anion Gap 12 (12-20); Aspartate Amino Transferase 22 U/L (5-31); Bilirubin Total 0.3 mg/dL (0.0-1.0); Blood Urea Nitrogen 16 mg/dL (9-16); C Reactive Protein < 0.10 mg/dL (< or = 0.50); Calcium 9.4 mg/dL (8.4-10.2); Carbon Dioxide 27 mmol/L (22-29); Chloride 111 mmol/L (96-108); Cholesterol 199 mg/dL (<200); Estimated Glomerular Filt Rate > 60; Glucose Random 79 mg/dL (60-115); HDL Cholesterol 91 mg/dL (>40); Iron 51 mcg/dL (30-160); LDL Cholesterol Calculated 101 mg/dL (<100); Percent Iron Saturation 23 % (15-50); Potassium 4.1 mmol/L (3.3-5.1); Sodium 146 mmol/L (135-145); Total Iron Binding Capacity 224 mcg/dL (228-428); Total Protein 6.9 g/dL (6.5-8.0); Triglycerides 38 mg/dL (<150); Unsaturated Iron Binding 173 ug/dL
[2024-11-20 11:25] LABS: Ferritin 39 ng/mL (10-250); TSH reflex Free T4 1.53 uIU/mL (0.32-4.0); Vitamin D 25-OH Total 40.7 ng/mL (>30)
[2024-11-20 11:31] LABS: Vitamin B12 1444 pg/mL (200-900)
[2024-11-20 11:33] LABS: Insulin 3 uU/mL (2-29)
[2024-11-23 05:49] LABS: Zinc 110 mcg/dL (60-130)
[2024-11-23 18:33] LABS: Vitamin A 47 mcg/dL (38-98)
[2024-11-26 10:59] LABS: Vitamin B1 39 nmol/L (8-30)
== END 2024-11-20 09:17 | disposition home or self-care (01) ==
LOC: HO.LAB 09:16
PROVIDERS: PCP Internal Medicine; Visit Provider Physician Assistant Surgical
DX: Z90.3 Acquired absence of stomach [part of] (principal); E66.9 Obesity, unspecified; Z13.1 Encounter for screening for diabetes mellitus; Z13.29 Encounter for screening for other suspected endocrine disorder; Z13.89 Encounter for screening for other disorder
CPT/HCPCS: 36415; 80053; 80061; 82306; 82607; 82728; 82746; 83036; 83525; 83540; 84425; 84443; 84590; 84630; 85025; 86140

== ENCOUNTER 2025-01-30 12:30 | Outpatient (AMB) | payer OTHER, SELFPAY ==
--- OUTSIDE RECORDS SUMMARY | 2025-01-25 23:59 | XMS_ITS | Continuity of Care Document ---
Author Organization [facility] Address [address] [place] [address]- Care Team Providers Care Security Assistant Name Role Phone Unique Billy MD Primary Care Physician Encounter [facility] Date(s): 12/26/24 - 01/25/25 [facility] [address] [place] [address]- Encounter Type: Triage Allergies, Adverse Reactions, Alerts Substance Criticality Severity Reaction Reaction Severity Status Other Environmental Allergy Feathers-wheeze Active morphine 1 Active Percocet gi upset Active Chocolate nausea Active Dust wheezing Active Latex Active OxyCODONE Hydrochloride Active 1confusion Immunizations Given [...] 04/24/15 Give n influenza virus vaccine, inactivated 10/7/14 Give n influenza virus vaccine, inactivated 1 04/24/13 Gi bayron influenza virus vaccine, inactivated 2 04/29/12 Gi bayron influenza virus vaccine, inactivated 3 05/07/11 Gi bayron influenza virus vaccine, inactivated 4 05/30/10 Gi bayron SARS-CoV-2(COVID-19)mRNA-LNP vac([id number]) 08/23/23 Recorded pneumococcal 20-valent conjugate vaccine 04/06/23 Given zoster vaccine, inactivated 09/28/22 Recorded zoster vaccine, inactivated 05/25/22 Recorded [id number] 12y+ bivalent booster vax 05/25/22 Recorded SARS-CoV-2 mRNA ([id number]) vax 01/18/22 Recorded SARS-CoV-2 (COVID-19) mRNA BNT-162b2 [...] 1 Refills, Maintenance, 04/17/24 2:03:00 PM EDT, [facility] [id number], 163, cm, 04/17/24 13:11:00 EDT, Height, 96.6, kg, 04/15/24 14:50:00 EDT, Dry Weight Start Date: 04/17/24 Status: Ordered Quantity: 180.0 Unit: tablet Repeat number: 2 Indications: Sciatica, unspecified side; amoxicillin 500 mg oral capsule See Instructions, TAKE FOUR CAPSULES BY MOUTH ONCE. TAKE 30 TO 60 MINUTES prior to PROCEDURE, # 4 capsule, 2 Refills, Maintenance, 11/09/24 12:38:00 PM EDT, [facility] [id number], 163, cm, 10/16/24 14:35:00 EDT, Height, 92, kg, 10/16/24 14:35:00 EDT, Dry Weight Start Date: 11/09/24 Status: Ordered Quantity: 4.0 Unit: capsule Repeat number: 3 atorvastatin 40 mg oral tablet 1 tablet, By Mouth, Daily, # 90 tablet, 3 Refills, Maintenance, 03/28/24 2:35:00 PM EDT, [facility] [id number], 153, cm, 03/07/24 14:01:00 EDT, Height, 113.9, [...] 1 busPIRone 10 mg oral tablet via psychiatry, Refills 0, Maintenance, 01/01/25 8:46:00 AM EDT, Partial fill upon patient request ifthe prescription is for a schedule II opioid drug. Start Date: 01/01/25 Status: Ordered Repeat number: 1 calcium and vitamin D combination 315 mg-200 iu oral tablet 1 tablet, By Mouth, Daily, # 30, 0 Refills, Maintenance, 04/17/24 1:45:00 PM EDT, Tablet, Partial fill upon patient request if the prescription is for a schedule II opioid drug. Start Date: 04/17/24 Stop Date: 05/17/24 Status: Ordered Quantity: 30.0 Unit: Repeat number: 1 clozapine 100 mg oral tablet via psychiatry, 0 Refills, Maintenance, 01/01/25 8:46:00 AM EDT, Partial fill upon patient request ifthe prescription is for a schedule II opioid drug. Start Date: 01/01/25 Status: Ordered Repeat number: 1 cromolyn 4% ophthalmic solution via eye team, 0 Refills, Maintenance, 01/01/25 8:46:00 AM EDT Start Date: 01/01/25 Status: Ordered Repeat number: 1 diclofenac 1% topical gel See Instructions, APPLY TO THE AFFECTED AREA TOPICALLY 4 (FOUR) TIMES DAILY. not to exceed 16grams/day/single joint OF lower extremities, # 100 Gm, 0 Refills, Maintenance, 05/09/24 4:56:00 PM EDT, [facility], 30, APPLY TO THE AFFECTED AREA TOPICALLY 4 (FOUR) TIMES DAILY. not to exceed 16grams/day/single joint OF lower extremities, 163, cm, 05/02/24 9:16:00 EDT, Height, 96.6, kg, 04/15/24 14:50:00 EDT, Dry Weight Start Date: 05/09/24 Status: Ordered Quantity: 100.0 Unit: g Repeat number: 1 dorzolamide 2% ophthalmic solution via eye team, 0 Refills, Maintenance, 01/01/25 8:46:00 AM EDT Start Date: 01/01/25 Status: Ordered Repeat number: 1 Eliquis 5 mg oral tablet 1 tablet = 5 mg, By Mouth, 2 times a day, as directed on package labeling, # 180 tablet, 3 Refills,Maintenance, 05/10/24 4:02:00 PM EDT, Tablet, [facility] - [place], [place] - [id number], 163, cm, 05/02/24 9:16:00 EDT, Height, 96.6, kg, 04/15/24 14:50:00 EDT, Dry Weight Start Date: 05/10/24 Stop Date: 05/05/25 Status: Ordered Quantity: 180.0 Unit: tablet Repeat number: 4 Euthyrox 88 mcg (0.088 mg) oral tablet 1 tablet = 88 mcg, By Mouth, Daily, do labs late January 2025, thank you DOSE REDUCED, # 90 tablet, 0 Refills, Maintenance, 01/02/25 2:13:00 PM EDT, [place], [place] - [id number], as of cancel all prior levothyroxine scripts, 163, cm, 01/01/25 8:04:00 EDT, Height, 92, kg, 10/16/24 14:35:00 EDT, Dry Weight Start Date: 01/02/25 Stop Date: 04/02/25 Status: Ordered Quantity: 90.0 Unit: tablet Repeat number: 1 Glucosamine By Mouth, 0 Refills, Maintenance, 10/07/21 10:01:00 AM EDT, Partial fill upon patient request if theprescription is for a schedule II opioid drug. Start Date: 10/07/21 Status: Ordered Repeat number: 1 ipratropium nasal 21 mcg/inh spray See Instructions, SPRAY ONCE INTO EACH NOSTRIL 2 (two) times a day NEEDED FOR nasal CONGESTION, # 30 mL, 5 Refills, Maintenance, 11/07/24 1:41:00 PM EDT, [facility], 30, SPRAY ONCE INTO EACH NOSTRIL [...] mL, 3 Refills, Maintenance,11/02/24 10:30:00 AM EDT, [facility], 14, TAKE 15ml BY MOUTH EVERY OTHER DAY NEEDED FOR CONSTIPATION, 163, cm, 10/16/24 14:35:00 EDT, Height, 92, kg, 10/16/24 14:35:00 EDT, Dry Weight Start Date: 11/02/24 Status: Ordered Quantity: 105.0 Unit: mL Repeat number: 1 latanoprost 0.005% ophthalmic solution via eye team, 0 Refills, Maintenance, 01/01/25 8:46:00 AM EDT Start Date: 01/01/25 Status: Ordered Repeat number: 1 levothyroxine 0.1 mg oral tablet 1 tablet = 100 mcg, By Mouth, Daily, # 90 tablet, 1 Refills, Maintenance, 01/01/25 8:48:00 AM EDT, Tablet, [facility] [id number], as of please Cancel SYMBICORT that was jsut sent, 163, cm, 01/01/25 8:04:00 EDT, Height, 92, kg, 10/16/24 14:35:00 EDT, Dry Weight Start Date: 01/01/25 Stop Date: 06/30/25 Status: Ordered Quantity: 90.0 Unit: tablet Repeat number: 2 M.V.I. Adult 0 Refills, Maintenance, 10/21/21 11:55:00 [...] Date: 08/22/24 Status: Ordered Repeat number: 1 Mounjaro 7.5 mg/0.5 mL subcutaneous solution via [place] [facility] team rotate injection sites, 0 Refills, Maintenance, 01/01/25 8:45:00 AM EDT Start Date: 01/01/25 Status: Ordered Repeat number: 1 omeprazole 20 mg oral enteric coated capsule 1 capsule = 20 mg, By Mouth, Daily, 30 min before breakfast, # 90 capsule, 3 Refills, Maintenance, 10/16/24 4:32:00 PM EDT, [facility], [place], [place] - [id number], Partial fill upon patient request if the prescription is for a schedule II opioid drug., 163, cm, 10/16/24 14:35:00 EDT, Height, 92, kg, 10/16/24 14:35:00 EDT, Dry Weight Start Date: 10/16/24 Status: Ordered Quantity: 90.0 Unit: capsule Repeat number: 4 valACYclovir 500 mg oral tablet via Dionne Li, eye team, Refills 0, Maintenance, 03/28/24 2:38:00 PM EDT Start Date: 03/28/24 Status: Ordered Repeat number: 1 venlafaxine 150 mg oral capsule, extended release via psychiatry, 0 Refills, Maintenance, 01/01/25 8:46:00 AM EDT, Partial fill upon patient request ifthe prescription is for a schedule II opioid drug. Start Date: 01/01/25 Status: Ordered Repeat number: 1 Ventolin HFA 108 mcg/inh inhalation aerosol with adapter 2 inhalation = 180 mcg, Inhalation, Every 6 hours, PRN Wheezing/Shortness of Breath, # 8.5 Gm, 1 Refills, Soft Stop, 01/01/25 8:49:00 AM EDT, Aerosol, [facility] - [place], [place] - [id number], ONLY fill if pt requets, 163, cm, 01/01/25 8:04:00 EDT, Height, 92, kg, 10/16/24 14:35:00 EDT, Dry Weight Start Date: 01/01/25 Stop Date: 03/02/25 Status: Ordered Quantity: 8.5 Unit: g Repeat number: 2 Zinc = 50 mg, By Mouth, Daily, [...] knee 3 Confirmed 03/23/11 Active Cardiomyopathy per [facility] Confirmed Active Cataract 4 Confirmed Active [...] History of penetrating keratoplasty, right eye, surgery -2015 Confirmed Active h/o laparoscopic sleeve gastrectomy 12 [...] of lithium 9Biopsy 12/29 10acute /sent from [facility] to [facility] 11open angle, bilateral, severe per -2019 eye note 12[facility] 13at [place] 14mild on ECHO 12/2003 15severe , right , per 2010 [facility] consult 16per -2024 cardiolgoy note assymetric septal hypertrophy on ECHO -2024, so they planned cardiac MRI 17next due 2022 per -2020 message with Endocrine 181.8 cm per -2015 Endcrine note, repeat US due in 19due 2031, per 2024 letter by GI / due 7 years so due 2031 20repeat in 09/2018 Social History Social History Type Response Smoking Status Never smoker entered on: 04/23/15 Sex Sex Representation Female (finding) Patient Care team information Care Team Personnel Name: Brenda Lam RN Position: S RN Member Role: Primary Care Nurse Name: Franci Alexander [facility] AMB Nurse Member Role: Primary Care Nurse Name: Unique Billy MD [facility] Physician - Primary Care Member Role: PCP Address: [address] [place] [address] Telecom: Name: Kerrie Coleman RN [facility] SN RN Member Role: Primary Care Nurse Name: Lata Meléndez RN [facility] RN Member Role: Primary Care Nurse Name: Cruz Browne RN [facility] RN Member Role: Primary Care Nurse Name: Yamilka Peguero RN [facility] AMB Nurse Member Role: Primary Care Nurse Care Team Related Persons Name: ZURDO DUMONT Name: NELLY ROBERTS Name: YOLANDA SATLEY Insurance Providers Guarantor name: [facility] [employer] Plan Information #: 1 Payer: [facility] [employer] Payer Identifier: TERESE Member Number: [id number] Group Number: [id number] Subscriber Identifier: [id number] Relationship to Subscriber: self Coverage Type: Medicare Managed Care (Includes Medicare Advantage Plans) Coverage Verification Date: NA Telecom: NA Address:
--- NOTE | 2025-01-30 12:25 | MHC.OFFVISWM ---
VS Expanded 01/30/25 13:28 BP 119/55 L Blood Pressure Location Rt brachial Blood Pressure Position Sitting Pulse 85 Pulse Source Pulse Oximeter Temp 97.5 F Temperature Source Temporal Artery Scan Pulse Oximetry 96 Oxygen Delivery Method Room Air Height 5 ft 4 in Weight 196 lb 9.6 oz BMI 33.7 Body Fat % 27.7 Body Fat Mass 54.4 Fat Free Mass 142.1 Visceral Fat Rating 9.0 Body Water % 51.2 Body Water Mass 100.6 Muscle Mass/Score 135.0 Basal Metabolic Rate/Score 1,876 Intake Visit Reasons: (OV) PO LSG 12/13/14 Allergies morphine (MORPHINE) Adverse Reaction (Intermediate, Verified 01/30/25 12:54) Confusion chocolate Adverse Reaction (Intermediate, Uncoded 02/29/24 10:15) Nausea and Vomiting feathers Adverse Reaction (Intermediate, Uncoded 02/29/24 10:15) Itching Medication List - Last Reconciled 01/30/25 by OLLIE Yadav acetaminophen 1,000 mg PO TID PRN atorvastatin 40 mg PO DAILY brimonidine 0.2% 1 drp ophthalmic (eye) BID buspirone 10 mg PO DAILY calcium citrate-vitamin D3 315 mg-5 mcg (200 unit) 1 tab PO BID clozapine 300 mg PO BEDTIME clozapine 100 mg PO BID ipratropium bromide 1 spray intranasal BID PRN lactulose 15 mL PO Q OTHER DAY PRN latanoprost 0.005% 1 drp ophthalmic (eye) DAILY levothyroxine 125 mcg PO DAILY loratadine 10 mg PO DAILY PRN metoprolol succinate ER 12.5 mg (1/2 x 25 mg) PO DAILY Mounjaro (tirzepatide) 7.5 mg (0.5 mL) subcut QWEEK NS polyethylene glycol 3350 17 grams PO DAILY PRN timolol 0.5% 1 drp ophthalmic (eye) BID tizanidine 2 mg PO BID topiramate 25 mg PO BID valacyclovir 500 mg PO BID venlafaxine ER 150 mg PO DAILY venlafaxine ER 75 mg PO DAILY vitamin A palmitate 3,000 mcg PO DAILY warfarin 1 mg PO DAILY Held on 06/24/21. Instructions: Discuss restart with Dr Mariano zinc gluconate 10 mg PO DAILY HPI Comments Details: This?is a?64?yo F who is s/p LSG 12/13/2014. Weight loss of 10.8lbs since last OV 3mo ago. Pt had to stop Wegovy due to insurance, switched to Mounjaro prescribed by me. Had to restart at lowest dose and still noticed hunger coming back. She is still interested in groups restarting but reports has plans the first day of groups (02/04). Was able to get connected with a therapist at [facility], doing well. Pt reports she is currently in Eliquis, not warfarin but unsure of the dose. Pt would like to have a breast reduction, needs to lose more weight first- goal weight 192. Seeing [facility]. Present meal plan includes: Ensure Max shake congolese yogurt 2pm- meal of salad with chicken sometimes fruit in evening doing better with snacking, but still struggling with depression Takes MVI Exercise routine includes: swimming 5x/week PFSH Medical History Bipolar depression History of COVID-19 Hx of glaucoma Asthma Hx of diabetes insipidus Osteoarthritis Hx of deep venous thrombosis History of seizure Schizoaffective disorder Anxiety and depression Preoperative cardiovascular examination Cardiomyopathy Surgical History History of carpal tunnel surgery of right wrist History of corneal transplant History of sleeve gastrectomy History of right knee joint replacement History of gastric surgery History of tonsillectomy H/O: hysterectomy Family History Father Liver cancer Diabetes Mother Diabetes CAD (coronary artery disease) Kidney disease Sister Lupus Social History Household Members: None Housing: Apartment Are you a primary home care associate to a significant other at home: No Do you presently have visiting nurse or other home services: Yes Alcohol intake: never Patient Tobacco Use Status: Never used Tobacco service: No Current occupational status: disabled Assessment & Plan Assessment & Plan (1) History of sleeve gastrectomy: Code(s): Z90.3 - Acquired absence of stomach [part of] Category: Surgical (2) Obesity: Code(s): E66.9 - Obesity, unspecified Category: Medical Plan Pt doing well on GLP1. Will call office when she is due for a refill with weight measurement and whether she wants to increase dose. She plans to attend support groups now that they have been scheduled. RTC 3mo.
--- OUTSIDE RECORDS SUMMARY | 2025-01-30 13:16 | XMS_ITS | Clinical Summary ---
Author Organization [facility] Address [address] [place] [address] Care Team Providers Care Waterproofing Mixer Name Role Phone Unavailable Primary Care Provider [...] Date Comments Chocolate Nausea and Vomiting 12/10/2021 Wister 12/10/2021 Dust Wheezing 06/07/2023 House Dust Mite 02/03/2023 Other reaction(s): wheezing Hydrochlorothiazide 12/10/2021 Patient denies Latex Other (See Comments) 02/03/2023 Not sure Morphine 02/03/2023 confusion Oxycodone 02/03/2023 Oxycodone (Bulk) 06/07/2023 Oxycodone-Acetaminophen 02/03/2023 Other Reaction(s): GI Upset Not allergic to tylenol Medications atorvastatin (LIPITOR) 40 mg tablet Take 1 Tablet by mouth 1 Active brimonidine (ALPHAGAN P) 0.1 % ophthalmic [...] mL, 11 Refills, Maintenance, 02/04/22 11:23:00 EDT, [place], [place] - [phone], 30, SPRAY ONCE INTO EACH NOSTRIL 2 (two) times... 1 Active lactulose (CHRONULAC) 10 gram/15 mL solution Take 15 mL by mouth 1 Active latanoprost (XALATAN) 0.005 % ophthalmic solution 1 Drop 0 Active levothyroxine 125 mcg tablet Take 125 mcg by mouth 2 Active loratadine (CLARITIN) 10 mg tablet Take [...] chloride 0.9 % nebulizer solution Inhale 1 Blodgett into the lungs Active timoloL (BETIMOL) 0.5 [...] tablet See Instructions, as per instructions by [facility] COUMADIN NURSE. Dosing based on INR. up to 2 tablets per day., # 90 tablet, 11 Refills, Maintenance, 02/04/22 11:23:00 EDT, Tablet, [facility] [place], [place] - [phone], 159, cm, 02/04/22 10:39:0... 1 Active vitamin A 10,000 unit capsule Take 10,000 Units by mouth once daily 2 Active amoxicillin (AMOXIL) 500 mg capsuleIndicati ons:Prophylacti c antibiotic Please take 4 tablets one hour prior to appointment 4 Capsule 3 Active Active Problems Problem Noted Date Diagnosed Date Anticoagulated 06/07/2023 Cardiomyopathy ([facility]) 06/07/2023 Class 1 obesity 06/07/2023 Corneal scar 06/07/2023 Diabetes insipidus ([facility]) 06/07/2023 Overview (06/07/2023): see renal [...] consult Radial styloid tenosynovitis 06/07/2023 Severe obesity ([facility]) 06/07/2023 Thyroid nodule 06/07/2023 Overview (06/07/2023): next due 2022 per message with Endocrine1.8 cm per -2015 Endcrine note, repeat US due in Polyuria 12/10/2021 History of total knee replacement 06/11/2020 Tubular adenoma of colon 10/09/2017 Overview (06/07/2023): repeat in 09/2018 repeat in 09/2018 Sleep apnea 08/31/2014 Deep vein thrombosis (DVT) o f lower extremity ([facility]) 04/25/2014 Arthritis 04/10/2014 Asthma ([facility]) 04/10/2014 Overview (06/07/2023): (actualy, test was 7-31-09)positive methacholine challenge 8-09 (actualy, test was 7-31-09)positive methacholine challenge 8-09 Auditory hallucinations 04/10/2014 Cataract 04/10/2014 Overview (06/07/2023): surgery rt eye 10-19-08 surgery rt eye 10-19-08 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 breast 04/10/2014 Overview (06/07/2023): Biopsy 12/29 Biopsy 12/29 Acute mitral regurgitation 04/10/2014 Morbid obesity ([facility]) 04/10/2014 Hypothyroidism 04/10/2014 Polymyalgia rheumatica ([facility]) 4 Diabetes mellitus ([facility]) 07/26/2012 Synovial cyst of knee 03/23/2011 [...] Last Done Comments Diabetes Foot Exam 1960 Hemoglobin A1c 1960 Hepatitis C Screening 1960 Lipid Screening [...] Albumin Creatinine Rat io Screening 02/02/2024 02/01/2023 [id number] ( season) 2024 01/18/2022, 06/02/2021, 11/25/2020 Dental Examination 04/22/2024 04/20/2023, 0 09/29/2022, 02/13/2022 Dental Perio Charting 04/22/2024 04/20/2023, 023 Alcohol and Drug Screen 07/26/2024 Depression Annual Screen 07/26/2024 Hypertension Screening (#1) 09/05/2024 Imm-Influenza (#1) 2025 06/22/2023, 1 07/26/2021, 07/21/2021, Additional history exists Dental FMX/Pano 02/15/2027 02/13/2022 Imm-DTaP/Tdap/Td (3 - Td or Tdap) 01/22/2031 01/22/2021, 01/01/2014, 05/16/2007 Imm-Pneumococcal 50+ Completed 04/06/2023, 04/24/2015, 05/10/2008 Procedures Procedure Name Priority Date/Time Associated Diagnosis Comments COMP PERIODONTAL EVALUATION - NEW/EST PATIENT Routine 04/20/2023 3:00 PM EDT Defective dental zoroastrian Encounter for dental examination PROPHYLAXIS - ADULT Routine 04/20/2023 3 :00 PM EDT Defective dental zoroastrian PERIODIC ORAL EVALUATION ESTABLISHED PATIENT Routine 04/20/2023 3:00 PM EDT Defective dental zoroastrian Encounter for dental examination BITEWINGS - FOUR RADIOGRAPHIC IMAGES Routine 09/29/2022 1:00 PM EST Partial edentulism, unspecified edentulism class INTRAORAL - COMP SERIES OF RADIOGRAPHIC IMAGES Routine 02/13/2022 9:40 AM EDT Encounter for dental examination from Last 3 Months or Most Recently Relevant to Health Maintenance Insurance [employer] [facility]
--- OUTSIDE RECORDS SUMMARY | 2025-01-30 13:16 | XMS_ITS | Clinical Summary ---
Author Organization [address] Address [address] [place] [address] Phone Care Team Providers Care Greaser And Oiler Name Role Phone Aleyda Tillman MD Primary [...] Diabetes: Blood Sugar Control Test (HGBA1C) 06/01/2024 Influenza Vaccine (#1) 2025 , 06/22/2023, 05/26/2022, Additional history exists Diabetes: Annual Urine Albumin-Creatinine Ratio (uACR) 08/02/2025 [...] Vaccine: 50+ Years Completed 04/06/2023, 04/24/2015, 05/10/2008 HIB Vaccines Aged Out No longer eligi [...] Diagnosis Comments CBC WITH AUTO DIFFERENTIAL Routine 01/11/2025 12:42 PM EDT Mild mixed bipolar I disorder (CMS/HCC V24, CMS/HCC V28) senior living use of drug CBC AND DIFFERENTIAL Routine 01/11/2025 12:42 PM EDT Mild mixed bipolar I disorder (CMS/HCC V24, CMS/HCC V28) senior living use of drug CBC WITH AUTO DIFFERENTIAL Routine 11/30/2024 8:27 AM EDT Mild mixed bipolar I disorder (CMS/HCC V24, CMS/HCC V28) 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 WBC 5.6 4.8 - 10.8 K/mcL LAB HEMETOLOGY METHOD 01/11/2025 4:30 PM EDT [facility] RBC 4.40 3.80 - 4.80 M/mcL LAB HEMETOLOGY METHOD 01/11/2025 4:30 PM EDT [facility] Hemoglobin 13.1 11.5 - 16.0 g/dL LAB HEMETOLOGY METHOD 01/11/2025 4:30 PM EDT [facility] Hematocrit 42.0 35.0 - 47.0 % LAB HEMETOLOGY METHOD 01/11/2025 4:30 PM EDT [facility] MCV 94.6 79.0 - 98.0 FL LAB HEMETOLOGY METHOD 01/11/2025 4:30 PM EDT [facility] MCH 29.5 27.0 - 32.0 pcg LAB HEMETOLOGY METHOD [facility] MCHC 31.2(L) 32.0 - 37.0 g/dL LAB HEMETOLOGY METHOD [facility]25 [facility] RDW 15.7(H) 11.0 - 15.0 % LAB HEMETOLOGY METHOD 01/11/2025 4:30 PM EDT [facility] Platelets 163 130 - 400 K/mcL LAB HEMETOLOGY METHOD 01/11/2025 4:30 PM EDT [facility] MPV 13.7(H) 7.0 - 11.0 FL LAB HEMETOLOGY METHOD 01/11/2025 4:30 PM EDT [facility] NRBC 0.0 <1.0 % LAB HEMETOLOGY METHOD 01/11/2025 4:30 PM EDT [facility] NRBC Absolute 0.00 <0.10 K/mcL LAB HEMETOLOGY METHOD 01/11/2025 4:30 PM EDT [facility] Neutrophils Relative 49.1 % LAB HEMETOLOGY METHOD [facility] Lymphocytes Relative 43.3 % LAB HEMETOLOGY METHOD 01/11[facility]2025 4[facility] Monocytes Relative 7.2 % LAB HEMETOLOGY METHOD 01/11/2025 4[facility] Eosinophils Relative 0.0 % LAB HEMETOLOGY METHOD 01/11/2025 4:[facility] Basophils Relative 0.4 % LAB HEMETOLOGY METHOD 01/11/2025 4[facility]30 [facility] Immature Granulocytes Relative 0.0 % LAB HEMETOLOGY METHOD 01/11/2025 4:30 PM EDT [facility] Neutrophils Absolute 2.73 1.50 - 7.00 K/mcL LAB HEMETOLOGY METHOD 01/11/2025 4:30 PM EDT [facility] Lymphocytes Absolute 2.41 1.00 - 5.00 K/mcL LAB HEMETOLOGY METHOD 01/11/2025 4:30 PM EDT [facility] Monocytes Absolute 0.40 0.20 - 1.00 K/mcL LAB HEMETOLOGY METHOD 01/11/2025 4:30 PM EDT [facility] Eosinophils Absolute 0.00 0.00 - 0.50 K/mcL LAB HEMETOLOGY METHOD 01/11/2025 4:30 PM EDT [facility] Basophils Absolute 0.02 0.00 - 0.20 K/mcL LAB HEMETOLOGY METHOD 01/11/2025 4:30 PM EDT [facility] Immature Granulocytes Absolute 0.00 0.00 - 0.03 K/[facility] LAB HEMETOLOGY METHOD 01/11/2025 4:30 PM EDT [facility] Blood Venous blood specimen / Unknown Venipuncture / Unknown 01/11/2025 12:42 PM EDT 01/11/2025 4:10 PM EDT us Aleyda Tillman MD LAB BLOOD ORDERABLES Fi nal Result Performing Organization Address City/[facility]/ZIP Co de Phone Number [facility] [address] [place] [address], [place] [phone] * Microalbumin creatinine urine ratio (08/02/2024 12:11 PM EST) Creatinine, Urine 67.0 mg/dL LAB CHEMISTRY METHOD 08/02/2024 2:42 PM EST [facility] Microalb, Ur 12.5 0.0 - 29.0 mg/L LAB CHEMISTRY METHOD 08/02/2024 2:42 PM EST [facility] Microalb/Creat Ratio 19 <30 mg/g creat LAB CHEMISTRY METHOD 08/02/2024 2:42 PM EST [facility] Urine Urine specimen obtained by clean catch procedure / Unknown Non-blood Collection / Unknown 08/02/2024 12:11 PM EST 08/02/2024 1:03 PM EST us Mone JACKSON LAB URINE ORDERABLES Final R esult [facility] [address] [place] [address], [place] [phone] * Renal function panel (08/02/2024 12:11 PM EST) Sodium 139 133 - 145 mmol/L LAB CHEMISTRY METHOD 08/02/2024 1:54 PM [facility] Potassium 5.0 3.5 - 5.5 mmol/L LAB CHEMISTRY METHOD 08/02/2024 1:54 PM [facility] Comment:Hemolysis present Chloride 109 96 - 110 mmol/L LAB CHEMISTRY METHOD 08/02/2024 1:54 PM [facility] CO2 27 21 - 32 mmol/L LAB CHEMISTRY METHOD 08/02/2024 1:54 PM [facility] Anion Gap 3 3 - 11 LAB CHEMISTRY METHOD 08/02/2024 1:54 PM [facility] Glucose 77 70 - 100 mg/dL LAB CHEMISTRY METHOD 08/02/2024 1:54 PM [facility] BUN 19 5 - 25 mg/dL LAB CHEMISTRY METHOD 08/02/2024 1:54 PM [facility] Creatinine 0.90 0.50 - 1.10 mg/dL LAB CHEMISTRY METHOD 08/02/2024 1:54 PM [facility] eGFR 71 >=60 mL/min/1. 73m2 LAB CHEMISTRY METHOD 08/02/2024 1:54 PM [facility] Comment:Calculation based on the Chronic Kidney Disease Epidemiology Collaboration (CKD-EPI) equation refit without adjustment for race. BUN/Creatinine Ratio 21.1 LAB CHEMISTRY METHOD 08/02/2024 1:54 PM [facility] Albumin 3.5 3.2 - 5.0 g/dL LAB CHEMISTRY METHOD 08/02/2024 1:54 PM [facility] Calcium 9.2 8.5 - 10.5 mg/dL LAB CHEMISTRY METHOD 08/02/2024 1:54 PM EST [facility] Phosphorus 4.1 2.5 - 4.5 mg/dL LAB CHEMISTRY METHOD 08/02/2024 1:54 PM EST [facility] Blood Venous blood specimen / Unknown Venipuncture / Unknown 08/02/2024 12:11 PM EST 08/02/2024 12:56 PM EST us Mone Pruitt RELIABILITY TECHNOLOGIST LAB BLOOD ORDERABLES Final R esult [facility] [address] [place] [address], from Last 3 Months or Most Recently Relevant to Health Maintenance Insurance [facility] MEDICARE Member Subscriber Plan / Payer (Ef fective 2023-Present) Name:Maryanne Marquez Relation to Subscriber:Self Name:Maryanne Marquez Payer ID:[id number] Group ID:[id number] Type:Not on file Address: [place] [address] [place] [id number] Care Teams Greaser And Oiler Relationship Specialty Start Date End Date Aleyda Tillman MD [address] [place] [address] PCP - General Psychiatry 07/27/24
--- OUTSIDE RECORDS SUMMARY | 2025-01-30 13:16 | XMS_ITS | Clinical Summary ---
Author Organization [facility] Address [address] [place] [address] Phone Care Team Providers Care Counter Waitress/Waiter Name Role Phone Unique Billy MD Primary Care Provider [phone] Allergies Active Allergy Reactions Criticality Noted Date [...] Visit [facility] [address] [address] Mone Pruitt ARNP [address] [address] Health Maintenance Due Date Last [...] Visual Foot Exam 01/29/2023 Influenza Vaccine (#1) 2025 , 07/21/2021, 05/16/2020, Additional history exists Hepatitis B Vaccine Aged Out 12/23/2007, 05/27/2006, 02/04/2006 No longer eligible based on patient's age to complete this topic Pneumococcal Vaccine: Peds (0 to 5 Years) and At-Risk Patients (6 to 49 Years) Discontinued 04/24/2015, 05/10/2008 Insurance [facility] ([id number]) [facility] ([id number][facility] [place] [phone] Care Teams Counter Waitress/Waiter Relationship Specialty Start Date End Date Unique Billy MD [address] [place] [address] PCP - General Internal Medicine 09/14/23
--- OUTSIDE RECORDS SUMMARY | 2025-01-30 13:16 | XMS_ITS | Data Portability ---
Author Organization [employer], [facility] Address [address] [place] [address] Care Team Providers Care Production Planning Supervisor Name Role Phone HIM HORACE OTHER Assessment Encounter Date Assessment Date Assessment LastModified by Organization Details LastModified Time 11/12/2023 11/12/2023 I provided real -time medical direction via phone for this encounter and was available for additional phone-based assistance as needed. I have reviewed and agree with the Assessment and Plan as documented by the Fox Farmer. Patient given the opportunity to ask questions. Our service contacted for an assessment of: Shoulder pain As per above, patient has had this issue for the past several weeks. Went to the ED twice this week for an evaluation. Initial tests are negative. Has an ortho appointment on Wednesday. Per elevator repairer on the scene, VSS. Impression: Shoulder pain [...] mg tablet as per instruction s by [facility] COUMADIN NURSE. Dosing based on [...] active Not Available Not Available Not Available [facility] COVID-19 Antigen Rapid Home Test kit USE DIRECTED NEEDED active Not Available Not Available No t Available Vitals Date Recorded Oxygen saturation Oxygen saturation in Arterial blood by Pulse oximetry Respiratory rate Heart rate Body weight Body temperature Systolic And Diastolic Provider Name and Address Organization Details Last Updated DateTime 4 98 % 98 % 16 /min 76 /min 590596. 448 g 97.6 [degF] 128/70 mm[Hg] Not Available [employer] 4 17:03:30 Date Recorded Body temperature Respiratory rate Heart rate Oxygen saturation Oxygen saturation in Arterial blood by Pulse oximetry Systolic And Diastolic Provider Name and Address Organization Details Last Updated DateTime 4 97.2 [degF] 16 /min 68 /min 98 % 98 % 134/78 mm[Hg] Not Available [employer] 4 19:02:22 Social History None recorded. Functional Status None recorded. Mental Status None recorded. Family History Nothing Reported. Medical History No medical history recorded. Gynecological HistoryNo gynecological history recorded. Obstetrics History GPAL:G 0 P 0 0 0 0 Past Encounters Encounter ID Performer Location Encounter Start Date Encounter Closed Date Diagnosis/Indication Diagnosis SNOMED-CT Code Diagnosis ICD10 Code Diagnosis Note [id number] Cher Johnson MD [facility] [address] [place] [phone] 11/12/2023 17:03:28 11/13/2023 13:22:40 Pain of left shoulder joint [id number] M25.512 [id number] RUSSELL GONZALEZ MD [facility] [address] [place] [phone] [id number] 01/12/2024 19:02:20 01/13/2024 20:26:39 Pain of right eye [id number] 75078 H57.11 Evaluation in the field was performed by my elevator repairer colleague, as noted above, I provided real-time direction and supervisio n for this visit. 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 Pt reports that she was seen at [facility] and she received some [...] the setting of failing transplant -Advised to citrus picker her RX from the pharmacy and [...] Recorded Advance Directives Directive None Recorded Payers Insurance Date Sequence Insurance Name Policy Number Policy Briseno Covered Member ID Briseno Member ID Guarantor Name 01/12/2024 1 [facility] - DOS ON OR AFTER 2022 - DUAL ELIGIBLE - [employer] OPT[employer] AND ONE [employer] (MEDICARE REPLACEMENT/ADV ANTAGE - HMO) Maryanne Castromercy [id number] Maryanne Dhillonlouise Notes Date Note Type Note Provider Name and Address Organization Details Recorded Time 11/12/2023 text/html [facility] Nurse Triage Notes (Shonna Murrieta): Chief Complaints: Pain PMH: Severe Persistent Mental Illness (SPMI), CHF, Heart Disease, Other Allergies: Morphine Pain Assessment: Level 8 out of 10 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 Reports left shoulder and left upper back pain x1 week. Atraumatic. Pain exacerbated with ROM. Seen in ED on Wednesday. CT and US done, negative workup. Appt with Orthopedic MD on Wednesday. Took Tylenol today at 8am this morning. Rx Tramadol but makes patient sick. .................... .................... .................... .................... .................... .................... .................... . Fox Farmer Note From Satya Garcias: Pt co left [...] sts pain when she lays on it. [facility] contacted and 30mg toradol given IM. Pt advised to continue with appt Wednesday. Pt advised to follow up with pcp. Pt education on signs indicating the ER. Fox Farmer Allergies: Morphine .................... .................... .................... .................... .................... .................... .................... . Disposition: Fulfilled Cher Johnson MD [address] [place] [address],[address], [place], [address], [employer] 11/12/2023 17:07:46 01/12/2024 text/html [facility] Nurse Triage Notes (Una Potter): Reason For Request: Right eye pain Chief Complaints: Pain PMH: Severe Persistent Mental Illness (SPMI), CHF, Heart Disease Allergies: Morphine Comments: hx of [place], no kidney disease, glaucomac/o right eye pain/right side of head- continuous right eye painyesterday, went to the [facility] in [place] and she received some eye drops/prescription for Tylenol and codeine (not filled yet) and follow-up tomorrow, losing sight in right eye but an operation on right eye ? transplant is failing- over a year ago she had the surgery, she took tylenol but still having lots of right eye pain and requesting a visit for todayShaista sutton- Grace .................... .................... .................... .................... .................... .................... .................... . Fox Farmer Note From Jed Castrejon: Dispatched to the [...] .................... . Disposition: Melquiades GONZALEZ MD [address] [facility],[address], [place], [address], [employer] 01/12/2024 22:59:44 OBGyn Episode No OBEpisode recorded.
[2025-01-30 13:28] VITALS: BP 119/55; PULSE 85; TEMP 36.4; O2SAT 96; BMI 33.7
== END 2025-01-30 13:11 | disposition home or self-care (01) ==
LOC: HO.HBS 12:31
PROVIDERS: PCP Internal Medicine; Visit Provider Physician Assistant Surgical
DX: E66.9 Obesity, unspecified (principal); Z68.33 Body mass index [BMI] 33.0-33.9, adult; Z90.3 Acquired absence of stomach [part of]; Z98.84 Bariatric surgery status
CPT/HCPCS: 99213; G2211

== ENCOUNTER → 2025-01-30 12:30 | Outpatient (BNVA) | payer OTHER, SELFPAY | PROVIDERS: PCP Internal Medicine; Visit Provider Physician Assistant Surgical | DX: Z90.3 Acquired absence of stomach [part of] (principal); E66.9 Obesity, unspecified | CPT/HCPCS: 99212 ==

== ENCOUNTER 2025-05-09 11:22 | Outpatient (AMB) | payer OTHER, SELFPAY ==
--- NOTE | 2025-05-09 11:30 | A.OFFVIS_ITS ---
VS Expanded 05/09/25 11:32 BP 131/58 L Blood Pressure Location Rt brachial Blood Pressure Position Sitting Pulse 80 Pulse Source Pulse Oximeter Temp 97.9 F Temperature Source Temporal Artery Scan Pulse Oximetry 98 Oxygen Delivery Method Room Air Height 5 ft 4 in Weight 191 lb 6 oz BMI 32.8 Body Fat % 30.6 Body Fat Mass 58.6 Fat Free Mass 133 Visceral Fat Rating 10 Body Water % 49 Body Water Mass 94 Muscle Mass/Score 126.4 Basal Metabolic Rate/Score 1,765 Intake Visit Reasons: (OV) PO LSG 12/13/14 Accompanied by: Self / Same As Patient Allergies morphine (MORPHINE) Adverse Reaction (Intermediate, Verified 05/09/25 11:30) Confusion chocolate Adverse Reaction (Intermediate, Uncoded 02/29/24 10:15) Nausea and Vomiting feathers Adverse Reaction (Intermediate, Uncoded 02/29/24 10:15) Itching Medication List - Last Reconciled 05/09/25 by OLLIE Yadav atorvastatin 40 mg PO DAILY brimonidine 0.2% 1 drp ophthalmic (eye) BID buspirone 10 mg PO DAILY calcium citrate-vitamin D3 315 mg-5 mcg (200 unit) 1 tab PO BID clozapine 300 mg PO BEDTIME clozapine 100 mg PO BID ipratropium bromide 1 spray intranasal BID PRN lactulose 15 mL PO Q OTHER DAY PRN latanoprost 0.005% 1 drp ophthalmic (eye) DAILY levothyroxine 125 mcg PO DAILY loratadine 10 mg PO DAILY PRN metoprolol succinate ER 12.5 mg (1/2 x 25 mg) PO DAILY polyethylene glycol 3350 17 grams PO DAILY PRN timolol 0.5% 1 drp ophthalmic (eye) BID tirzepatide (Mounjaro) 10 mg (0.5 mL) subcut QWEEK tizanidine 2 mg PO BID topiramate 25 mg PO BID valacyclovir 500 mg PO BID venlafaxine ER 150 mg PO DAILY venlafaxine ER 75 mg PO DAILY vitamin A palmitate 3,000 mcg PO DAILY warfarin 1 mg PO DAILY Held on 06/24/21. Instructions: Discuss restart with Dr Mariano zinc gluconate 10 mg PO DAILY HPI Comments Details: This?is a?64?yo F who is s/p LSG 12/13/2014. Weight loss of 5lbs since last OV 3mo ago. Pt had to stop Wegovy due to insurance, switched to Mounjaro prescribed by me. At higher doses she feels better hunger suppression. She is still interested in groups restarting, tried to go to a few but had issues. Was able to get connected with a therapist at [facility], doing well. Pt reports she is currently on Eliquis, not warfarin but unsure of the dose. Pt would like to have a breast reduction, needs to lose more weight first- goal weight 192. Seeing [facility]. Is going to call them for appointment. She is experiencing back pain and issues with bra fitting due to excess breast tissue. Present meal plan includes: Premier shake sami yogurt 2pm- meal of salad with chicken sometimes fruit in evening doing better with snacking, but still struggling with depression Takes MVI Exercise routine includes: swimming 3x/week PFSH Medical History Bipolar depression History of COVID-19 Hx of glaucoma Asthma Hx of diabetes insipidus Osteoarthritis Hx of deep venous thrombosis History of seizure Schizoaffective disorder Anxiety and depression Preoperative cardiovascular examination Cardiomyopathy Surgical History History of carpal tunnel surgery of right wrist History of corneal transplant History of sleeve gastrectomy History of right knee joint replacement History of gastric surgery History of tonsillectomy H/O: hysterectomy Family History Father Liver cancer Diabetes Mother Diabetes CAD (coronary artery disease) Kidney disease Sister Lupus Social History Household Members: None Housing: Apartment Are you a primary workforce investment act career manager to a significant other at home: No Do you presently have visiting nurse or other home services: Yes Alcohol intake: never Patient Tobacco Use Status: Never used Tobacco service: No Current occupational status: disabled Physical Exam Vital Signs: Last Vital Signs Temp 97.9 F 05/09/25 11:32 Pulse 80 05/09/25 11:32 BP 131/58 L 05/09/25 11:32 Pulse Ox 98 05/09/25 11:32 Oxygen Delivery Method Room Air 05/09/25 11:32 BMI result Body Mass Index 32.8 Assessment & Plan Assessment & Plan (1) History of sleeve gastrectomy: Code(s): Z90.3 - Acquired absence of stomach [part of] Category: Medical (2) Obesity: Code(s): E66.9 - Obesity, unspecified Category: Medical Plan Pt doing well on Mounjaro. Will refill. Gave info on groups, pt very interested in attending these. RTC 6mo. Medications: Refilled tirzepatide (Mounjaro) 10 mg (0.5 mL) subcut QWEEK 2 mL 0RF
[2025-05-09 11:32] VITALS: BP 131/58; PULSE 80; TEMP 36.6; O2SAT 98; BMI 32.8
--- OUTSIDE RECORDS SUMMARY | 2025-05-09 14:13 | XMS_ITS | Data Portability ---
Author Organization [employer], [facility] Address [address] [place] [address] Care Team Providers Care Clinical Research Coordinator Name Role Phone HIM HORAEC OTHER Assessment Encounter Date Assessment Date Assessment LastModified by Organization Details LastModified Time 11/12/2023 11/12/2023 I provided real -time medical direction via phone for this encounter and was available for additional phone-based assistance as needed. I have reviewed and agree with the Assessment and Plan as documented by the Cardiac Rehab Nurse. Patient given the opportunity to ask questions. Our service contacted for an assessment of: Shoulder pain As per above, patient has had this issue for the past several weeks. Went to the ED twice this week for an evaluation. Initial tests are negative. Has an ortho appointment on Wednesday. Per conference assistant on the scene, VSS. Impression: Shoulder pain [...] mg tablet as per instruction s by [facility] COUMAD[facility] NURSE. Dosing based on INR. [...] active Not Available Not Available Not Available [facility] COVID-19 Antigen Rapid Home Test kit USE DIRECTED NEEDED active Not Available Not Available No t Available Vitals Date Recorded Oxygen saturation Oxygen saturation in Arterial blood by Pulse oximetry Respiratory rate Heart rate Body weight Body temperature Systolic And Diastolic Provider Name and Address Organization Details Last Updated DateTime 4 98 % 98 % 16 /min 76 /min 495132. 448 g 97.6 [degF] 128/70 mm[Hg] Not Available [facility] [facility] 4 17:03:30 Date Recorded Body temperature Respiratory rate Heart rate Oxygen saturation Oxygen saturation in Arterial blood by Pulse oximetry Systolic And Diastolic Provider Name and Address Organization Details Last Updated DateTime 4 97.2 [degF] 16 /min 68 /min 98 % 98 % 134/78 mm[Hg] Not Available [facility] 4 19:02:22 Social History None recorded. Functional Status None recorded. Mental Status None recorded. Family History Nothing Reported. Medical History No medical history recorded. Gynecological HistoryNo gynecological history recorded. Obstetrics History GPAL:G 0 P 0 0 0 0 Past Encounters Encounter ID Performer Location Encounter Start Date Encounter Closed Date Diagnosis/Indication Diagnosis SNOMED-CT Code Diagnosis ICD10 Code Diagnosis IMO Codes Diagnosis Note [id number] Cher Johnson MD [facility] [address] [place] [phone] 11/12/2023 17:03:28 11/13/2023 13:22:40 Pain of left shoulder joint [id number] M25.512 [id number] RUSSELL GONZALEZ MD [facility] [address] [place] [address] 01/12/2024 19:02:20 01/13/2024 20:26:39 Pain of right eye [id number] 41435 H57.11 Evaluation in the field was performed by my conference assistant colleague, as noted above, I provided real-time direction and supervisio n for this visit. The evaluation revealed 63 yo female with hx of ND, afib on Apixaban per report, glaucoma s/p corneal transplant on the right eye c/o right eye pain/right side of head- since yesterday. Pt reports that she was seen at [facility] and she received [...] the setting of failing transplant -Advised to picker box operator her RX from the pharmacy and stop [...] Briseno Member ID Guarantor Name 01/12/2024 1 [facility] - DOS ON OR AFTER 2022 - DUAL ELIGIBLE - DETENTION OPTIONS AND ONE CARE (MEDICARE REPLACEMENT/ADV ANTAGE - HMO) Maryanne Dhillonkeely [id number] Maryanne Dhillonlouise Notes Date Note Type Note Provider Name and Address Organization Details Recorded Time 11/12/2023 text/html CRC Nurse Triage Notes (Shonna Murrieta): Chief Complaints: Pain PMH: Severe Persistent Mental Illness (SPMI), CHF, Heart Disease, Other Allergies: Morphine Pain Assessment: Level 8 out of 10 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 Reports left shoulder and left upper back pain x1 week. Atraumatic. Pain exacerbated with ROM. Seen in ED on Wednesday. CT and US done, negative workup. Appt with Orthopedic MD on Wednesday. Took Tylenol today at 8am this morning. Rx Tramadol but makes patient sick. .................... .................... .................... .................... .................... .................... .................... . Cardiac Rehab Nurse Note From Satya Garcias: Pt co left [...] Pt education on signs indicating the ER. Cardiac Rehab Nurse Allergies: Morphine .................... .................... .................... .................... .................... .................... .................... . Disposition: Fulfilled Cher Johnson MD [address] [place] [address],[address], [place], [phone], [employer] 11/12/2023 17:07:46 01/12/2024 text/html ROS as noted in the [facility] CRC Nurse Triage Notes (Una Potter): Reason For Request: Right eye pain Chief Complaints: Pain PMH: Severe Persistent Mental Illness (SPMI), CHF, Heart Disease Allergies: Morphine Comments: hx of ND, no kidney disease, glaucomac/o right eye pain/right side of head- continuous right eye painyesterday, went to the [facility] in [place] and she received some eye drops/prescription for Tylenol and codeine (not filled yet) and follow-up tomorrow, losing sight in right eye but an operation on right eye ? transplant is failing- over a year ago she had the surgery, she took tylenol but still having lots of right eye pain and requesting a visit for Jared sutton- Grace .................... .................... .................... .................... .................... .................... .................... . Cardiac Rehab Nurse Note From Jed Castrejon: Dispatched to the [...] .................... . Disposition: Melquiades GONZALEZ MD [address] [facility],[address], [place], [phone], [employer] 01/12/2024 22:59:44 OBGyn Episode No OBEpisode recorded.
== END 2025-05-09 12:20 | disposition home or self-care (01) ==
LOC: HO.HBS 11:23
PROVIDERS: PCP Internal Medicine; Visit Provider Physician Assistant Surgical
DX: E66.9 Obesity, unspecified (principal); Z68.32 Body mass index [BMI] 32.0-32.9, adult; Z90.3 Acquired absence of stomach [part of]; Z98.84 Bariatric surgery status
CPT/HCPCS: 99213; G2211

== ENCOUNTER → 2025-05-09 11:22 | Outpatient (BNVA) | payer OTHER, SELFPAY | PROVIDERS: PCP Internal Medicine; Visit Provider Physician Assistant Surgical | DX: E66.3 Overweight (principal); Z90.3 Acquired absence of stomach [part of]; Z79.85 Long-term (current) use of injectable non-insulin antidiabetic drugs; Z68.32 Body mass index [BMI] 32.0-32.9, adult | CPT/HCPCS: 99212 ==